=== PATIENT | male | born 1995 | race Caucasian/White ===

== ENCOUNTER → 2019-09-08 | Outpatient (CLI) | payer BC, OTHER, MEDICAID ==
--- NOTE | 2019-09-10 14:39 | ECGEPIP ---
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
== END ==
LOC: M LAB 15:22
PROVIDERS: ATTEND Family Medicine
DX: F11.90 Opioid use, unspecified, uncomplicated (principal)

== ENCOUNTER → 2019-09-08 | Outpatient (CLI) | payer BC, OTHER, MEDICAID | LOC: M LAB 15:16 | PROVIDERS: ATTEND Physician Assistant Medical | DX: Z02.2 Encounter for examination for admission to residential institution (principal) ==

== ENCOUNTER 2019-10-05 19:08 | Emergency (ER) | payer BC, OTHER, MEDICAID ==
[~2019-10-05] VITALS: Ht 188 cm; Wt 90.9 kg
[2019-10-05] MEDS ORDERED: BACL5TAB2 PO (19:15)
[2019-10-05] MEDS ORDERED: SUBO12MI SL (19:15)
[2019-10-05] MEDS ORDERED: WELLTAB38 PO (19:15)
[2019-10-05] MEDS ORDERED: RITA5TAB PO (19:15)
[2019-10-05] MEDS ORDERED: NS 1,000 ML IV ONE (19:45)
[2019-10-05] MEDS ORDERED: ALBUTEROL 90 MCG/ACT 8GM HFA INHALER INH ONE (19:45)
[2019-10-05] MEDS ORDERED: methylPREDNISolone INJ 125 MG/2 ML VIAL (J2930) IV ONE (19:45)
--- NOTE | 2019-10-05 20:51 | REP ---
CHEST, SINGLE VIEW: There is no evidence of acute infiltrate. No pleural effusion is seen. The heart is normal in size. The mediastinal silhouette is unremarkable. The visualized osseous structures are intact. IMPRESSION: No acute pulmonary disease. Electronically Signed by Chaim Ludwig MD 10/06/2019 10:32 A
[2019-10-05 21:04] LABS: AMPHETAMINES LEVEL URINE NEGATIVE (NEGATIVE); BARBITURATES URINE NEGATIVE (NEGATIVE); BENZODIAZEPINES URINE NEGATIVE (NEGATIVE); CANNABINOIDS URINE NEGATIVE (NEGATIVE); COCAINE METABOLITE URINE NEGATIVE (NEGATIVE); METHADONE URINE NEGATIVE (NEGATIVE); OPIATES URINE NEGATIVE (NEGATIVE); PHENCYCLIDINE URINE NEGATIVE (NEGATIVE)
[2019-10-05 21:11] LABS: BASO % 0.5 % (0.0-1.0); EOS # 0.2 10^3/uL (0.0-0.5); EOS % 3.4 % (0.0-3.0); HEMOGLOBIN 16.7 g/dl (13.5-17.5); LYMPH # 1.7 10^3/uL (1.5-5.0); LYMPH % 27.9 % (24.0-44.0); MEAN CORPUSCULAR HEMOGLOBIN 31.2 pg (27.0-33.0); MEAN CORPUSCULAR HGB CONC 34.1 g/dl (32.0-36.5); MEAN CORPUSCULAR VOLUME 91.6 fl (80.0-96.0); MONO # 0.6 10^3/uL (0.0-0.8); NEUTROPHILS # 3.6 10^3/uL (1.5-8.5); NEUTROPHILS % 57.7 % (36.0-66.0); PLATELET COUNT, AUTOMATED 272 10^3/uL (150-450); RED BLOOD COUNT 5.35 10^6/uL (4.30-6.10); WHITE BLOOD COUNT 6.2 10^3/uL (4.0-10.0)
[2019-10-05 21:37] LABS: BLOOD UREA NITROGEN 17 MG/DL (7-18); CALCIUM LEVEL 10.1 MG/DL (8.5-10.1); CARBON DIOXIDE LEVEL 31 MEQ/L (21-32); CHLORIDE LEVEL 105 MEQ/L (98-107); CK-MB VALUE MASS 1.6 NG/ML (<3.6); CPK CREATINE PHOSPHOKINASE 130 U/L (39-308); GLOMERULAR FILTRATION RATE > 60.0 (>60); GLUCOSE, FASTING 90 MG/DL (70-100); MB/CK RELATIVE INDEX 1.23 (< OR =4); POTASSIUM SERUM 4.2 MEQ/L (3.5-5.1); SODIUM LEVEL 140 MEQ/L (136-145); TROPONIN I < 0.02 NG/ML (< 0.10)
[2019-10-05] MEDS ORDERED: EPIP0.3I2 IM (21:49)
[2019-10-05 22:40] VITALS: BP 139/75
--- NOTE | 2019-10-06 01:23 | ECGEPIP ---
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
== END 2019-10-05 22:43 | disposition home or self-care (01) ==
LOC: M ED 19:08
DX: R07.89 Other chest pain (principal); R21 Rash and other nonspecific skin eruption; R06.2 Wheezing; T78.1XXA Other adverse food reactions, not elsewhere classified, initial encounter; Y92.89 Other specified places as the place of occurrence of the external cause; B19.20 Unspecified viral hepatitis C without hepatic coma; Z79.899 Other long term (current) drug therapy
CPT/HCPCS: 36415; 71045; 80048; 80307; 82550; 82553; 84484; 85025; 93005; 96374; 99284; J2930

== ENCOUNTER 2019-10-08 10:08 | Emergency (ER) | payer BC, OTHER, MEDICAID ==
[~2019-10-08] VITALS: Ht 188 cm; Wt 100.0 kg
[~2019-10-08 10:08] MED LIST: BACL5TAB2 PO; EPIP0.3I2 IM; RITA5TAB PO; SUBO12MI SL; WELLTAB38 PO
[2019-10-08] MEDS ORDERED: SERO200T PO (10:23)
[2019-10-08 11:08] LABS: BASO % 0.6 % (0.0-1.0); EOS # 0.1 10^3/uL (0.0-0.5); HEMATOCRIT 45.4 % (42.0-52.0); LYMPH # 1.8 10^3/uL (1.5-5.0); LYMPH % 38.1 % (24.0-44.0); MEAN CORPUSCULAR HEMOGLOBIN 30.8 pg (27.0-33.0); MEAN CORPUSCULAR VOLUME 93.2 fl (80.0-96.0); MONO # 0.5 10^3/uL (0.0-0.8); MONO % 11.4 % (0.0-5.0); NEUTROPHILS # 2.1 10^3/uL (1.5-8.5); NEUTROPHILS % 46.3 % (36.0-66.0); PLATELET COUNT, AUTOMATED 235 10^3/uL (150-450); RED BLOOD COUNT 4.87 10^6/uL (4.30-6.10); WHITE BLOOD COUNT 4.6 10^3/uL (4.0-10.0)
[2019-10-08 11:27] LABS: BLOOD UREA NITROGEN 14 MG/DL (7-18); CALCIUM LEVEL 8.9 MG/DL (8.5-10.1); CARBON DIOXIDE LEVEL 30 MEQ/L (21-32); CHLORIDE LEVEL 105 MEQ/L (98-107); CK-MB VALUE MASS 4.6 NG/ML (<3.6); CPK CREATINE PHOSPHOKINASE 117 U/L (39-308); CREATININE FOR GFR 1.04 MG/DL (0.70-1.30); GLOMERULAR FILTRATION RATE > 60.0 (>60); GLUCOSE, FASTING 115 MG/DL (70-100); MB/CK RELATIVE INDEX 3.93 (< OR =4); POTASSIUM SERUM 4.1 MEQ/L (3.5-5.1); SODIUM LEVEL 141 MEQ/L (136-145); TROPONIN I < 0.02 NG/ML (< 0.10)
[2019-10-08] MEDS ORDERED: ALBUTEROL 90 MCG/ACT 8GM HFA INHALER INH ONE (11:30)
--- NOTE | 2019-10-08 13:19 | REP ---
Portable chest: Single view. History: Left chest pain. Wheezing. Comparison study: October 05, 2019. Findings: Monitoring electrodes overlie the chest. Lungs are well inflated and clear. The pleural angles are sharp. Heart is not enlarged. Pulmonary vasculature is not increased. Impression: No active disease. Electronically Signed by Yusuf Bynum MD 10/08/2019 01:10 P
[2019-10-08] MEDS ORDERED: PRED20TA PO (13:23)
[2019-10-08] MEDS ORDERED: predniSONE 20 MG TAB PO ONE (13:30)
[2019-10-08 13:37] VITALS: BP 138/74
--- NOTE | 2019-10-08 14:31 | ECGEPIP ---
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 Order Number: [id number] Reading MD: Kayode Sauceda Measurements Intervals [place] Rate: 96 P: 52 [place]: 160 QRS: 81 QRSD: 98 T: 54 QT: 349 QTc: 441 Interpretive Statements SINUS RHYTHM SIMILAR TO 10/05/19 Electronically Signed on 10-08-2019 14:31:35 EDT by Kyaode Sauceda
== END 2019-10-08 13:55 | disposition home or self-care (01) ==
LOC: M ED 10:08
DX: J20.9 Acute bronchitis, unspecified (principal); H66.91 Otitis media, unspecified, right ear; B19.20 Unspecified viral hepatitis C without hepatic coma; F17.210 Nicotine dependence, cigarettes, uncomplicated; F11.11 Opioid abuse, in remission; Z79.899 Other long term (current) drug therapy
CPT/HCPCS: 36415; 71045; 80048; 82550; 82553; 84484; 85025; 85379; 93005; 93041; 94760; 99285; U0002

== ENCOUNTER 2019-10-11 15:13 | Emergency (ER) | payer BC, OTHER, MEDICAID ==
[~2019-10-11] VITALS: Ht 188 cm; Wt 98.5 kg
[~2019-10-11 15:13] MED LIST changes: +PRED20TA PO; +SERO200T PO
[2019-10-11] MEDS ORDERED: NS 1,000 ML IV ONE (16:00)
[2019-10-11] MEDS ORDERED: KETOROLAC 30 MG/ML VIAL (J1885) IV ONE (16:00)
[2019-10-11] MEDS ORDERED: ALBUTEROL 90 MCG/ACT 8GM HFA INHALER INH ONE (16:00)
[2019-10-11] MEDS ORDERED: dexameTHASONE 20MG/5ML VIAL (J1100 PER 1MG) IV ONE (16:15)
[2019-10-11 16:48] LABS: BASO # 0.1 10^3/uL (0.0-0.2); BASO % 0.5 % (0.0-1.0); HEMOGLOBIN 15.3 g/dl (13.5-17.5); LYMPH # 2.4 10^3/uL (1.5-5.0); LYMPH % 19.2 % (24.0-44.0); MEAN CORPUSCULAR HEMOGLOBIN 30.4 pg (27.0-33.0); MEAN CORPUSCULAR HGB CONC 33.3 g/dl (32.0-36.5); MEAN CORPUSCULAR VOLUME 91.3 fl (80.0-96.0); MONO # 1.2 10^3/uL (0.0-0.8); MONO % 9.4 % (0.0-5.0); NEUTROPHILS # 8.8 10^3/uL (1.5-8.5); NEUTROPHILS % 69.1 % (36.0-66.0); PLATELET COUNT, AUTOMATED 299 10^3/uL (150-450); RED BLOOD COUNT 5.04 10^6/uL (4.30-6.10); WHITE BLOOD COUNT 12.7 10^3/uL (4.0-10.0)
[2019-10-11 17:03] LABS: INR 0.96; PROTHROMBIN TIME 12.5 SECONDS (11.8-14.0)
[2019-10-11 17:04] LABS: PARTIAL THROMBOPLASTIN TIME 20.9 SECONDS (25.0-38.4)
[2019-10-11 17:06] LABS: D-DIMER QUANT 365.8 ng/ml (<500)
[2019-10-11 17:26] LABS: ALBUMIN 3.8 GM/DL (3.2-5.2); ALT/SGPT 575 U/L (12-78); BILIRUBIN,TOTAL 0.4 MG/DL (0.2-1.0); BLOOD UREA NITROGEN 22 MG/DL (7-18); CALCIUM LEVEL 8.6 MG/DL (8.5-10.1); CARBON DIOXIDE LEVEL 26 MEQ/L (21-32); CHLORIDE LEVEL 106 MEQ/L (98-107); CK-MB VALUE MASS < 1.0 NG/ML (<3.6); CPK CREATINE PHOSPHOKINASE 98 U/L (39-308); CREATININE FOR GFR 1.17 MG/DL (0.70-1.30); GLOMERULAR FILTRATION RATE > 60.0 (>60); GLUCOSE, FASTING 91 MG/DL (70-100); MB/CK RELATIVE INDEX 1.02 (< OR =4); POTASSIUM SERUM 5.4 MEQ/L (3.5-5.1); SODIUM LEVEL 136 MEQ/L (136-145); TOTAL PROTEIN 8.2 GM/DL (6.4-8.2); TROPONIN I < 0.02 NG/ML (< 0.10)
--- NOTE | 2019-10-11 17:29 | REP ---
HISTORY: Coronavirus workup. Patient is febrile. COMPARISON: Three days ago. The technique utilized in obtaining the radiograph has magnified the cardiac silhouette and accentuated the interstitial markings. The superior mediastinal structures are midline. The cardiac silhouette is unremarkable in size, shape, and position. The diaphragmatic surfaces of the lungs are regular, and the costophrenic angles are clear. The pulmonary zuñiga are clear. The imaged osseous structures are intact. IMPRESSION: There is no acute cardiopulmonary disease. Electronically Signed by Jordy Rios DO 10/12/2019 07:35 A
[2019-10-11 17:58] LABS: LIPASE < 10 U/L (73-393)
[2019-10-11] MEDS ORDERED: ISOVUE-370 76% 100ML VIAL (Q9967) As Ordered ONE (19:09)
--- NOTE | 2019-10-11 19:46 | REPVR ---
PROCEDURE INFORMATION: Exam: CT Angiography Chest With Contrast Exam date and time: 10/11/2019 7:15 PM Age: 23 years old Clinical indication: Chest pain and shortness of breath. TECHNIQUE: Imaging protocol: Computed tomographic angiography of the chest with intravenous contrast. 3D rendering: MIP reconstructed images were created by the technologist. Radiation optimization: All CT scans at this facility use at least one of these dose optimization techniques: automated exposure control; mA and/or kV adjustment per patient size (includes targeted exams where dose is matched to clinical indication); or iterative reconstruction. Contrast material: ISOVUE 370; Contrast volume: 100 ml; Contrast route: IV; COMPARISON: [facility] PORTABLE CHEST X-RAY 10/11/2019 4:02 PM FINDINGS: Pulmonary arteries: No pulmonary embolism. Great vessels off aortic arch: The brachiocephalic artery, imaged proximal portion of the left common carotid artery, and left subclavian artery are intact. No stenosis or occlusion of these vessels is noted. Aorta: There is no thoracic aortic aneurysm, pseudoaneurysm, penetrating atherosclerotic ulcer, intramural hematoma, or dissection. Tracheobronchial tree: Patent. Lungs: The lungs are clear. There is no lung consolidation, pulmonary infarct, or mass. No emphysematous changes or interstitial lung disease is noted. Pleural space: Normal. No pneumothorax. No pleural effusion. Heart: No cardiomegaly or pericardial effusion. The ratio of the diameter of the right ventricle to the diameter of the left ventricle measures less than 1, which is within normal limits and there is no evidence for a right ventricular strain. Mediastinum: No mediastinal mass, fluid collection, or pneumomediastinum is noted. Diaphragm: Intact. Lymph nodes: No enlarged lymph nodes. Bones/joints: No fracture or dislocation is noted. There is no suspicious osteolytic or osteoblastic lesion. Incidental note is made of a small bone island in the T8 vertebral body. There are Schmorl's nodes in the inferior endplate of T5 and superior and inferior endplates of T6. Soft tissues: Unremarkable. No soft tissue fluid collection. Other findings: Refer to the CT abdomen and pelvis report on 10/11/2019 for details regarding the abdominal and pelvic findings. IMPRESSION: No acute findings in the chest. No pulmonary embolism. Electronically signed by: Moisés Hammonds On 10/11/2019 19:46:47 PM
--- NOTE | 2019-10-11 19:47 | REPVR ---
PROCEDURE INFORMATION: Exam: CT Abdomen And Pelvis With Contrast Exam date and time: 10/11/2019 7:15 PM Age: 23 years old Clinical indication: Abdominal pain; Additional info: Luq pain TECHNIQUE: Imaging protocol: Computed tomography of the abdomen and pelvis with intravenous contrast. Radiation optimization: All CT scans at this facility use at least one of these dose optimization techniques: automated exposure control; mA and/or kV adjustment per patient size (includes targeted exams where dose is matched to clinical indication); or iterative reconstruction. Contrast material: ISOVUE 370; Contrast volume: 100 ml; Contrast route: IV; COMPARISON: No relevant prior studies available. FINDINGS: Lungs: The imaged portions of the lung bases are clear. The lungs were not fully imaged. Refer to the CTA chest report on 10/11/2019 for details. Heart: No cardiomegaly or pericardial effusion. Diaphragm: Intact. Liver: Unremarkable. No liver lesion is identified. The contour of the liver is smooth. No hepatomegaly is noted. Gallbladder and bile ducts: No calcified gallstones are noted. No gallbladder wall thickening, pericholecystic fluid, or pericholecystic inflammatory changes are identified. No dilation of the intrahepatic or extrahepatic bile ducts is noted. Pancreas: Normal. No dilation of the main pancreatic duct is noted. There is no inflammatory fat stranding around the pancreas to suggest acute pancreatitis. Spleen: The spleen is heterogeneous in appearance, which is likely secondary to the arterial timing of the contrast bolus. No splenomegaly. Adrenals: Normal. No adrenal mass is noted. Kidneys and ureters: The kidneys are normal in appearance. No renal lesion is identified. No calculi are seen in the kidneys or ureters. There is no hydronephrosis or hydroureter. There are no wedge-shaped areas of low attenuation in the kidneys to suggest pyelonephritis. There is no renal abscess or perinephric fluid collection. Stomach and bowel: There is thickening of the wall of the stomach, which may be secondary to its decompressed state versus gastritis. The small bowel is unremarkable. There is no evidence for a bowel obstruction, diverticulosis, diverticulitis, colitis, perforated viscus, pneumatosis intestinalis, intussusception, or volvulus. There is a large amount of formed stool in the cecum, ascending colon, and transverse colon. There is a mild amount of formed stool in the descending colon and rectosigmoid. Appendix: There are no findings to suggest acute appendicitis. Intraperitoneal space: No free air. No fluid collection. Retroperitoneal space: No fluid collection. No mass. Vasculature: The portal veins, splenic vein, superior mesenteric vein, inferior mesenteric vein, and renal veins are patent. The abdominal aorta is patent, normal in caliber, and there is no dissection. The iliac arteries, common femoral arteries, renal arteries, celiac artery, superior mesenteric artery, and inferior mesenteric artery are patent. Incidental note is made of small round calcifications in the pelvis, which are compatible with phleboliths. Lymph nodes: No enlarged lymph nodes. Bladder: The distended urinary bladder is normal in appearance. No stones or masses are seen in the bladder. Reproductive: The prostate gland and seminal vesicles are unremarkable. Bones/joints: No fracture or dislocation is noted. There is no suspicious osteolytic or osteoblastic lesion. There is a mild dextroscoliosis at the thoracolumbar junction. Soft tissues: Unremarkable. No hernia. No soft tissue fluid collection. IMPRESSION: 1. Thickening of the wall of the stomach, which may be secondary to its decompressed state versus gastritis. 2. Large amount of formed stool in the cecum, ascending colon, and transverse colon. No evidence for a bowel obstruction. Electronically signed by: Moisés Hammonds On 10/11/2019 19:47:24 PM
[2019-10-11] MEDS ORDERED: GOLYLQ PO (20:58)
[2019-10-11] MEDS ORDERED: SENO8.6T10 PO (20:58)
[2019-10-11] MEDS ORDERED: MIRA3350 PO (20:58)
[2019-10-11 21:04] VITALS: BP 155/82
--- NOTE | 2019-10-12 08:33 | ECGEPIP ---
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
--- NOTE | 2019-10-14 14:16 | ED PDOC ---
Post-Departure Follow-Up ct abd/p faxed to gautam young for fu Ivon Adorno MD Oct 14, 2019 14:16
== END 2019-10-11 21:12 | disposition home or self-care (01) ==
LOC: M ED 15:13
DX: R07.9 Chest pain, unspecified (principal); R94.5 Abnormal results of liver function studies; B19.9 Unspecified viral hepatitis without hepatic coma; F17.200 Nicotine dependence, unspecified, uncomplicated; Z79.899 Other long term (current) drug therapy; Z79.52 Long term (current) use of systemic steroids
CPT/HCPCS: 71045; 71275; 74177; 80053; 82550; 82553; 83690; 84484; 85025; 85379; 85610; 85730; 86140; 87486; 87581; 87633; 87798; 93005; 94640; 96374; 96375; 99284; J1100; J1885; Q9967

== ENCOUNTER → 2019-10-13 | Outpatient (CLI) | payer BC, OTHER, MEDICAID ==
[~2019-10-13] MED LIST changes: +BUPR8SUB SL; +EPIP0.3I2 IJ; +GOLYLQ PO; +LACT10PA PO; +METH-1022 PO; +METH20TA31 PO; +MIRA3350 PO; +QUET100T2 PO; +SENN1TAB41 PO; +SENO8.6T10 PO; +WELLTAB40 PO
[2019-10-13 14:17] LABS: ALT/SGPT 406 U/L (12-78); BILIRUBIN,TOTAL 0.4 MG/DL (0.2-1.0); BLOOD UREA NITROGEN 22 MG/DL (7-18); CALCIUM LEVEL 8.8 MG/DL (8.5-10.1); CARBON DIOXIDE LEVEL 27 MEQ/L (21-32); CHLORIDE LEVEL 106 MEQ/L (98-107); GLOMERULAR FILTRATION RATE > 60.0 (>60); GLUCOSE, FASTING 90 MG/DL (70-100); POTASSIUM SERUM 3.6 MEQ/L (3.5-5.1); SODIUM LEVEL 140 MEQ/L (136-145); TOTAL PROTEIN 7.8 GM/DL (6.4-8.2)
== END ==
LOC: M LAB 13:13
PROVIDERS: ATTEND Physician Assistant Medical
DX: B18.2 Chronic viral hepatitis C (principal)

== ENCOUNTER 2019-10-14 12:54 | Emergency (ER) | payer BC, OTHER, MEDICAID ==
[~2019-10-14] VITALS: Ht 188 cm; Wt 100.0 kg
[~2019-10-14 12:54] MED LIST changes: -BUPR8SUB SL; -EPIP0.3I2 IJ; -LACT10PA PO; -METH-1022 PO; -METH20TA31 PO; -QUET100T2 PO; -SENN1TAB41 PO; -WELLTAB40 PO
[2019-10-14 14:16] LABS: HEMATOCRIT 50.4 % (42.0-52.0); HEMOGLOBIN 16.8 g/dl (13.5-17.5); MEAN CORPUSCULAR HEMOGLOBIN 30.5 pg (27.0-33.0); MEAN CORPUSCULAR HGB CONC 33.3 g/dl (32.0-36.5); MEAN CORPUSCULAR VOLUME 91.6 fl (80.0-96.0); PLATELET COUNT, AUTOMATED 299 10^3/uL (150-450); WHITE BLOOD COUNT 9.7 10^3/uL (4.0-10.0)
[2019-10-14 14:48] LABS: AMPHETAMINES LEVEL URINE NEGATIVE (NEGATIVE); BARBITURATES URINE NEGATIVE (NEGATIVE); BENZODIAZEPINES URINE NEGATIVE (NEGATIVE); CANNABINOIDS URINE NEGATIVE (NEGATIVE); COCAINE METABOLITE URINE NEGATIVE (NEGATIVE); METHADONE URINE NEGATIVE (NEGATIVE); OPIATES URINE NEGATIVE (NEGATIVE); PHENCYCLIDINE URINE NEGATIVE (NEGATIVE)
[2019-10-14 14:52] LABS: ATYPICAL LYMPH 17 % (0-5); BASOPHILS 1 % (0-1); EOSINOPHILS 1 % (0-3); LYMPHOCYTES 42 % (16-44); MONOCYTES 4 % (0-5); NEUTROPHILS 35 % (28-66)
[2019-10-14 14:53] LABS: PLATELET ESTIMATE NORMAL (NORMAL)
[2019-10-14 14:56] LABS: ALBUMIN 4.5 GM/DL (3.2-5.2); ALT/SGPT 488 U/L (12-78); BILIRUBIN,DIRECT 0.1 MG/DL (0.0-0.2); BILIRUBIN,TOTAL 0.6 MG/DL (0.2-1.0); BLOOD UREA NITROGEN 21 MG/DL (7-18); CALCIUM LEVEL 9.6 MG/DL (8.5-10.1); CARBON DIOXIDE LEVEL 30 MEQ/L (21-32); CHLORIDE LEVEL 102 MEQ/L (98-107); CK-MB VALUE MASS < 1.0 NG/ML (<3.6); CPK CREATINE PHOSPHOKINASE 85 U/L (39-308); CREATININE FOR GFR 1.12 MG/DL (0.70-1.30); GLOMERULAR FILTRATION RATE > 60.0 (>60); GLUCOSE, FASTING 71 MG/DL (70-100); LIPASE 28 U/L (73-393); MB/CK RELATIVE INDEX 1.18 (< OR =4); POTASSIUM SERUM 4.1 MEQ/L (3.5-5.1); SODIUM LEVEL 137 MEQ/L (136-145); TROPONIN I < 0.02 NG/ML (< 0.10)
[2019-10-14] MEDS ORDERED: NS 1,000 ML IV ONE ×2 (15:30→15:45)
[2019-10-14] MEDS ORDERED: KETOROLAC 30 MG/ML VIAL (J1885) IV ONE (15:30)
[2019-10-14] MEDS ORDERED: LACTULOSE 20 GM/30 ML SYRUP UD PO ONE (15:30)
[2019-10-14] MEDS ORDERED: SENN1TAB41 PO (16:02)
[2019-10-14] MEDS ORDERED: QUET100T2 PO (16:02)
[2019-10-14] MEDS ORDERED: BUPR8SUB SL (16:02)
[2019-10-14] MEDS ORDERED: EPIP0.3I2 IJ (16:02)
[2019-10-14] MEDS ORDERED: METH20TA31 PO (16:05)
[2019-10-14] MEDS ORDERED: METH-1022 PO (16:05)
[2019-10-14] MEDS ORDERED: WELLTAB40 PO (16:05)
--- NOTE | 2019-10-14 17:24 | REP ---
ABDOMINAL SERIES: Supine and erect views of the abdomen demonstrate no free air. There is mild distention of the stomach, colon and small bowel throughout the upper abdomen. There is air scattered throughout the left and rectosigmoid colon. The findings suggest a possible upper abdominal ileus. There is no definite evidence for obstruction. There appear to be a could of tiny phleboliths in the right pelvis. A PA view of the chest demonstrates no acute infiltrate. Heart and mediastinum are within normal limits. IMPRESSION: Mild distention of bowel in the upper abdomen may represent an ileus. No free air and no definite evidence for obstruction. Electronically Signed by Chaim Ludwig MD 10/15/2019 09:32 A
[2019-10-14 17:33] VITALS: BP 151/74
--- NOTE | 2019-10-14 17:44 | REPVR ---
PROCEDURE INFORMATION: Exam: CT Abdomen And Pelvis Without Contrast Exam date and time: 10/14/2019 3:59 PM Age: 23 years old Clinical indication: Abdominal pain; Generalized; Additional info: Diffuse abd pain TECHNIQUE: Imaging protocol: Computed tomography of the abdomen and pelvis without contrast. Radiation optimization: All CT scans at this facility use at least one of these dose optimization techniques: automated exposure control; mA and/or kV adjustment per patient size (includes targeted exams where dose is matched to clinical indication); or iterative reconstruction. COMPARISON: CT ABD/PEL W/IV CONTRAST ONLY 10/11/2019 7:12 PM FINDINGS: Liver: Normal. No mass. Gallbladder and bile ducts: Normal. No calcified stones. No ductal dilation. Pancreas: Normal. No ductal dilation. Spleen: Normal. No splenomegaly. Adrenals: Normal. No mass. Kidneys and ureters: Normal. No hydronephrosis. Stomach and bowel: Features suggestive of an acute enteritis versus enterocolitis. There is excessive fluid present in the mid to distal small bowel together with liquid stool in the proximal large bowel. Air-fluid levels are present but most are relatively non-differential. No evidence of bowel obstruction. No free intraperitoneal air or fluid. Small shotty lymph nodes are seen in the small bowel mesentery, only. The likely cause for the findings is an acute enteritis with a diarrheal component versus a mild acute enterocolitis. No areas of severe mucosal thickening seen in either the small bowel or large bowel. A moderate amount of desiccated stool is seen in the distal large bowel suggestive of some degree of colonic stasis. Appendix: No evidence of appendicitis. Vasculature: Unremarkable. No abdominal aortic aneurysm. Lymph nodes: No significant retroperitoneal lymphadenopathy. Bladder: Unremarkable as visualized. Reproductive: Unremarkable as visualized. Bones/joints: Unremarkable. No acute fracture. Soft tissues: Unremarkable. IMPRESSION: Features suggestive of an acute enteritis versus enterocolitis. There is excessive fluid present in the mid to distal small bowel together with liquid stool in the proximal large bowel. Air-fluid levels are present but most are relatively non-differential. No evidence of bowel obstruction. No free intraperitoneal air or fluid. Small shotty lymph nodes are seen in the small bowel mesentery, only. The likely cause for the findings is an acute enteritis with a diarrheal component versus a mild acute enterocolitis. No areas of severe mucosal thickening seen in either the small bowel or large bowel. A moderate amount of desiccated stool is seen in the distal large bowel suggestive of some degree of colonic stasis. Electronically signed by: Charlie Davalos On 10/14/2019 17:44:20 PM
[2019-10-14] MEDS ORDERED: LACT10PA PO (17:57)
[2019-10-14] MEDS ORDERED: MAGNESIUM CITRATE 300 ML BTL PO ONE (18:00)
--- NOTE | 2019-10-15 12:26 | ECGEPIP ---
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
== END 2019-10-14 18:06 | disposition home or self-care (01) ==
LOC: M ED 12:54
DX: K59.00 Constipation, unspecified (principal); E86.0 Dehydration; B19.20 Unspecified viral hepatitis C without hepatic coma; K52.9 Noninfective gastroenteritis and colitis, unspecified; Z79.899 Other long term (current) drug therapy; Z79.891 Long term (current) use of opiate analgesic; F17.210 Nicotine dependence, cigarettes, uncomplicated
CPT/HCPCS: 74021; 74176; 80048; 80076; 80307; 81001; 82550; 82553; 83605; 83690; 84484; 85025; 93005; 96361; 96374; 99284; J1885

== ENCOUNTER → 2020-02-22 | Outpatient (CLI) | payer BC, OTHER, MEDICAID ==
[~2020-02-22] MED LIST changes: +BACT800T5 PO; +BUPR8SUB SL; +EPIP0.3I2 IJ; +LACT10PA PO; +METH-1022 PO; +METH20TA31 PO; +PAXI20TA29 PO; +QUET100T2 PO; +SENN1TAB41 PO; +WELLTAB40 PO
[2020-04-03 11:26] LABS: ALT/SGPT 160 U/L (12-78); BILIRUBIN,TOTAL 0.3 MG/DL (0.2-1.0); BLOOD UREA NITROGEN 14 MG/DL (7-18); CALCIUM LEVEL 9.3 MG/DL (8.5-10.1); CARBON DIOXIDE LEVEL 28 MEQ/L (21-32); CHLORIDE LEVEL 106 MEQ/L (98-107); CREATININE FOR GFR 1.09 MG/DL (0.70-1.30); GLOMERULAR FILTRATION RATE > 60.0 (>60); GLUCOSE, FASTING 111 MG/DL (70-100); HEPATITIS B SURFACE ANTIGEN NEGATIVE (NEGATIVE); HEPATITIS C VIRUS ABY INDEX > 11.0 INDEX (<0.8); HIV 1&2 SCREEN CENTAUR NEGATIVE (NEGATIVE); SODIUM LEVEL 138 MEQ/L (136-145); TOTAL PROTEIN 7.6 GM/DL (6.4-8.2)
[2020-04-04 10:56] LABS: CHLAMYDIA DNA AMPLIFICATION NEGATIVE (NEGATIVE); GC DNA AMPLIFICATION NEGATIVE (NEGATIVE)
[2020-04-10 21:57] LABS: HEMATOCRIT 44.2 % (42.0-52.0); HEMOGLOBIN 14.6 g/dl (13.5-17.5); MEAN CORPUSCULAR HEMOGLOBIN 30.6 pg (27.0-33.0); MEAN CORPUSCULAR VOLUME 92.7 fl (80.0-96.0); PLATELET COUNT, AUTOMATED 257 10^3/uL (150-450); RED BLOOD COUNT 4.77 10^6/uL (4.30-6.10); WHITE BLOOD COUNT 6.3 10^3/uL (4.0-10.0)
== END ==
LOC: M LAB 10:40
PROVIDERS: ATTEND Family Medicine
DX: F11.10 Opioid abuse, uncomplicated (principal)

== ENCOUNTER 2020-02-23 11:28 | Emergency (ER) | payer BC, OTHER, MEDICAID ==
[~2020-02-23] VITALS: Ht 188 cm; Wt 103.7 kg
[~2020-02-23 11:28] MED LIST changes: -BACT800T5 PO; -PAXI20TA29 PO
[2020-02-23] MEDS ORDERED: PAXI20TA29 PO (11:38)
[2020-02-23 15:02] LABS: BASO # 0.1 10^3/uL (0.0-0.2); BASO % 0.5 % (0.0-1.0); EOS # 0.2 10^3/uL (0.0-0.5); EOS % 1.2 % (0.0-3.0); HEMATOCRIT 42.7 % (42.0-52.0); HEMOGLOBIN 14.6 g/dl (13.5-17.5); LYMPH # 1.6 10^3/uL (1.5-5.0); LYMPH % 12.5 % (24.0-44.0); MEAN CORPUSCULAR HEMOGLOBIN 30.9 pg (27.0-33.0); MEAN CORPUSCULAR HGB CONC 34.2 g/dl (32.0-36.5); MEAN CORPUSCULAR VOLUME 90.3 fl (80.0-96.0); MONO # 0.9 10^3/uL (0.0-0.8); MONO % 7.2 % (0.0-5.0); NEUTROPHILS # 9.9 10^3/uL (1.5-8.5); PLATELET COUNT, AUTOMATED 264 10^3/uL (150-450); RED BLOOD COUNT 4.73 10^6/uL (4.30-6.10); WHITE BLOOD COUNT 12.7 10^3/uL (4.0-10.0)
[2020-02-23 15:07] LABS: INR 0.97; PROTHROMBIN TIME 13.1 SECONDS (11.8-14.0)
[2020-02-23 15:08] LABS: PARTIAL THROMBOPLASTIN TIME 30.1 SECONDS (25.0-38.4)
[2020-02-23 15:11] LABS: D-DIMER QUANT 416.41 ng/ml (<500)
--- NOTE | 2020-02-23 15:25 | REPVR ---
PROCEDURE INFORMATION: Exam: XR Chest, 2 Views Exam date and time: 02/23/2020 1:51 PM Age: 24 years old Clinical indication: Chest pain TECHNIQUE: Imaging protocol: XR of the chest Views: 2 views. COMPARISON: CR Abdomen,Flat Upright,PA CHEST 10/14/2019. FINDINGS: Lungs: The lungs are clear. Pleural space: No significant pleural effusion. No pneumothorax. Heart/Mediastinum: The cardiac silhouette is normal in size. The mediastinal contour is normal. Bones/joints: No acute osseous abnormalities are identified. Soft tissues: Unremarkable. IMPRESSION: No acute cardiopulmonary abnormality. No interval change when compared to most recent x-ray 4 months ago. Electronically signed by: Bishop Enriquez On 02/23/2020 15:25:31 PM
[2020-02-23 16:11] LABS: ERYTHROCYTE SEDIMENTATION RATE 5 mm/hr (0-15)
[2020-02-23 16:29] LABS: ALBUMIN 4.2 GM/DL (3.2-5.2); BILIRUBIN,DIRECT 0.1 MG/DL (0.0-0.2); BILIRUBIN,TOTAL 0.4 MG/DL (0.2-1.0); BLOOD UREA NITROGEN 15 MG/DL (7-18); C REACTIVE PROTEIN QUANTITATIV 1.25 MG/DL (0.00-0.30); CALCIUM LEVEL 9.3 MG/DL (8.5-10.1); CARBON DIOXIDE LEVEL 28 MEQ/L (21-32); CHLORIDE LEVEL 104 MEQ/L (98-107); CK-MB VALUE MASS 1.4 NG/ML (<3.6); CPK CREATINE PHOSPHOKINASE 106 U/L (39-308); CREATININE FOR GFR 1.06 MG/DL (0.70-1.30); GLOMERULAR FILTRATION RATE > 60.0 (>60); GLUCOSE, FASTING 86 MG/DL (70-100); MB/CK RELATIVE INDEX 1.32 (< OR =4); POTASSIUM SERUM 4.1 MEQ/L (3.5-5.1); SODIUM LEVEL 136 MEQ/L (136-145); TOTAL PROTEIN 8.3 GM/DL (6.4-8.2); TROPONIN I < 0.02 NG/ML (< 0.10)
[2020-02-23] MEDS ORDERED: ISOVUE-370 76% 100ML VIAL As Ordered ONE (16:44)
--- NOTE | 2020-02-23 17:21 | REPVR ---
PROCEDURE INFORMATION: Exam: CT Angiography Chest With Contrast Exam date and time: 02/23/2020 4:54 PM Age: 24 years old Clinical indication: Chest pain; Additional info: Right chest pain TECHNIQUE: Imaging protocol: Computed tomographic angiography of the chest with intravenous contrast. 3D rendering (Not supervised by radiologist): MIP and/or 3D reconstructed images were created by the technologist. Radiation optimization: All CT scans at this facility use at least one of these dose optimization techniques: automated exposure control; mA and/or kV adjustment per patient size (includes targeted exams where dose is matched to clinical indication); or iterative reconstruction. Contrast material: ISO 370; Contrast volume: 100 ml; Contrast route: INTRAVENOUS (IV); COMPARISON: CT ANGIO CHEST 10/11/2019 7:12 PM FINDINGS: Limitations: Breathing motion artifact in the mid and lower lung zuñiga obscures the lower lobe pulmonary arteries and decreases sensitivity for detection of subsegmental pulmonary emboli. Pulmonary arteries: There are no filling defects in the pulmonary arterial tree to suggest a pulmonary embolus. Aorta: Unremarkable. No aortic aneurysm. No aortic dissection. Thyroid: The thyroid gland is normal. Lungs: Unremarkable. No consolidation. No masses. Pleural space: Unremarkable. No pneumothorax. No pleural effusion. Heart: Unremarkable. No cardiomegaly. No pericardial effusion. Mediastinal space: The esophagus is normal. Lymph nodes: Unremarkable. No enlarged lymph nodes. Bones/joints: No acute fracture. Stable Schmorl nodes and bone island in the thoracic spine. Soft tissues: Unremarkable. Abdomen: Included upper abdominal structures appear normal. IMPRESSION: 1. No acute findings. 2. No pulmonary embolus. Electronically signed by: Bishpo Enriquez On 02/23/2020 17:21:42 PM
--- NOTE | 2020-02-23 17:32 | REPVR ---
PROCEDURE INFORMATION: Exam: CT Neck With Contrast Exam date and time: 02/23/2020 4:54 PM Age: 24 years old Clinical indication: Neck pain; Right chest pain TECHNIQUE: Imaging protocol: Computed tomography images of the neck with intravenous contrast. Radiation optimization: All CT scans at this facility use at least one of these dose optimization techniques: automated exposure control; mA and/or kV adjustment per patient size (includes targeted exams where dose is matched to clinical indication); or iterative reconstruction. Contrast material: ISO 370; Contrast volume: 100 ml; Contrast route: INTRAVENOUS (IV); COMPARISON: No relevant prior studies available. FINDINGS: Brain: The visualized brain is unremarkable. Orbits: No abnormalities identified. Mastoid air cells: Normally aerated. The mastoid air cells are clear. Sinuses: The visualized paranasal sinuses are clear. Nasopharynx: Normal. Oropharynx: No significant tonsillar enlargement. No peritonsillar abscess. Hypopharynx: Normal. Larynx: Normal. Retropharyngeal space: Normal. Salivary glands: The parotid and submandibular glands are unremarkable. Thyroid: The thyroid gland is normal. Lymph nodes: No cervical lymphadenopathy. Trachea: Normal. Lungs: The visible lung apices are clear. Bones/joints: No acute fracture. There is reversal of the normal cervical lordosis, which may be due to patient positioning, muscular spasm or ligamentous injury. Vasculature: Normal. Soft tissues: There is no evidence of abscess or focal fluid collection. IMPRESSION: 1. No acute findings. 2. Nonspecific reversal of the normal cervical lordosis. Electronically signed by: Bishop Enriquez On 02/23/2020 17:32:07 PM
[2020-02-23 18:45] LABS: AMPHETAMINES LEVEL URINE NEGATIVE (NEGATIVE); BARBITURATES URINE NEGATIVE (NEGATIVE); BENZODIAZEPINES URINE NEGATIVE (NEGATIVE); CANNABINOIDS URINE NEGATIVE (NEGATIVE); COCAINE METABOLITE URINE NEGATIVE (NEGATIVE); METHADONE URINE NEGATIVE (NEGATIVE); OPIATES URINE NEGATIVE (NEGATIVE); PHENCYCLIDINE URINE NEGATIVE (NEGATIVE)
[2020-02-23 19:44] VITALS: BP 128/72
--- NOTE | 2020-03-16 13:40 | ECGEPIP ---
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
== END 2020-02-23 19:46 | disposition home or self-care (01) ==
LOC: M ED 11:28
DX: M94.0 Chondrocostal junction syndrome [Tietze] (principal); R74.0 Nonspecific elevation of levels of transaminase and lactic acid dehydrogenase [LDH]; Z86.19 Personal history of other infectious and parasitic diseases; F19.11 Other psychoactive substance abuse, in remission; F34.1 Dysthymic disorder; Z87.448 Personal history of other diseases of urinary system
CPT/HCPCS: 36415; 70491; 71046; 71275; 80048; 80076; 80307; 82550; 82553; 84484; 85025; 85379; 85610; 85652; 85730; 86140; 87040; 87486; 87581; 87633; 87798; 87880; 93005; 99284; Q9967

== ENCOUNTER 2020-04-20 12:14 | Emergency (ER) | payer BC, OTHER, MEDICAID ==
[~2020-04-20] VITALS: Ht 188 cm; Wt 98.2 kg
[~2020-04-20 12:14] MED LIST changes: +PAXI20TA29 PO
[2020-04-20] MEDS ORDERED: SUBO12MI SL (12:25)
[2020-04-20 15:28] LABS: AMPHETAMINES LEVEL URINE NEGATIVE (NEGATIVE); BARBITURATES URINE NEGATIVE (NEGATIVE); BENZODIAZEPINES URINE NEGATIVE (NEGATIVE); CANNABINOIDS URINE NEGATIVE (NEGATIVE); COCAINE METABOLITE URINE NEGATIVE (NEGATIVE); METHADONE URINE NEGATIVE (NEGATIVE); OPIATES URINE NEGATIVE (NEGATIVE); PHENCYCLIDINE URINE NEGATIVE (NEGATIVE)
--- NOTE | 2020-04-20 16:01 | REPVR ---
PROCEDURE INFORMATION: Exam: US Left Non-Vascular Joint or Other Extremity Structure, Limited Lower Extremity Exam date and time: 04/20/2020 3:39 PM Age: 24 years old Clinical indication: Cellulitis; Knee; Left; Additional info: Swelling, firm area medial to knee TECHNIQUE: Imaging protocol: Left US joint or other nonvascular extremity structure or structures. Real-time ultrasound with image documentation. Limited study. Exam focused on the lower extremity in the region of clinical interest. COMPARISON: No relevant prior studies available. FINDINGS: Soft tissues: Several ill-defined hypoechoic areas deep to the thrombosed superficial vein and adjacent to its posterior wall are consistent with edema/fluid. The largest is only 11 x 7 x 6 mm (<0.3 mL). On color Doppler, there is no hypervascularity to suggest infection. Vasculature: At the area of interest, at the medial left knee, there is a thrombosed superficial vein. IMPRESSION: 1. Thrombus superficial vein with multifocal ill-defined adjacent edema/fluid. 2. On color Doppler, there is no hypervascularity to suggest infection. Electronically signed by: Bishop Enriquez On 04/20/2020 16:01:43 PM
[2020-04-20 16:21] LABS: BASO # 0.1 10^3/uL (0.0-0.2); BASO % 0.8 % (0.0-1.0); EOS # 0.2 10^3/uL (0.0-0.5); EOS % 2.4 % (0.0-3.0); HEMATOCRIT 42.4 % (42.0-52.0); HEMOGLOBIN 14.3 g/dl (13.5-17.5); LYMPH # 1.6 10^3/uL (1.5-5.0); LYMPH % 21.1 % (24.0-44.0); MEAN CORPUSCULAR HGB CONC 33.7 g/dl (32.0-36.5); MEAN CORPUSCULAR VOLUME 89.1 fl (80.0-96.0); MONO # 0.7 10^3/uL (0.0-0.8); MONO % 9.2 % (0.0-5.0); NEUTROPHILS # 4.9 10^3/uL (1.5-8.5); PLATELET COUNT, AUTOMATED 329 10^3/uL (150-450); RED BLOOD COUNT 4.76 10^6/uL (4.30-6.10); WHITE BLOOD COUNT 7.4 10^3/uL (4.0-10.0)
[2020-04-20 16:43] LABS: ERYTHROCYTE SEDIMENTATION RATE 9 mm/hr (0-15)
[2020-04-20 16:49] LABS: ALBUMIN 3.8 GM/DL (3.2-5.2); ALT/SGPT 127 U/L (12-78); BILIRUBIN,DIRECT 0.2 MG/DL (0.0-0.2); BILIRUBIN,TOTAL 0.5 MG/DL (0.2-1.0); BLOOD UREA NITROGEN 13 MG/DL (7-18); C REACTIVE PROTEIN QUANTITATIV 1.44 MG/DL (0.00-0.30); CALCIUM LEVEL 9.4 MG/DL (8.5-10.1); CARBON DIOXIDE LEVEL 27 MEQ/L (21-32); CHLORIDE LEVEL 105 MEQ/L (98-107); CREATININE FOR GFR 0.84 MG/DL (0.70-1.30); GLOMERULAR FILTRATION RATE > 60.0 (>60); GLUCOSE, FASTING 87 MG/DL (70-100); SODIUM LEVEL 140 MEQ/L (136-145); TOTAL PROTEIN 7.5 GM/DL (6.4-8.2)
[2020-04-20] MEDS ORDERED: BACT800T5 PO (18:25)
[2020-04-20 18:51] VITALS: BP 151/66
[2020-04-22 15:08] LABS: Lyme Disease IgG/IgM Antibodie <0.91 ISR (0.00-0.90); Lyme Disease IgM Ab Quantitati <0.80 index (0.00-0.79)
== END 2020-04-20 18:56 | disposition home or self-care (01) ==
LOC: M ED 12:14
DX: I80.02 Phlebitis and thrombophlebitis of superficial vessels of left lower extremity (principal); L03.116 Cellulitis of left lower limb; R21 Rash and other nonspecific skin eruption; Z86.14 Personal history of Methicillin resistant Staphylococcus aureus infection; R74.8 Abnormal levels of other serum enzymes; E16.2 Hypoglycemia, unspecified; F41.9 Anxiety disorder, unspecified; F32.9 Major depressive disorder, single episode, unspecified; K75.9 Inflammatory liver disease, unspecified; Z88.1 Allergy status to other antibiotic agents; Z79.899 Other long term (current) drug therapy; Z79.891 Long term (current) use of opiate analgesic

== ENCOUNTER 2020-06-22 11:33 | Emergency (ER) | payer BC, OTHER, MEDICAID ==
[~2020-06-22] VITALS: Ht 188 cm; Wt 91.1 kg
[2020-06-22 11:33] VITALS: BP 141/64
[~2020-06-22 11:33] MED LIST changes: +BACT800T5 PO; -EPIP0.3I2 IJ
[2020-06-22] MEDS ORDERED: METH1CHW2 PO (11:47)
[2020-06-22 12:47] LABS: AMPHETAMINES LEVEL URINE NEGATIVE (NEGATIVE); BARBITURATES URINE NEGATIVE (NEGATIVE); BENZODIAZEPINES URINE NEGATIVE (NEGATIVE); CANNABINOIDS URINE NEGATIVE (NEGATIVE); COCAINE METABOLITE URINE NEGATIVE (NEGATIVE); METHADONE URINE NEGATIVE (NEGATIVE); OPIATES URINE NEGATIVE (NEGATIVE); PHENCYCLIDINE URINE NEGATIVE (NEGATIVE)
[2020-06-22] MEDS ORDERED: METH1CAP4 PO (12:54)
[2020-06-22] MEDS ORDERED: METH5TAB76 PO (12:54)
[2020-06-22] MEDS ORDERED: BUPR450T PO (12:54)
[2020-06-22] MEDS ORDERED: MIRA3350 PO (12:54)
[2020-06-22] MEDS ORDERED: SUBO8MIS SL (12:56)
[2020-06-22] MEDS ORDERED: NICO-256 PO (12:56)
[2020-06-22 13:05] LABS: HEMOGLOBIN 12.9 g/dl (13.5-17.5); MEAN CORPUSCULAR HEMOGLOBIN 28.9 pg (27.0-33.0); MEAN CORPUSCULAR HGB CONC 33.1 g/dl (32.0-36.5); MEAN CORPUSCULAR VOLUME 87.2 fl (80.0-96.0); PLATELET COUNT, AUTOMATED 251 10^3/uL (150-450); RED BLOOD COUNT 4.47 10^6/uL (4.30-6.10); WHITE BLOOD COUNT 7.1 10^3/uL (4.0-10.0)
[2020-06-22] MEDS ORDERED: BUPRENORPHINE/NALOXONE 8-2MG SUBLINGUAL TABLET(SUBOXONE) SL ONE (13:30)
[2020-06-22 13:39] LABS: ACETAMINOPHEN LEVEL < 2.0 UG/ML (10.0-30.0); ALBUMIN 3.5 GM/DL (3.2-5.2); ALT/SGPT 119 U/L (12-78); BILIRUBIN,DIRECT 0.1 MG/DL (0.0-0.2); BILIRUBIN,TOTAL 0.4 MG/DL (0.2-1.0); BLOOD UREA NITROGEN 16 MG/DL (7-18); CALCIUM LEVEL 8.8 MG/DL (8.5-10.1); CARBON DIOXIDE LEVEL 27 MEQ/L (21-32); CHLORIDE LEVEL 103 MEQ/L (98-107); CREATININE FOR GFR 0.71 MG/DL (0.70-1.30); ETHYL ALCOHOL (ETHANOL) 0.006 % (0.000-0.010); GLOMERULAR FILTRATION RATE > 60.0 (>60); GLUCOSE, FASTING 98 MG/DL (70-100); SALICYLATE LEVEL < 1.7 MG/DL (5.0-30.0); SODIUM LEVEL 137 MEQ/L (136-145); TOTAL PROTEIN 7.1 GM/DL (6.4-8.2)
== END 2020-06-22 18:30 | disposition home or self-care (01) ==
LOC: M ED 11:33
DX: F32.9 Major depressive disorder, single episode, unspecified (principal); F19.10 Other psychoactive substance abuse, uncomplicated; B18.2 Chronic viral hepatitis C; Z79.899 Other long term (current) drug therapy; Z88.1 Allergy status to other antibiotic agents
CPT/HCPCS: 80048; 80076; 80307; 84443; 85027; 99284; G0480

== ENCOUNTER 2020-08-31 02:53 | Inpatient (IN) | payer BC, OTHER, MEDICAID ==
[~2020-08-31] VITALS: Ht 188 cm; Wt 77.1 kg
[~2020-08-31 02:53] MED LIST changes: +BUPR450T PO; +METH1CAP4 PO; +METH1CHW2 PO; +METH5TAB76 PO; +NICO-256 PO; +SUBO8MIS SL
--- OUTSIDE RECORDS SUMMARY | 2020-08-31 03:01 | CCD ---
Author Author [facility] Organization [facility] Address Unknown Phone Unavailable Care Team Providers Care Land Law Examiner Name Role Phone TURRIN, YAIR Unavailable Unavailable TURRIN, YAIR Unavailable Unavailable TURRIN, YAIR Unavailable Unavailable TURRIN, YAIR Unavailable Unavailable Elva Falanga, A Gunjan DEVELOPMENT SPECIALIST Unavailable Unavailable Elva Falanga, A Gunjan DEVELOPMENT SPECIALIST Unavailable Unavailable [place]mount Falanga, A Gunjan DEVELOPMENT SPECIALIST Unavailable Unavailable [place] Falanga, A Gunjan DEVELOPMENT SPECIALIST Unavailable Unavailable [place] Falanga, A Gunjan DEVELOPMENT SPECIALIST Unavailable Unavailable [place] Falanga, A Gunjan DEVELOPMENT SPECIALIST Unavailable Unavailable [place] Falanga, A Gunjan DEVELOPMENT SPECIALIST Unavailable Unavailable [place] Falanga, A Gunjan DEVELOPMENT SPECIALIST Unavailable Unavailable [place] Falanga, A Gunjan DEVELOPMENT SPECIALIST Unavailable Unavailable Elva Falanga, A Gunjan DEVELOPMENT SPECIALIST Unavailable Unavailable Elva Falanga, A Gunjan DEVELOPMENT SPECIALIST Unavailable Unavailable [place] Falanga, A Gunjan DEVELOPMENT SPECIALIST Unavailable Unavailable Elva Falanga, A Gunjan DEVELOPMENT SPECIALIST Unavailable Unavailable [place] Falanga, A Gunjan DEVELOPMENT SPECIALIST Unavailable Unavailable [place] Falanga, A Gunjan DEVELOPMENT SPECIALIST Unavailable Unavailable Elva Falanga, A Gunjan DEVELOPMENT SPECIALIST Unavailable Unavailable Elva Falanga, A Gunjan DEVELOPMENT SPECIALIST Unavailable Unavailable [place] Falanga, A Gunjan DEVELOPMENT SPECIALIST Unavailable Unavailable [place] Falanga, A Gunjan DEVELOPMENT SPECIALIST Unavailable Unavailable Elva Falanga, A Gunjan DEVELOPMENT SPECIALIST Unavailable Unavailable [place] Falanga, A Gunjan DEVELOPMENT SPECIALIST Unavailable Unavailable [place] Falanga, A Gunjan DEVELOPMENT SPECIALIST Unavailable Unavailable Elva Falanga, A Gunjan DEVELOPMENT SPECIALIST Unavailable Unavailable [place] Falanga, A Gunjan DEVELOPMENT SPECIALIST Unavailable Unavailable Elva Falanga, A Gunjan DEVELOPMENT SPECIALIST Unavailable Unavailable [place] Falanga, A Gunjan DEVELOPMENT SPECIALIST Unavailable Unavailable [place] Falanga, A Gunjan DEVELOPMENT SPECIALIST Unavailable Unavailable [place] Falanga, A Gunjan DEVELOPMENT SPECIALIST Unavailable Unavailable [place] Falanga, A Gunjan DEVELOPMENT SPECIALIST Unavailable Unavailable [place] Falanga, A Gunjan DEVELOPMENT SPECIALIST Unavailable Unavailable BRYDEN, A DAVIN DO Unavailable Unavailable BRYDEN, A DAVIN DO Unavailable Unavailable BRYDEN, A DAVIN DO Unavailable Unavailable BRYDEN, A DAVIN DO Unavailable Unavailable BRYDEN, A DAVIN DO Unavailable Unavailable BRYDEN, A DAVIN DO Unavailable Unavailable BRYDEN, A DAVIN DO Unavailable Unavailable BRYDEN, A DAVIN DO Unavailable Unavailable BRYDEN, A DAVIN DO Unavailable Unavailable BRYDEN, A DAVIN DO Unavailable Unavailable BRYDEN, A DAVIN DO Unavailable Unavailable BRYDEN, A DAVIN DO Unavailable Unavailable BRYDEN, A DAVIN DO Unavailable Unavailable BRYDEN, A DAVIN DO Unavailable Unavailable BRYDEN, A DAVIN DO Unavailable Unavailable BRYDEN, A DAVIN DO Unavailable Unavailable BRYDEN, A DAVIN DO Unavailable Unavailable BRYDEN, A DAVIN DO Unavailable Unavailable BRYDEN, A DAVIN DO Unavailable Unavailable BRYDEN, A DAVIN DO Unavailable Unavailable BRYDEN, A DAVIN DO Unavailable Unavailable BRYDEN, A DAVIN DO Unavailable Unavailable BRYDEN, A DAVIN DO Unavailable Unavailable BRYDEN, A DAVIN DO Unavailable Unavailable BRYDEN, A DAVIN DO Unavailable Unavailable BRYDEN, A DAVIN DO Unavailable Unavailable BRYDEN, A DAVIN DO Unavailable Unavailable BRYDEN, A DAVIN DO Unavailable Unavailable NO, PCP Unavailable Unavailable Re-disclosure Warning The records that you are about to access may contain information from federally-assisted alcohol or drug abuse programs. If such information is present, then the following federally mandated warning applies: This information has been disclosed to you from records protected by federal confidentiality rules (42 CFR part 2). The federal rules prohibit you from making any further disclosure of this information unless further disclosure is expressly permitted by the written consent of the person to whom it pertains or as otherwise permitted by 42 CFR part 2. A general authorization for the release of medical or other information is NOT sufficient for this purpose. The Federal rules restrict any use of the information to criminally investigate or prosecute any alcohol or drug abuse patient.The records that you are about to access may contain highly sensitive health information, the redisclosure of which is protected by Article 27-F of the [facility] Public Health law. If you continue you may have access to information: Regarding HIV / AIDS; Provided by facilities licensed or operated by the [facility] Office of Mental Health; or Provided by the [facility] Office for People With Developmental Disabilities. If such information is present, then the following [facility] mandated warning applies: This information has been disclosed to you from confidential records which are protected by state law. State law prohibits you from making any further disclosure of this information without the specific written consent of the person to whom it pertains, or as otherwise permitted by law. Any unauthorized further disclosure in violation of state law may result in a fine or mcfp sentence or both. A general authorization for the release of medical or other information is NOT sufficient authorization for further disc losure. Allergies and Adverse Reactions Type Description Substance Reaction Status Data Source(s ) ALLERGIES NOT ON FILE ALLERGIES NOT ON FILE Moran No Known Drug Allergies No Known Drug Allergies [facility] Encounters Encounter Providers Location Date Indications Data Source(s ) Outpatient 02/09/2020 04:39:00 PM EDT [facility] Outpatient Attender: Gunjan weinberg FNPAttender: YAIR Cobbsultant: PCP NO 02/09/2020 03:24:00 PM EDT - 02/11/2020 02:15:00 PM EDT [facility] Patient discharged. Outpatient FP 02/03/2020 09:15:01 AM EDT [facility] Outpatient FP 02/03/2020 09:14:00 AM EDT [facility] Outpatient Attender: DAVIN Daly/Zakia/Marvin/Wil ndl 10/21/2019 10:30:00 AM EDT [facility] Outpatient 10/20/2019 05:01:00 AM EDT [facility] Radiology Imaging Medications Medication Brand Name Start Date Product Form Dose Route Admi nistrative Instructions Pharmacy Instructions Status Indications Reaction Description Data Source(s) Suprep Bowel Prep Kit Suprep Bowel Prep Kit 10/21/2019 12:00:00 AM EDT [facility] Insurance Providers Payer name Policy type / Coverage type Policy ID Covered alliance party ID Covered alliance party's relationship to castro Policy Castro Plan Information EMEDNY [id number] SP [id number] [facility] [id number] FA2 [id number] BCBS EMPIRE [place] DIV [id number] FA2 [id number] MEDICAID M [id number] [facility] O [id number] S [id number] BCBS EMPIRE 12 [id number] Child [id number] [facility] EMPIRE 31 [id number] Child [id number] [place]ICAID [place] [id number] Self [id number] COMMERCIAL GENERIC [id number] Self [id number] [facility] EMPIRE FRIEND CROSS BLUE SHIELD -O/P [id number] MEDICAID -O/P [id number] MEDICAID [id number] SP [id number] BCBS EMPIRE [place]RI DIV [id number] FA2 [id number] Problems, Conditions, and Diagnoses Code Display Name Description Problem Type Effective Dates Data Source(s) 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, unspecified Inflammatory liver disease, unspecified Diagnosis 02/09/2020 03:24:00 PM EDT [facility] F341 Dysthymic disorder Dysthymic disorder Diagnosis 0 03:24:00 PM EDT [facility] F1120 Opioid dependence, uncomplicated Opioid dependen ce, uncomplicated Diagnosis 02/09/2020 03:24:00 PM EDT [facility] [id number] Cellulitis of left lower limb Cellulitis of left lower limb Diagnosis 02/09/2020 03:24:00 PM EDT [facility] [id number] Cellulitis of right lower limb Cellulitis of right low er limb Diagnosis 02/09/2020 03:24:00 PM EDT [facility] Results ID Date Data Source [id number] 07/11/2020 12:00:00 AM EST [facility] Name Value Range Interpretation Code Description Data Carlota rce(s) Supporting Document(s) SARS-CoV2 Rapid Antigen [facility] This lab was ordered by [facility] and reported by [facility]. ID Date Data Source [id number] 02/26/2020 02:05:00 AM EDT [facility] Name Value Range Interpretation Code Description Data Carlota rce(s) Supporting Document(s) HCV RNA FLORENC[place] Qualitative Positive Negative Abnormal (applies to non-numeric results) [facility] Positive: HCV RNA Detected ID Date Data Source [id number] 02/11/2020 09:15:00 AM EDT [facility] [address] [facility] [place] [address] RESPIRATORY CARE REPORT ==== ---------NAME------- NUMBER SEX AGE ADMIT DISC. XRAY# F/C TYPECLANCY YASMIN [id number] M 24 02/09/20097758 BB2 O/P DATE OF : 1995 M/R# [id number] #: [id number] LOCATION: EMERGENCY DEPT [facility] [address] [facility] TE:02/10/20 07:11 EWW [id number] PHYSICIAN: VENKATA ESTRADA Name Value Range Interpretation Code Description Data Carlota rce(s) Supporting Document(s) ID Date Data Source [id number] 02/11/2020 08:37:00 AM EDT [facility] Name Value Range Interpretation Code Description Data Carlota rce(s) Supporting Document(s) CBC W/AUTOMATED DIFF [facility] COMPLETE BLOOD COUNT Leukocytes [#/volume] in Blood by Automated count 8.5 10^3/uL 4.2 - 1 1.0 [facility] Erythrocytes [#/volume] in Blood by Automated count 3.98 10^6/uL 4. 50 - 6.30 L [facility] Hemoglobin [Mass/volume] in Blood 12.4 g/dL 14.0 - 16.0 L [facility] Hematocrit [Volume Fraction] of Blood by Automated count 36.7 % 4 1.0 - 51.0 L [facility] Erythrocyte mean corpuscular volume [Entitic volume] by Auto mated count 92.2 fL 80.0 - 94.0 [facility] Erythrocyte mean corpuscular hemoglobin [Entitic mass] by Automated count 31.2 pg 27.0 - 34.0 [facility] Erythrocyte mean corpuscular hemoglobin concentration [Mass/volume] by Automated count 33.8 g/dL 31.0 - 36.0 [facility] Erythrocyte distribution width [Ratio] by Automated count 12.5 % 11.5 - 14.8 [facility] Platelets [#/volume] in Blood by Automated count 215 10^3/uL 150 - 45 0 [facility] Platelet mean volume [Entitic volume] in Blood by Automated count 9.2 fL 7.4 - 10.4 [facility] Neutrophils/100 leukocytes in Blood by Automated count 53.7 % 37. 0 - 80.0 [facility] Lymphocytes/100 leukocytes in Blood by Manual count 31.9 % 25.0 - 40.0 [facility] Monocytes/100 leukocytes in Blood by Automated count 13.0 % 3.0 - 8.0 H [facility] Eosinophils/100 leukocytes in Blood by Automated count 0.7 % 0.0 - 7.0 [facility] Basophils/100 leukocytes in Blood by Automated count 0.2 % 0.0 - 2.0 [facility] %IG 0.5 % 0.0 - 0.[address] [facility] %NRBC 0.0 % 0.0 - 0.0 [facility] al Neutrophils [#/volume] in Blood by Automated count 4.57 10^3/uL 2.00 - 6.90 [facility] Lymphocytes [#/volume] in Blood by Automated count 2.72 10^3/uL 0.60 - 3.40 [facility] Monocytes [#/volume] in Blood by Automated count 1.11 10^3/uL 0.00 - 0.90 H [facility] Eosinophils [#/volume] in Blood by Automated count 0.06 10^3/uL 0.00 - 0.70 [facility] Basophils [#/volume] in Blood by Automated count 0.02 10^3/uL 0.00 - 0.20 [facility] #IG 0.04 10^3/uL 0.00 - 0.10 [facility] #NRBC 0.00 10^3/uL 0.00 - 0.00 [facility] ospital MANUAL DIFF SEE BELOW [facility] ital Segmented neutrophils/100 leukocytes in Blood by Manual count 55 % 37 - 80 [facility] %LYMPH 36 % 25 - 40 [facility] al %MONO 8 % 3 - 8 [facility] al %EOS 1 % 0 - 7 [facility] RBC MORPH NOT INDICATED [facility] spital ID Date Data Source [id number] 02/11/2020 08:11:00 AM EDT [facility] Name Value Range Interpretation Code Description Data Carlota rce(s) Supporting Document(s) BASIC METABOLIC PANEL [facility] BASIC METABOLIC PANEL Sodium [Moles/volume] in Serum or Plasma 143 mEq/L 134 - 153 [facility] Potassium [Moles/volume] in Serum or Plasma 4.0 mEq/L 3.6 - 5.0 [facility] Chloride [Moles/volume] in Serum or Plasma 110 mEq/L 98 - 107 H [facility] Carbon dioxide, total [Moles/volume] in Serum or Plasma 25 MEQ/L 22 - 30 [facility] Glucose [Mass/volume] in Serum or Plasma 97 MG/DL 65 - 110 [facility] BUN 20 MG/DL 7 - 21 [facility] al Creatinine [Mass/volume] in Serum or Plasma 0.9 MG/DL 0.7 - 1.5 [facility] BUN/CREAT 22 8 - 27 [facility] Calcium [Mass/volume] in Serum or Plasma 8.4 MG/DL 8.4 - 10.2 [facility] Anion gap 3 in Serum or Plasma 8.0 mmol/L 8.0 - 16.0 [facility] AGE 24 yrs [facility] AFR AMER GFR >60 mL/min [place] [facility] NON-AA GFR >60 mL/min [facility] ital Male GFR Inter prentation 20-49 yrs >60 mL/min Normal 50-59 yrs >56 mL/min Normal 60-69 yrs >49 mL/min Normal 70-79yrs >42 mL/min Normal 80 and above >35 mL/min Normal Female GFR Interpretation 20-39 yrs >60 mL/min Normal 40-49 yrs >58 mL/min Normal 50-59 yrs >51 mL/min Normal 60-69 yrs >45 mL/min Normal 70-79 yrs >39 mL/min Normal 80 and above >32 mL/min Normal ID Date Data Source [id number] 02/10/2020 02:29:00 PM EDT [facility] [address] [place] [address] PHONE: [phone] FAX: [phone] Name .................. : FREDAKeren HOFFMAN Acct Number.................. : [id number] ROOM. ................. : 103-1 Number ................... : [id number] Stay type ............. : O/P Discharge Date......... ... : Admit Date ......... : 02/09/20 Admit Phys .................... : ELVA-CHARLOTTE Date of ....... : 1995 Family Phys ................... : NO PCP Phone .................. : [phone] Age ................................ : 24 Film# .................. .:[id number] Sex ................................. : M Unsigned transcriptions are preliminary reports and do not represent a medical or legal document DOPPLER VENOUS BILAT LEG [id number] COMPLETE:02/09/20 18:22 ADB 19255 Reason(s): Pain, Limb BILATERAL LOWER E XTREMITY DUPLEX ULTRASOUND: INDICATION: Bilateral pain and swelling. Normal compressibility is demonstrated at bilateral common femoral, superficial femoral and popliteal veins without internal defects to suggest DVT. Normal color and spectral Doppler is demonstrated with augmentation. IMPRESSION: No DVT in bilateral common femoral veins to the popliteal veins. Electronically Reviewed and Signed By Leonid López M.D. , 02/10/20 14:29, [place] Transcribe Initials: STEPHEN , Transcribe Date: 02/10/20 02:36, Dictation Date: Copy for: EMERGENCY DEPT via modem Copy for: 710 MED REC Page 1 of 1 Name Value Range Interpretation Code Description Data Carlota rce(s) Supporting Document(s) ID Date Data Source [id number] 02/10/2020 01:57:00 [place] [address] PHONE: [phone] FAX: [phone] Name .................. : FREDA HOFFMAN Acct Number.................. : [id number] ROOM. ................. : 103-1 Number ................... : [id number] Stay type ............. : O/P Discharge Date......... ... : Admit Date ......... : 02/09/20 Admit Phys .................... : VENKATA Date of ....... : 1995 Family Phys ................... : NO PCP Phone .................. : [phone]/111/1111 Age ................................ : 24 Film# .................. .:[id number] Sex ................................. : M Unsigned transcriptions are preliminary reports and do not represent a medical or legal document CHEST PORTABLE [id number] COMPLETE:02/09/20 18:19 KBO 55250 Reason(s): Fever PORTABLE CHEST X-RAY: COMPARISON: None available. FINDINGS: There is no evidence of acute consolidation or congestive heart failure. The heart is not enlarged. There is no hilar adenopathy. The upper spine is angled and slightly rotated to the right. IMPRESSION: No evidence of significant acute pulmonary disease. Electronically Reviewed and Signed By Arthur Lennon MD , 02/10/20 13:57, [facility] Transcribe Initials: STEPHEN , Transcribe Date: 02/10/20 05:01, Dictation Date: Copy for: EMERGENCY DEPT [place] [facility] Copy for: 710 MED REC Page 1 of 1 Name Value Range Interpretation Code Description Data Carlota rce(s) Supporting Document(s) ID Date Data Source [id number] 02/10/2020 08:26:00 AM EDT [facility] Name Value Range Interpretation Code Description Data Carlota rce(s) Supporting Document(s) BASIC METABOLIC PANEL [facility] BASIC METABOLIC PANEL Sodium [Moles/volume] in Serum or Plasma 136 mEq/L 134 - 153 [facility] Potassium [Moles/volume] in Serum or Plasma 4.4 mEq/L 3.6 - 5.0 [facility] Chloride [Moles/volume] in Serum or Plasma 103 mEq/L 98 - 107 [facility] Carbon dioxide, total [Moles/volume] in Serum or Plasma 24 MEQ/L 22 - 30 [facility] Glucose [Mass/volume] in Serum or Plasma 122 MG/DL 65 - 110 H [facility] BUN 16 MG/DL 7 - [facility] Creatinine [Mass/volume] in Serum or Plasma 0.6 MG/DL 0.7 - 1.5 L [facility] BUN/CREAT 27 8 - 27 [facility] Calcium [Mass/volume] in Serum or Plasma 9.1 MG/DL 8.4 - 10.2 [facility] Anion gap 3 in Serum or Plasma 9.0 mmol/L 8.0 - 16.0 [facility] A[facility] [address] [facility] AMER GFR >60 mL/min [facility] NON-AA GFR >60 mL/min [facility] ital Male GFR Inter prentation 20-49 yrs >60 mL/min Normal 50-59 yrs >56 mL/min Normal 60-69 yrs >49 mL/min Normal 70-79yrs >42 mL/min Normal 80 and above >35 mL/min Normal Female GFR Interpretation 20-39 yrs >60 mL/min Normal 40-49 yrs >58 mL/min Normal 50-59 yrs >51 mL/min Normal 60-69 yrs >45 mL/min Normal 70-79 yrs >39 mL/min Normal 80 and above >32 mL/min Normal ID Date Data Source [id number] 02/10/2020 07:29:00 AM EDT [facility] Name Value Range Interpretation Code Description Data Carlota rce(s) Supporting Document(s) CBC W/AUTOMATED DIFF [facility] COMPLETE BLOOD COUNT Leukocytes [#/volume] in Blood by Automated count 10.9 10^3/uL 4.2 - 11.0 [facility] Erythrocytes [#/volume] in Blood by Automated count 4.33 10^6/uL 4. 50 - 6.30 L [facility] Hemoglobin [Mass/volume] in Blood 13.4 g/dL 14.0 - 16.0 L [facility] Hematocrit [Volume Fraction] of Blood by Automated count 39.2 % 4 1.0 - 51.0 L [facility] Erythrocyte mean corpuscular volume [Entitic volume] by Auto mated count 90.5 fL 80.0 - 94.0 [facility] Erythrocyte mean corpuscular hemoglobin [Entitic mass] by Automated count 30.9 pg 27.0 - 34.0 [facility] Erythrocyte mean corpuscular hemoglobin concentration [Mass/volume] by Automated count 34.2 g/dL 31.0 - 36.0 [facility] Erythrocyte distribution width [Ratio] by Automated count 11.9 % 11.5 - 14.8 [facility] Platelets [#/volume] in Blood by Automated count 238 10^3/uL 150 - 45 0 [facility] Platelet mean volume [Entitic volume] in Blood by Automated count 9.1 fL 7.4 - 10.4 [facility] Neutrophils/100 leukocytes in Blood by Automated count 85.9 % 37. 0 - 80.0 H [facility] Lymphocytes/100 leukocytes in Blood by Manual count 7.6 % 25.0 - 40.0 L [facility] Monocytes/100 leukocytes in Blood by Automated count 6.0 % 3.0 - 8.0 [facility] Eosinophils/100 leukocytes in Blood by Automated count 0.0 % 0.0 - 7.0 [facility] Basophils/100 leukocytes in Blood by Automated count 0.1 % 0.0 - 2.0 [facility] %IG 0.4 % 0.0 - 0.[address] %NRBC 0.0 % 0.0 - 0.0 [facility] al Neutrophils [#/volume] in Blood by Automated count 9.38 10^3/uL 2.00 - 6.90 H [facility] Lymphocytes [#/volume] in Blood by Automated count 0.83 10^3/uL 0.60 - 3.40 [facility] Monocytes [#/volume] in Blood by Automated count 0.66 10^3/uL 0.00 - 0.90 [facility] Eosinophils [#/volume] in Blood by Automated count 0.00 10^3/uL 0.00 - 0.70 [facility] Basophils [#/volume] in Blood by Automated count 0.01 10^3/uL 0.00 - 0.20 [facility] #IG 0.04 10^3/uL 0.00 - 0.10 [facility] #NRBC 0.00 10^3/uL 0.00 - 0.00 [facility] MANUAL DIFF NOT INDICATED [facility] RBC MORPH NOT INDICATED [facility] ID Date Data Source [id number] 02/09/2020 03:24:00 PM EDT [facility] 1 OrderSheet [facility] Emergency Department [address] [place] [address] Phone #: ext- [phone] 02/09/2020 15:24 Patient: YASMIN BARBA Sex: M : 1995 Age: 24yWEIGHT:95.2 kg (S) HEIGHT:74 inches (S) BMI:27.0ALLERGIES: No Known Drug AllergyCHIEF COMPLAINT: pain, swellingDIAGNOSIS: Anxiety, Cellulitis of skin, Drug abuse, Infestation by SarcoptesLAB ORDERSOrder Description Priority Entered Acknowledged InitialedCB w Diff STAT 16:15 02/09/2020 16:46 Yair Aragon ED, Jesse ER M.D.; Qolm0OLI STAT 16:15 02/09/2020 16:46 Yair Aragon ED, Jesse ER M.D.; Wmag3Cklgr Culture STAT 16:15 02/09/2020 16:46 Usymzfzi88a X2 (Yair Mccray ED, Jesse ER16:15 02/09/2020) Benson; Lztl9Ecqlw Culture STAT 16:15 02/09/2020 16:55 Zldmyphw69x X2 (Yair Mccray ED, Jesse ER16:25 02/09/2020Cayetano Knowles; Ucfd1Qqnqcy Acid STAT 16:18 02/09/2020 16:46 [place] Yair Sethi smocking machine operatorRoque M.D.; [id number] STAT 16:18 02/09/2020 16:46 [place] Yair Sethi smocking machine operatorRoque M.D.; [id number] STUDY ORDERSOrder Description Priority Entered Acknowledged InitialedUS Lower Ext STAT 16:15 02/09/2020 17:40 DorisVenous Bilateral Yair Sethi RN(Oxygen?(No)) Benson; Reason for Study: Pain, Limb, Swelling, LimbChest Portable 1 STAT 17:03 02/09/2020 17:30 [place] Yair Sethi R.N.(Oxygen?(No)) [place]; Reason for Study: FeverMEDICATION/IV/DRIP/FLUID ORDERS 2 OrderSheet [facility] Emergency Department [address] [place] [address] Phone #: [phone] 02/09/2020 15:24 Patient: YASMIN BARBA Sex: M : 1995 Age: 24yOrder Description Priority Entered Acknowledged InitialedNS IV 1000 mL 16:16 02/09/2020 17:41 DorisBolus: : Bolus 1000 Yair Sethi RNmL (X1) Benson;Clindamycin IVPB 16:16 02/09/2020 17:41 [id number] mg Yair Sethi RN, M.D.;Dilaudid IVP 1 mg 16:16 02/09/2020 Cancelled: Physician Order 16:35 Jossie,(HIGH ALERT Yair Sethi M.D.MEDICATION) Benson;Benadryl IVP 50 mg 16:19 02/09/2020 17:42 [place] Yair Sethi RN, M.D.;SOLU-Medrol 125 16:19 02/09/2020 17:43 Dorismg IV X1 Dose: 125 Yair Sethi RNmg (X1) MMarco;Ativan IVP 2 mg 16:36 02/09/2020 17:44 Ani(HIGH ALERT Yair Sethi RNMEDICATION) Benson;Toradol 15 mg IVP 16:36 02/09/2020 17:44 DorisX1 dose: 15 mg Yair Sethi RN(NOW x1) Benson;NS IV 1000 mL 16:39 02/09/2020 18:55 Sorbkalyani,Bolus: : Bolus 1000 Yair Sethi R.N.mL (X1) Benson;GENERAL ORDERSOrder Description Priority Entered Acknowledged InitialedEKG 16:38 02/09/2020 16:55 [place] Yair Sethi smocking machine operatorRoque M.D.; Tech1[Electronically signed by Corbin Montana R.N. (21:12 02/09/2020)][Electronically signed by Yair Sethi M.D. (21:16 02/09/2020)][Electronically locked by Corbin Montana R.N. (21:12 02/09/2020)] Name Value Range Interpretation Code Description Data Carlota rce(s) Supporting Document(s) ID Date Data Source [id number] 02/09/2020 03:24:00 PM EDT [facility] 1 Medication Reconciliation Report [facility] Emergency Department [address] [place] [address] Phone #: ext- [phone] 02/09/2020 15:24 Patient: YASMIN BARBA Sex: M : 1995 Age: 24yWeight: 95.2 kgHeight/Length: 74 in.BMI: 27.0ALLERGIES: No Known Drug AllergyThe patient's Home Medications are listed below:THE FOLLOWING MEDICATIONS NEED TO BE RECONCILED: buPROPion HCl ER (XL) Oral (300 mg) 1 tablet, daily Cephalexin Oral (500 mg) 1 capsule, 3x a day, started 01/31/20 Cetirizine HCl Oral (10 mg) 1 capsule, daily Methylphenidate HCl ER (CD) Oral (20 mg) 1 capsule, daily Methylphenidate HCl Oral (5 mg) 1 tablet, daily at noon Nicotine Polacrilex Mouth/Throat (4 mg) 1 piece, q2h, prn PARoxetine HCl Oral (20 mg) 1 tablet, daily predniSONE Oral (20 mg) 1 tablet, daily QUEtiapine Fumarate Oral (100 mg) 2 tablets, daily, at bedtime Senna Oral (8.6 mg) 1 capsule, 2x a day Suboxone Sublingual, dailyThe source(s) of the original Home Medication information:Not obtained.The following Medications were given to the patient in the Emergency Department:IV NS w/ bolus IV Fluids bolus 1000 mL over 1 hour(s), then 1000 mL/hr, administered: 02/09/2020 5:30:00PM 2 Medication Reconciliation Report [facility] Emergency Department [address] [place] [address] Phone #: ext- [phone] 02/09/2020 15:24 Patient: YASMIN BARBA Sex: M : 1995 Age: 24yClindamycin [IVPB] IVPB bolus 0, then 900 mg 100 mL/hr, administered: 02/09/2020 5:30:00 PMBenadryl [IVP] IVP 50 mg diluted in NS 10 mL, administered: 02/09/2020 5:30:00 PMSolu-Medrol [IVP] IVP 125 mg, administered: 02/09/2020 5:34:00 PMAtivan [IVP] IVP 2 mg diluted in NS 10 mL, administered: 02/09/2020 5:36:00 PMToradol [IVP] IVP 15 mg, administered: 02/09/2020 5:41:00 PMNS [IV] IV Fluids bolus 0, then 1500 mL/hr, administered: 02/09/2020 6:55:00 PMThe following Medications were prescribed to the patient:None. Name Value Range Interpretation Code Description Data Carlota rce(s) Supporting Document(s) ID Date Data Source [id number] 02/09/2020 03:24:00 PM EDT [facility] 1 Medication Administration Record [facility] Emergency Department [address] [place] [address] Phone #: ext- [phone] 02/09/2020 15:24 Patient: YASMIN BARBA Sex: M : 1995 Age: 24yWeight: 95.2 kgHeight/Length: 74 inBMI: 27ALLERGIES: No Known Drug Allergy Date/Time Medication Administered Medication OrderedStart IV NS W/ BOLUS NS IV 1000 mL Bolus: : Bolus [id number] 02/09/2020 Dose: IV Fluids mL (X1)Ani Aguero RN Rate: 1000 mL/hr over 1 hour(s)---- Bolus: 1000 mL over 1 hour(s)Stop Dispensed: 1000 mL bag18:54 02/09/2020 Site: #1 left upper armSCorbin bermudez RHerbertNHerbertStart CLINDAMYCIN [IVPB] Clindamycin IVPB 900 mg17:30 02/09/2020 Dose: 900 mg IVPBDoyohan Aguero RN Rate: 100 mL/hr over 30 minute(s)---- Dispensed: 50 mL bagStop Site: #1 left upper arm18:29 02/09/2020SoCorbin goel RHerbertNHerbertGiven BENADRYL [IVP] (DIPHENHYDRAMINE Benadryl IVP 50 mg17:30 02/09/2020 HCL)Ani Aguero RN Dose: 50 mg IVP In: NS 10 mL Site: #1 left upper armGiven SOLU-MEDROL [IVP] SOLU-Medrol 125 mg IV X1 Dose:17:34 02/09/2020 (METHYLPREDNISOLONE SODIUM 125 mg (X1)Ani Aguero RN SUCC) Dose: 125 mg IVP Site: #1 left upper armGiven ATIVAN [IVP] (LORAZEPAM) Ativan IVP 2 mg (HIGH ALERT17:36 02/09/2020 Dose: 2 mg IVP MEDICATION)Ani Aguero RN In: NS 10 mL Site: #1 left upper armGiven TORADOL [IVP] (KETOROLAC Toradol 15 mg IVP X1 dose: 15 mg17:41 02/09/2020 TROMETHAMINE) (NOW x1)Ani Aguero RN Dose: 15 mg IVP Site: #1 left upper armStart NS [IV] NS IV 1000 mL Bolus: : Bolus [id number] 02/09/2020 Dose: IV Fluids mL (X1)Corbin Montana RFaisal Rate: 1500 mL/hr over 40 minute(s)---- Dispensed: 1000 mL bagStop Site: #1 left upper arm19:54 02/09/2020SoCorbin goel RHerbertNHerbert Name Value Range Interpretation Code Description Data Carlota rce(s) Supporting Document(s) ID Date Data Source [id number] 02/09/2020 03:24:00 PM EDT [facility] 1 General Instructions [facility] Emergency Department [address] [place] [address] Phone #: ext- [phone] 02/09/2020 15:24 Patient: YASMIN BARBA Sex: M : 1995 Age: 24yCellulitis of the right ankle, right foot, left ankle and left foot.Anxiety reaction.Recovering substance abuse- heroin with anxiety.Diffuse Bed Bug Bites.(Electronically signed by Yair Sethi M.D. 02/09/2020 21:16) Name Value Range Interpretation Code Description Data Carlota rce(s) Supporting Document(s) ID Date Data Source [id number] 02/09/2020 03:24:00 PM EDT [facility] 1 Clinical Report - Nurses [facility] Emergency Department [address] [place] [address] Phone #: ext- [phone] 02/09/2020 15:24 Patient: YASMIN BARBA Sex: M : 1995 Age: 24yTRIAGE Arrived by EMS. Historian: patient. Triage time: 15:25 02/09/2020. Acuity: LEVEL 4. Chief Complaint: RIGHT LOWER EXTREMITY SWELLING, REDNESS and NUMBNESS. LEFT LOWER EXTREMITY SWELLING and REDNESS. 15:25 02/09/20. Alert. No acute distress. No injury occurred. This started last night. He has had a generalized skin rash with itching. Location- scalp, face, abdomen, right arm, right leg, right ankle, right foot, left arm, left leg, left ankle and left foot- 2 weeks ago, "on an antibiotic". 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 SEPSIS SCREEN: SIRS Screen negative. Sepsis Screen negative. Possible sources of infection: infection of skin and soft tissue. --15:39 02/09/20 Ani Aguero RN 15:32 02/09/20. BP: 107/85. MAP: 92. HR: 87. RR: 16. O2 saturation: 98%. Temp: 100.6 F. Pain level now: 6/10. Describes the quality as aching. It has been constant. Pain level at maximum: 7/10. No radiation noted. It is worsened by exertion and walking. It is relieved by rest. Relief was partial. --15:39 02/09/20 Ani Aguero RN. Weight: 95.2 kg stated. Height/Length: 74 inches Per Patient. BMI: 27. --15:24 02/09/20 Ani Aguero RN. Medications Methylphenidate HCl ER (CD) Oral (Capsule Extended Release 20 mg) 1 capsule, daily. --15:51 02/09/20 Ani Aguero RN Cephalexin Oral (Capsule 500 mg) 1 capsule, 3x a day (started 01/31/20). --15:52 02/09/20 Ani Aguero RN predniSONE Oral (Tablet 20 mg) 1 tablet, daily. --15:52 02/09/20 Ani Aguero RN Methylphenidate HCl Oral (Tablet 5 mg) 1 tablet, daily at noon. --15:53 02/09/20 Ani Aguero RN buPROPion HCl ER (XL) Oral (Tablet Extended Release 24 Hour 300 mg) 1 tablet, daily. --15:54 02/09/20 Ani Aguero RN QUEtiapine Fumarate Oral (Tablet 100 mg) 2 tablets, daily at bedtime. --15:55 02/09/20 Ani Aguero RN Senna Oral (Capsule 8.6 mg) 1 capsule, 2x a day. --15:55 02/09/20 Ani Aguero RN Nicotine Polacrilex Mouth/Throat (Lozenge 4 mg) 1 piece, q2h as needed. --15:56 02/09/20 Ani Aguero RN Cetirizine HCl Oral (Capsule 10 mg) 1 capsule, daily. --15:57 02/09/20 Ani Aguero RN 2 Clinical Report - Nurses [facility] Emergency Department [address] [place] [address] Phone #: ext- [phone] 02/09/2020 15:24 Patient: YASMIN BARBA Sex: M : 1995 Age: 24yPARoxetine HCl Oral (Tablet 20 mg) 1 tablet, daily. --15:58 02/09/20 DARRYN Eliasuboxone Sublingual, daily. --16:01 02/09/20 Ani Aguero RN.AllergiesNo Known Drug Allergy. --15:58 02/09/20 Ani Aguero RN.PROBLEMS:Depression.Anxiety Reaction.Hepatitis: (C). --16:01 02/09/20 DARRYN Eliasubstance Abuse: RuleOut. --18:39 02/09/20 Corbin Montana R.N.ADDITIONAL SURGERIES:Rhinoplasty. --16:02 02/09/20 Ani Aguero RN.Qfijvdl25:25 02/09/20.PAST MEDICAL HX: Tetanus status: up-to-date. Immunizations: up-to-date.SOCIAL HX: Former smoker, end date 2018. History of drug use. Is a recovering addict. (former Heroinuser on Suboxone). No alcohol us e. He was offered HIV testing but declined. Hepatitis C testingoffered to patient (History of Hepatitis C). He has not traveled outside the [place]Infectious disease exposure: No infectious disease exposure. The patient was exposed to Hepatitis C.Patient is a known carrier of hepatitis. (Denies contact with PUI for COVID-19, denies symptoms ofCOVID-19). Patient is not a known carrier of tuberculosis, HIV, MRSA, VRE or CRE.SELF HARM ASSESSMENT: Self harm assessment was performed. The patient answered "no" to thequestion(s) "Do you have thoughts of harming or killing yourself?" and "Have you recently had thoughtsabout harming or killing others?".ABUSE ASSESSMENT: Abuse assessment. The patient had positive responses to the question(s) "Do youfeel safe in your home?" (yes) and "Are you afraid to go home?" (No). Abuse denied. No report of abuse.NUTRITIONAL RISK ASSESSMENT: The nutritional risk assessment revealed no deficiencies.FUNCTIONAL ASSESSMENT: Functional assessment: no impairments noted.LEARNING NEEDS ASSESSMENT: The learning needs assessment revealed no barriers.FALL RISK ASSESSMENT: Fall risk assessment completed. Fall interventions initiated. Patient placed onstretcher. Side rails up x2. Bed in low position. Brakes on. Instructions given to patient including fallprevention information. Verbalizes understanding.SKIN INTEGRITY ASSESSMENT: Skin integrity risk assessment completed. No skin integrity risk 3 Clinical Report - Nurses [facility] Emergency Department [address] [place] [address] Phone #: ext- [phone] 02/09/2020 15:24 Patient: YASMIN BARBA Sex: M : 1995 Age: 24y identified. --15:39 02/09/20 Ani Aguero RN.PHYSICAL ASSESSMENT 15:30 02/09/20. GENERAL / NEURO / PSYCH: Oriented X 4. Alert. Appears in no acute distress. (twitching , itching scalp, face, abdomen). He is awake. He has constant numbness of the right foot. EXTREMITIES: Limited ROM present. Bilateral edema of the lower extremities involving both feet and both ankles. Extremity pulses are within normal limits. Pain with weight bearing. Right dorsal foot: tenderness and swelling. Limited movement secondary to pain (diminished plantar flexion). Left dorsal foot: tenderness, swelling and erythema. Limited movement secondary to pain. Left big toe: tenderness, swelling and erythema. SKIN: Skin intact. Skin is warm and dry. --15:44 02/09/20 Ani Aguero RN.NURSING PROGRESS NOTES 15:25 02/09/20. Two patient identifiers checked. Call light placed in reach. Side rails up x 2. Bed placed in lowest position. Brakes of bed on. Patient ready for evaluation- ED physician and PA notified. --15:44 02/09/20 Ani Aguero RN 15:25 02/09/20. ( EMS states bed bugs on stretcher linens when patient was transferred to ED stretcher). --15:45 02/09/20 Ani Aguero RN EKG time: (16:57 02/09/2020). EKG was performed by a tech and shown to the ED physician. --17:00 02/09/20 [place] smocking machine operatorRoque Carlos ER Tech1 17:30 02/09/2020 Site #1 started via IV in the left upper arm with an 22g angiocath, with aseptic technique and good blood return; two attempts. Saline lock flushed with 10 mL saline. --17:40 02/09/20 Ani Aguero RN 17:30 02/09/2020 Started bag #1 1000 mL IV Fluids IV NS w/ bolus; bolus of 1000 mL over 1 hour(s) then at 1000 mL/hr over 1 hour(s) via site #1 via IV pump. Allergies verified and confirmed 5 rights. IV patency established. IV site checked: no pain, redness, or swelling. IV flushed thoroughly pre- and post- medication administration. Information reviewed with patient including reason for taking this medication, signs of allergic reaction and precautions. Verbal izes understanding. Completed per protocol. --17:41 02/09/20 Ani Aguero RN 17:30 02/09/2020 Started 900 mg of Clindamycin IVPB in bag #1 50 mL; at 100 mL/hr over 30 minute(s) via site #1. via IV pump. Allergies verified and confirmed 5 rights. IV patency established. IV site checked: no pain, redness, or swelling. IV flushed thoroughly pre- and post-medication administration. Information reviewed with patient including reason for taking this medication, signs of allergic reaction and precautions. Verbalizes understanding. Completed per protocol. --17:41 02/09/20 Ani Aguero RN 17:30 02/09/2020 Benadryl (diphenhydrAMINE HCl) IVP 50 mg given diluted in NS 10mL over 3 minute(s) via site #1. Allergies verified and confirmed 5 rights. IV patency established. IV site checked: no pain, redness, or swelling. IV flushed thoroughly pre- and post-medication administration. IVP given by RN. 4 Clinical Report - Nurses [facility] Emergency Department [address] [place] [address] Phone #: ext- [phone] 02/09/2020 15:24 --------- Patient: FREDA, YASMIN Sex: M : 1995 Age: 24yInformation reviewed with patient including reason for taking this medication, signs of allergic reaction,precautions and sedative warning. Verbalizes understanding. --17:42 02/09/20 Ani Aguero RN17:34 02/09/2020 Solu-Medrol (methylPREDNISolone Sodium Succ) IVP 125 mg given over 1 minute(s)via site #1. Allergies verified and confirmed 5 rights. IV patency established. IV site checked: no pain,redness, or swelling. IV flushed thoroughly pre- and post- medication administration. IVP given by RN.Information reviewed with patient including reason for taking this medication, signs of allergic reaction andprecautions. Verbalizes understanding. --17:43 02/09/20 Ani Aguero RN17:36 02/09/2020 Ativan (LORazepam) IVP 2 mg given diluted in NS 10mL over 3 minute(s) via site #1.Allergies verified and confirmed 5 rights. IV patency established. IV site checked: no pain, redness, orswelling. IV flushed thoroughly pre- and post-medication administration. IVP given by RN. Informati onreviewed with patient including reason for taking this medication, signs of allergic reaction, precautions andsedative warning. Verbalizes understanding. --17:44 02/09/20 Ani Aguero RN17:41 02/09/2020 Toradol (Ketorolac Tromethamine) IVP 15 mg given over 1 minute(s) via site #1.Allergies verified and confirmed 5 rights. IV patency established. IV site checked: no pain, redness, orswelling. IV flushed thoroughly pre- and post-medication administration. IVP given by RN. Informationreviewed with patient including reason for taking this medication, signs of allergic reaction and precautions.Verbalizes understanding. --17:44 02/09/20 Ani Aguero RN17:45 02/09/20. Bedside lower extremity sonogram performed by technical sales support specialist. --17:48 02/09/20 ANGEL Santana18:29 02/09/2020 Clindamycin IVPB via IV site #1 Discontinued: bag #1 completed. Total amount infused:50 mL. IV patency established. IV site checked: no pain, redness, or swelling. IV flushed thoroughly.--18:54 02/09/20 Corbin Montana R.N.18:37 02/09/20. Reassurance given. Reassessment acuity: LEVEL 3. The patient reports nocomplaints, he is sleeping and he has had no adverse reaction. Overall patient status is improved- hestates feels better.RESPIRATORY: No respiratory distress. Two patient identifiers checked. Call light placed in reach.Side rails up x 2. Bed placed in lowest position. Brakes of bed on. --18:38 02/09/20 Corbin Montana R.N.18:54 02/09/2020 IV Fluids IV NS w/ bolus via IV site #1 Discontinued: bag #1 completed. Total amountinfused: 1000 mL. IV patency established. IV site checked: no pain, redness, or swelling. IV flushedthoroughly. --18:54 02/09/20 Corbin Montana R.N.18:55 02/09/2020 Started bag #2 1000 mL IV Fluids NS; at 1500 mL/hr over 40 minute(s) via site #1 via IVpump. Allergies verified and confirmed 5 rights. IV patency established. IV site checked: no pain, redness,or swelling. IV flushed thoroughly pre- and post-medication administration. Information reviewed withpatient including reason for taking this medication, signs of allergic reaction and precautions. Verbalizesunderstanding. --18:55 02/09/20 Corbin Montana R.N. 5 Clinical Report - Nurses [facility] Emergency Department [address] [place] [address] Phone #: ext- [phone] 02/09/2020 15:24 Patient: YASMIN BARBA Sex: M : 1995 Age: 24y 19:54 02/09/20. Reassurance given. Reassessment acuity: LEVEL 3. The patient reports no complaints, he is resting quietly and sleeping and he has had no adverse reaction. Overall patient status is improved- he states feels better. RESPIRATORY: No respiratory distress. Two patient identifiers checked. Call light placed in reach. Side rails up x 2. Bed placed in lowest position. Brakes of bed on. --19:54 02/09/20 Corbin Montana R.N. 19:54 02/09/2020 IV Fluids NS via IV site #1 Discontinued: bag #2 completed. Total amount infused: 1000 mL. IV patency established. IV site checked: no pain, redness, or swelling. IV flushed thoroughly. --19:54 02/09/20 Corbin Montana R.N.DISPOSITION / DISCHARGE 20:24 02/09/20. Departure time: 20:35 02/09/2020. Condition at departure: improved and stable. The goals identified in the patient's plan of care were met. Fall risk assessment completed. Risk factors identified include severe pain and patient impairment of cognition. --20:41 02/09/20 Corbin Montana R.N. 20:25 02/09/20. BP: 122/47. MAP: 72. HR: 117. RR: 16. O2 saturation: 96% on room air. Temp: 97.8 F. Pain level now: 0/10. --20:41 02/09/20 Corbin Montana R.N. 20:26 02/09/20. Departure time: 20:35 02/09/2020. Disposition: observation for further evaluation. Transported via stretcher by nurse. Report was given to a nurse in person, at bedside and via visit overview. Report included information regarding patient's treatment, allergies and condition including: recent changes, current vital signs and critical or abnormal labs. Report included treatment information regarding medications given or pending and home medications; type and amount of IV fluids total volume infused. All questions were answered. Report was acknowledged and care was transferred. Bed obtained and ready (103). --20:42 02/09/20 Corbin Montana R.N.Locked/Released at 02/09/2020 21:12 by Corbin Montana R.N. Name Value Range Interpretation Code Description Data Carlota rce(s) Supporting Document(s) ID Date Data Source [id number] 02/09/2020 03:24:00 PM EDT [facility] 1 Clinical Report - Physicians/Mid Levels [facility] Emergency Department [address] [place] [address] Phone #: ext- [phone] 02/09/2020 15:24 Patient: YASMIN BARBA Sex: M : 1995 Age: 24y Time Seen: 16:07 02/09/2020; initial patient contact. Arrived- By ambulance. Historian- patient. Disposition decision: 18:30 02/09/2020.HISTORY OF PRESENT ILLNESS Chief Complaint: LOWER EXTREMITY PAIN and SWELLING. This started today and is still present. It was gradual in onset and has been constant. Severity is described as being severe. The quality is noted to be dull, aching and "pain". No radiation. Not relieved by anything- worsened by standing and walking. Symptoms located in the area of the right leg and left leg. The patient has had redness and swelling. He has had difficulty walking. No bladder dysfunction, bowel dysfunction, sensory loss or motor loss. ( pt has been on Cephalexin for skin lesions; pt is heroin user and on suboxone). Patient denies an injury. Similar symptoms previously. Recent medical care: The patient was seen recently in a clinic. ( at x 2 recent weeks).REVIEW OF SYSTEMSNo cough, chest pain, difficulty breathing, enlarged lymph nodes or neck pain. No back pain, headache,blurred vision, sore throat or abdominal pain. No vomiting, diarrhea, black stools, difficulty with urinationor bloody stools. The patient has had fever. He has had a mild, itchy skin rash consisting of "redness&q uot;located on the right leg, right ankle, right foot, left leg, left ankle and left foot. All other systems reviewedand are negative.PAST HISTORYSee nurses notes. Problems: Substance Abuse. Depression. Anxiety Reaction. Hepatitis. Additional Surgeries: Rhinoplasty. Medications: Suboxone Sublingual, daily. PARoxetine HCl Oral (Tablet 20 mg) 1 tablet, daily. Cetirizine HCl Oral (Capsule 10 mg) 1 capsule, daily. 2 Clinical Report - Physicians/Mid Levels [facility] Emergency Department [address] [place] [address] Phone #: ext- [phone] 02/09/2020 15:24 Patient: YASMIN BARBA Sex: M : 1995 Age: 24y Nicotine Polacrilex Mouth/Throat (Lozenge 4 mg) 1 piece, q2h as needed. Senna Oral (Capsule 8.6 mg) 1 capsule, 2x a day. QUEtiapine Fumarate Oral (Tablet 100 mg) 2 tablets, daily at bedtime. buPROPion HCl ER (XL) Oral (Tablet Extended Release 24 Hour 300 mg) 1 tablet, daily. Methylphenidate HCl Oral (Tablet 5 mg) 1 tablet, daily at noon. predniSONE Oral (Tablet 20 mg) 1 tablet, daily. Cephalexin Oral (Capsule 500 mg) 1 capsule, 3x a day (started 01/31/20). Methylphenidate HCl ER (CD) Oral (Capsule Extended Release 20 mg) 1 capsule, daily. Allergies: No Known Drug Allergy.SOCIAL HISTORYFormer smoker, end date 2018. History of IV drug use: heroin. Is a recovering addict. No alcohol use.ADDITIONAL NOTESThe nursing notes have been reviewed with agreement regarding the chief complaint, HPI, ROS, PMH andpatient medications and allergies.PHYSICAL EXAMVital Signs: 02/09/2020 15:32 BP: 107/85. MAP: 92. HR: 87. RR: 16. O2 saturation: 98%. Temp: 100.6 F.Pain level now: 12/14. Have been reviewed. Febrile.Appearance: Alert. Oriented X3. Anxious. Appears to be in pain. Patient in mild distress. Distressappears due to pain.Eyes: Pupils equal, round and reactive to light. Eyes normal inspection.ENT: Nose normal. Pharynx normal.Neck: Normal inspection. Neck supple.CVS: Normal heart rhythm and rate. Heart sounds normal.Respiratory: No respiratory distress. Painless inspiration. Breath sounds normal.Abdomen: Soft and nontender. No organomegaly.Back: Normal inspection. No tenderness. ROM normal.Skin: Skin warm and dry. Normal skin turgor. Moderate, generalized, macular, papular, crusting,excoriated skin rash with an erythematous base (c/w papular scabies or infected beg bug bites).Extremities: Swelling, warmth, tenderness and erythema present in the right ankle and right foot and leftankle and left foot. Bilateral mild non- pitting edema of the lower extremities involving both feet and bothankles. No calf tenderness.Gait: Gait not tested due to pain.Neuro: Oriented X 3. No motor deficit. No sensory deficit. Reflexes normal.LABS, X-RAYS, AND EKGEKG: No acute process. No acute ischemia. Normal EKG. Normal sinus rhythm. Rate: 90/MIN.Normal ST and T waves. Prior EKG unavailable. The study has been interpreted contemporaneously byme. Artifact present. Interpretation time: 17:03 02/09/2020.Chest X-ray: No acute disease. Views: AP (portable). The X-rays were interpreted by the radiologist.Interpretation time: 17:44 02/09/2020. 3 Clinical Report - Physicians/Mid Levels [facility] Emergency Department [address] [place] [address] Phone #: ext- [phone] 02/09/2020 15:24 Patient: YASMIN BARBA Sex: M : 1995 Age: 24yLower Extremity Sonography: Negative exam on the right and left side. Study type: utilized duplexsonography. The exam was performed by a audio technician. The study was interpreted by the radiologist.Interpretation time: 18:28 02/09/2020.Laboratory Tests: Laboratory tests have been ordered, with results reviewed and considered in themedical decision making process.Chest Portable 1 View: (RACIEL: 02/09/2020 17:03) ( [facility] [place] 02/09/2020 18:20) In ProgressCHEST PORTABLEReason(s): FeverTRANSPORTATION: P IV? O2? Oxygen?(No) [facility] ([facility]ACIEL: 02/09/2020 16:39) ( [facility] 02/09/2020 17:16) Final results Test Result Flag Units (Reference) LACTIC ACID 1.3 MMOL/L (0.2 - 2.2)CPK: (RACIEL: 02/09/2020 16:39) ( [facility] 02/09/2020 17:17) Final results Test Result Flag Units (Reference) CPK 494 H U/L (30 - 170)CBC w Diff: (RACIEL: 02/09/2020 16:39) ( [facility] 02/09/2020 17:45) Final results Test Result Flag Units (Reference) CBC W/AUTOMATED DIFF COMPLETE BLOOD COUNT WBC 11.4 H 10/uL (4.2 - 11.0) RBC 4.16 L 10/uL (4.50 - 6.30) HEMOGLOBIN 12.8 L g/dL (14.0 - 16.0) HEMATOCRIT 36.7 L % (41.0 - 51.0) MCV 88.2 fL (80.0 - 94.0) MCH 30.8 pg (27.0 - 34.0) MCHC 34.9 g/dL (31.0 - 36.0) RDW 11.9 % (11.5 - 14.8) PLATELETS 274 10/uL (150 - 450) MPV 8.6 fL (7.4 - 10.4) NEUT 69.2 % (37.0 - 80.0) LYMPH 14.9 L % (25.0 - 40.0) MONO 13.4 H % (3.0 - 8.0) EOS 1.8 % (0.0 - 7.0) BASO 0.3 % (0.0 - 2.0) %IG 0.4 H % (0.0 - 0.0) %NRBC 0.0 % (0.0 - 0.0) #NEUT 7.88 H 10/uL (2.00 - 6.90) #LYMPH 1.70 10/uL (0.60 - 3.40) #MONO 1.52 H 10/uL (0.00 - 0.90) #EOS 0.21 10/uL (0.00 - 0.70) #BASO 0.03 10/uL (0.00 - 0.20) #IG 0.04 10/uL (0.00 - 0.10) #NRBC 0.00 10/uL (0.00 - 0.00) MANUAL DIFF SEE BELOW SEGS 68 % (37 - 80) BAND 0 % (0 - 5) %LYMPH 28 % (25 - 40) %MONO 3 % (3 - 8) %EOS 1 % (0 - 7) %BASO 0 % (0 - 2) RBC MORPH NOT INDICATED 4 Clinical Report - Physicians/Mid Levels [facility] Emergency Department [address] [place] [address] Phone #: [phone]- [phone] 02/09/2020 15:24 Patient: YASMIN BARBA Sex: M : 1995 Age: 24y CMP: (RACIEL: 02/09/2020 16:39) ( MsgRcvd 02/09/2020 17:17) Final results Test Result Flag Units (Reference) COMPREHENSIVE METABOLIC PANEL COMPREHENSIVE METABOLIC PANEL SODIUM 136 mEq/L (134 - 153) POTASSIUM 4.2 mEq/L (3.6 - 5.0) CHLORIDE 100 mEq/L (98 - 107) CO2 24 MEQ/L (22 - 30) GLUCOSE 100 MG/DL (65 - 110) BUN 19 MG/DL (7 - 21) CREATININE 0.8 MG/DL (0.7 - 1.5) BUN/CREAT 24 (8 - 27) TOTAL PROTEIN 6.3 G/DL (6.3 - 8.2) ALBUMIN 4.1 G/DL (3.9 - 5.0) GLOBULIN 2.2 L GM/DL (2.4 - 3.2) A/G RATIO 1.9 (0.8 - 2.0) CALCIUM 9.2 MG/DL (8.4 - 10.2) TOTAL BILI <0.7 MG/DL (0.2 - 1.3) ALKALINE PHOS 91 U/L (38 - 126) SGOT/AST 74 H U/L (5 - 40) SGPT/ALT 93 H U/L (7 - 56) ANION GAP 12.0 mmol/L (8.0 - 16.0) AGE 24 yrs NON-AA GFR >60 mL/min AFR AMER GFR >60 mL/min Male GFR Interprentation 20-49 yrs >60 mL/min Normal 50-59 yrs >56 mL/min Normal 60-69 yrs >49 mL/min Normal 70-79yrs >42 mL/min Normal 80 and above >35 mL/min Normal Female GFR Interpretation 20-39 yrs >60 mL/min Normal 40-49 yrs >58 mL/min Normal 50-59 yrs >51 mL/min Normal 60-69 yrs >45 mL/min Normal 70-79 yrs >39 mL/min Normal 80 and above >32 mL/min Normal US Lower Ext Venous Bilateral: (RACIEL: 02/09/2020 16:15) ( MsgRcvd 02/09/2020 18:23) In Progress US DOPPLER VENOUS BILAT LEG Reason(s): Pain, Limb TRANSPORTATION: S IV? O2? Oxygen?(No) Room: ED.PROGRESS AND PROCEDURESCourse of Care: 18:28 02/09/20. workup all in and reviewed, slight leukocytosis, lactic nml, CXR nml, B/Llegs venous Doppler US nml, no DVT; pt sleeping comfortably; case discussed w Gunjan Padilla, NPhospitalist, who will admit. Critical care performed (60 minutes). Time is exclusive of separately billable procedures. Time includes: direct patient care, patient reassessment, coordination of patient care, interpretation of data (laboratory data and chest xrays), medical consultation and documentation of patient care- see progress notes. Patient counseled in person regarding the patient's stable condition, test results, diagnosis and need for admission. Patient agrees with plan of care. 5 Clinical Report - Physicians/Mid Levels [facility] Emergency Department [address] [place] [address] Phone #: ext- [phone] 02/09/2020 15:24 Patient: YASMIN BARBA Sex: M : 1995 Age: 24y Disposition: Condition: stable. Admit decision based on need for further evaluation, observation, IV therapy, hydration, antibiotics a nd medications and stabilization of condition.CLINICAL IMPRESSION Cellulitis of the right ankle, right foot, left ankle and left foot. Anxiety reaction. Recovering substance abuse- heroin with anxiety. Possible scabies. Diffuse Bed Bug Bites.(Electronically signed by Yair Sethi M.D. 02/09/2020 21:16) Name Value Range Interpretation Code Description Data Carlota rce(s) Supporting Document(s) ID Date Data Source [id number] 02/14/2020 06:20:00 PM EDT [facility] Name Value Range Interpretation Code Description Data Carlota rce(s) Supporting Document(s) Bacteria identified in Blood by Culture [facility] NO GROWTH AFTER 5 DAYS ID Date Data Source [id number] 02/18/2020 07:29:00 AM EDT [facility] Name Value Range Interpretation Code Description Data Carlota rce(s) Supporting Document(s) CULTURE BLOOD [facility] _CULTURE BLOOD_{ PRELIM TEST PERFORMED AT [address] [address] CLIA# [id number] SEE SCANNED REPORT ID Date Data Source [id number] 02/18/2020 07:29:00 AM EDT [facility] Name Value Range Interpretation Code Description Data Carlota rce(s) Supporting Document(s) CULTURE BLOOD [facility] _CULTURE BLOOD_{ PRELIM TEST PERFORMED AT [facility] [address] [place] [address] CLIA# [id number] SEE SCANNED REPORT ID Date Data Source [id number] 02/09/2020 05:16:00 PM EDT [facility] Name Value Range Interpretation Code Description Data Carlota rce(s) Supporting Document(s) Lactate [Moles/volume] in Serum or Plasma 1.3 MMOL/L 0.2 - 2.2 [facility] ID Date Data Source [id number] 02/09/2020 05:17:00 PM EDT [facility] Name Value Range Interpretation Code Description Data Carlota rce(s) Supporting Document(s) COMPREHENSIVE METABOLIC PANEL [facility] COMPREHENSIVE METABOLIC PANEL Sodium [Moles/volume] in Serum or Plasma 136 mEq/L 134 - 153 [facility] Potassium [Moles/volume] in Serum or Plasma 4.2 mEq/L 3.6 - 5.0 [facility] Chloride [Moles/volume] in Serum or Plasma 100 mEq/L 98 - 107 [facility] Carbon dioxide, total [Moles/volume] in Serum or Plasma 24 MEQ/L 22 - 30 [facility] Glucose [Mass/volume] in Serum or Plasma 100 MG/DL 65 - 110 [facility] BUN 19 MG/DL 7 - 21 [facility] Creatinine [Mass/volume] in Serum or Plasma 0.8 MG/DL 0.7 - 1.5 [facility] BUN/CREAT 24 8 - 27 [facility] Protein [Mass/volume] in Serum or Plasma 6.3 G/DL 6.3 - 8.2 [facility] Albumin [Mass/volume] in Serum or Plasma 4.1 G/DL 3.9 - 5.0 [facility] Globulin [Mass/volume] in Serum by calculation 2.2 GM/DL 2.4 - 3.2 L [facility] A/G RATIO 1.9 0.8 - 2.0 [facility] Calcium [Mass/volume] in Serum or Plasma 9.2 MG/DL 8.4 - 10.2 [facility] Bilirubin.total [Mass/volume] in Serum or Plasma <0.7 MG/DL 0.2 - 1.3 [facility] Alkaline phosphatase [Enzymatic activity/volume] in Serum or Plasma 91 U/L 38 - 126 [facility] Aspartate aminotransferase [Enzymatic activity/volume] in Serum or Plasma 74 U/L 5 - 40 H [facility] Alanine aminotransferase [Enzymatic activity/volume] in Seru m or Plasma 93 U/L 7 - 56 H [facility] Anion gap 3 in Serum or Plasma 12.0 mmol/L 8.0 - 16.0 [facility] AGE [address] [facility] NON-AA GFR >60 mL/min [facility] AFR AMER GFR >60 mL/min [facility] Male GFR In terprentation 20-49 yrs >60 mL/min Normal 50-59 yrs >56 mL/min Normal 60-69 yrs >49 mL/min Normal 70-79yrs >42 mL/min Normal 80 and above >35 mL/min Normal Female GFR Interpretation 20-39 yrs >60 mL/min Normal 40-49 yrs >58 mL/min Normal 50-59 yrs >51 mL/min Normal 60-69 yrs >45 mL/min Normal 70-79 yrs >39 mL/min Normal 80 and above >32 mL/min Normal ID Date Data Source [id number] 02/09/2020 05:17:00 PM T [facility] Name Value Range Interpretation Code Description Data Carlota rce(s) Supporting Document(s) Creatine kinase [Enzymatic activity/volume] in Serum or Plasma 4 94 U/L 30 - 170 H [facility] ID Date Data Source [id number] 02/09/2020 05:45:00 PM T [facility] Name Value Range Interpretation Code Description Data Carlota rce(s) Supporting Document(s) CBC W/AUTOMATED DIFF [facility] COMPLETE BLOOD COUNT Leukocytes [#/volume] in Blood by Automated count 11.4 10^3/uL 4.2 - 11.0 H [facility] Erythrocytes [#/volume] in Blood by Automated count 4.16 10^6/uL 4. 50 - 6.30 L [facility] Hemoglobin [Mass/volume] in Blood 12.8 g/dL 14.0 - 16.0 L [facility] Hematocrit [Volume Fraction] of Blood by Automated count 36.7 % 4 1.0 - 51.0 L [facility] Erythrocyte mean corpuscular volume [Entitic volume] by Auto mated count 88.2 fL 80.0 - 94.0 [facility] Erythrocyte mean corpuscular hemoglobin [Entitic mass] by Automated count 30.8 pg 27.0 - 34.0 [facility] Erythrocyte mean corpuscular hemoglobin concentration [Mass/volume] by Automated count 34.9 g/dL 31.0 - 36.0 [facility] Erythrocyte distribution width [Ratio] by Automated count 11.9 % 11.5 - 14.8 [facility] Platelets [#/volume] in Blood by Automated count 274 10^3/uL 150 - 45 0 [facility] Platelet mean volume [Entitic volume] in Blood by Automated count 8.6 fL 7.4 - 10.4 [facility] Neutrophils/100 leukocytes in Blood by Automated count 69.2 % 37. 0 - 80.0 [facility] Lymphocytes/100 leukocytes in Blood by Manual count 14.9 % 25.0 - 40.0 L [facility] Monocytes/100 leukocytes in Blood by Automated count 13.4 % 3.0 - 8.0 H [facility] Eosinophils/100 leukocytes in Blood by Automated count 1.8 % 0.0 - 7.0 [facility] 0.3 %IG 0.4 % 0.0 - 0.0 H [facility] al %NRBC 0.0 % 0.0 - 0.0 [facility] al Neutrophils [#/volume] in Blood by Automated count 7.88 10^3/uL 2.00 - 6.90 H [facility] Lymphocytes [#/volume] in Blood by Automated count 1.70 10^3/uL 0.60 - 3.40 [facility] Monocytes [#/volume] in Blood by Automated count 1.52 10^3/uL 0.00 - 0.90 H [facility] Eosinophils [#/volume] in Blood by Automated count 0.21 10^3/uL 0.00 - 0.70 [facility] Basophils [#/volume] in Blood by Automated count 0.03 10^3/uL 0.00 - 0.20 [facility] #IG 0.04 10^3/uL 0.00 - 0.10 [facility] #NRBC 0.00 10^3/uL 0.00 - 0.00 [facility] MANUAL DIFF SEE BELOW [facility] Segmented neutrophils/100 leukocytes in Blood by Manual count 68 % 37 - 80 [facility] BAND 0 % 0 - 5 [facility] %LYMPH 28 % 25 - 40 [facility] %MONO 3 % 3 - 8 [facility] %EOS 1 % 0 - 7 [facility] 0 RBC MORPH NOT INDICATED [facility] ID Date Data Source [id number] 10/08/2019 12:40:00 PM EDT [facility] Name Value Range Interpretation Code Description Data Carltoa rce(s) Supporting Document(s) SARS CORONAVIRUS 2 RNA [facility] This lab was ordered by [facility] and reported by [facility]. Procedure Vital Signs ID Date Data Source UNK Name Value Range Interpretation Code Description Data Source(s) Body weight 105.235 kg 105.235 kg [facility] ([facility]) Body mass index (BMI) [Ratio] 29.8 kg/m2 29.8 k g/m2 [facility]) Body weight 232.00 [lb_av] 232.00 [lb_av] [facility] ([facility]) Body height 74 [in_i] 74 [in_i] [facility]) 6'2" Diastolic blood pressure 80 mm[Hg] 80 mm[Hg] [facility]) Systolic blood pressure 140 mm[Hg] 140 mm[Hg] M [facility] ([facility]) Body weight 97.637 kg 97.637 kg [facility] ([facility]) Body mass index (BMI) [Ratio] 27.6 kg/m2 27.6 k g/m2 [facility]) Body weight 215.25 [lb_av] 215.25 [facility]lb_av] [facility] Body height 74 [in_i] 74 [in_i] [facility] ([facility] ) 6'2" Body temperature 98.5 [degF] 98.5 [degF] [facility] ([facility], ) Diastolic blood pressure 90 mm[Hg] 90 mm[Hg] [facility] ([facility], ) Systolic blood pressure 130 mm[Hg] 130 mm[Hg] [facility] ID Date Data Source [id number] 02/18/2020 07:29:52 AM EDT [facility] Name Value Range Interpretation Code Description Data Source(s) WEIGHT RECORDED 236.00 pounds 236.00 pounds [facility]
--- OUTSIDE RECORDS SUMMARY | 2020-08-31 06:51 | CCD ---
Author Author [facility] Organization [facility] Address Unknown Phone Unavailable Care Team Providers Care Cracker Sprayer Name Role Phone TURRIN, YAIR Unavailable Unavailable TURRIN, YAIR Unavailable Unavailable TURRIN, YAIR Unavailable Unavailable TURRIN, YAIR Unavailable Unavailable Elva Falanga, A Gunjna TEXTILE COLORIST FORMULATOR Unavailable Unavailable Elva Falanga, A Gunjan TEXTILE COLORIST FORMULATOR Unavailable Unavailable Harvey Falanga, A Gunjan TEXTILE COLORIST FORMULATOR Unavailable Unavailable Harvey Falanga, A Gunjan TEXTILE COLORIST FORMULATOR Unavailable Unavailable Harvey Falanga, A Gunjan TEXTILE COLORIST FORMULATOR Unavailable Unavailable Harvey Falanga, A Gunjan TEXTILE COLORIST FORMULATOR Unavailable Unavailable Harvey Falanga, A Gunjan TEXTILE COLORIST FORMULATOR Unavailable Unavailable Harvey Falanga, A Gunjan TEXTILE COLORIST FORMULATOR Unavailable Unavailable Harvey Falanga, A Gunjan TEXTILE COLORIST FORMULATOR Unavailable Unavailable Elva Falanga, A Gunjan TEXTILE COLORIST FORMULATOR Unavailable Unavailable Elva Falanga, A Gunjan TEXTILE COLORIST FORMULATOR Unavailable Unavailable Harvey Falanga, A Gunjan TEXTILE COLORIST FORMULATOR Unavailable Unavailable Elva Falanga, A Gunjan TEXTILE COLORIST FORMULATOR Unavailable Unavailable Harvey Falanga, A Gunjan TEXTILE COLORIST FORMULATOR Unavailable Unavailable Harvey Falanga, A Gunjan TEXTILE COLORIST FORMULATOR Unavailable Unavailable Elva Falanga, A Gunjan TEXTILE COLORIST FORMULATOR Unavailable Unavailable Elva Falanga, A Gunjan TEXTILE COLORIST FORMULATOR Unavailable Unavailable Harvey Falanga, A Gunjan TEXTILE COLORIST FORMULATOR Unavailable Unavailable Harvey Falanga, A Gunjan TEXTILE COLORIST FORMULATOR Unavailable Unavailable Elva Falanga, A Gunjan TEXTILE COLORIST FORMULATOR Unavailable Unavailable Harvey Falanga, A Gunjan TEXTILE COLORIST FORMULATOR Unavailable Unavailable Harvey Falanga, A Gunjan TEXTILE COLORIST FORMULATOR Unavailable Unavailable Elva Falanga, A Gunjan TEXTILE COLORIST FORMULATOR Unavailable Unavailable Harvey Falanga, A Gunjan TEXTILE COLORIST FORMULATOR Unavailable Unavailable Elva Falanga, A Gunjan TEXTILE COLORIST FORMULATOR Unavailable Unavailable Harvey Falanga, A Gunjan TEXTILE COLORIST FORMULATOR Unavailable Unavailable Harvey Falanga, A Gunjan TEXTILE COLORIST FORMULATOR Unavailable Unavailable Harvey Falanga, A Gunjan TEXTILE COLORIST FORMULATOR Unavailable Unavailable Harvey Falanga, A Gunjan TEXTILE COLORIST FORMULATOR Unavailable Unavailable Harvey Falanga, A Gunjan TEXTILE COLORIST FORMULATOR Unavailable Unavailable BRYDEN, A DAVIN DO Unavailable [...] is protected by Article 27-F of the [facility] Public Health law. If you continue you may have access to information: Regarding HIV / AIDS; Provided by facilities licensed or operated by the [facility] Office of Mental Health; or Provided by the [facility] Office for People With Developmental Disabilities. If such information is present, then the following [facility] mandated warning applies: This information has [...] law may result in a fine or shelter sentence or both. A general authorization for the release of medical or other information is NOT sufficient authorization for further disc losure. Allergies and Adverse Reactions Type Description Substance Reaction Status Data Source(s ) ALLERGIES NOT ON FILE ALLERGIES NOT ON FILE Moran No Known Drug Allergies No Known Drug Allergies [facility] Encounters Encounter Providers Location Date Indications Data Source(s ) Outpatient 02/09/2020 04:39:00 PM EDT [facility] Outpatient Attender: Gunjan weinberg FNPAttender: YAIR Cobbsultant: PCP NO 02/09/2020 03:24:00 PM EDT - 02/11/2020 02:15:00 PM EDT [facility] Patient discharged. Outpatient FP 02/03/2020 09:15:01 AM EDT [facility] Outpatient FP 02/03/2020 09:14:00 AM EDT [facility] Outpatient Attender: DAVIN Daly/Zakia/Marvin/Wil ndl 10/21/2019 10:30:00 AM EDT [facility] Outpatient 10/20/2019 05:01:00 AM EDT [facility] Radiology Imaging Medications Medication Brand Name Start Date Product Form Dose Route Admi nistrative Instructions Pharmacy Instructions Status Indications Reaction Description Data Source(s) Suprep Bowel Prep Kit Suprep Bowel Prep Kit 10/21/2019 12:00:00 AM EDT [facility] Insurance Providers Payer name Policy type / Coverage type Policy ID Covered constitution party ID Covered constitution party's relationship to castro Policy Castro Plan Information EMEDNY [id number] SP [id number] [facility] [id number] FA2 89 [id number] BCBS EMPIRE [place] DIV [id number] FA2 [id number] MEDICAID M [id number] [facility] O [id number] S [id number] BCBS EMPIRE 12 [id number] Child [id number] [facility] EMPIRE 31 [id number] Child [id number] [place]ID [place] [id number] Self [id number] COMMERCIAL GENERIC [id number] Self [id number] [facility] EMPIRE [place] CROSS BLUE SHIELD -O/P [id number] 19 [id number] MEDICAID -O/P [id number] MEDICAID [id number] SP [id number] BCBS EMPIRE SHERRI DIV [id number] FA2 [id number] Problems, Conditions, and Diagnoses Code Display Name Description Problem Type Effective Dates Data Source(s) 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, unspecified Inflammatory liver disease, unspecified Diagnosis 02/09/2020 03:24:00 PM EDT [facility] F341 Dysthymic disorder Dysthymic disorder Diagnosis 0 03:24:00 PM EDT [facility] F1120 Opioid dependence, uncomplicated Opioid dependen ce, uncomplicated Diagnosis 02/09/2020 03:24:00 PM EDT [facility] [id number] Cellulitis of left lower limb Cellulitis of left lower limb Diagnosis 02/09/2020 03:24:00 PM EDT [facility] [id number] Cellulitis of right lower limb Cellulitis of right low er limb Diagnosis 02/09/2020 03:24:00 PM EDT [facility] Results ID Date Data Source [id number] 07/11/2020 12:00:00 AM EST [facility] Name Value Range Interpretation Code Description Data Carlota rce(s) Supporting Document(s) SARS-CoV2 Rapid Antigen [facility] This lab was ordered by [facility] and reported by [facility]. ID Date Data Source [id number] 02/26/2020 02:05:00 AM EDT [facility] Name Value Range Interpretation Code Description Data Carlota rce(s) Supporting Document(s) HCV RNA FLORENCIA Qualitative Positive Negative Abnormal (applies to non-numeric results) [facility] Positive: HCV RNA Detected ID Date Data Source [id number] 02/11/2020 09:15:00 AM EDT [facility] [address] [facility] [place] [address] RESPIRATORY CARE REPORT ==== ---------NAME------- NUMBER SEX AGE ADMIT DISC. XRAY# F/C TYPECLANCY YASMIN [id number] M 24 02/09/[id number] BB2 O/P DATE OF : 1995 M/R# [id number] #: [phone] 103-1 LOCATION: EMERGENCY DEPT [facility] [id number] [facility] TE:02/10/20 07:11 EWW 99807 PHYSICIAN: VENKATA ESTRADA Name Value Range Interpretation Code Description Data Carlota rce(s) Supporting Document(s) ID Date Data Source [id number] 02/11/2020 08:37:00 AM EDT [facility] Name Value Range Interpretation Code Description Data Carlota rce(s) Supporting Document(s) CBC W/AUTOMATED DIFF [facility] COMPLETE BLOOD COUNT Leukocytes [#/volume] in Blood by Automated count 8.5 10^3/uL 4.2 - 1 1.0 [facility] Erythrocytes [#/volume] in Blood by Automated count 3.98 10^6/uL 4. 50 - 6.30 L [facility] Hemoglobin [Mass/volume] in Blood 12.4 g/dL 14.0 - 16.0 L [facility] Hematocrit [Volume Fraction] of Blood by Automated count 36.7 % 4 1.0 - 51.0 L [facility] Erythrocyte mean corpuscular volume [Entitic volume] by Auto mated count 92.2 fL 80.0 - 94.0 [facility] Erythrocyte mean corpuscular hemoglobin [Entitic mass] by Automated count 31.2 pg 27.0 - 34.0 [facility] Erythrocyte mean corpuscular hemoglobin concentration [Mass/volume] by Automated count 33.8 g/dL 31.0 - 36.0 [facility] Erythrocyte distribution width [Ratio] by Automated count 12.5 % 11.5 - 14.8 [facility] Platelets [#/volume] in Blood by Automated count 215 10^3/uL 150 - 45 0 [facility] Platelet mean volume [Entitic volume] in Blood by Automated count 9.2 fL 7.4 - 10.4 [facility] Neutrophils/100 leukocytes in Blood by Automated count 53.7 % 37. 0 - 80.0 [facility] Lymphocytes/100 leukocytes in Blood by Manual count 31.9 % 25.0 - 40.0 [facility] Monocytes/100 leukocytes in Blood by Automated count 13.0 % 3.0 - 8.0 H [facility] Eosinophils/100 leukocytes in Blood by Automated count 0.7 % 0.0 - 7.0 [facility] Basophils/100 leukocytes in Blood by Automated count 0.2 % 0.0 - 2.0 [facility] %IG 0.5 % 0.0 - 0.0 [facility] %[facility] 0.0 % 0.0 - 0.0 [facility] al Neutrophils [#/volume] in Blood by Automated count 4.57 10^3/uL 2.00 - 6.90 [facility] Lymphocytes [#/volume] in Blood by Automated count 2.72 10^3/uL 0.60 - 3.40 [facility] Monocytes [#/volume] in Blood by Automated count 1.11 10^3/uL 0.00 - 0.90 H [facility] Eosinophils [#/volume] in Blood by Automated count 0.06 10^3/uL 0.00 - 0.70 [facility] Basophils [#/volume] in Blood by Automated count 0.02 10^3/uL 0.00 - 0.20 [facility] #IG 0.04 10^3/uL 0.00 - 0.10 [facility] H ospital #NRBC 0.00 10^3/uL 0.00 - 0.00 [facility] ospital MANUAL DIFF SEE BELOW [facility] ital Segmented neutrophils/100 leukocytes in Blood by Manual count 55 % 37 - 80 [facility] %LYMPH 36 % 25 - 40 [facility] al %MONO 8 % 3 - 8 [facility] al %EOS 1 % 0 - 7 [facility] RBC MORPH NOT INDICATED [facility] spital ID Date Data Source [id number] 02/11/2020 08:11:00 AM EDT [facility] Name Value Range Interpretation Code Description Data Carlota rce(s) Supporting Document(s) BASIC METABOLIC PANEL [facility] BASIC METABOLIC PANEL Sodium [Moles/volume] in Serum or Plasma 143 mEq/L 134 - 153 [facility] Potassium [Moles/volume] in Serum or Plasma 4.0 mEq/L 3.6 - 5.0 [facility] Chloride [Moles/volume] in Serum or Plasma 110 mEq/L 98 - 107 H [facility] Carbon dioxide, total [Moles/volume] in Serum or Plasma 25 MEQ/L 22 - 30 [facility] Glucose [Mass/volume] in Serum or Plasma 97 MG/DL 65 - 110 [facility] BUN 20 MG/DL 7 - 21 [facility] al Creatinine [Mass/volume] in Serum or Plasma 0.9 MG/DL 0.7 - 1.5 [facility] BUN/CREAT 22 8 - 27 [facility] Calcium [Mass/volume] in Serum or Plasma 8.4 MG/DL 8.4 - 10.2 [facility] Anion gap 3 in Serum or Plasma 8.0 mmol/L 8.0 - 16.0 [facility] AGE 24 yrs [facility] AFR AMER GFR >60 mL/min [facility] NON-AA GFR >60 mL/min [facility] Hosp ital Male GFR Inter prentation 20-49 [...] >32 mL/min Normal ID Date Data Source [id number] 02/10/2020 02:29:00 PM EDT [facility] [address] [place] [address] PHONE: [phone] FAX: [phone] Name .................. : FREDAKeren HOFFMAN Acct Number.................. : [id number] ROOM. ................. : 103-1 Number ................... : [id number] Stay type ............. : O/P Discharge Date......... ... : Admit Date ......... : 02/09/20 Admit Phys .................... : ELVA-CHARLOTTE Date of ....... : 1995 Family Phys ................... : NO PCP Phone .................. : [phone]/111/1111 Age ................................ : 24 Film# .................. .:[id number] Sex ................................. : M Unsigned transcriptions are preliminary reports and do not represent a medical or legal document DOPPLER VENOUS BILAT LEG 77061 COMPLETE:02/09/20 18:22 ADB 15779 Reason(s): Pain, Limb BILATERAL LOWER E XTREMITY [...] rce(s) Supporting Document(s) ID Date Data Source [id number] 02/10/2020 01:57:00 [place] [address] PHONE: [phone] FAX: [phone] Name .................. : FREDA HOFFMAN Acct Number.................. : [id number] ROOM. ................. : 103-1 Number ................... : [id number] Stay type ............. : O/P Discharge Date......... ... : Admit Date ......... : 02/09/20 Admit Phys .................... : VENKATA Date of ....... : 1995 Family Phys ................... : NO PCP Phone .................. : 111/111/1111 Age ................................ : 24 Film# .................. .:[id number] Sex ................................. : M Unsigned transcriptions are preliminary reports and do not represent a medical or legal document CHEST PORTABLE [id number] COMPLETE:02/09/20 18:19 KBO 44160 Reason(s): Fever PORTABLE CHEST X-RAY: COMPARISON: None [...] Dictation Date: Copy for: EMERGENCY DEPT via [facility] Copy for: 710 MED REC Page 1 of 1 Name Value Range Interpretation Code Description Data Carlota rce(s) Supporting Document(s) ID Date Data Source [id number] 02/10/2020 08:26:00 AM EDT [facility] Name Value Range Interpretation Code Description Data Carlota rce(s) Supporting Document(s) BASIC METABOLIC PANEL [facility] BASIC METABOLIC PANEL Sodium [Moles/volume] in Serum or Plasma 136 mEq/L 134 - 153 [facility] Potassium [Moles/volume] in Serum or Plasma 4.4 mEq/L 3.6 - 5.0 [facility] Chloride [Moles/volume] in Serum or Plasma 103 mEq/L 98 - 107 [facility] Carbon dioxide, total [Moles/volume] in Serum or Plasma 24 MEQ/L 22 - 30 [facility] Glucose [Mass/volume] in Serum or Plasma 122 MG/DL 65 - 110 H [facility] BUN 16 MG/DL 7 - 21 [facility] Creatinine [Mass/volume] in Serum or Plasma 0.6 MG/DL 0.7 - 1.5 L [facility] BUN/CREAT 27 8 - 27 [facility] Calcium [Mass/volume] in Serum or Plasma 9.1 MG/DL 8.4 - 10.2 [facility] Anion gap 3 in Serum or Plasma 9.0 mmol/L 8.0 - 16.0 [facility] AGE 24 y[facility] A[facility] AMER GFR >60 mL/min [facility] Ho spital NON-AA GFR >60 mL/min [facility] ital Male GFR Inter prentation 20-49 yrs [...] >32 mL/min Normal ID Date Data Source [id number] 02/10/2020 07:29:00 AM EDT [facility] Name Value Range Interpretation Code Description Data Carlota rce(s) Supporting Document(s) CBC W/AUTOMATED DIFF [facility] COMPLETE BLOOD COUNT Leukocytes [#/volume] in Blood by Automated count 10.9 10^3/uL 4.2 - 11.0 [facility] Erythrocytes [#/volume] in Blood by Automated count 4.33 10^6/uL 4. 50 - 6.30 L [facility] Hemoglobin [Mass/volume] in Blood 13.4 g/dL 14.0 - 16.0 L [facility] Hematocrit [Volume Fraction] of Blood by Automated count 39.2 % 4 1.0 - 51.0 L [facility] Erythrocyte mean corpuscular volume [Entitic volume] by Auto mated count 90.5 fL 80.0 - 94.0 [facility] Erythrocyte mean corpuscular hemoglobin [Entitic mass] by Automated count 30.9 pg 27.0 - 34.0 [facility] Erythrocyte mean corpuscular hemoglobin concentration [Mass/volume] by Automated count 34.2 g/dL 31.0 - 36.0 [facility] Erythrocyte distribution width [Ratio] by Automated count 11.9 % 11.5 - 14.8 [facility] Platelets [#/volume] in Blood by Automated count 238 10^3/uL 150 - 45 0 [facility] Platelet mean volume [Entitic volume] in Blood by Automated count 9.1 fL 7.4 - 10.4 [facility] Neutrophils/100 leukocytes in Blood by Automated count 85.9 % 37. 0 - 80.0 H [facility] Lymphocytes/100 leukocytes in Blood by Manual count 7.6 % 25.0 - 40.0 L [facility] Monocytes/100 leukocytes in Blood by Automated count 6.0 % 3.0 - 8.0 [facility] Eosinophils/100 leukocytes in Blood by Automated count 0.0 % 0.0 - 7.0 [facility] Basophils/100 leukocytes in Blood by Automated count 0.1 % 0.0 - 2.0 [facility] %IG 0.4 % 0.0 - 0.0 H [facility] %NRBC 0.0 % 0.0 - 0.0 [facility] al Neutrophils [#/volume] in Blood by Automated count 9.38 10^3/uL 2.00 - 6.90 H [facility] Lymphocytes [#/volume] in Blood by Automated count 0.83 10^3/uL 0.60 - 3.40 [facility] Monocytes [#/volume] in Blood by Automated count 0.66 10^3/uL 0.00 - 0.90 [facility] Eosinophils [#/volume] in Blood by Automated count 0.00 10^3/uL 0.00 - 0.70 [facility] Basophils [#/volume] in Blood by Automated count 0.01 10^3/uL 0.00 - 0.20 [facility] #IG 0.04 10^3/uL 0.00 - 0.10 [facility] H ospital #NRBC 0.00 10^3/uL 0.00 - 0.00 [facility] osp[facility] MANUAL DIFF NOT INDICATED [facility] RBC MORPH NOT INDICATED [facility] spital ID Date Data Source [id number] 02/09/2020 03:24:00 PM EDT [facility] 1 OrderSheet [facility] Emergency Department [address] [place] [address] Phone #: ext- [phone] 02/09/2020 15:24 Patient: YASMIN BARBA Sex: M : 1995 Age: 24yWEIGHT:95.2 kg (S) HEIGHT:74 inches (S) BMI:27.0ALLERGIES: No Known Drug AllergyCHIEF COMPLAINT: pain, swellingDIAGNOSIS: Anxiety, Cellulitis of skin, Drug abuse, Infestation by SarcoptesLAB ORDERSOrder Description Priority Entered Acknowledged InitialedCB w Diff STAT 16:15 02/09/2020 16:46 Yair Aragon ED, Jesse ER M.D.; Wxuy3NAL STAT 16:15 02/09/2020 16:46 Yair Aragon ED, Jesse ER M.D.; Pbar3Nusnk Culture STAT 16:15 02/09/2020 16:46 Hmnnvwtx74d X2 (Yair Mccray ED, Jesse ER16:15 02/09/2020) Benson; Svhz8Ifmip Culture STAT 16:15 02/09/2020 16:55 Iwjhzlxv22v X2 (Yair Mccray ED, Jesse ER16:25 02/09/2020Cayetano Knowles; Xmen4Slkndk Acid STAT 16:18 02/09/2020 16:46 [place] Yair Sethi manager application developmentRoque M.D.; Qwti5UVO STAT 16:18 02/09/2020 16:46 [place] Yair Sethi manager application developmentRoque M.D.; Ibyy9ZPNUVHHBOX STUDY ORDERSOrder Description Priority Entered Acknowledged InitialedUS Lower Ext STAT 16:15 02/09/2020 17:40 DorisVenous Bilateral Yair Sethi RN(Oxygen?(No)) Benson; Reason for Study: Pain, Limb, Swelling, LimbChest Portable 1 STAT 17:03 02/09/2020 17:30 Sorbero,View Yair Sethi R.N.(Oxygen?(No)) Benson; Reason for Study: FeverMEDICATION/IV/DRIP/FLUID ORDERS 2 OrderSheet [facility] Emergency Department [address] [place] [address] Phone #: ext- [phone] 02/09/2020 15:24 Patient: YASMIN BARBA Sex: M : 1995 Age: 24yOrder Description Priority Entered Acknowledged InitialedNS IV 1000 mL 16:16 02/09/2020 17:41 DorisBolus: : Bolus 1000 Yair Sethi RNmL (X1) Benson;Clindamycin IVPB 16:16 02/09/2020 17:41 Hjmve597 mg Yair Sethi RN, M.D.;Dilaudid IVP 1 [...] Priority Entered Acknowledged InitialedEKG 16:38 02/09/2020 16:55 [place] Yair Sethi manager application developmentRoque M.D.; Tech1[Electronically signed by Corbin Montana R.N. (21:12 02/09/2020)][Electronically signed by Yair Sethi M.D. (21:16 02/09/2020)][Electronically locked by Corbin Montana R.N. (21:12 02/09/2020)] Name Value Range Interpretation Code Description Data Carlota rce(s) Supporting Document(s) ID Date Data Source [id number] 02/09/2020 03:24:00 PM EDT [facility] 1 Medication Reconciliation Report [facility] Emergency Department [address] [place] [address] Phone #: ext- [phone] 02/09/2020 15:24 Patient: [...] administered: 02/09/2020 5:30:00PM 2 Medication Reconciliation Report [facility] Emergency Department [address] [place] [address] Phone #: ext- [phone] 02/09/2020 15:24 Patient: [...] rce(s) Supporting Document(s) ID Date Data Source [id number] 02/09/2020 03:24:00 PM EDT [facility] 1 Medication Administration Record [facility] Emergency Department [address] [place] [address] Phone #: ext- [phone] 02/09/2020 15:24 Patient: YASMIN BARBA Sex: M : 1995 Age: 24yWeight: 95.2 kgHeight/Length: 74 inBMI: 27ALLERGIES: No Known Drug Allergy Date/Time Medication Administered Medication OrderedStart IV NS W/ BOLUS NS IV 1000 mL Bolus: : Bolus [id number]:30 02/09/2020 Dose: IV Fluids mL (X1)Ani Aguero [...] [IVP] (DIPHENHYDRAMINE Benadryl IVP 50 mg17:30 02/09/2020 HCL)nAi Aguero RN Dose: 50 mg IVP In: [...] NS IV 1000 mL Bolus: : Bolus [id number] 02/09/2020 Dose: IV Fluids mL (X1)Corbin Montana RFaisal Rate: 1500 mL/hr over 40 minute(s)---- Dispensed: 1000 mL bagStop Site: #1 left upper arm19:54 02/09/2020SoCorbin goel RHerbertNHerbert Name Value Range Interpretation Code Description Data Carlota rce(s) Supporting Document(s) ID Date Data Source [id number] 02/09/2020 03:24:00 PM EDT [facility] 1 General Instructions [facility] Emergency Department [address] [place] [address] Phone #: ext- [phone] 02/09/2020 15:24 Patient: YASMIN BARBA Sex: M : 1995 Age: 24yCellulitis of the right ankle, right foot, left ankle and left foot.Anxiety reaction.Recovering substance abuse- heroin with anxiety.Diffuse Bed Bug Bites.(Electronically signed by Yair Sethi M.D. 02/09/2020 21:16) Name Value Range Interpretation Code Description Data Carlota rce(s) Supporting Document(s) ID Date Data Source [id number] 02/09/2020 03:24:00 PM EDT [facility] 1 Clinical Report - Nurses [facility] Emergency Department [address] [place] [address] Phone #: ext- [phone] 02/09/2020 15:24 Patient: YASMIN BARBA Sex: M [...] 2 weeks ago, "on an antibiotic". 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 --15:58 02/09/20 DARRYN Eliasuboxone Sublingual, daily. --16:01 02/09/20 Ani Aguero RN.AllergiesNo Known Drug Allergy. --15:58 02/09/20 Ani Aguero RN.PROBLEMS:Depression.Anxiety Reaction.Hepatitis: (C). --16:01 02/09/20 DARRYN Eliasubstance Abuse: RuleOut. --18:39 02/09/20 Corbin Montana R.N.ADDITIONAL SURGERIES:Rhinoplasty. --16:02 02/09/20 Ani Aguero RN.Vtbpzpp86:25 02/09/20.PAST MEDICAL HX: Tetanus status: up-to-date. Immunizations: [...] integrity risk 3 Clinical Report - Nurses [facility] Emergency Department [address] [place] [address] Phone #: ext- [phone] 02/09/2020 15:24 Patient: [...] shown to the ED physician. --17:00 02/09/20 [place] manager application developmentRoque Carlos ER Tech1 17:30 02/09/2020 Site #1 [...] by RN. 4 Clinical Report - Nurses [facility] Emergency Department [address] [place] [address] Phone #: ext- [phone] 02/09/2020 15:24 --------- [...] 02/09/20. Bedside lower extremity sonogram performed by hvac maintenance technician. --17:48 02/09/20 ANGEL Santana18:29 02/09/2020 Clindamycin IVPB [...] [place] R.N. 5 Clinical Report - Nurses [facility] Emergency Department [address] [place] [address] Phone #: ext- [phone] 02/09/2020 15:24 Patient: YASMIN BARBA Sex: M [...] rce(s) Supporting Document(s) ID Date Data Source [id number] 02/09/2020 03:24:00 PM EDT [facility] 1 Clinical Report - Physicians/Mid Levels [facility] Emergency Department [address] [place] [address] Phone #: ext- [phone] 02/09/2020 15:24 Patient: YASMIN BARBA Sex: M [...] daily. 2 Clinical Report - Physicians/Mid Levels [facility] Emergency Department [address] [place] [address] Phone #: ext- [phone] 02/09/2020 15:24 Patient: [...] 02/09/2020. 3 Clinical Report - Physicians/Mid Levels [facility] Emergency Department [address] [place] [address] Phone #: ext- [phone] 02/09/2020 15:24 Patient: YASMIN BARBA Sex: M : 1995 Age: 24yLower Extremity Sonography: Negative exam on the right and left side. Study type: utilized duplexsonography. The exam was performed by a fuel conversion technician. The study was interpreted by the radiologist.Interpretation time: 18:28 02/09/2020.Laboratory Tests: Laboratory tests have been ordered, with results reviewed and considered in themedical decision making process.Chest Portable 1 View: (RACIEL: 02/09/2020 17:03) ( [facility] 02/09/2020 18:20) In ProgressCHEST PORTABLEReason(s): FeverTRANSPORTATION: P IV? O2? Oxygen?(No) [facility]: ([facility]ACIEL: 02/09/2020 16:39) ( [facility] 02/09/2020 17:16) Final results Test Result Flag Units (Reference) LACTIC ACID 1.3 MMOL/L (0.2 - 2.2)CPK: (RACIEL: 02/09/2020 16:39) ( [facility] 02/09/2020 17:17) Final results Test Result Flag Units (Reference) CPK 494 H U/L (30 - 170)CBC w Diff: (RACIEL: 02/09/2020 16:39) ( [facility] 02/09/2020 17:45) Final results Test Result Flag [...] INDICATED 4 Clinical Report - Physicians/Mid Levels [facility] Emergency Department [address] [place] [address] Phone #: ext- [phone] 02/09/2020 15:24 Patient: [...] care. 5 Clinical Report - Physicians/Mid Levels [facility] Emergency Department [address] [place] [address] Phone #: ext- [phone] 02/09/2020 15:24 Patient: [...] rce(s) Supporting Document(s) ID Date Data Source [id number] 02/14/2020 06:20:00 PM EDT [facility] Name Value Range Interpretation Code Description Data Carlota rce(s) Supporting Document(s) Bacteria identified in Blood by Culture [facility] NO GROWTH AFTER 5 DAYS ID Date Data Source [id number] 02/18/2020 07:29:00 AM EDT [facility] Name Value Range Interpretation Code Description Data Carlota rce(s) Supporting Document(s) CULTURE BLOOD [facility] Ho spital _CULTURE BLOOD_{ PRELIM TEST PERFORMED AT [address] [address] CLIA# [id number] SEE SCANNED REPORT ID Date Data Source [id number] 02/18/2020 07:29:00 AM EDT [facility] Name Value Range Interpretation Code Description Data Carlota rce(s) Supporting Document(s) CULTURE BLOOD [facility] _CULTURE BLOOD_{ PRELIM TEST PERFORMED AT [facility] [address] [place] [address] CLIA# [id number] SEE SCANNED REPORT ID Date Data Source [id number] 02/09/2020 05:16:00 PM EDT [facility] Name Value Range Interpretation Code Description Data Carlota rce(s) Supporting Document(s) Lactate [Moles/volume] in Serum or Plasma 1.3 MMOL/L 0.2 - 2.2 [facility] ID Date Data Source [id number] 02/09/2020 05:17:00 PM EDT [facility] Name Value Range Interpretation Code Description Data Carlota rce(s) Supporting Document(s) COMPREHENSIVE METABOLIC PANEL [facility] COMPREHENSIVE METABOLIC PANEL Sodium [Moles/volume] in Serum or Plasma 136 mEq/L 134 - 153 [facility] Potassium [Moles/volume] in Serum or Plasma 4.2 mEq/L 3.6 - 5.0 [facility] Chloride [Moles/volume] in Serum or Plasma 100 mEq/L 98 - 107 [facility] Carbon dioxide, total [Moles/volume] in Serum or Plasma 24 MEQ/L 22 - 30 [facility] Glucose [Mass/volume] in Serum or Plasma 100 MG/DL 65 - 110 [facility] BUN 19 MG/DL 7 - 21 [facility] Creatinine [Mass/volume] in Serum or Plasma 0.8 MG/DL 0.7 - 1.5 [facility] BUN/CREAT 24 8 - 27 [facility] Protein [Mass/volume] in Serum or Plasma 6.3 G/DL 6.3 - 8.2 [facility] Albumin [Mass/volume] in Serum or Plasma 4.1 G/DL 3.9 - 5.0 [facility] Globulin [Mass/volume] in Serum by calculation 2.2 GM/DL 2.4 - 3.2 L [facility] A/G RATIO 1.9 0.8 - 2.0 [facility] Calcium [Mass/volume] in Serum or Plasma 9.2 MG/DL 8.4 - 10.2 [facility] Bilirubin.total [Mass/volume] in Serum or Plasma <0.7 MG/DL 0.2 - 1.3 [facility] Alkaline phosphatase [Enzymatic activity/volume] in Serum or Plasma 91 U/L 38 - 126 [facility] Aspartate aminotransferase [Enzymatic activity/volume] in Serum or Plasma 74 U/L 5 - 40 H [facility] Alanine aminotransferase [Enzymatic activity/volume] in Seru m or Plasma 93 U/L 7 - 56 H [facility] Anion gap 3 in Serum or Plasma 12.0 mmol/L 8.0 - 16.0 [facility] AGE 24 yrs [facility] NON-AA GFR >60 mL/min [facility] ital AFR AMER GFR >60 mL/min [facility] Male GFR In terprentation 20-49 [...] >32 mL/min Normal ID Date Data Source [id number] 02/09/2020 05:17:00 PM T [facility] Name Value Range Interpretation Code Description Data Carlota rce(s) Supporting Document(s) Creatine kinase [Enzymatic activity/volume] in Serum or Plasma 4 94 U/L 30 - 170 H [facility] ID Date Data Source [id number] 02/09/2020 05:45:00 PM T [facility] Name Value Range Interpretation Code Description Data Carlota rce(s) Supporting Document(s) CBC W/AUTOMATED DIFF [facility] COMPLETE BLOOD COUNT Leukocytes [#/volume] in Blood by Automated count 11.4 10^3/uL 4.2 - 11.0 H [facility] Erythrocytes [#/volume] in Blood by Automated count 4.16 10^6/uL 4. 50 - 6.30 L [facility] Hemoglobin [Mass/volume] in Blood 12.8 g/dL 14.0 - 16.0 L [facility] Hematocrit [Volume Fraction] of Blood by Automated count 36.7 % 4 1.0 - 51.0 L [facility] Erythrocyte mean corpuscular volume [Entitic volume] by Auto mated count 88.2 fL 80.0 - 94.0 [facility] Erythrocyte mean corpuscular hemoglobin [Entitic mass] by Automated count 30.8 pg 27.0 - 34.0 [facility] Erythrocyte mean corpuscular hemoglobin concentration [Mass/volume] by Automated count 34.9 g/dL 31.0 - 36.0 [facility] Erythrocyte distribution width [Ratio] by Automated count 11.9 % 11.5 - 14.8 [facility] Platelets [#/volume] in Blood by Automated count 274 10^3/uL 150 - 45 0 [facility] Platelet mean volume [Entitic volume] in Blood by Automated count 8.6 fL 7.4 - 10.4 [facility] Neutrophils/100 leukocytes in Blood by Automated count 69.2 % 37. 0 - 80.0 [facility] Lymphocytes/100 leukocytes in Blood by Manual count 14.9 % 25.0 - 40.0 L [facility] Monocytes/100 leukocytes in Blood by Automated count 13.4 % 3.0 - 8.0 H [facility] Eosinophils/100 leukocytes in Blood by Automated count 1.8 % 0.0 - 7.0 [facility] 0.3 %IG 0.4 % 0.0 - 0.0 H [facility] al %NRBC 0.0 % 0.0 - 0.0 [facility] Neutrophils [#/volume] in Blood by Automated count 7.88 10^3/uL 2.00 - 6.90 H [facility] Lymphocytes [#/volume] in Blood by Automated count 1.70 10^3/uL 0.60 - 3.40 [facility] Monocytes [#/volume] in Blood by Automated count 1.52 10^3/uL 0.00 - 0.90 H [facility] Eosinophils [#/volume] in Blood by Automated count 0.21 10^3/uL 0.00 - 0.70 [facility] Basophils [#/volume] in Blood by Automated count 0.03 10^3/uL 0.00 - 0.20 [facility] #IG 0.04 10^3/uL 0.00 - 0.10 [facility] #NRBC 0.00 10^3/uL 0.00 - 0.00 [facility] MANUAL DIFF SEE BELOW [facility] Segmented neutrophils/100 leukocytes in Blood by Manual count 68 % 37 - 80 [facility] BAND 0 % 0 - 5 [facility] %LYMPH 28 % 25 - 40 [facility] %MONO 3 % 3 - 8 [facility] %EOS 1 % 0 - 7 [facility] 0 RBC MORPH NOT INDICATED [facility] ID Date Data Source [id number] 10/08/2019 12:40:00 PM EDT [facility] Name Value Range Interpretation Code Description Data Carlota rce(s) Supporting Document(s) SARS CORONAVIRUS 2 RNA [facility] This lab was ordered by [facility] and reported by [facility]. Procedure Vital Signs ID Date Data Source UNK Name Value Range Interpretation Code Description Data Source(s) Body weight 105.235 kg 105.235 kg [facility] ([facility]) Body mass index (BMI) [Ratio] 29.8 kg/m2 29.8 k g/m2 [facility]) Body weight 232.00 [lb_av] 232.00 [lb_av] [facility] ([facility]) Body height 74 [in_i] 74 [in_i] [facility]) 6'2" Diastolic blood pressure 80 mm[Hg] 80 mm[Hg] [facility]) Systolic blood pressure 140 mm[Hg] 140 mm[Hg] [facility]) Body weight 97.637 kg 97.637 kg [facility] ([facility]) Body mass index (BMI) [Ratio] 27.6 kg/m2 27.6 k g/m2 [facility]) Body weight 215.25 [lb_av] 215.25 [lb_av] [facility] Body height 74 [in_i] 74 [in_i] [facility] ([facility], ) 6'2" Body temperature 98.5 [degF] 98.5 [degF] [facility] ([facility], ) Diastolic blood pressure 90 mm[Hg] 90 mm[Hg] [facility] ([facility], ) Systolic blood pressure 130 mm[Hg] 130 mm[facility]Hg] [facility] ID Date Data Source [id number] 02/18/2020 07:29:52 AM EDT [facility] Name Value Range Interpretation Code Description Data Source(s) WEIGHT RECORDED 236.00 pounds 236.00 pounds [facility]
[2020-08-31 07:07] LABS: BASO % 0.4 % (0.0-1.0); EOS # 0.3 10^3/uL (0.0-0.5); EOS % 3.4 % (0.0-3.0); HEMOGLOBIN 12.2 g/dl (13.5-17.5); LYMPH # 2.2 10^3/uL (1.5-5.0); LYMPH % 26.1 % (24.0-44.0); MEAN CORPUSCULAR HEMOGLOBIN 28.5 pg (27.0-33.0); MEAN CORPUSCULAR HGB CONC 32.1 g/dl (32.0-36.5); MEAN CORPUSCULAR VOLUME 88.8 fl (80.0-96.0); MONO # 0.9 10^3/uL (0.0-0.8); MONO % 10.6 % (2.0-8.0); NEUTROPHILS # 4.9 10^3/uL (1.5-8.5); NEUTROPHILS % 59.3 % (36.0-66.0); PLATELET COUNT, AUTOMATED 278 10^3/uL (150-450); RED BLOOD COUNT 4.28 10^6/uL (4.30-6.10); WHITE BLOOD COUNT 8.2 10^3/uL (4.0-10.0)
--- NOTE | 2020-08-31 07:08 | REPVR ---
PROCEDURE INFORMATION: Exam: XR Chest Exam date and time: 08/31/2020 6:29 AM Age: 24 years old Clinical indication: Other: Edema; Additional info: Edema, weight loss TECHNIQUE: Imaging protocol: XR of the chest Views: 1 view. COMPARISON: CR Chest, 2 view PA, Lat 02/23/2020 1:51 PM FINDINGS: Lungs: Unremarkable. No consolidation. Pleural spaces: Unremarkable. No pleural effusion. No pneumothorax. Heart/Mediastinum: Unremarkable. No cardiomegaly. Bones/joints: Unremarkable. IMPRESSION: No acute findings. Electronically signed by: Zena Stringer On 08/31/2020 07:08:58 AM
[2020-08-31 07:23] LABS: ALBUMIN 3.6 GM/DL (3.2-5.2); BILIRUBIN,DIRECT 0.1 MG/DL (0.0-0.2); BILIRUBIN,TOTAL 0.3 MG/DL (0.2-1.0); TOTAL PROTEIN 7.4 GM/DL (6.4-8.2)
[2020-08-31] MEDS ORDERED: LIDOCAINE 1% MDV 20ML VIAL SC ONE (08:25)
--- NOTE | 2020-08-31 08:28 | REP ---
INDICATION: redness, swelling, r/o abscess. COMPARISON: None. TECHNIQUE: Targeted soft tissue left lower extremity sonography is performed in the area of the draining inflamed lesion. FINDINGS: Scanning in the left lateral mid calf in the area swelling shows a irregularly shaped branching configuration hypoechoic structure in the subcutaneous fat with a tract to the overlying skin. This measures 1.8 x 0.8 x 1.1 cm. No hyperemia is noted in the region. No movement or compression is seen with probe pressure. No other abnormality. IMPRESSION: Findings most compatible with irregular the subcutaneous abscess/draining fistula. Underlying musculature does not appear to be involved. <Electronically signed by Tavon Bynum > 08/31/20 0224
--- NOTE | 2020-08-31 08:28 | REP ---
INDICATION: redness, swelling r/o dvt. TECHNIQUE: Multiple ultrasonographic images of the deep venous structures of the bilateral thighs were obtained from the level of the common femoral vein to the popliteal vein in the longitudinal and transverse scan planes along with Doppler interrogation and color flow Doppler imaging. FINDINGS: There is no abnormal echogenic material seen within any of the visualized deep venous structures that would suggest acute thrombosis. Coaptation is unremarkable throughout. Doppler interrogation shows an expected response to respiratory variability and augmentation. The color flow Doppler images show what appears to be a normal vascular pattern throughout. There are multiple inguinal nodes bilaterally, the largest on the right is 2.1 x 1.5 x 0.5 cm and on the left 2.5 x 2.5 x 0.9 cm. There is a 3 x 0.8 x 0.5 cm popliteal fossa cyst on the left. IMPRESSION: There is no ultrasonographic evidence of deep venous thrombosis involving any of the visualized deep venous structures of the bilateral thighs as described above. Reactive inguinal adenopathy bilaterally. Popliteal fossa cyst on the left 3 x 0.5 x 0.9 cm. Accredited by the [employer] in Vascular Peripheral Ultrasound. <Electronically signed by Prasanna West > 08/31/20 [id number]
[2020-08-31 08:37] LABS: APPEARANCE, URINE HAZY (CLEAR); BACTERIA, URINE AUTO NEGATIVE (NEGATIVE); BILIRUBIN, URINE AUTO NEGATIVE (NEGATIVE); BLOOD, URINE BLOOD NEGATIVE (NEGATIVE); COLOR, URINE YELLOW (YELLOW); GLUCOSE, URINE (UA) AUTO NEGATIVE (NEGATIVE); KETONE, URINE AUTO NEGATIVE (NEGATIVE); LEUKOCYTE ESTERASE, URINE AUTO NEGATIVE (NEGATIVE); MUCUS, URINE SMALL (NEGATIVE); NITRITE, URINE AUTO NEGATIVE (NEGATIVE); PROTEIN, URINE AUTO NEGATIVE (NEGATIVE); RBC, URINE AUTO 0 /HPF (0-3); SQUAMOUS EPITHELIAL CELL UR AU 0 /HPF (0-6); UROBILINOGEN, URINE AUTO 0.2 mg/dL (0.0-2.0); WBC, URINE AUTO 0 /HPF (0-3)
[2020-08-31 09:28] LABS: AMPHETAMINES LEVEL URINE NEGATIVE (NEGATIVE); BARBITURATES URINE NEGATIVE (NEGATIVE); BENZODIAZEPINES URINE POSITIVE (NEGATIVE); CANNABINOIDS URINE NEGATIVE (NEGATIVE); COCAINE METABOLITE URINE NEGATIVE (NEGATIVE); METHADONE URINE NEGATIVE (NEGATIVE); OPIATES URINE NEGATIVE (NEGATIVE); PHENCYCLIDINE URINE NEGATIVE (NEGATIVE)
--- NOTE | 2020-08-31 09:40 | ECGEPIP ---
[facility] - ED Test Date: 2020-08-31 Pat Name: YASMIN BARBA Department: Room: - Gender: Male [employer]er: RS : 1995 Requested By: PHILIP ANDRADE PA-C. Order Number: [id number] Reading MD: Radha Gloria Measurements Intervals [place] Rate: 62 P: 35 SC: 124 QRS: 81 QRSD: 90 T: 55 QT: 434 QTc: 440 Interpretive Statements Normal sinus rhythm decreased rate 02/23/20 Electronically Signed on 08-31-2020 9:40:09 EST by Radha Gloria
[2020-08-31] MEDS ORDERED: METH30CA13 PO (12:26)
[2020-08-31] MEDS ORDERED: VANICREAM MOISTURIZING SKIN CREAM 113GM TUBE TOP PRN (13:55)
[2020-08-31] MEDS ORDERED: LORazepam 2 MG/ML VIAL IV PRN (14:20)
--- NOTE | 2020-08-31 14:23 | HPEPDOC ---
[facility] Medical History & Physical Date of Admission Aug 31, 2020 Date of Service: Aug 31, 2020 History and Physical CHIEF COMPLAINT: Wants to go to rehabilitation HISTORY OF PRESENT ILLNESS: 24-year-old male with history of polysubstance abuse presents to the emergency department asking for assistance with obtaining referral to go to rehabilitation he wants to quit drug abuse. He is an active drug user he injects baths daily as well as heroin. He is in a Suboxone program and gets 8 mg daily last was yesterday. Last use of bath salts also yesterday. He also abuses benzodiazepines he uses whatever he can get his hands on including Xanax and Ativan. Patient was found to have lower extremity cellulitis and multiple abscesses which were I&D in the ED. He says that the site of the abscesses and cellulitis is where he injects at home. Patient denies any fevers or chills denies any chest pain or shortness of breath denies abdominal pain denies nausea or vomiting. He does endorse lower extremity swelling and pain. Patient was supposed to go to, [facility] rehabilitation yesterday, told they went to his house yesterday, but he was too high and did not cooperate with them he does not recall this. PAST MEDICAL/SURGICAL HISTORY: Polysubstance abuse Hepatitis C infection: States he completed 12 weeks of treatment in 2012 Nose reconstruction surgery Left and abscess drainage SOCIAL HISTORY: Denies alcohol use Endorses smoking 1 pack per day Endorses multiple illicit drug use including heroin, benzodiazepines specifically Ativan, Klonopin, Xanax. Injects baths. Uses cannabis. Uses methamphetamines specifically Ritalin daily. He is in a Suboxone detox program last visit was yesterday gets 8 mg daily but occasionally uses heroin as well. FAMILY HISTORY: Reviewed and none contributory to this admission ALLERGIES: Please see below. REVIEW OF SYSTEMS: 10 point review of systems complete all negative otherwise stated in HPI HOME MEDICATIONS: Please see below. PHYSICAL EXAMINATION: Constitutional: Awake and alert, in no apparent distress, poor hygiene disheveled ENT: Sclera are clear Respiratory: Lungs CTA bilaterally. No respiratory distress. Cardiovascular: RRR S1 and S2 are normal, no murmur Gastrointestinal: Abdomen is soft, non distended, non tender Musculoskeletal: Some bilateral lower extremity edema. RUE 5/5, LUE 5/5, BLE 5/5 Neurologic: No focal neurological deficit. Mental Status: A&O x3, normal affect Skin: Patient has multiple track mancilla and obvious injection sites. He has an abscess in his left arm s/P I&D in the ED with fresh dressing in place. Patient also has a left leg stage III ulcer less than 1 cm in diameter that was probed also in the ED without much discharge. Patient also appears to have some erythema and swelling over his leg reminiscent of cellulitis without purulent discharge - also an injection site. LABORATORY DATA: See below. IMAGING: See chart MICROBIOLOGY: Please see below. ASSESSMENT/PLAN 24-year-old male with history of polysubstance abuse presents to the emergency department asking for assistance with obtaining referral to go to rehabilitation he wants to quit drug abuse he was also found to have lower extremity cellulitis and multiple abscesses. Patient admitted to the medical unit for treatment as well as consultation was PFS for rehabilitation options. # Lower extremity cellulitis: IV Zyvox. Fu BCx. No leukocytosis afebrile. Wound care. Duplex US LE negative for DVT. # Polysubstance abuse: High risk of seizures from benzodiazepine withdrawal. He uses 10-12 mg daily recently less. I will place him on when necessary Diazepam for this. He also uses Suboxone 8 mg daily which we can give as needed for symptomatic management of opiate withdrawal. Fall and seizure precautions. PFS for rehabilitation options and placement. # History of hepatitis C infection: Endorses history that was treated in 2011. Hepatitis C testing. If positive again should follow-up with PCP may need to be retreated once he quits drug abuse. # Smoker: Advised patient to quit smoking. Offered nicotine patch. # DVT prophylaxis: Lovenox [facility] Vital Signs Vital Signs Date Time Temp Pulse Resp B/P (MAP) Pulse Ox O2 Delivery O2 Flow Rate FiO2 08/31/20 13:22 81 99 Room Air 08/31/20 10:21 140/61 (87) 08/31/20 07:31 18 08/31/20 06:57 97.4 Laboratory Data Labs 24H Laboratory Tests 2 08/31/20 06:19: Immature Granulocyte % (Auto) 0.2, Neutrophils (%) (Auto) 59.3, Lymphocytes (%) (Auto) 26.1, Monocytes (%) (Auto) 10.6H, Eosinophils (%) (Auto) 3.4H, Basophils (%) (Auto) 0.4, Neutrophils # (Auto) 4.9, Lymphocytes # (Auto) 2.2, Monocytes # (Auto) 0.9H, Eosinophils # (Auto) 0.3, Basophils # (Auto) 0.0, Nucleated Red Blood Cells % (auto) 0.0, Lactic Acid Level 1.1, Total Bilirubin 0.3, Direct Bilirubin 0.1, Aspartate Amino Transf (AST/SGOT) 30, Alanine Aminotransferase (ALT/SGPT) 40, Alkaline Phosphatase 109, Total Protein 7.4, Albumin 3.6, Albumin/Globulin Ratio 0.9 08/31/20 06:55: POC Glucose (Misc Panel) 89, POC Sodium (Misc Panel) 139, POC Potassium (Misc Panel) 4.1, POC Chloride (Misc Panel) 100, POC Total CO2 (Misc Panel) 30.0H, POC Blood Urea Nitrogen (Misc Panel 12, POC Ionized Calcium (Misc Panel) 4.9, POC Creatinine (Misc Panel) 0.8, POC Hematocrit (Misc Panel) 37.0L 08/31/20 08:25: Urine Color YELLOW, Urine Appearance HAZY, Urine pH 5.0, Urine Specific Ralph 1.020, Urine Protein NEGATIVE, Urine Glucose (Auto)(UA) NEGATIVE, Urine Ketones (Auto) NEGATIVE, Urine Blood NEGATIVE, Urine Nitrite NEGATIVE, Urine Bilirubin N EGATIVE, Urine Urobilinogen 0.2, Urine Leukocyte Esterase (Auto) NEGATIVE, Urine WBC (Auto) 0, Urine RBC (Auto) 0, Urine Hyaline Casts (Auto) 0, Urine Bacteria (Auto) NEGATIVE, Urine Squamous Epithelial Cells 0, Urine Mucus (Auto) SMALL, Urine Sperm (Auto) , Urine Opiates Screen NEGATIVE, Urine Methadone Screen NEGATIVE, Urine Barbiturates Screen NEGATIVE, Urine Phencyclidine Screen NEGATIVE, Urine Amphetamines Screen NEGATIVE, Urine Benzodiazepines Screen POSITIVEH, Urine Cocaine Metabolite Screen NEGATIVE, Urine Cannabinoids Screen NEGATIVE CBC/BMP Laboratory Tests 08/31/20 06:19 Microbiology Microbiology 08/31/20 Blood Culture, Received Pending 08/31/20 Blood Culture, Received Pending Home Medications Scheduled Buprenorphine HCl/Naloxone HCl (Suboxone 8 mg-2 mg Sl Film) 1 Each Film, 1 STRIP SL DAILY VERIFIED WITH CREDO - HAS BEEN VERY SPORADIC WITH DOSING, BETWEEN 8MG AND 24MG Bupropion HCl (Bupropion Xl) 450 Mg Tab.er.24h, 450 MG PO DAILY Methylphenidate HCl (Methylphenidate HCl) 5 Mg Tablet, 5 MG PO DAILY TAKES AT NOON Methylphenidate HCl (Methylphenidate LA) 30 Mg Cpbp.50.50, 30 MG PO DAILY Paroxetine HCl (Paxil) 20 Mg Tablet, 20 MG PO DAILY Quetiapine Fumarate (Quetiapine Fumarate) 100 Mg Tablet, 200 MG PO QHS Allergies Coded Allergies: amphetamine (Verified Allergy, Severe, 08/31/20) dextroamphetamine (Verified Allergy, Severe, 08/31/20) vancomycin (Verified Allergy, Severe, kidney failure, 04/20/20) A-FIB/CHADSVASC A-FIB History Current/History of A-Fib/PAF?: No Current PO Anticoag Therapy: ISMAEL Iniguez MD Aug 31, 2020 14:23
--- OUTSIDE RECORDS SUMMARY | 2020-08-31 14:30 | CCD ---
Author Author [facility] Organization [facility] Address Unknown Phone Unavailable Care Team Providers Care Restrictive Preparation Operator Name Role Phone TURRIN, YAIR Unavailable Unavailable TURRIN, YAIR Unavailable Unavailable TURRIN, YAIR Unavailable Unavailable TURRIN, YAIR Unavailable Unavailable Elva Falanga, A Gunjan PHYSICIAN INTERVENTIONAL CARDIOLOGIST Unavailable Unavailable Elva Falanga, A Gunjan PHYSICIAN INTERVENTIONAL CARDIOLOGIST Unavailable Unavailable Callaway Falanga, A Gunjan PHYSICIAN INTERVENTIONAL CARDIOLOGIST Unavailable Unavailable Callaway Falanga, A Gunjan PHYSICIAN INTERVENTIONAL CARDIOLOGIST Unavailable Unavailable Callaway Falanga, A Gunjan PHYSICIAN INTERVENTIONAL CARDIOLOGIST Unavailable Unavailable Callaway Falanga, A Gunjan PHYSICIAN INTERVENTIONAL CARDIOLOGIST Unavailable Unavailable Callaway Falanga, A Gunjan PHYSICIAN INTERVENTIONAL CARDIOLOGIST Unavailable Unavailable Callaway Falanga, A Gunjan PHYSICIAN INTERVENTIONAL CARDIOLOGIST Unavailable Unavailable Callaway Falanga, A Gunjan PHYSICIAN INTERVENTIONAL CARDIOLOGIST Unavailable Unavailable Elva Falanga, A Gunjan PHYSICIAN INTERVENTIONAL CARDIOLOGIST Unavailable Unavailable Elva Falanga, A Gunjan PHYSICIAN INTERVENTIONAL CARDIOLOGIST Unavailable Unavailable Callaway Falanga, A Gunjan PHYSICIAN INTERVENTIONAL CARDIOLOGIST Unavailable Unavailable Elva Falanga, A Gunjan PHYSICIAN INTERVENTIONAL CARDIOLOGIST Unavailable Unavailable Callaway Falanga, A Gunjan PHYSICIAN INTERVENTIONAL CARDIOLOGIST Unavailable Unavailable Callaway Falanga, A Gunjan PHYSICIAN INTERVENTIONAL CARDIOLOGIST Unavailable Unavailable Elva Falanga, A Gunjan PHYSICIAN INTERVENTIONAL CARDIOLOGIST Unavailable Unavailable Elva Falanga, A Gunjan PHYSICIAN INTERVENTIONAL CARDIOLOGIST Unavailable Unavailable Callaway Falanga, A Gunjan PHYSICIAN INTERVENTIONAL CARDIOLOGIST Unavailable Unavailable Callaway Falanga, A Gunjan PHYSICIAN INTERVENTIONAL CARDIOLOGIST Unavailable Unavailable Elva Falanga, A Gunjan PHYSICIAN INTERVENTIONAL CARDIOLOGIST Unavailable Unavailable Callaway Falanga, A Gunjan PHYSICIAN INTERVENTIONAL CARDIOLOGIST Unavailable Unavailable Callaway Falanga, A Gunjan PHYSICIAN INTERVENTIONAL CARDIOLOGIST Unavailable Unavailable Elva Falanga, A Gunjan PHYSICIAN INTERVENTIONAL CARDIOLOGIST Unavailable Unavailable Callaway Falanga, A Gunjan PHYSICIAN INTERVENTIONAL CARDIOLOGIST Unavailable Unavailable Elva Falanga, A Gunjan PHYSICIAN INTERVENTIONAL CARDIOLOGIST Unavailable Unavailable Callaway Falanga, A Gunjan PHYSICIAN INTERVENTIONAL CARDIOLOGIST Unavailable Unavailable Callaway Falanga, A Gunjan PHYSICIAN INTERVENTIONAL CARDIOLOGIST Unavailable Unavailable Callaway Falanga, A Gunjan PHYSICIAN INTERVENTIONAL CARDIOLOGIST Unavailable Unavailable Callaway Falanga, A Gunjan PHYSICIAN INTERVENTIONAL CARDIOLOGIST Unavailable Unavailable Callaway Falanga, A Gunjan PHYSICIAN INTERVENTIONAL CARDIOLOGIST Unavailable Unavailable BRYDEN, A DAVIN DO Unavailable [...] is protected by Article 27-F of the [facility] Public Health law. If you continue you may have access to information: Regarding HIV / AIDS; Provided by facilities licensed or operated by the [facility] Office of Mental Health; or Provided by the [facility] Office for People With Developmental Disabilities. If such information is present, then the following [facility] mandated warning applies: This information has [...] law may result in a fine or chcf sentence or both. A general authorization for the release of medical or other information is NOT sufficient authorization for further disc losure. Allergies and Adverse Reactions Type Description Substance Reaction Status Data Source(s ) ALLERGIES NOT ON FILE ALLERGIES NOT ON FILE Moran No Known Drug Allergies No Known Drug Allergies [facility] Encounters Encounter Providers Location Date Indications Data Source(s ) Outpatient 02/09/2020 04:39:[address] [facility] Outpatient Attender: Gunjan weinberg FNPAttender: YAIR Cobbsultant: PCP NO 02/09/2020 03:24:00 PM EDT - 02/11/2020 02:15:00 PM EDT [facility] Patient discharged. Outpatient FP 02/03/2020 09:15:01 AM EDT [facility] Outpatient FP 02/03/2020 09:14:00 AM EDT [facility] Outpatient Attender: DAVIN Daly/Zakia/Marvin/Wil ndl 10/21/2019 10:30:00 AM EDT [facility] Outpatient 10/20/2019 05:01:00 AM EDT [facility] Radiology Imaging Medications Medication Brand Name Start [...] to castro Policy Castro Plan Information EMEDNY [id number] SP [id number] [facility] [id number] FA2 [id number] BCBS EMPIRE SHERRI DIV [id number] FA2 [id number] MEDICAID M [id number] [facility] O [id number] S [id number] BCBS EMPIRE 12 [id number] Child [id number] [facility] EMPIRE 31 [id number] Child [id number] MEDICAID [place] 37 [id number] Self [id number] COMMERCIAL GENERIC [id number] Self [id number] [facility] EMPIRE [place] CROSS BLUE SHIELD -O/P [id number] MEDICAID -O/P [id number] MEDICAID [id number] SP [id number] BCBS EMPIRE SHERRI DIV [id number] FA2 [id number] Problems, Conditions, and Diagnoses Code Display Name Description Problem Type Effective Dates Data Source(s) 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, unspecified Inflammatory liver disease, unspecified Diagnosis 02/09/2020 03:24:00 PM EDT [facility] F341 Dysthymic disorder Dysthymic disorder Diagnosis 0 03:24:00 PM EDT [facility] F1120 Opioid dependence, uncomplicated Opioid dependen ce, uncomplicated Diagnosis 02/09/2020 03:24:00 PM EDT [facility] [id number] Cellulitis of left lower limb Cellulitis of left lower limb Diagnosis 02/09/2020 03:24:00 PM EDT [facility] [id number] Cellulitis of right lower limb Cellulitis of right low er limb Diagnosis 02/09/2020 03:24:00 PM EDT [facility] Results ID Date Data Source [id number] 07/11/2020 12:00:00 AM EST [facility] Name Value Range Interpretation Code Description Data Carlota rce(s) Supporting Document(s) SARS-CoV2 Rapid Antigen [facility] This lab was ordered by [facility] and reported by [facility]. ID Date Data Source [id number] 02/26/2020 02:05:00 AM EDT [facility] Name Value Range Interpretation Code Description Data Carlota rce(s) Supporting Document(s) HCV RNA [place] Qualitative Positive Negative Abnormal (applies to non-numeric results) [facility] Positive: HCV RNA Detected ID Date Data Source [id number] 02/11/2020 09:15:00 AM EDT [facility] [address] [place] [address] RESPIRATORY CARE REPORT ==== ---------NAME------- NUMBER SEX AGE ADMIT DISC. XRAY# F/C TYPECLANCY YASMIN [id number] M 24 02/09/20854477 BB2 O/P DATE OF : 1995 M/R# [id number] #: [phone] 103-1 LOCATION: [facility] [address] [facility] TE:02/10/20 07:11 EWW [id number] PHYSICIAN: VENKATA ESTRADA Name Value Range Interpretation Code Description Data Carlota rce(s) Supporting Document(s) ID Date Data Source [id number] 02/11/2020 08:37:00 AM EDT [facility] Name Value Range Interpretation Code Description Data Carlota rce(s) Supporting Document(s) CBC W/AUTOMATED DIFF [facility] COMPLETE BLOOD COUNT Leukocytes [#/volume] in Blood by Automated count 8.5 10^3/uL 4.2 - 1 1.0 [facility] Erythrocytes [#/volume] in Blood by Automated count 3.98 10^6/uL 4. 50 - 6.30 L [facility] Hemoglobin [Mass/volume] in Blood 12.4 g/dL 14.0 - 16.0 L [facility] Hematocrit [Volume Fraction] of Blood by Automated count 36.7 % 4 1.0 - 51.0 L [facility] Erythrocyte mean corpuscular volume [Entitic volume] by Auto mated count 92.2 fL 80.0 - 94.0 [facility] Erythrocyte mean corpuscular hemoglobin [Entitic mass] by Automated count 31.2 pg 27.0 - 34.0 [facility] Erythrocyte mean corpuscular hemoglobin concentration [Mass/volume] by Automated count 33.8 g/dL 31.0 - 36.0 [facility] Erythrocyte distribution width [Ratio] by Automated count 12.5 % 11.5 - 14.8 [facility] Platelets [#/volume] in Blood by Automated count 215 10^3/uL 150 - 45 0 [facility] Platelet mean volume [Entitic volume] in Blood by Automated count 9.2 fL 7.4 - 10.4 [facility] Neutrophils/100 leukocytes in Blood by Automated count 53.7 % 37. 0 - 80.0 [facility] Lymphocytes/100 leukocytes in Blood by Manual count 31.9 % 25.0 - 40.0 [facility] Monocytes/100 leukocytes in Blood by Automated count 13.0 % 3.0 - 8.0 H [facility] Eosinophils/100 leukocytes in Blood by Automated count 0.7 % 0.0 - 7.0 [facility] Basophils/100 leukocytes in Blood by Automated count 0.2 % 0.0 - 2.0 [facility] %IG 0.5 % 0.0 - 0.0 [facility] %[facility] 0.0 % 0.0 - 0.0 [facility] al Neutrophils [#/volume] in Blood by Automated count 4.57 10^3/uL 2.00 - 6.90 [facility] Lymphocytes [#/volume] in Blood by Automated count 2.72 10^3/uL 0.60 - 3.40 [facility] Monocytes [#/volume] in Blood by Automated count 1.11 10^3/uL 0.00 - 0.90 H [facility] Eosinophils [#/volume] in Blood by Automated count 0.06 10^3/uL 0.00 - 0.70 [facility] Basophils [#/volume] in Blood by Automated count 0.02 10^3/uL 0.00 - 0.20 [facility] #IG 0.04 10^3/uL 0.00 - 0.10 [facility] ospital #NRBC 0.00 10^3/uL 0.00 - 0.00 [facility] ospital MANUAL DIFF SEE BELOW [facility] ital Segmented neutrophils/100 leukocytes in Blood by Manual count 55 % 37 - 80 [facility] %LYMPH 36 % 25 - 40 [facility] al %MONO 8 % 3 - 8 [facility] al %EOS 1 % 0 - 7 [facility] RBC MORPH NOT INDICATED [facility] spital ID Date Data Source [id number] 02/11/2020 08:11:00 AM EDT [facility] Name Value Range Interpretation Code Description Data Carlota rce(s) Supporting Document(s) BASIC METABOLIC PANEL [facility] BASIC METABOLIC PANEL Sodium [Moles/volume] in Serum or Plasma 143 mEq/L 134 - 153 [facility] Potassium [Moles/volume] in Serum or Plasma 4.0 mEq/L 3.6 - 5.0 [facility] Chloride [Moles/volume] in Serum or Plasma 110 mEq/L 98 - 107 H [facility] Carbon dioxide, total [Moles/volume] in Serum or Plasma 25 MEQ/L 22 - 30 [facility] Glucose [Mass/volume] in Serum or Plasma 97 MG/DL 65 - 110 [facility] BUN 20 MG/DL 7 - 21 [facility] al Creatinine [Mass/volume] in Serum or Plasma 0.9 MG/DL 0.7 - 1.5 [facility] BUN/CREAT 22 8 - 27 [facility] Calcium [Mass/volume] in Serum or Plasma 8.4 MG/DL 8.4 - 10.2 [facility] Anion gap 3 in Serum or Plasma 8.0 mmol/L 8.0 - 16.0 [facility] AGE 24 yrs [facility] AFR AMER GFR >60 mL/min [facility] NON-AA GFR >60 mL/min [facility] ital Male GFR Inter prentation [...] >32 mL/min Normal ID Date Data Source [id number] 02/10/2020 02:29:00 PM EDT [facility] [address] [place] [address] PHONE: [phone] FAX: [phone] Name .................. : FREDAKeren HOFFMAN Acct Number.................. : [id number] ROOM. ................. : 103-1 Number ................... : [id number] Stay type ............. : O/P Discharge Date......... ... : Admit Date ......... : 02/09/20 Admit Phys .................... : ELVA-CHARLOTTE Date of ....... : 1995 Family Phys ................... : NO PCP Phone .................. : [phone] Age ................................ : 24 Film# .................. .:[id number] Sex ................................. : M Unsigned transcriptions are preliminary reports and do not represent a medical or legal document DOPPLER VENOUS BILAT LEG 79317 COMPLETE:02/09/20 18:22 ADB 94498 Reason(s): Pain, Limb BILATERAL LOWER E XTREMITY [...] rce(s) Supporting Document(s) ID Date Data Source [id number] 02/10/2020 01:57:[place] [address] PHONE: [phone] FAX: [phone] Name .................. : FREDA HOFFMAN Acct Number.................. : [id number] ROOM. ................. : 103-1 Number ................... : [id number] Stay type ............. : O/P Discharge Date......... ... : Admit Date ......... : 02/09/20 Admit Phys .................... : VENKATA Date of ....... : 1995 Family Phys ................... : NO PCP Phone .................. : [phone]/[phone] Age ................................ : 24 Film# .................. .:[id number] Sex ................................. : M Unsigned transcriptions are preliminary reports and do not represent a medical or legal document CHEST PORTABLE [id number] COMPLETE:02/09/20 18:19 KBO 55989 Reason(s): Fever PORTABLE CHEST X-RAY: COMPARISON: None [...] Dictation Date: Copy for: EMERGENCY DEPT [place] [facility] Copy for: 710 MED REC Page 1 of 1 Name Value Range Interpretation Code Description Data Carlota rce(s) Supporting Document(s) ID Date Data Source [id number] 02/10/2020 08:26:00 AM EDT [facility] Name Value Range Interpretation Code Description Data Carlota rce(s) Supporting Document(s) BASIC METABOLIC PANEL [facility] BASIC METABOLIC PANEL Sodium [Moles/volume] in Serum or Plasma 136 mEq/L 134 - 153 [facility] Potassium [Moles/volume] in Serum or Plasma 4.4 mEq/L 3.6 - 5.0 [facility] Chloride [Moles/volume] in Serum or Plasma 103 mEq/L 98 - 107 [facility] Carbon dioxide, total [Moles/volume] in Serum or Plasma 24 MEQ/L 22 - 30 [facility] Glucose [Mass/volume] in Serum or Plasma 122 MG/DL 65 - 110 H [facility] BUN 16 MG/DL 7 - 21 [facility] Creatinine [Mass/volume] in Serum or Plasma 0.6 MG/DL 0.7 - 1.5 L [facility] BUN/CREAT 27 8 - 27 [facility] Calcium [Mass/volume] in Serum or Plasma 9.1 MG/DL 8.4 - 10.2 [facility] Anion gap 3 in Serum or Plasma 9.0 mmol/L 8.0 - 16.0 [facility] AGE 24 yrs [facility] AMER GFR >60 mL/min [facility] sp[facility] NON-AA GFR >60 mL/min [facility] ital Male GFR Inter prentation 20-49 [...] >32 mL/min Normal ID Date Data Source [id number] 02/10/2020 07:29:00 AM EDT [facility] Name Value Range Interpretation Code Description Data Carlota rce(s) Supporting Document(s) CBC W/AUTOMATED DIFF [facility] COMPLETE BLOOD COUNT Leukocytes [#/volume] in Blood by Automated count 10.9 10^3/uL 4.2 - 11.0 [facility] Erythrocytes [#/volume] in Blood by Automated count 4.33 10^6/uL 4. 50 - 6.30 L [facility] Hemoglobin [Mass/volume] in Blood 13.4 g/dL 14.0 - 16.0 L [facility] Hematocrit [Volume Fraction] of Blood by Automated count 39.2 % 4 1.0 - 51.0 L [facility] Erythrocyte mean corpuscular volume [Entitic volume] by Auto mated count 90.5 fL 80.0 - 94.0 [facility] Erythrocyte mean corpuscular hemoglobin [Entitic mass] by Automated count 30.9 pg 27.0 - 34.0 [facility] Erythrocyte mean corpuscular hemoglobin concentration [Mass/volume] by Automated count 34.2 g/dL 31.0 - 36.0 [facility] Erythrocyte distribution width [Ratio] by Automated count 11.9 % 11.5 - 14.8 [facility] Platelets [#/volume] in Blood by Automated count 238 10^3/uL 150 - 45 0 [facility] Platelet mean volume [Entitic volume] in Blood by Automated count 9.1 fL 7.4 - 10.4 [facility] Neutrophils/100 leukocytes in Blood by Automated count 85.9 % 37. 0 - 80.0 H [facility] Lymphocytes/100 leukocytes in Blood by Manual count 7.6 % 25.0 - 40.0 L [facility] Monocytes/100 leukocytes in Blood by Automated count 6.0 % 3.0 - 8.0 [facility] Eosinophils/100 leukocytes in Blood by Automated count 0.0 % 0.0 - 7.0 [facility] Basophils/100 leukocytes in Blood by Automated count 0.1 % 0.0 - 2.0 [facility] %IG 0.4 % 0.0 - 0.0 [facility] %NRBC 0.0 % 0.0 - 0.0 [facility] al Neutrophils [#/volume] in Blood by Automated count 9.38 10^3/uL 2.00 - 6.90 H [facility] Lymphocytes [#/volume] in Blood by Automated count 0.83 10^3/uL 0.60 - 3.40 [facility] Monocytes [#/volume] in Blood by Automated count 0.66 10^3/uL 0.00 - 0.90 [facility] Eosinophils [#/volume] in Blood by Automated count 0.00 10^3/uL 0.00 - 0.70 [facility] Basophils [#/volume] in Blood by Automated count 0.01 10^3/uL 0.00 - 0.20 [facility] #IG 0.04 10^3/uL 0.00 - 0.10 [facility] #NRBC 0.00 10^3/uL 0.00 - 0.00 [facility] MANUAL DIFF NOT INDICATED [facility] RBC MORPH NOT INDICATED [facility] ID Date Data Source [id number] 02/09/2020 03:24:00 PM EDT [facility] 1 OrderSheet [facility] Emergency Department [address] [place] [address] Phone #: ext- [phone] 02/09/2020 15:24 Patient: YASMIN BARBA Sex: M : 1995 Age: 24yWEIGHT:95.2 kg (S) HEIGHT:74 inches (S) BMI:27.0ALLERGIES: No Known Drug AllergyCHIEF COMPLAINT: pain, swellingDIAGNOSIS: Anxiety, Cellulitis of skin, Drug abuse, Infestation by SarcoptesLAB ORDERSOrder Description Priority Entered Acknowledged InitialedCB w Diff STAT 16:15 02/09/2020 16:46 Yair Aragon ED, Jesse ER M.D.; Pewj1URJ STAT 16:15 02/09/2020 16:46 Yair Aragon ED, Jesse ER M.D.; Fqoi2Umbtq Culture STAT 16:15 02/09/2020 16:46 [id number] X2 (Yair Mccray ED, Jesse ER16:15 02/09/2020) Benson; Nbep7Rtclm Culture STAT 16:15 02/09/2020 16:55 Jxdzkepe27r X2 (Yair Mccray ED, Jesse ER16:25 02/09/2020Cayetano Knowles; Ayos5Dziclk Acid STAT 16:18 02/09/2020 16:46 Winston Yair Sethi inspector outside steam distributionRoque M.D.; Unws8DJX STAT 16:18 02/09/2020 16:46 Winston Yair Sethi inspector outside steam distributionRoque M.D.; [id number] STUDY ORDERSOrder Description Priority Entered Acknowledged InitialedUS Lower Ext STAT 16:15 02/09/2020 17:40 DorisVenous Bilateral Yair Sethi RN(Oxygen?(No)) Benson; Reason for Study: Pain, Limb, Swelling, LimbChest Portable 1 STAT 17:03 02/09/2020 17:30 Sorbero,View Yiar Sethi R.N.(Oxygen?(No)) Benson; Reason for Study: FeverMEDICATION/IV/DRIP/FLUID ORDERS 2 OrderSheet [facility] Emergency Department [address] [place] [address] Phone #: ext- [phone] 02/09/2020 15:24 Patient: YASMIN BARBA Sex: M : 1995 Age: 24yOrder Description Priority Entered Acknowledged InitialedNS IV 1000 mL 16:16 02/09/2020 17:41 DorisBolus: : Bolus 1000 Yair Sethi RNmL (X1) Benson;Clindamycin IVPB 16:16 02/09/2020 17:41 Bexby105 mg Yair Sethi RN, M.D.;Dilaudid IVP 1 [...] Priority Entered Acknowledged InitialedEKG 16:38 02/09/2020 16:55 Winston Yair Sethi inspector outside steam distributionRoque M.D.; Tech1[Electronically signed by Corbin Montana R.N. (21:12 02/09/2020)][Electronically signed by Yair Sethi M.D. (21:16 02/09/2020)][Electronically locked by Corbin Montana R.N. (21:12 02/09/2020)] Name Value Range Interpretation Code Description Data Carlota rce(s) Supporting Document(s) ID Date Data Source [id number] 02/09/2020 03:24:00 PM EDT [facility] 1 Medication Reconciliation Report [facility] Emergency Department [address] [place] [address] Phone #: ext- [phone] 02/09/2020 15:24 Patient: [...] administered: 02/09/2020 5:30:00PM 2 Medication Reconciliation Report [facility] Emergency Department [address] [place] [address] Phone #: ext- [phone] 02/09/2020 15:24 Patient: [...] rce(s) Supporting Document(s) ID Date Data Source [id number] 02/09/2020 03:24:00 PM EDT [facility] 1 Medication Administration Record [facility] Emergency Department [address] [place] [address] Phone #: ext- [phone] 02/09/2020 15:24 Patient: YASMIN BARBA Sex: M : 1995 Age: 24yWeight: 95.2 kgHeight/Length: 74 inBMI: 27ALLERGIES: No Known Drug Allergy Date/Time Medication Administered Medication OrderedStart IV NS W/ BOLUS NS IV 1000 mL Bolus: : Bolus 571289:30 02/09/2020 Dose: IV Fluids mL (X1)Ani Aguero [...] NS IV 1000 mL Bolus: : Bolus [id number]:55 02/09/2020 Dose: IV Fluids mL (X1)Corbin Montana RFaisal Rate: 1500 mL/hr over 40 minute(s)---- Dispensed: 1000 mL bagStop Site: #1 left upper arm19:54 02/09/2020SoCorbin goel RHerbertNHerbert Name Value Range Interpretation Code Description Data Carlota rce(s) Supporting Document(s) ID Date Data Source [id number] 02/09/2020 03:24:00 PM EDT [facility] 1 General Instructions [facility] Emergency Department [address] [place] [address] Phone #: ext- [phone] 02/09/2020 15:24 Patient: YASMIN BARBA Sex: M : 1995 Age: 24yCellulitis of the right ankle, right foot, left ankle and left foot.Anxiety reaction.Recovering substance abuse- heroin with anxiety.Diffuse Bed Bug Bites.(Electronically signed by Yair Sethi M.D. 02/09/2020 21:16) Name Value Range Interpretation Code Description Data Carlota rce(s) Supporting Document(s) ID Date Data Source [id number] 02/09/2020 03:24:00 PM EDT [facility] 1 Clinical Report - Nurses [facility] Emergency Department [address] [place] [address] Phone #: ext- [phone] 02/09/2020 15:24 Patient: YASMIN BARBA Sex: M [...] 2 weeks ago, "on an antibiotic". 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 --15:58 02/09/20 DARRYN Eliasuboxone Sublingual, daily. --16:01 02/09/20 Ani Aguero RN.AllergiesNo Known Drug Allergy. --15:58 02/09/20 Ani Aguero RN.PROBLEMS:Depression.Anxiety Reaction.Hepatitis: (C). --16:01 02/09/20 DARRYN Eliasubstance Abuse: RuleOut. --18:39 02/09/20 Corbin Montana R.N.ADDITIONAL SURGERIES:Rhinoplasty. --16:02 02/09/20 Ani Aguero RN.Clkoupy29:25 02/09/20.PAST MEDICAL HX: Tetanus status: up-to-date. Immunizations: [...] integrity risk 3 Clinical Report - Nurses [facility] Emergency Department [address] [place] [address] Phone #: ext- [phone] 02/09/2020 15:24 Patient: [...] shown to the ED physician. --17:00 02/09/20 Winston inspector outside steam distributionRoque Carlos ER Tech1 17:30 02/09/2020 Site #1 [...] by RN. 4 Clinical Report - Nurses [facility] Emergency Department [address] [place] [address] Phone #: ext- [phone] 02/09/2020 15:24 --------- [...] 02/09/20. Bedside lower extremity sonogram performed by avionics systems technician. --17:48 02/09/20 ANGEL Santana18:29 02/09/2020 Clindamycin [...] Montana R.N. 5 Clinical Report - Nurses [facility] Emergency Department [address] [place] [address] Phone #: ext- [phone] 02/09/2020 15:24 Patient: YASMIN BARBA Sex: M [...] rce(s) Supporting Document(s) ID Date Data Source [id number] 02/09/2020 03:24:00 PM EDT [facility] 1 Clinical Report - Physicians/Mid Levels [facility] Emergency Department [address] [place] [address] Phone #: ext- [phone] 02/09/2020 15:24 Patient: YASMIN BARBA Sex: M [...] daily. 2 Clinical Report - Physicians/Mid Levels [facility] Emergency Department [address] [place] [address] Phone #: ext- [phone] 02/09/2020 15:24 Patient: [...] 02/09/2020. 3 Clinical Report - Physicians/Mid Levels [facility] Emergency Department [address] [place] [address] Phone #: ext- [phone] 02/09/2020 15:24 Patient: YASMIN BARBA Sex: M : 1995 Age: 24yLower Extremity Sonography: Negative exam on the right and left side. Study type: utilized duplexsonography. The exam was performed by a nuclear worker technician. The study was interpreted by the radiologist.Interpretation time: 18:28 02/09/2020.Laboratory Tests: Laboratory tests have been ordered, with results reviewed and considered in themedical decision making process.Chest Portable 1 View: (RACIEL: 02/09/2020 17:03) ( [facility] 02/09/2020 18:20) In ProgressCHEST PORTABLEReason(s): FeverTRANSPORTATION: P IV? O2? Oxygen?(No) [facility]: ([facility]ACIEL: 02/09/2020 16:39) ( [facility] 02/09/2020 17:16) Final results Test Result Flag Units (Reference) LACTIC ACID 1.3 MMOL/L (0.2 - 2.2)CPK: (RACIEL: 02/09/2020 16:39) ( [facility] 02/09/2020 17:17) Final results Test Result Flag Units (Reference) CPK 494 H U/L (30 - 170)CBC w Diff: (RACIEL: 02/09/2020 16:39) ( [facility] 02/09/2020 17:45) Final results Test Result Flag [...] INDICATED 4 Clinical Report - Physicians/Mid Levels [facility] Emergency Department [address] [place] [address] Phone #: ext- [phone] 02/09/2020 15:24 Patient: [...] care. 5 Clinical Report - Physicians/Mid Levels [facility] Emergency Department [address] [place] [address] Phone #: ext- [phone] 02/09/2020 15:24 Patient: [...] Name Value Range Interpretation Code Description Data Acrlota rce(s) Supporting Document(s) ID Date Data Source [id number] 02/14/2020 06:20:[address] [facility] Name Value Range Interpretation Code Description Data Carlota rce(s) Supporting Document(s) Bacteria identified in Blood by Culture [facility] NO GROWTH AFTER 5 DAYS ID Date Data Source [id number] 02/18/2020 07:29:00 AM EDT [facility] Name Value Range Interpretation Code Description Data Carlota rce(s) Supporting Document(s) CULTURE BLOOD [facility] _CULTURE BLOOD_{ PRELIM TEST PERFORMED AT [address] [address] CLIA# [id number] SEE SCANNED REPORT ID Date Data Source [id number] 02/18/2020 07:29:00 AM EDT [facility] Name Value Range Interpretation Code Description Data Carlota rce(s) Supporting Document(s) CULTURE BLOOD [facility] _CULTURE BLOOD_{ PRELIM TEST PERFORMED AT [facility] [address] [place] [address] CLIA# [id number] SEE SCANNED REPORT ID Date Data Source [id number] 02/09/2020 05:16:00 PM EDT [facility] Name Value Range Interpretation Code Description Data Carlota rce(s) Supporting Document(s) Lactate [Moles/volume] in Serum or Plasma 1.3 MMOL/L 0.2 - 2.2 [facility] ID Date Data Source [id number] 02/09/2020 05:17:00 PM EDT [facility] Name Value Range Interpretation Code Description Data Carlota rce(s) Supporting Document(s) COMPREHENSIVE METABOLIC PANEL [facility] COMPREHENSIVE METABOLIC PANEL Sodium [Moles/volume] in Serum or Plasma 136 mEq/L 134 - 153 [facility] Potassium [Moles/volume] in Serum or Plasma 4.2 mEq/L 3.6 - 5.0 [facility] Chloride [Moles/volume] in Serum or Plasma 100 mEq/L 98 - 107 [facility] Carbon dioxide, total [Moles/volume] in Serum or Plasma 24 MEQ/L 22 - 30 [facility] Glucose [Mass/volume] in Serum or Plasma 100 MG/DL 65 - 110 [facility] BUN 19 MG/DL 7 - 21 [facility] Creatinine [Mass/volume] in Serum or Plasma 0.8 MG/DL 0.7 - 1.5 [facility] BUN/CREAT 24 8 - 27 [facility] Protein [Mass/volume] in Serum or Plasma 6.3 G/DL 6.3 - 8.2 [facility] Albumin [Mass/volume] in Serum or Plasma 4.1 G/DL 3.9 - 5.0 [facility] Globulin [Mass/volume] in Serum by calculation 2.2 GM/DL 2.4 - 3.2 L [facility] A/G RATIO 1.9 0.8 - 2.0 [facility] Calcium [Mass/volume] in Serum or Plasma 9.2 MG/DL 8.4 - 10.2 [facility] Bilirubin.total [Mass/volume] in Serum or Plasma <0.7 MG/DL 0.2 - 1.3 [facility] Alkaline phosphatase [Enzymatic activity/volume] in Serum or Plasma 91 U/L 38 - 126 [facility] Aspartate aminotransferase [Enzymatic activity/volume] in Serum or Plasma 74 U/L 5 - 40 H [facility] Alanine aminotransferase [Enzymatic activity/volume] in Seru m or Plasma 93 U/L 7 - 56 H [facility] Anion gap 3 in Serum or Plasma 12.0 mmol/L 8.0 - 16.0 [facility] AGE [address] [facility] NON-AA GFR >60 mL/min [facility] AFR AMER GFR >60 mL/min [facility] Male GFR In terprentation [...] >32 mL/min Normal ID Date Data Source [id number] 02/09/2020 05:17:00 PM T [facility] Name Value Range Interpretation Code Description Data Carlota rce(s) Supporting Document(s) Creatine kinase [Enzymatic activity/volume] in Serum or Plasma 4 94 U/L 30 - 170 H [facility] ID Date Data Source [id number] 02/09/2020 05:45:00 PM T [facility] Name Value Range Interpretation Code Description Data Carlota rce(s) Supporting Document(s) CBC W/AUTOMATED DIFF [facility] COMPLETE BLOOD COUNT Leukocytes [#/volume] in Blood by Automated count 11.4 10^3/uL 4.2 - 11.0 H [facility] Erythrocytes [#/volume] in Blood by Automated count 4.16 10^6/uL 4. 50 - 6.30 L [facility] Hemoglobin [Mass/volume] in Blood 12.8 g/dL 14.0 - 16.0 L [facility] Hematocrit [Volume Fraction] of Blood by Automated count 36.7 % 4 1.0 - 51.0 L [facility] Erythrocyte mean corpuscular volume [Entitic volume] by Auto mated count 88.2 fL 80.0 - 94.0 [facility] Erythrocyte mean corpuscular hemoglobin [Entitic mass] by Automated count 30.8 pg 27.0 - 34.0 [facility] Erythrocyte mean corpuscular hemoglobin concentration [Mass/volume] by Automated count 34.9 g/dL 31.0 - 36.0 [facility] Erythrocyte distribution width [Ratio] by Automated count 11.9 % 11.5 - 14.8 [facility] Platelets [#/volume] in Blood by Automated count 274 10^3/uL 150 - 45 0 [facility] Platelet mean volume [Entitic volume] in Blood by Automated count 8.6 fL 7.4 - 10.4 [facility] Neutrophils/100 leukocytes in Blood by Automated count 69.2 % 37. 0 - 80.0 [facility] Lymphocytes/100 leukocytes in Blood by Manual count 14.9 % 25.0 - 40.0 L [facility] Monocytes/100 leukocytes in Blood by Automated count 13.4 % 3.0 - 8.0 H [facility] Eosinophils/100 leukocytes in Blood by Automated count 1.8 % 0.0 - 7.0 [facility] 0.3 %IG 0.4 % 0.0 - 0.0 H [facility] %NRBC 0.0 % 0.0 - 0.0 [facility] Neutrophils [#/volume] in Blood by Automated count 7.88 10^3/uL 2.00 - 6.90 H [facility] Lymphocytes [#/volume] in Blood by Automated count 1.70 10^3/uL 0.60 - 3.40 [facility] Monocytes [#/volume] in Blood by Automated count 1.52 10^3/uL 0.00 - 0.90 H [facility] Eosinophils [#/volume] in Blood by Automated count 0.21 10^3/uL 0.00 - 0.70 [facility] Basophils [#/volume] in Blood by Automated count 0.03 10^3/uL 0.00 - 0.20 [facility] #IG 0.04 10^3/uL 0.00 - 0.10 [facility] #NRBC 0.00 10^3/uL 0.00 - 0.00 [facility] MANUAL DIFF SEE BELOW [facility] Segmented neutrophils/100 leukocytes in Blood by Manual count 68 % 37 - 80 [facility] BAND 0 % 0 - 5 [facility] %LYMPH 28 % 25 - 40 [facility] %MONO 3 % 3 - 8 [facility] %EOS 1 % 0 - 7 [facility] 0 RBC MORPH NOT INDICATED [facility] ID Date Data Source [id number] 10/08/2019 12:40:00 PM EDT [facility] Name Value Range Interpretation Code Description Data Carlota rce(s) Supporting Document(s) SARS CORONAVIRUS 2 RNA [facility] This lab was ordered by [facility] and reported by [facility]. Procedure Vital Signs ID Date Data Source UNK Name Value Range Interpretation Code Description Data Source(s) Body weight 105.235 kg 105.235 kg [facility] ([facility]) Body mass index (BMI) [Ratio] 29.8 kg/m2 29.8 k g/m2 [facility]) Body weight 232.00 [lb_av] 232.00 [lb_av] [facility] ([facility]) Body height 74 [in_i] 74 [in_i] [facility]) 6'2" Diastolic blood pressure 80 mm[Hg] 80 mm[Hg] [facility]) Systolic blood pressure 140 mm[Hg] 140 mm[Hg] M [facility] ([facility]) Body weight 97.637 kg 97.637 kg [facility] ([facility]) Body mass index (BMI) [Ratio] 27.6 kg/m2 27.6 k g/m2 [facility]) Body weight 215.25 [lb_av] 215.25 [lb_av] [facility] Body height 74 [in_i] 74 [in_i] [facility] ([facility], ) 6'2" Body temperature 98.5 [degF] 98.5 [degF] [facility] ([facility], ) Diastolic blood pressure 90 mm[Hg] 90 mm[Hg] [facility] ([facility], ) Systolic blood pressure 130 mm[Hg] 130 mm[Hg] [facility] ) ID Date Data Source [id number] 02/18/2020 07:29:52 AM EDT [facility] Name Value Range Interpretation Code Description Data Source(s) WEIGHT RECORDED 236.00 pounds 236.00 pounds [facility]
[2020-08-31] MEDS ORDERED: LINEZOLID 600 MG in IV 1 EA IV SCH (15:00)
[2020-08-31] MEDS: FOLIC ACID 1 MG TAB PO SCH (15:13)
[2020-08-31] MEDS: MULTIVITAMINS/MINERALS THERAP 1 TAB PO SCH (15:13)
[2020-08-31] MEDS: diazePAM 2 MG TAB PO PRN (15:13)
[2020-08-31] MEDS: THIAMINE 100 MG TAB PO SCH (15:13)
[2020-08-31 16:08] LABS: RSV AMPLIFICATION NEGATIVE (NEGATIVE)
[2020-08-31 16:24] VITALS: BP 119/56
[2020-08-31 18:00] VITALS: BP 117/55
[2020-08-31] MEDS: LINEZOLID 600MG TABLET (ZYVOX) PO SCH (20:21)
[2020-08-31 22:00] VITALS: BP 143/67
[2020-09-01 02:00] VITALS: BP 126/60
[2020-09-01] MEDS: diazePAM 2 MG TAB PO PRN ×2 (05:48→13:26)
[2020-09-01 06:00] VITALS: BP 122/61
[2020-09-01 10:00] VITALS: BP 147/73
[2020-09-01 10:13] LABS: HEMATOCRIT 41.6 % (42.0-52.0); HEMOGLOBIN 13.1 g/dl (13.5-17.5); MEAN CORPUSCULAR HEMOGLOBIN 28.1 pg (27.0-33.0); MEAN CORPUSCULAR HGB CONC 31.5 g/dl (32.0-36.5); MEAN CORPUSCULAR VOLUME 89.3 fl (80.0-96.0); PLATELET COUNT, AUTOMATED 304 10^3/uL (150-450); RED BLOOD COUNT 4.66 10^6/uL (4.30-6.10); WHITE BLOOD COUNT 8.6 10^3/uL (4.0-10.0)
[2020-09-01 10:32] LABS: BLOOD UREA NITROGEN 13 MG/DL (7-18); CALCIUM LEVEL 8.7 MG/DL (8.5-10.1); CARBON DIOXIDE LEVEL 29 MEQ/L (21-32); CHLORIDE LEVEL 106 MEQ/L (98-107); CREATININE FOR GFR 0.75 MG/DL (0.70-1.30); GLOMERULAR FILTRATION RATE > 60.0 (>60); GLUCOSE, FASTING 95 MG/DL (70-100); POTASSIUM SERUM 4.2 MEQ/L (3.5-5.1); SODIUM LEVEL 139 MEQ/L (136-145)
[2020-09-01] MEDS: MULTIVITAMINS/MINERALS THERAP 1 TAB PO SCH (10:35)
[2020-09-01] MEDS: LINEZOLID 600MG TABLET (ZYVOX) PO SCH ×2 (10:36→22:25)
[2020-09-01] MEDS: THIAMINE 100 MG TAB PO SCH (10:36)
[2020-09-01] MEDS: FOLIC ACID 1 MG TAB PO SCH (10:36)
[2020-09-01] MEDS ORDERED: LIDOCAINE 1% MDV 20ML VIAL As Ordered ONE ×2 (11:35→12:49)
--- NOTE | 2020-09-01 11:56 | IPNPDOC ---
Text Note Date of Service The patient was seen on 09/01/20. NOTE Subjective: She was seen and examined this morning bedside. Patient tells me that he is feeling some dope sickness asking for Suboxone which I agree to. He denies any fevers or chills or shortness of breath. Says he has some abdominal discomfort associated with feeling opiate withdrawal. There is no acute overnight events. Objective: Constitutional: Awake and alert, in no apparent distress, poor hygiene disheveled ENT: Sclera are clear Respiratory: Lungs CTA bilaterally. No respiratory distress. Cardiovascular: RRR S1 and S2 are normal, no murmur Gastrointestinal: Abdomen is soft, non distended, non tender Musculoskeletal: Some bilateral lower extremity edema. Neurologic: No focal neurological deficit. Mental Status: A&O x3, normal affect Skin: Patient has multiple track mancilla and obvious injection sites. He has an abscess in his left arm s/P I&D in the ED with fresh dressing in place. Patient also has a left leg stage III ulcer less than 1 cm in diameter that was probed also in the ED without much discharge. Patient also appears to have some erythema and swelling over his leg reminiscent of cellulitis without purulent discharge - also an injection site. Today that the cellulitis of the right thigh looks better and looks like he has an abscess in the middle of his right thigh that may require an I&D. It is not draining currently. Assessment/plan: 24-year-old male with history of polysubstance abuse presents to the emergency department asking for assistance with obtaining referral to go to rehabilitation he wants to quit drug abuse he was also found to have lower extremity cellulitis and multiple abscesses. Patient admitted to the medical unit for treatment as well as consultation was PFS for rehabilitation options. # Lower extremity cellulitis: PO Zyvox. Fu BCx. No leukocytosis afebrile. Wound care. Duplex US LE negative for DVT. Midline today due to poor vascular access. Asked for US guided abscess drainage over right thigh. # Polysubstance abuse: High risk of seizures from benzodiazepine withdrawal. He uses 10-12 mg daily recently less. I will place him on when necessary Diazepam for this. He also uses Suboxone 8 mg daily which we can give as needed for symptomatic management of opiate withdrawal. Fall and seizure precautions. PFS for rehabilitation options and placement. # History of hepatitis C infection: Endorses history that was treated in 2011. Hepatitis C testing. If positive again should follow-up with PCP may need to be retreated once he quits drug abuse. # Smoker: Advised patient to quit smoking. Offered nicotine patch. # DVT prophylaxis: Lovenox [facility] VS,Evon, I+O VSEvon, I+O Laboratory Tests 09/01/20 09:42 Vital Signs Date Time Temp Pulse Resp B/P (MAP) Pulse Ox O2 Delivery O2 Flow Rate FiO2 09/01/20 06:00 97.8 71 17 122/61 (81) 100 Room Air I&O- Last 24 Hours up to 6 AM 09/01/20 06:00 Intake Total 2000 ml Output Total 1000 ml Balance 1000 ml ISMAEL CORNELIUS MD Sep 01, 2020 11:56
[2020-09-01 12:41] LABS: HEPATITIS B SURFACE ANTIGEN NEGATIVE (NEGATIVE)
[2020-09-01] MEDS ORDERED: PARoxetine 20MG TABLET PO ONE (12:45)
[2020-09-01] MEDS ORDERED: buPROPion **XL** TABLET 150MG (WELLBUTRIN XL) PO ONE (12:45)
[2020-09-01 13:20] LABS: FERRITIN 152 NG/ML (26-388); HEPATITIS A ANTIBODY IGM NEGATIVE (NEGATIVE); HEPATITIS B CORE ANTIBODY IGM NEGATIVE (NEGATIVE); IRON (FE) 24 UG/DL (65-175); PERCENT SATURATION 9.1 % (19.7-50.0); TOTAL IRON BINDING CAPACITY 264 UG/DL (250-450)
[2020-09-01 13:24] LABS: HEPATITIS C VIRUS ABY INDEX > 11.0 INDEX (<0.8)
[2020-09-01] MEDS: METHYLPHENIDATE 5 MG TAB PO SCH (13:26)
[2020-09-01 13:28] LABS: VITAMIN B12 LEVEL 1005 PG/ML
[2020-09-01 13:29] LABS: FOLATE 12.5 NG/ML
[2020-09-01] MEDS ORDERED: SODIUM CHLORIDE 0.9% INJ 10 ML SYR IV PRN (14:00)
--- NOTE | 2020-09-01 14:54 | REP ---
INDICATION: Right lower leg abscess. COMPARISON: None. TECHNIQUE: Targeted sonography right mid calf. FINDINGS: Scanning of the right mid calf in the area of the redness and swelling demonstrates a 2.1 x 0.9 x 2.2 cm irregular hypoechoic area in the subcutaneous fat which may represent an abscess. There is some surrounding hyperemia and edema. IMPRESSION: Probable small 2.1 cm abscess right medial calf. <Electronically signed by Tavon Bynum > 09/01/20 [id number]
[2020-09-01] MEDS: BUPRENORPHINE/NALOXONE 8-2MG SUBLINGUAL TABLET(SUBOXONE) SL SCH (14:55)
--- NOTE | 2020-09-01 17:37 | REP ---
INDICATION: Right lower leg abscess drainage. COMPARISON: None. TECHNIQUE: The procedure was performed under the direct supervision of Dr. Bynum. The patient has a history of a probable small 2.1 cm abscess in the right medial calf seen on a previous ultrasound performed earlier today. The risks and benefits of the procedure were explained to the patient informed consent was obtained. The abscess was localized using ultrasound guidance. The skin was prepped and draped in a sterile fashion. 1% lidocaine was used as a local anesthetic. Using ultrasound guidance a 5 Korean centesis catheter was inserted and advanced into the abscess. 1 cc of thick reddish colored fluid was withdrawn and sent to the lab for analysis. The patient tolerated the procedure well and there were no immediate complications. FINDINGS: None IMPRESSION: Ultrasound-guided right calf abscess drain. <Electronically signed by Houston Lane > 09/01/20 [id number] <Electronically signed by Tavon Bynum > 09/01/20 [id number]
--- NOTE | 2020-09-01 17:37 | REP ---
INDICATION: Poor acess. COMPARISON: None. TECHNIQUE: The procedure was performed under the direct supervision of Dr. Bynum. The risks and benefits of the procedure were explained to the patient and informed consent was obtained. The right basilic vein was localized using ultrasound guidance. The skin was prepped and draped in a sterile fashion. 1% lidocaine was used as a local anesthetic. Using ultrasound guidance the basilic vein was cannulated and a 0.018 guidewire was inserted. The needle was removed and a 4.5 [place] dilator and peel-away sheath was inserted over the guidewire. A 4.5 [place] single lumen catheter was left a length of 16.5 cm. The dilator was removed and the catheter was inserted over the guidewire. The peel-away sheath was removed and the catheter were flushed with heparinized saline as per hospital protocol. The catheter was affixed to the skin and a sterile dressing was applied. The patient tolerated the procedure well and there were no immediate complications. FINDINGS: None IMPRESSION: Midline catheter insertion right basilic vein. <Electronically signed by Houston Lane > 09/01/20 1618 <Electronically signed by Tavon Bynum > 09/01/20 2072
[2020-09-01] MEDS: SODIUM CHLORIDE 0.9% INJ 10 ML SYR IV SCH (17:57)
[2020-09-01 18:00] VITALS: BP 130/56
[2020-09-01] MEDS: QUEtiapine FUMARATE 100 MG TAB PO SCH (21:00)
[2020-09-01 22:00] VITALS: BP 113/54
[2020-09-02 06:00] VITALS: BP 126/61
[2020-09-02] MEDS: SODIUM CHLORIDE 0.9% INJ 10 ML SYR IV SCH ×2 (06:35→17:31)
[2020-09-02] MEDS: diazePAM 2 MG TAB PO PRN ×2 (06:35→17:35)
[2020-09-02] MEDS: METHYLPHENIDATE 5 MG TAB PO SCH (09:35)
[2020-09-02] MEDS: SENOKOT S TAB PO SCH ×2 (09:35→20:14)
[2020-09-02] MEDS: BUPRENORPHINE/NALOXONE 8-2MG SUBLINGUAL TABLET(SUBOXONE) SL SCH (09:37)
[2020-09-02] MEDS: LINEZOLID 600MG TABLET (ZYVOX) PO SCH ×2 (09:37→20:14)
[2020-09-02] MEDS: THIAMINE 100 MG TAB PO SCH (09:37)
[2020-09-02] MEDS: MULTIVITAMINS/MINERALS THERAP 1 TAB PO SCH (09:37)
[2020-09-02] MEDS: FOLIC ACID 1 MG TAB PO SCH (09:37)
[2020-09-02] MEDS: buPROPion **XL** TABLET 150MG (WELLBUTRIN XL) PO SCH (09:37)
[2020-09-02] MEDS: PARoxetine 20MG TABLET PO SCH (09:38)
--- NOTE | 2020-09-02 10:02 | IPNPDOC ---
Text Note Date of Service The patient was seen on 09/02/20. NOTE Subjective: Patient was sitting upright in bed this morning. He reports feeling fatigued & constipated, but otherwise well. No issues with withdrawal symptoms today. His multiple abscess' are all improving, although the one on the right medial calf still has some surrounding edema and erythema consistent with cellulitis despite being drained (via needle placement with US guidance). Remainder of ROS is unremarkable. Objective: Constitutional: Awake and alert, in no apparent distress ENT: Sclera are clear Respiratory: Lungs CTA bilaterally. No respiratory distress. Cardiovascular: RRR, no murmur, no gallops, no rubs Gastrointestinal: Abdomen is soft, non distended, non tender Musculoskeletal: Some bilateral lower extremity edema. Neurologic: No focal neurological deficit. Mental Status: A&O x3, normal affect Skin: Patient has multiple track mancilla and obvious injection sites. He has an abscess in his left arm s/P I&D in the ED with fresh dressing in place, no surrounding erythema. Patient also has a left leg stage III ulcer less than 1 cm in diameter that was probed also in the ED without much discharge, no surrounding erythema here either. Right medial calf is still erythematous and edematous with clean dressing in place s/p US drainage. Assessment/plan: 24-year-old male with history of polysubstance abuse presents to the emergency department asking for assistance with obtaining referral to go to rehabilitation he wants to quit drug abuse he was also found to have lower extremity cellulitis and multiple abscesses. Patient admitted to the medical unit for treatment as well as consultation was PFS for rehabilitation options. # Lower extremity cellulitis: PO Zyvox. Blood cultures negative. Abscess drainage cultures still pending. No leukocytosis, afebrile. Wound care. Duplex US LE negative for DVT. Midline present due to poor vascular access. # Constipation: Start Senokot S 2 pills PO BID. # Polysubstance abuse: High risk of seizures from benzodiazepine withdrawal. He uses 10-12 mg daily recently less. Continue PRN Diazepam for this. Continue Suboxone. Fall and seizure precautions. PFS for rehabilitation options and placement. # History of hepatitis C infection: Endorses history that was treated in 2011. Hepatitis C testing. If positive again should follow-up with PCP may need to be retreated once he quits drug abuse. # Smoker: Advised patient to quit smoking. Offered nicotine patch. # DVT prophylaxis: Lovenox Disposition: Apparently d/c is planned for Friday09/04/20 at 0930am to [facility]. VS,Fishbone, I+O VS, Fishbone, I+O Vital Signs Date Time Temp Pulse Resp B/P (MAP) Pulse Ox O2 Delivery O2 Flow Rate FiO2 09/02/20 06:00 98.1 62 17 126/61 (82) 97 Room Air I&O- Last 24 Hours up to 6 AM 09/02/20 06:00 Intake Total 1660 ml Output Total 0 ml Balance 1660 ml DAVIN AGUAYO DO Sep 02, 2020 10:02
[2020-09-02 14:00] VITALS: BP 114/54
[2020-09-02] MEDS: QUEtiapine FUMARATE 100 MG TAB PO SCH (20:15)
[2020-09-02 22:00] VITALS: BP 112/51
[2020-09-03 06:00] VITALS: BP 136/67
[2020-09-03] MEDS: SODIUM CHLORIDE 0.9% INJ 10 ML SYR IV SCH ×2 (06:25→18:13)
[2020-09-03] MEDS: diazePAM 2 MG TAB PO PRN ×2 (06:25→18:15)
[2020-09-03] MEDS: THIAMINE 100 MG TAB PO SCH (09:48)
[2020-09-03] MEDS: PARoxetine 20MG TABLET PO SCH (09:48)
[2020-09-03] MEDS: BACTRIM 160MG/800MG DS TAB PO SCH ×2 (09:48→21:49)
[2020-09-03] MEDS: FOLIC ACID 1 MG TAB PO SCH (09:49)
[2020-09-03] MEDS: SENOKOT S TAB PO SCH ×2 (09:49→21:49)
[2020-09-03] MEDS: MULTIVITAMINS/MINERALS THERAP 1 TAB PO SCH (09:49)
[2020-09-03] MEDS: BUPRENORPHINE/NALOXONE 8-2MG SUBLINGUAL TABLET(SUBOXONE) SL SCH (09:49)
[2020-09-03] MEDS: METHYLPHENIDATE 5 MG TAB PO SCH (09:49)
[2020-09-03] MEDS: buPROPion **XL** TABLET 150MG (WELLBUTRIN XL) PO SCH (10:58)
[2020-09-03 14:00] VITALS: BP 154/85
--- NOTE | 2020-09-03 14:32 | IPNPDOC ---
Text Note Date of Service The patient was seen on 09/03/20. NOTE Subjective: Patient is feeling well this morning. All of his wound sites of seem to be improving, in particular the one on his right medial calf is significantly less tender, and the erythema is much improved as well. He also reports that he had multiple large bowel movements today, so he is no longer constipated and feeling better in that regard as well. He does not report any issues with withdrawal symptoms today. The remainder of his review of systems is unremarkable. Objective: Constitutional: Awake and alert, in no apparent distress ENT: Sclera are clear Respiratory: Lungs CTA bilaterally. No respiratory distress. Cardiovascular: RRR, no murmur, no gallops, no rubs Gastrointestinal: Abdomen is soft, non distended, non tender Musculoskeletal: Some bilateral lower extremity edema. Neurologic: No focal neurological deficit. Mental Status: A&O x3, normal affect Skin: Patient has multiple track mancilla and obvious injection sites. He has an abscess in his left arm s/P I&D in the ED with fresh dressing in place, no surrounding erythema. Patient also has a left leg stage III ulcer less than 1 cm in diameter that was probed also in the ED without much discharge, no surrounding erythema here either. Right medial calf is still mildly erythematous and edematous but much improved. A very minimal amount of blood & serosanguineous fluid was expressed from the wound, but no pus was present. Assessment/plan: 24-year-old male with history of polysubstance abuse presents to the emergency department asking for assistance with obtaining referral to go to rehabilitation he wants to quit drug abuse he was also found to have lower extremity cellulitis and multiple abscesses. Patient admitted to the medical unit for treatment as well as consultation was PFS for rehabilitation options. # Lower extremity cellulitis: Blood cultures negative. Abscess drainage cultures show staph aureus which is resistant to penicillin alone. No leukocytosis, afebrile. Continue wound care. Duplex US LE negative for DVT. Midline present due to poor vascular access. We will stop the Zyvox at this time and switch him over to Bactrim. We will also start him on one packet of Alexis BID to promote wound healing. # Constipation: Had multiple bowel movements this morning. We will continue with Senokot S 2 pills PO BID until discharge. # Polysubstance abuse: High risk of seizures from benzodiazepine withdrawal. He uses 10-12 mg daily recently less. Continue PRN Diazepam for this. Continue Suboxone. Fall and seizure precautions. PFS for rehabilitation options and placement. We will leave his midline in place while inpatient since it is very difficult to get IV access on him. # History of hepatitis C infection: Endorses history that was treated in 2011. Hepatitis C testing. If positive again should follow-up with PCP may need to be retreated once he quits drug abuse. # Smoker: Advised patient to quit smoking. Offered nicotine patch. # DVT prophylaxis: Lovenox Disposition: Apparently d/c is planned for Friday09/04/20 at 0930am to [facility]. VS,Fishbone, I+O VS, Fishbone, I+O Vital Signs Date Time Temp Pulse Resp B/P (MAP) Pulse Ox O2 Delivery O2 Flow Rate FiO2 09/03/20 06:00 97.8 67 17 136/67 (90) 97 Room Air I&O- Last 24 Hours up to 6 AM 09/03/20 06:00 Intake Total 1375 ml Output Total 0 ml Balance 1375 ml DAVIN AGUAYO DO Sep 03, 2020 14:32
[2020-09-03] MEDS: QUEtiapine FUMARATE 100 MG TAB PO SCH (21:50)
[2020-09-03 22:00] VITALS: BP 111/57
[2020-09-04 06:00] VITALS: BP 160/70
[2020-09-04] MEDS: SODIUM CHLORIDE 0.9% INJ 10 ML SYR IV SCH (06:24)
[2020-09-04] MEDS ORDERED: VITMTA PO (07:20)
[2020-09-04] MEDS ORDERED: METH5TAB76 PO (07:20)
[2020-09-04] MEDS ORDERED: SULF1TAB23 PO (07:20)
[2020-09-04] MEDS: diazePAM 2 MG TAB PO PRN (08:54)
[2020-09-04] MEDS: FOLIC ACID 1 MG TAB PO SCH (08:55)
[2020-09-04] MEDS: THIAMINE 100 MG TAB PO SCH (08:55)
[2020-09-04] MEDS: SENOKOT S TAB PO SCH (08:55)
[2020-09-04] MEDS: buPROPion **XL** TABLET 150MG (WELLBUTRIN XL) PO SCH (08:55)
[2020-09-04] MEDS: BACTRIM 160MG/800MG DS TAB PO SCH (08:55)
[2020-09-04] MEDS: BUPRENORPHINE/NALOXONE 8-2MG SUBLINGUAL TABLET(SUBOXONE) SL SCH (08:55)
[2020-09-04] MEDS: PARoxetine 20MG TABLET PO SCH (08:55)
[2020-09-04] MEDS: METHYLPHENIDATE 5 MG TAB PO SCH (08:55)
[2020-09-04] MEDS: MULTIVITAMINS/MINERALS THERAP 1 TAB PO SCH (08:55)
--- NOTE | 2020-09-04 20:50 | DS.PDOC ---
Discharge Summary General Date of Admission Aug 31, 2020 at 13:55 Date of Discharge 09/04/2020 Discharge Summary PRIMARY CARE PHYSICIAN: None ATTENDING AT TIME OF DISCHARGE: Dr. Davin Aguayo, DO DISCHARGE DIAGNOS(E)S: Polysubstance abuse Multiple skin abscesses at sites of IV drug use Cellulitis Constipation, likely secondary to opioid abuse History of hepatitis C infection Tobacco use HPI & HOSPITAL COURSE: Patient presented to the emergency department requesting assistance with obtaining referral to go to rehabilitation. He expresses a strong desire to quit drug abuse, and has expressed this on every day of his hospitalization. Subox one was provided for opiate withdrawal, over the first few days he did require a few doses of benzodiazepines to prevent withdrawal symptoms as well. His home dose of Ritalin was reduced to 5 mg daily, and his usual dose of Paxil and Seroquel were continued. Bowel meds were provided for constipation, and he had many bowel movements in the few days prior to discharge. Regarding abscess and cellulitis patient was started on Zyvox (with history of MRSA), the abscess' on his left arm and leg were lanced and drained nicely. He had a large abscess in the right medial calf which was drained via ultrasound guidance by interventional radiology, abscess culture showed staph aureus resistant to penicillin alone. Zyvox was discontinued and he was switched over to Bactrim. PHYSICAL EXAMINATION ON DISCHARGE: GENERAL: Awake, alert, he is in no apparent distress at this time. CARDIOVASCULAR EXAMINATION: Regular rate and rhythm, with no rubs, gallops, or murmur. RESPIRATORY EXAMINATION: Clear to auscultation bilaterally with no wheezes, rales, or rhonchi. ABDOMINAL EXAMINATION: Soft, nontender, nondistended. Bowel sounds present. EXTREMITIES: No clubbing or edema noted. 2+ pulses in the radial bilaterally. SKIN: Still has very mild erythema in the right medial calf, but abscess is essentially gone, left arm and leg still have small wounds from where they were lanced, but otherwise look quite well with no surrounding erythema or edema. DISPOSITION: Discharge to [facility] DISCHARGE INSTRUCTIONS: Diet as tolerated. Activity as tolerated. If symptoms return, or if you experience worsening of your symptoms, please call your doctor or return to the emergency department. Vital Signs/I&Os Vital Signs Date Time Temp Pulse Resp B/P (MAP) Pulse Ox O2 Delivery O2 Flow Rate FiO2 09/04/20 06:00 97.6 71 18 160/70 (100) 99 09/03/20 14:00 Room Air I&O- Last 24 Hours up to 6 AM 09/04/20 06:00 Intake Total 1560 ml Output Total 0 ml Balance 1560 ml Microbiology Microbiology 09/01/20 Gram Stain - Final, Complete 09/01/20 Abscess Culture - Final, Complete Staphylococcus Aureus 09/01/20 Anaerobic Culture - Final, Complete 08/31/20 Blood Culture - Preliminary, Resulted No Growth after 72 hours. All specime... 08/31/20 Blood Culture - Preliminary, Resulted No Growth after 72 hours. All specime... Discharge Medications Scheduled Buprenorphine HCl/Naloxone HCl (Suboxone 8 mg-2 mg Sl Film) 1 Each Film, 1 STRIP SL DAILY, (Reported) VERIFIED WITH [facility] - HAS BEEN VERY SPORADIC WITH DOSING, BETWEEN 8MG AND 24MG Bupropion HCl (Bupropion Xl) 450 Mg Tab.er.24h, 450 MG PO DAILY, (Reported) Methylphenidate HCl (Methylphenidate HCl) 5 Mg Tablet, 5 MG PO DAILY Multivitamins (Thera M Plus Tablet) 1 Each Tablet, 1 TAB PO DAILY Paroxetine HCl (Paxil) 20 Mg Tablet, 20 MG PO DAILY, (Reported) Quetiapine Fumarate (Quetiapine Fumarate) 100 Mg Tablet, 200 MG PO QHS, (Reported) Sulfamethoxazole/Trimethoprim (Sulfamethoxazole-Tmp Ds Tablet) 800 Mg-160 Mg Tablet, 1 TAB PO BID Allergies Coded Allergies: amphetamine (Verified Allergy, Severe, 08/31/20) dextroamphetamine (Verified Allergy, Severe, 08/31/20) vancomycin (Verified Allergy, Severe, kidney failure, 04/20/20) DAVIN AGUAYO DO Sep 04, 2020 20:50
== END 2020-09-04 09:37 | DRG 383 ==
LOC: M ED 02:53 → M ED INP 13:55 → M MSPAV 16:36
PROVIDERS: ADMIT Family Medicine; ATTEND Neuromusculoskeletal Medicine & OMM
PROC: 0Y9J3ZX Drainage of Left Lower Leg, Percutaneous Approach, Diagnostic (ICD-10-PCS; principal; 2020-09-01 11:00)
DX: L03.116 Cellulitis of left lower limb (principal); L97.929 Non-pressure chronic ulcer of unspecified part of left lower leg with unspecified severity; F17.200 Nicotine dependence, unspecified, uncomplicated; F11.10 Opioid abuse, uncomplicated; F19.10 Other psychoactive substance abuse, uncomplicated; Z79.899 Other long term (current) drug therapy; Z88.6 Allergy status to analgesic agent; Z88.1 Allergy status to other antibiotic agents; Z88.8 Allergy status to other drugs, medicaments and biological substances; K59.09 Other constipation

== ENCOUNTER 2020-09-05 01:23 | Emergency (ER) | payer BC, MEDICAID ==
[~2020-09-05] VITALS: Ht 188 cm; Wt 80.8 kg
[~2020-09-05 01:23] MED LIST changes: +METH30CA13 PO; +SULF1TAB23 PO; +VITMTA PO
[2020-09-05 01:24] VITALS: BP 157/92
[2020-09-05] MEDS ORDERED: BACTRIM 160MG/800MG DS TAB PO ONE (02:00)
[2020-09-05 03:31] LABS: BASO # 0.1 10^3/uL (0.0-0.2); BASO % 0.5 % (0.0-1.0); EOS # 0.1 10^3/uL (0.0-0.5); EOS % 0.9 % (0.0-3.0); HEMATOCRIT 45.7 % (42.0-52.0); HEMOGLOBIN 14.6 g/dl (13.5-17.5); LYMPH # 1.8 10^3/uL (1.5-5.0); LYMPH % 17.2 % (24.0-44.0); MEAN CORPUSCULAR HEMOGLOBIN 27.7 pg (27.0-33.0); MEAN CORPUSCULAR HGB CONC 31.9 g/dl (32.0-36.5); MEAN CORPUSCULAR VOLUME 86.6 fl (80.0-96.0); MONO # 0.6 10^3/uL (0.0-0.8); MONO % 5.7 % (2.0-8.0); NEUTROPHILS # 7.7 10^3/uL (1.5-8.5); NEUTROPHILS % 75.4 % (36.0-66.0); PLATELET COUNT, AUTOMATED 408 10^3/uL (150-450); RED BLOOD COUNT 5.28 10^6/uL (4.30-6.10); WHITE BLOOD COUNT 10.3 10^3/uL (4.0-10.0)
--- NOTE | 2020-09-05 03:38 | REPVR ---
PROCEDURE INFORMATION: Exam: XR Chest Exam date and time: 09/05/2020 2:57 AM Age: 24 years old Clinical indication: Fever TECHNIQUE: Imaging protocol: XR of the chest Views: 1 view. COMPARISON: [facility] PORTABLE CHEST X-RAY 08/31/2020 6:30 AM FINDINGS: Lungs: Unremarkable. No consolidation. Pleural spaces: Unremarkable. No pleural effusion. No pneumothorax. Heart/Mediastinum: Unremarkable. No cardiomegaly. Bones/joints: Unremarkable. IMPRESSION: Negative chest without significant change from 08/31/2020. Electronically signed by: Nawaf Means On 09/05/2020 03:38:51 AM
[2020-09-05 03:55] LABS: ERYTHROCYTE SEDIMENTATION RATE 13 mm/hr (0-15)
[2020-09-05 04:01] LABS: ALBUMIN 4.4 GM/DL (3.2-5.2); ALT/SGPT 57 U/L (12-78); BILIRUBIN,TOTAL 0.2 MG/DL (0.2-1.0); BLOOD UREA NITROGEN 22 MG/DL (7-18); C REACTIVE PROTEIN QUANTITATIV 1.18 MG/DL (0.00-0.30); CALCIUM LEVEL 9.6 MG/DL (8.5-10.1); CARBON DIOXIDE LEVEL 25 MEQ/L (21-32); CHLORIDE LEVEL 107 MEQ/L (98-107); CREATININE FOR GFR 1.07 MG/DL (0.70-1.30); GLOMERULAR FILTRATION RATE > 60.0 (>60); GLUCOSE, FASTING 92 MG/DL (70-100); POTASSIUM SERUM 4.6 MEQ/L (3.5-5.1); SODIUM LEVEL 139 MEQ/L (136-145); TOTAL PROTEIN 8.9 GM/DL (6.4-8.2)
[2020-09-05] MEDS ORDERED: LORazepam 2 MG TAB PO STA (04:21)
[2020-09-05 04:56] LABS: ACETAMINOPHEN LEVEL < 2.0 UG/ML (10.0-30.0); ETHYL ALCOHOL (ETHANOL) < 0.003 % (0.000-0.010)
== END 2020-09-05 04:55 | disposition left against medical advice (07) ==
LOC: M ED 01:23
DX: R50.9 Fever, unspecified (principal); Z53.20 Procedure and treatment not carried out because of patient's decision for unspecified reasons; F19.10 Other psychoactive substance abuse, uncomplicated; B18.2 Chronic viral hepatitis C; Z79.899 Other long term (current) drug therapy; Z88.1 Allergy status to other antibiotic agents; Z88.8 Allergy status to other drugs, medicaments and biological substances

== ENCOUNTER 2020-09-05 05:26 | Inpatient (IN) | payer BC, OTHER, MEDICAID ==
[~2020-09-05] VITALS: Ht 188 cm; Wt 80.8 kg
[2020-09-05] MEDS ORDERED: LORazepam 2 MG TAB PO STA (05:29)
[2020-09-05] MEDS ORDERED: OLANZapine ORAL DISINTEGRATING TAB 5MG PO ONE (05:30)
[2020-09-05] MEDS ORDERED: HALOPERIDOL 5MG/ML VIAL (J1630 PER 1) IM ONE (05:35)
[2020-09-05] MEDS ORDERED: LORazepam 2 MG/ML VIAL IM ONE (05:35)
[2020-09-05] MEDS ORDERED: diphenhydrAMINE 50MG/ML VIAL (J1200) IM ONE (05:35)
[2020-09-05 13:50] LABS: AMPHETAMINES LEVEL URINE NEGATIVE (NEGATIVE); BARBITURATES URINE NEGATIVE (NEGATIVE); BENZODIAZEPINES URINE POSITIVE (NEGATIVE); CANNABINOIDS URINE NEGATIVE (NEGATIVE); COCAINE METABOLITE URINE NEGATIVE (NEGATIVE); METHADONE URINE NEGATIVE (NEGATIVE); OPIATES URINE NEGATIVE (NEGATIVE); PHENCYCLIDINE URINE NEGATIVE (NEGATIVE)
[2020-09-05] MEDS ORDERED: traZODone 50 MG TAB PO PRN (15:05)
[2020-09-05] MEDS ORDERED: MAALOX 30 ML SUSP *UDC PO PRN (15:05)
[2020-09-05] MEDS ORDERED: ACETAMINOPHEN TAB 650MG DOSE (2X325MG) PO PRN (15:05)
[2020-09-05] MEDS ORDERED: MOM 30ML SUSPENSION UDC PO PRN (15:05)
[2020-09-05] MEDS ORDERED: METHYLPHENIDATE 5 MG TAB PO ONE (15:25)
[2020-09-05] MEDS ORDERED: buPROPion **XL** TABLET 150MG (WELLBUTRIN XL) PO ONE (15:25)
[2020-09-05] MEDS ORDERED: PARoxetine 20MG TABLET PO ONE (15:25)
[2020-09-05] MEDS ORDERED: BACTRIM 160MG/800MG DS TAB PO ONE (15:25)
[2020-09-05 21:32] VITALS: BP 123/69
[2020-09-06 06:34] VITALS: BP 147/86
[2020-09-06] MEDS: diazePAM 5MG TABLET PO SCH ×2 (09:41→20:40)
[2020-09-06] MEDS: PARoxetine 20MG TABLET PO SCH (09:41)
[2020-09-06] MEDS: BUPRENORPHINE/NALOXONE 8-2MG SUBLINGUAL TABLET(SUBOXONE) SL SCH (09:41)
--- NOTE | 2020-09-06 11:52 | HPE ---
HISTORY AND PHYSICAL DATE OF ADMISSION: 09/05/2020 This is a hospitalist-generated history and physical on a patient in the Mental Health Unit. HISTORY OF PRESENT ILLNESS: A 24-year-old who was recently hospitalized 08/31/2020 through 09/04/2020 for polysubstance abuse, multiple skin abscesses at sites of IV drug injection with cellulitis, and constipation secondary to opiate use, history of hepatitis C infection. That hospitalization was notable for opiate withdrawal treated with Suboxone and some benzodiazepines. He had to have incision and drainage of abscesses in the left arm, right lower leg, rule out Methicillin-sensitive Staph aureus. This was treated with Bactrim. The patient was apparently going to be discharged to [facility] for drug and alcohol rehab but according to the patient, he had a fever so they did not accept him. SOCIAL HISTORY: He smokes a pack per day, illicit drug use with heroin and benzodiazepines. FAMILY HISTORY: Unremarkable. ALLERGIES: DEXTROAMPHETAMINE and VANCOMYCIN. REVIEW OF SYSTEMS: Currently denies any fevers or chills, shortness of breath, any new bleeding problems. PHYSICAL EXAMINATION: VITAL SIGNS: Per flow sheet. He is afebrile. T-max 99 degrees. HEENT: Unremarkable. LUNGS: Clear. HEART: Regular rate and rhythm. ABDOMEN: Soft, nontender. No masses. EXTREMITIES: No peripheral edema. He has no fluctuant areas with the abscesses that were previously drained. There is no warmth or redness surrounding them. They look like they are healed IMPRESSION AND PLAN: 1. Multiple skin abscesses. These are resolved with incision and drainage. He had Methicillin-sensitive Staph. He does not currently need antibiotic. 2. Various psychiatric illnesses per Psychiatry. The hospitalist group is available if any medical problems develop during this admission.
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
[2020-09-06] MEDS: NICOTINE 21MG/24HR 1 EA TRANSDERMAL TD SCH (15:33)
[2020-09-06 16:34] VITALS: BP 131/61
[2020-09-06] MEDS: QUEtiapine FUMARATE 200 MG TAB PO SCH (20:40)
[2020-09-07 06:20] VITALS: BP 132/60
[2020-09-07] MEDS: buPROPion **XL** TABLET 150MG (WELLBUTRIN XL) PO SCH (09:06)
[2020-09-07] MEDS: diazePAM 5MG TABLET PO SCH (09:06)
[2020-09-07] MEDS: PARoxetine 20MG TABLET PO SCH (09:06)
[2020-09-07] MEDS: NICOTINE 21MG/24HR 1 EA TRANSDERMAL TD SCH (09:07)
[2020-09-07] MEDS: BUPRENORPHINE/NALOXONE 8-2MG SUBLINGUAL TABLET(SUBOXONE) SL SCH (09:55)
--- NOTE | 2020-09-07 15:51 | MHIPNPDOC ---
[facility] Progress Note Progress Note DATE OF SERVICE: 09/07/20 HISTORY: 24-year-old male with polysubstance abuse, having a chaotic. Tyrone brought an admission to [facility] He made statements that he had elaborate plans of killing others. [facility] He was not admitted there and sent to home. He came to emergency room with suicidal, homicidal statement VITAL SIGNS: See below. NEW TEST RESULTS: None. CURRENT MEDICATIONS: See below. MENTAL STATUS EXAMINATION: Patient is a 24-year old male, who is. Not psychotic. Speech: Is. Rapid. Language skills are no gross disturbance. Thought processes including: Planning to avoid his customs and border protection officer. Thought content:. No gross disturbance. Abstract reasoning, and computation: [place]. Description of associations:, no Loose association. Description of abnormal or psychotic thoughts: No psychotic thought. Judgment: Poor. Insight:, Poor. Orientation: 3. Recent and remote memory: Intact. Attention span and concentration: Intact. Language:. No gross disturbance. Fund of knowledge: Full. Mood:, Euthymic. Affect:, Congruent. DIAGNOSES: 1. Polysubstance abuse. 2. None. 3. None ASSESSMENT:. Patient is to go to [facility] customs and border protection officer wanted to pick him up, but we don't have permission to speak to the customs and border protection officer and her discharge planning is for tomorrow MANAGEMENT PLAN:. Discharge to, [facility]. TIME SPENT: 35 minutes. Vital Signs Vital Signs Date Time Temp Pulse Resp B/P (MAP) Pulse Ox O2 Delivery O2 Flow Rate FiO2 09/07/20 08:14 Room Air 09/07/20 06:20 98.1 58 16 132/60 (84) 98 Current Medications Current Medications Medications (Trade) Dose Ordered Sig/Renate Route PRN Reason Start Time Stop Time Status Last Admin Dose Admin Acetaminophen (Tylenol Tab) 650 mg Q6HP PRN PO HEADACHE or DISCOMFORT 09/05/20 15:05 Al Hydrox/Mg Hydrox/Simethicone (Mylanta) 30 ml Q4HP PRN PO HEARTBURN/INDIGESTION 09/05/20 15:05 Buprenorphine/ Naloxone (Suboxone 8/2mg) 1 tab DAILY SL 09/06/20 09:00 09/07/20 09:55 Bupropion HCl (Wellbutrin Xl) 450 mg DAILY PO 3/4/21 09:00 09/07/20 09:06 Diazepam (Valium) 5 mg BID PO 09/06/20 09:00 09/07/20 11:17 DC 09/07/20 09:06 Home Med (Med Rec Complete!) ASDIRECTED XX 09/05/20 09:20 09/05/20 09:20 DC Lorazepam (Ativan) 2 mg STAT STAT PO 09/05/20 05:29 09/05/20 05:34 DC Magnesium Hydroxide (Milk Of Magnesia) 30 ml DAILYPRN PRN PO CONSTIPATION 09/05/20 15:05 Nicotine (Nicoderm Cq 21mg) 1 patch DAILY TD 09/06/20 09:00 09/07/20 09:07 Paroxetine HCl (PAXil) 20 mg DAILY PO 09/06/20 09:00 09/07/20 09:06 Quetiapine Fumarate (SEROquel) 200 mg QHS PO 09/06/20 21:00 09/06/20 20:40 Trazodone HCl (Desyrel) 50 mg QHSP PRN PO INSOMNIA 09/05/20 15:05 Allergies Coded Allergies: amphetamine (Verified Allergy, Severe, 08/31/20) dextroamphetamine (Verified Allergy, Severe, 08/31/20) vancomycin (Verified Allergy, Severe, kidney failure, 04/20/20) DAVIN BURNHAM MD Sep 07, 2020 15:51
[2020-09-07 17:25] VITALS: BP 115/59
[2020-09-07] MEDS: QUEtiapine FUMARATE 200 MG TAB PO SCH ×2 (21:00→21:37)
[2020-09-08 06:07] VITALS: BP 110/58
[2020-09-08] MEDS ORDERED: diazePAM 5MG TABLET PO ONE (08:00)
[2020-09-08] MEDS: NICOTINE 21MG/24HR 1 EA TRANSDERMAL TD SCH (08:27)
[2020-09-08] MEDS: PARoxetine 20MG TABLET PO SCH (08:28)
[2020-09-08] MEDS: buPROPion **XL** TABLET 150MG (WELLBUTRIN XL) PO SCH (08:28)
[2020-09-08] MEDS: BUPRENORPHINE/NALOXONE 8-2MG SUBLINGUAL TABLET(SUBOXONE) SL SCH (09:10)
[2020-09-08] MEDS ORDERED: BUPR150T12 PO ×2 (09:20→09:59)
[2020-09-08] MEDS ORDERED: PARO20TA3 PO (09:20)
[2020-09-08] MEDS ORDERED: QUET200T2 PO ×2 (09:20→09:59)
[2020-09-08] MEDS ORDERED: PARO20TA4 PO (09:59)
--- NOTE | 2020-09-08 15:06 | MHDSPDOC ---
[facility] Discharge Summary Discharge Summary DATE OF ADMISSION: Sep 05, 2020 at 15:03 DATE OF DISCHARGE: Sep 08, 2020 at 11:46 DISCHARGE DIAGNOSES: 1. Substance abuse dependence. 2., Antisocial behavior. REASON FOR ADMISSION: Refused admission at [facility] due to having a fever. Return to ER stated he was "homeless" and made suicidal and homicidal threats CONSULTANTS INVOLVED: None TREATMENT AND PROGRESS ON THE UNIT : Cooperative, with no flagrant symptomatology. Discovered there was a warrant for his arrest. [facility] readmitted him today. HOSPITAL COURSE: Nonproblematic DISCHARGE ASSESSMENT: Substance dependence, polysubstance abuse, antisocial behavior MENTAL STATUS EXAMINATION ON DISCHARGE: Patient is a 24-year old male, who is. Discharge to [facility] rehabilitation. Speech is normal. Language skills are no gross disturbance. Thought processes including:. No gross disturbance. Thought content: No gross disturbance plotting to avoid district resource officer. Abstract reasoning, and computation:, [place]. Description of associations:. No loose association. Description of abnormal or psychotic thoughts:. No psychotic thought. Judgment:, Poor. Insight:, Poor. Orientation to 3. Recent and remote memory: Intact. Attention span and concentration: Intact. Language:. No disturbance. Fund of knowledge: Reasonable. Mood: Euthymic. Affect:, Congruent. MEDICATIONS ON DISCHARGE: -Paxil 20 for depression. -Wellbutrin 450 for depression. -Seroquel 200 for. Sleep and mood. PLAN/FOLLOWUP ARRANGEMENTS: . The amount of time spent in the coordination of care for this patient was approximately minutes. ETOH/Disorder Med Rx ETOH/DRUG DISORDER RX: Given to pt at d/c Vital Signs/I&Os Vital Signs Date Time Temp Pulse Resp B/P (MAP) Pulse Ox O2 Delivery O2 Flow Rate FiO2 09/08/20 06:07 97.9 61 18 110/58 (75) 98 Room Air Medications Scheduled Bupropion Hcl (Bupropion Xl) 150 Mg Tab.er.24h, 450 MG PO DAILY for Depression, #21 Bupropion Hcl (Bupropion Xl) 150 Mg Tab.er.24h, 150 MG PO DAILY for Mood, #21 Three tabs daily Paroxetine HCl (Paroxetine HCl) 20 Mg Tablet, 20 MG PO DAILY for mood, #7 Paroxetine HCl (Paroxetine) 20 Mg Tablet, 1 TAB PO DAILY for mood for 7 Days, #7 Quetiapine Fumarate (Quetiapine Fumarate) 200 Mg Tablet, 200 MG PO QHS for Sleep , #7 Quetiapine Fumarate (Quetiapine Fumarate) 200 Mg Tablet, 1 TAB PO QPM for sleep, #7 Allergies Coded Allergies: amphetamine (Verified Allergy, Severe, 08/31/20) dextroamphetamine (Verified Allergy, Severe, 08/31/20) vancomycin (Verified Allergy, Severe, kidney failure, 04/20/20) DAVIN BURNHAM MD Sep 08, 2020 15:06
== END 2020-09-08 11:46 | disposition home or self-care (01) | DRG 752 ==
LOC: M ED 05:26 → M ED INP 15:03 → M PSY 20:51
PROVIDERS: ADMIT Psychiatry & Neurology Child & Adolescent Psychiatry; ATTEND Psychiatry & Neurology Child & Adolescent Psychiatry
DX: F60.2 Antisocial personality disorder (principal); F11.20 Opioid dependence, uncomplicated; R45.851 Suicidal ideations; F14.20 Cocaine dependence, uncomplicated; F15.20 Other stimulant dependence, uncomplicated; R45.850 Homicidal ideations; F32.9 Major depressive disorder, single episode, unspecified; F41.9 Anxiety disorder, unspecified; Z79.899 Other long term (current) drug therapy; Z88.1 Allergy status to other antibiotic agents; Z88.8 Allergy status to other drugs, medicaments and biological substances

== ENCOUNTER 2020-12-03 00:50 | Inpatient (IN) | payer OTHER, MEDICAID ==
[~2020-12-03] VITALS: Ht 188 cm; Wt 91.9 kg
[~2020-12-03 00:50] MED LIST changes: +BUPR150T12 PO; +PARO20TA3 PO; +PARO20TA4 PO; +QUET200T2 PO
[2020-12-03 02:44] LABS: HEMATOCRIT 44.5 % (42.0-52.0); MEAN CORPUSCULAR HEMOGLOBIN 30.2 pg (27.0-33.0); MEAN CORPUSCULAR HGB CONC 33.7 g/dl (32.0-36.5); MEAN CORPUSCULAR VOLUME 89.7 fl (80.0-96.0); PLATELET COUNT, AUTOMATED 320 10^3/uL (150-450); RED BLOOD COUNT 4.96 10^6/uL (4.30-6.10); WHITE BLOOD COUNT 10.6 10^3/uL (4.0-10.0)
[2020-12-03 03:06] LABS: AMPHETAMINES LEVEL URINE NEGATIVE (NEGATIVE); BARBITURATES URINE NEGATIVE (NEGATIVE); BENZODIAZEPINES URINE NEGATIVE (NEGATIVE); CANNABINOIDS URINE NEGATIVE (NEGATIVE); COCAINE METABOLITE URINE NEGATIVE (NEGATIVE); METHADONE URINE NEGATIVE (NEGATIVE); OPIATES URINE NEGATIVE (NEGATIVE); PHENCYCLIDINE URINE NEGATIVE (NEGATIVE)
[2020-12-03 03:19] LABS: ACETAMINOPHEN LEVEL < 2.0 UG/ML (10.0-30.0); ALBUMIN 3.9 GM/DL (3.2-5.2); ALT/SGPT 289 U/L (12-78); BILIRUBIN,DIRECT 0.1 MG/DL (0.0-0.2); BILIRUBIN,TOTAL 0.6 MG/DL (0.2-1.0); BLOOD UREA NITROGEN 25 MG/DL (7-18); CALCIUM LEVEL 8.8 MG/DL (8.5-10.1); CARBON DIOXIDE LEVEL 26 MEQ/L (21-32); CHLORIDE LEVEL 106 MEQ/L (98-107); CREATININE FOR GFR 0.94 MG/DL (0.70-1.30); ETHYL ALCOHOL (ETHANOL) < 0.003 % (0.000-0.010); GLOMERULAR FILTRATION RATE > 60.0 (>60); GLUCOSE, FASTING 116 MG/DL (70-100); POTASSIUM SERUM 4.5 MEQ/L (3.5-5.1); SALICYLATE LEVEL < 1.7 MG/DL (5.0-30.0); SODIUM LEVEL 139 MEQ/L (136-145); TOTAL PROTEIN 7.5 GM/DL (6.4-8.2)
[2020-12-03] MEDS ORDERED: LORazepam 2 MG TAB PO ONE (04:45)
[2020-12-03] MEDS ORDERED: PARoxetine 20MG TABLET PO ONE (05:45)
[2020-12-03] MEDS ORDERED: diphenhydrAMINE 25MG CAP PO ONE (05:45)
[2020-12-03] MEDS ORDERED: QUET400T PO (06:08)
[2020-12-03] MEDS ORDERED: BACTRIM 160MG/800MG DS TAB PO ONE ×2 (09:00→21:00)
[2020-12-03 14:32] LABS: RSV AMPLIFICATION NEGATIVE (NEGATIVE)
[2020-12-03] MEDS ORDERED: QUEtiapine FUMARATE 200 MG TAB PO ONE (21:00)
[2020-12-04] MEDS ORDERED: BUPR150T12 PO (08:48)
[2020-12-04] MEDS ORDERED: METH30CA13 PO (08:48)
[2020-12-04] MEDS ORDERED: METH5TAB76 PO (08:48)
[2020-12-04] MEDS ORDERED: QUET200T2 PO (08:48)
[2020-12-04] MEDS ORDERED: SUBO8MIS SL (08:48)
[2020-12-04] MEDS ORDERED: PARO20TA3 PO (08:48)
[2020-12-04] MEDS ORDERED: buPROPion **XL** TABLET 150MG (WELLBUTRIN XL) PO SCH (09:00)
[2020-12-04] MEDS ORDERED: PARoxetine 20MG TABLET PO SCH (09:00)
--- NOTE | 2020-12-04 09:22 | ECGEPIP ---
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
[2020-12-04] MEDS: BACTRIM 160MG/800MG DS TAB PO SCH ×2 (09:42→20:53)
[2020-12-04 16:01] LABS: RSV AMPLIFICATION NEGATIVE (NEGATIVE)
[2020-12-04] MEDS ORDERED: QUEtiapine FUMARATE 200 MG TAB PO SCH (21:00)
[2020-12-05] MEDS ORDERED: IBUPROFEN 400MG TAB PO PRN (12:35)
[2020-12-05] MEDS ORDERED: OLANZapine ORAL DISINTEGRATING TAB 5MG PO PRN (12:35)
[2020-12-05] MEDS ORDERED: traZODone 50 MG TAB PO PRN (12:35)
[2020-12-05] MEDS ORDERED: MOM 30ML SUSPENSION UDC PO PRN (12:35)
[2020-12-05] MEDS ORDERED: MAALOX 30 ML SUSP *UDC PO PRN (12:35)
[2020-12-05 13:10] VITALS: BP 133/65
[2020-12-05] MEDS: NICOTINE 21MG/24HR 1 EA TRANSDERMAL TD SCH (13:47)
[2020-12-05] MEDS ORDERED: QUEtiapine FUMARATE 200 MG TAB PO SCH (21:00)
[2020-12-06 06:00] VITALS: BP 115/56
[2020-12-06] MEDS: NICOTINE 21MG/24HR 1 EA TRANSDERMAL TD SCH (09:25)
[2020-12-06] MEDS ORDERED: QUET200T2 PO (10:58)
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
--- NOTE | 2020-12-06 11:53 | MHDSPDOC ---
[facility] Discharge Summary Discharge Summary DATE OF ADMISSION: Dec 05, 2020 at 12:35 DATE OF DISCHARGE: 12/06/2020 DISCHARGE DIAGNOSES: 1. . Psychotic disorder, NOS 2. ., Polysubstance abuse REASON FOR ADMISSION: Patient was admitted due to acute paranoid episode most likely related to his ongoing substance abuse CONSULTANTS INVOLVED: None TREATMENT AND PROGRESS ON THE UNIT : Patient was seen for supportive therapy and lethality evaluation and continued on his Seroquel 400 mg at bedtime. HOSPITAL COURSE: , The patient remained in good control. Denies any command hallucination. Denies any homicidal or suicidal thoughts and behavior is in good control DISCHARGE ASSESSMENT: Stable at his baseline and doesn't appear to be a imminent danger to himself or other people MENTAL STATUS EXAMINATION ON DISCHARGE: Patient is a 24-year old male, who is , cooperative. Speech is organized, relevant. Language skills are fair. Thought processes including: , Relevant. Thought content: Some paranoid thoughts . Abstract reasoning, and computation: Fair. Description of associations: , Relevant, organized. Description of abnormal or psychotic thoughts: Long-standing paranoid thoughts, but no hallucination, no gross delusion. Judgment: , Poor, poor. Orientation to , poor. Recent and remote memory: Fair. Attention span and concentration: Fair. Language: . Fund of knowledge: Average, mildly anxious. Affect: ., Mildly anxious MEDICATIONS ON DISCHARGE: - for ., Seroquel 400 mg at bedtime for 7 days with 3 refills - for . - for . PLAN/FOLLOWUP ARRANGEMENTS: [As arranged]. The amount of time spent in the coordination of care for this patient was ap proximately 20 minutes. ETOH/Disorder Med Rx ETOH/DRUG DISORDER RX: N/A Vital Signs/I&Os Vital Signs Date Time Temp Pulse Resp B/P (MAP) Pulse Ox O2 Delivery O2 Flow Rate FiO2 12/06/20 06:00 97.9 64 17 115/56 (75) 98 Room Air Medications Scheduled Quetiapine Fumarate (Quetiapine Fumarate) 200 Mg Tablet, 400 MG PO QHS for psychosis for 7 Days, #7 Allergies Coded Allergies: amphetamine (Verified Allergy, Severe, 08/31/20) dextroamphetamine (Verified Allergy, Severe, 08/31/20) vancomycin (Verified Allergy, Severe, kidney failure, 04/20/20) WILLI RIOS M.D. Dec 06, 2020 11:53
== END 2020-12-06 11:30 | disposition home or self-care (01) | DRG 751 ==
LOC: M ED 00:50 → M ED INP 12-05 12:35 → M PSY 12-05 13:25
PROVIDERS: ADMIT Psychiatry & Neurology Psychiatry; ATTEND Psychiatry & Neurology Psychiatry
DX: F29 Unspecified psychosis not due to a substance or known physiological condition (principal); F60.2 Antisocial personality disorder; F14.20 Cocaine dependence, uncomplicated; F17.200 Nicotine dependence, unspecified, uncomplicated; F11.20 Opioid dependence, uncomplicated; F15.20 Other stimulant dependence, uncomplicated; Z79.899 Other long term (current) drug therapy; Z88.1 Allergy status to other antibiotic agents; Z88.6 Allergy status to analgesic agent; Z88.8 Allergy status to other drugs, medicaments and biological substances

== ENCOUNTER 2020-12-09 22:16 | Inpatient (IN) | payer BC, MEDICAID ==
[~2020-12-09] VITALS: Ht 188 cm; Wt 96.2 kg
[~2020-12-09 22:16] MED LIST changes: +QUET400T PO
[2020-12-10] MEDS ORDERED: NS 1,000 ML IV ONE (01:10)
[2020-12-10 02:51] LABS: BASO % 0.2 % (0.0-1.0); EOS # 0.2 10^3/uL (0.0-0.5); EOS % 2.4 % (0.0-3.0); HEMATOCRIT 34.1 % (42.0-52.0); HEMOGLOBIN 11.5 g/dl (13.5-17.5); LYMPH # 2.3 10^3/uL (1.5-5.0); LYMPH % 25.1 % (24.0-44.0); MEAN CORPUSCULAR HEMOGLOBIN 30.3 pg (27.0-33.0); MEAN CORPUSCULAR HGB CONC 33.7 g/dl (32.0-36.5); MONO % 10.7 % (2.0-8.0); NEUTROPHILS # 5.6 10^3/uL (1.5-8.5); NEUTROPHILS % 61.3 % (36.0-66.0); PLATELET COUNT, AUTOMATED 290 10^3/uL (150-450); RED BLOOD COUNT 3.79 10^6/uL (4.30-6.10); WHITE BLOOD COUNT 9.2 10^3/uL (4.0-10.0)
[2020-12-10 03:26] LABS: BLOOD UREA NITROGEN 19 MG/DL (7-18); C REACTIVE PROTEIN QUANTITATIV 8.96 MG/DL (0.00-0.30); CALCIUM LEVEL 7.8 MG/DL (8.5-10.1); CARBON DIOXIDE LEVEL 26 MEQ/L (21-32); CHLORIDE LEVEL 110 MEQ/L (98-107); CREATININE FOR GFR 0.66 MG/DL (0.70-1.30); GLOMERULAR FILTRATION RATE > 60.0 (>60); GLUCOSE, FASTING 111 MG/DL (70-100); POTASSIUM SERUM 3.8 MEQ/L (3.5-5.1); SODIUM LEVEL 141 MEQ/L (136-145)
[2020-12-10] MEDS ORDERED: cefTRIAXone SOD 1 GM in D5W MINI-BAG PLUS 50 ML IV ONE (05:35)
[2020-12-10] MEDS ORDERED: med rec comment (05:48)
[2020-12-10] MEDS ORDERED: QUET200T2 PO (05:53)
[2020-12-10] MEDS ORDERED: NS 1,000 ML IV SCH (05:55)
--- NOTE | 2020-12-10 06:31 | ECGEPIP ---
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 Order Number: [id number] Reading MD: Ivon Armando Measurements Intervals [place] Rate: 78 P: 47 HI: 150 QRS: 85 QRSD: 86 T: 31 QT: 406 QTc: 462 Interpretive Statements Normal sinus rhythm Nonspecific ST T wave changes Prolonged QTc Baseline artifact may affect reading cw 12/03/[address] T wave changes Electronically Signed on 12-10-2020 6:30:33 EDT by Ivon Armando
--- NOTE | 2020-12-10 06:35 | HPEPDOC ---
[facility] Medical History & Physical Date of Admission Dec 10, 2020 Date of Service: Dec 10, 2020 History and Physical CHIEF COMPLAINT: Leg pain HISTORY OF PRESENT ILLNESS: 24-year-old male history of IV drug abuse and homelessness who presents due to lower extremity leg pain. Unfortunately history is rather poor as patient kept falling asleep he told me he used bath salts just prior to arriving and can't stay awake. He tells me his notices legs have been swollen or red for quite some time but over the past 3 days to get significantly worse to the point where he could not ambulate. He noticed some discharge on off affecting the right leg. He denies any fevers or chills or chest pain. This is the extent of the history is able to obtain from him. I was asked to admit the patient due to his history of homelessness, history of IV drug abuse, his inability to ambulate, his severe cellulitis he would not be a candidate for outpatient therapy. PAST MEDICAL/SURGICAL HISTORY: IV drug abuse Left hand surgery I&D for abscess SOCIAL HISTORY: Unable to obtain full social history but does endorse IV drug abuse endorses u sing opiates, heroin, bath salts on a regular basis FAMILY HISTORY: Unable to obtain patient kept falling asleep and would not answer my questions ALLERGIES: Please see below. REVIEW OF SYSTEMS: Unable to obtain patient kept falling asleep and would not answer my questions HOME MEDICATIONS: Please see below. PHYSICAL EXAMINATION: Constitutional: Drowsy keeps falling asleep, disheveled, poor hygiene, black soles of feet ENT: Sclera are erythematous. Mucosa is moist. Respiratory: Lungs CTA bilaterally. No respiratory distress. Cardiovascular: Regular rate and rhythm. Faint murmur heard Gastrointestinal: Abdomen is soft, non distended, non tender, BS present. Musculoskeletal: None pitting bilateral lower extremity edema symmetrical Neurologic: He was moving all 4 extremities and I didn't appreciate focal deficits Mental Status: Kept falling asleep Skin: There is erythema on the bilateral lower extremities below the knees down to the ankles with some minimal purulent drainage on the right side right leg is more affected than left LABORATORY DATA: See below. IMAGING: See chart MICROBIOLOGY: Please see below. ASSESSMENT/PLAN 24-year-old male history of IV drug abuse and homelessness who presents with lower extremity pain and found to have bilateral lower extremity cellulitis admitted for further workup and management. # Bilateral lower extremity cellulitis: IV drug injections into the legs. High risk MRSA infection. Documented severe allergy to vancomycin. Will treat with IV doxycycline and Unasyn. Follow-up blood cultures. Follow up wound cultures. No leukocytosis on presentation. Low-grade fever. # Faint murmur: Observed on physical exam. Follow-up echo given history of IV drug abuse # IV drug abuse: Patient should be set up with social work to try to obtain resources on quitting # [facility] [place] [facility] Vital Signs Vital Signs Date Time Temp Pulse Resp B/P (MAP) Pulse Ox O2 Delivery O2 Flow Rate FiO2 12/10/20 05:29 98.1 90 18 110/51 (70) 95 Room Air Laboratory Data Labs 24H Laboratory Tests 2 12/10/20 02:41: Immature Granulocyte % (Auto) 0.3, Neutrophils (%) (Auto) 61.3, Lymphocytes (%) (Auto) 25.1, Monocytes (%) (Auto) 10.7H, Eosinophils (%) (Auto) 2.4, Basophils (%) (Auto) 0.2, Neutrophils # (Auto) 5.6, Lymphocytes # (Auto) 2.3, Monocytes # (Auto) 1.0H, Eosinophils # (Auto) 0.2, Basophils # (Auto) 0.0, Nucleated Red Blood Cells % (auto) 0.0, Anion Gap 5L, Glomerular Filtration Rate > 60.0, Lactic Acid Level 1.1, Calcium Level 7.8L, C-Reactive Protein, Quantitative 8.96H 12/10/20 05:58: CBC/BMP Laboratory Tests 12/10/20 02:41 Microbiology Microbiology 12/10/20 Blood Culture, Received Pending 12/10/20 Blood Culture, Received Pending 12/10/20 Blood Culture, Received Pending Home Medications Scheduled Quetiapine Fumarate (Quetiapine Fumarate) 200 Mg Tablet, 400 MG PO QHS Miscellaneous Medications [med rec comment] used last discharge 12-07-20 for med rec Allergies Coded Allergies: amphetamine (Verified Allergy, Severe, 08/31/20) dextroamphetamine (Verified Allergy, Severe, 08/31/20) vancomycin (Verified Allergy, Severe, kidney failure, 04/20/20) A-FIB/CHADSVASC A-FIB History Current/History of A-Fib/PAF?: No YOUSEF,ISMAEL Mills MD Dec 10, 2020 06:35
[2020-12-10 06:44] LABS: RSV AMPLIFICATION NEGATIVE (NEGATIVE)
--- NOTE | 2020-12-10 07:47 | REP ---
INDICATION: ivda COMPARISON: 09/05/2020 TECHNIQUE: PA and lateral. FINDINGS: The mediastinum and cardiac silhouette are normal. The lung zuñiga are clear and without acute consolidation, effusion, or pneumothorax. The skeletal structures are intact and normal. IMPRESSION: No acute cardiopulmonary process. <Electronically signed by Aristides Delacruz > 12/10/20 0747
[2020-12-10] MEDS ORDERED: DOXYCYCLINE HYCLATE 100 MG in D5W MINI-BAG PLUS 100 ML IV SCH (08:00)
[2020-12-10] MEDS ORDERED: AMPICILLIN SOD/SULBACTAM SOD 3 GM in D5W MINI-BAG PLUS 100 ML IV SCH (09:00)
[2020-12-10 09:21] VITALS: BP 147/79
[2020-12-10] MEDS: CEFTAROLINE FOSAMIL 600 MG in D5W MINI-BAG PLUS 50 ML IV SCH (11:06)
[2020-12-10] MEDS: ENOXAPARIN 40MG/0.4ML SYRINGE (J1650 PER 10MG) SC SCH (11:06)
[2020-12-10 14:00] VITALS: BP 124/68
--- NOTE | 2020-12-10 17:41 | IPNPDOC ---
Subjective Date Seen The patient was seen on 12/10/20. Subjective Chief Complaint/HPI Says he is very sleepy as has not slept for several days. Complains of pain and swelling of both the legs and reports difficulty in bearing weight. No fever or chills. Objective Physical Examination General Exam: Positive: Cooperative, No Acute Distress, Other (sleepy but easily arousable) Eye Exam: Positive: PERRLA, Conjunctiva & lids normal, EOMI; Negative: Sclera icteric ENT Exam: Positive: Atraumatic, Mucous membr. moist/pink, Pharynx Normal Neck Exam: Positive: Supple; Negative: JVD, thyromegaly Chest Exam: Positive: Clear to auscultation, Normal air movement Heart Exam: Positive: Rate Normal, Regular Rhythm, Normal S1, Normal S2; Negative: Murmurs, Rubs Abdomen Exam: Positive: Normal bowel sounds, Soft; Negative: Tenderness, Hepatospenomegaly Extremity Exam: Positive: Edema, Tenderness (bilaterally), Swelling (bilateraal y); Negative: Clubbing, Cyanosis Skin Exam: Positive: Other skin issue (multiple track mancilla in both upper and lower extremities. ) Assessment /Plan Assessment 24-year-old male history of IV drug abuse and homelessness who presented due to bilateral lower extremity leg pain redness and swelling for 6 days but over the past 3 days it got significantly worse to the point where he could not ambulate. He used bath salts just prior to arriving to the ED so was sleepy on admission. He noticed some discharge on off affecting the right foot. He was admitted for bilateral cellulitis of both the legs related to IV drug use. Bilateral lower ex cellulitis with 2 open spots on the big toes likely ruptured blisters. will give Ceftaroline US doppler of both the legs. Wound and blood cultures have been sent. 2 areas of dark red colored spots on the right 4th and 5th toes ? ruptured blisters with scabbing vs necrotic areas. IV drug abuse If blood cultures are positive will have to assess for Infective endocarditis. Plan/VTE VTE Prophylaxis Ordered?: Yes VS, I&O, 24H, Fishbone Vital Signs/I&O Vital Signs Date Time Temp Pulse Resp B/P (MAP) Pulse Ox O2 Delivery O2 Flow Rate FiO2 12/10/20 14:00 98.4 88 21 124/68 (86) 97 Room Air I&O- Last 24 Hours up to 6 AM 12/10/20 06:00 Intake Total 1000 ml Balance 1000 ml Laboratory Data 24H LABS Laboratory Tests 2 12/10/20 02:41: Immature Granulocyte % (Auto) 0.3, Neutrophils (%) (Auto) 61.3, Lymphocytes (%) (Auto) 25.1, Monocytes (%) (Auto) 10.7H, Eosinophils (%) (Auto) 2.4, Basophils (%) (Auto) 0.2, Neutrophils # (Auto) 5.6, Lymphocytes # (Auto) 2.3, Monocytes # (Auto) 1.0H, Eosinophils # (Auto) 0.2, Basophils # (Auto) 0.0, Nucleated Red Blood Cells % (auto) 0.0, Anion Gap 5L, Glomerular Filtration Rate > 60.0, Lactic Acid Level 1.1, Calcium Level 7.8L, C-Reactive Protein, Quantitative 8.96H 12/10/20 05:58: Coronavirus (COVID-19)(PCR) NEGATIVE, Influenza Type A (RT-PCR) NEGATIVE, Influenza Type B (RT-PCR) NEGATIVE, Respiratory Syncytial Virus (PCR) NEGATIVE 12/10/20 07:27: Methicillin-Resist S.aureus DNA PCR NOT DETECTED CBC/BMP Laboratory Tests 12/10/20 02:41 Microbiology Microbiology 12/10/20 Gram Stain - Final, Resulted 12/10/20 Wound Culture, Resulted Pending 12/10/20 Gram Stain, Ordered Pending 12/10/20 Wound Culture, Ordered Pending 12/10/20 Blood Culture, Received Pending 12/10/20 Blood Culture, Received Pending 12/10/20 Blood Culture, Received Pending HOLLIE SIMEON MD Dec 10, 2020 17:41
[2020-12-10 22:00] VITALS: BP 137/54
[2020-12-11] MEDS: CEFTAROLINE FOSAMIL 600 MG in D5W MINI-BAG PLUS 50 ML IV SCH ×2
[2020-12-11 06:00] VITALS: BP 122/57
[2020-12-11] MEDS: ENOXAPARIN 40MG/0.4ML SYRINGE (J1650 PER 10MG) SC SCH (09:00)
[2020-12-11] MEDS: ACETAMINOPHEN TAB 650MG DOSE (2X325MG) PO PRN ×2 (09:04→18:45)
[2020-12-11] MEDS ORDERED: CEFUROXIME 500 MG TAB PO SCH ×2 (10:25→21:00)
--- NOTE | 2020-12-11 10:32 | IPNPDOC ---
Subjective Date Seen The patient was seen on 12/11/20. Subjective Chief Complaint/HPI No complaints this morning. Objective Physical Examination General Exam: Positive: Cooperative, No Acute Distress, Other (sleepy but easily arousable) Eye Exam: Positive: PERRLA, Conjunctiva & lids normal, EOMI; Negative: Sclera icteric ENT Exam: Positive: Atraumatic, Mucous membr. moist/pink, Pharynx Normal Neck Exam: Positive: Supple; Negative: JVD, thyromegaly Chest Exam: Positive: Clear to auscultation, Normal air movement Heart Exam: Positive: Rate Normal, Regular Rhythm, Normal S1, Normal S2; Negative: Murmurs, Rubs Abdomen Exam: Positive: Normal bowel sounds, Soft; Negative: Tenderness, Hepatospenomegaly Extremity Exam: Positive: Edema, Tenderness (bilaterally), Swelling (bilateraaly); Negative: Clubbing, Cyanosis Skin Exam: Positive: Other skin issue (multiple track mancilla in both upper and lower extremities. ) Assessment /Plan Assessment 24-year-old male history of IV drug abuse and homelessness who presented due to bilateral lower extremity leg pain redness and swelling for 6 days but over the past 3 days it got significantly worse to the point where he could not ambulate. He used bath salts just prior to arriving to the ED so was sleepy on admission. He noticed some discharge on off affecting the right foot. He was admitted for bilateral cellulitis of both the legs related to IV drug use. Bilateral lower ex cellulitis with 2 open spots on the big toes likely ruptured blisters. will give Ceftaroline US doppler of both the legs pending. Wound and blood cultures have been sent. Blood cultures negative till date MRSA pcr negative will stop ceftaroline and start on cefuroxime. Bipedal swelling will get echo lasix bid. Wounds in feet 2 ruptured blisters on right 4th and 5th toes also another ruptured blister on the left first toe IV drug abuse If blood cultures are positive will have to assess for Infective endocarditis. Plan/VTE VTE Prophylaxis Ordered?: Yes VS, I&O, 24H, Fishbone Vital Signs/I&O Vital Signs Date Time Temp Pulse Resp B/P (MAP) Pulse Ox O2 Delivery O2 Flow Rate FiO2 12/11/20 06:00 97.8 74 18 122/57 (78) 99 Room Air I&O- Last 24 Hours up to 6 AM 12/11/20 06:00 Intake Total 2270 ml Output Total 0 ml Balance 2270 ml Laboratory Data Microbiology Microbiology 12/10/20 Gram Stain - Final, Resulted 12/10/20 Wound Culture, Resulted Pending 12/10/20 Gram Stain, Ordered Pending 12/10/20 Wound Culture, Ordered Pending 12/10/20 Blood Culture - Preliminary, Resulted No growth after 24 hours . All specim... 12/10/20 Blood Culture - Preliminary, Resulted No growth after 24 hours . All specim... 12/10/20 Blood Culture - Preliminary, Resulted No growth after 24 hours . All specim... HOLLIE SIMEON MD Dec 11, 2020 10:32
[2020-12-11] MEDS: FUROSEMIDE 40 MG TAB PO SCH ×2 (12:36→18:45)
[2020-12-11] MEDS: CEFUROXIME 500 MG TAB PO SCH ×2 (12:36→20:27)
--- NOTE | 2020-12-11 13:25 | REP ---
INDICATION: pain, redness, swelling r/o clot COMPARISON: 08/31/2020. TECHNIQUE: Real time compression and duplex Doppler interrogation of the bilateral lower extremity deep venous system is performed. Compression ultrasound is performed of the bilateral peroneal and posterior tibial veins. FINDINGS: Bilaterally, the common femoral, superficial femoral and popliteal veins are fully compressible with transducer pressure and demonstrate normal spontaneous and phasic flow, without evidence of deep venous thrombosis. No thrombus is seen in the bilateral visualized portions of the peroneal and posterior tibial veins. IMPRESSION: No evidence of deep venous thrombosis of the bilateral lower extremity femoral popliteal venous system. A preliminary report was provided by [facility] at the time of the exam. <Electronically signed by Chaim Ludwig > 12/11/20 1870
[2020-12-11 14:00] VITALS: BP 130/76
[2020-12-11] MEDS: LORazepam 2 MG TAB PO PRN (20:27)
[2020-12-11 22:00] VITALS: BP 130/74
[2020-12-12 06:00] VITALS: BP 124/60
[2020-12-12] MEDS ORDERED: CEFU50TA PO ×2 (07:59→10:05)
[2020-12-12 08:46] LABS: BASO % 0.8 % (0.0-1.0); EOS # 0.1 10^3/uL (0.0-0.5); EOS % 2.6 % (0.0-3.0); HEMATOCRIT 41.5 % (42.0-52.0); HEMOGLOBIN 13.7 g/dl (13.5-17.5); LYMPH # 1.5 10^3/uL (1.5-5.0); LYMPH % 30.1 % (24.0-44.0); MEAN CORPUSCULAR VOLUME 90.8 fl (80.0-96.0); MONO # 0.5 10^3/uL (0.0-0.8); MONO % 10.6 % (2.0-8.0); NEUTROPHILS # 2.8 10^3/uL (1.5-8.5); NEUTROPHILS % 55.5 % (36.0-66.0); PLATELET COUNT, AUTOMATED 256 10^3/uL (150-450); RED BLOOD COUNT 4.57 10^6/uL (4.30-6.10)
[2020-12-12 09:09] LABS: BLOOD UREA NITROGEN 15 MG/DL (7-18); C REACTIVE PROTEIN QUANTITATIV 2.54 MG/DL (0.00-0.30); CALCIUM LEVEL 8.9 MG/DL (8.5-10.1); CARBON DIOXIDE LEVEL 28 MEQ/L (21-32); CHLORIDE LEVEL 108 MEQ/L (98-107); CREATININE FOR GFR 0.63 MG/DL (0.70-1.30); GLOMERULAR FILTRATION RATE > 60.0 (>60); GLUCOSE, FASTING 84 MG/DL (70-100); POTASSIUM SERUM 4.1 MEQ/L (3.5-5.1); SODIUM LEVEL 141 MEQ/L (136-145)
--- NOTE | 2020-12-12 09:19 | ECHO ---
ECHOCARDIOGRAM DATE OF PROCEDURE: 12/11/2020 Age: Gender: Height: 188 cm Weight: 96 kg REFERRING PHYSICIAN: Phani Wise MD. INDICATION: Drug use, heart murmur. MEASUREMENTS: IVS 0.8 cm LV 5.0 cm LVPW 0.8 cm LA 4.0 cm Aorta 3.2 cm IVC 2.2 cm Mitral E wave velocity 74 A wave 57 E prime septal 12.8 E prime lateral 22.7 FINDINGS: This study is of acceptable technical quality. Underlying sinus rhythm. Left ventricle is normal size and normal systolic function. I estimate EF 70 to 75%. Right ventricle is normal size and systolic function as well. Both atria appear normal. Aortic, mitral, and tricuspid valves appear normal. Pulmonic valve was not well seen. No pericardial effusion is noted. Inferior vena cava is dilated but does collapse with inspiration indicative of likely mildly elevated central venous pressure. Aortic root, aortic arch, and visualized segment of abdominal aorta appear normal. Doppler interrogation of aortic valve reveals no stenosis or insufficiency. There is mild mitral and trace tricuspid insufficiency. Calculated pulmonary artery pressure is in 30s corresponding to mild pulmonary hypertension. Mitral inflow pattern and tissue Doppler imaging of mitral annulus revealed normal diastolic function. CONCLUSIONS: 1. Study is of good technical quality, underlying sinus rhythm. 2. Normal LV size with hyperdynamic LV systolic function and normal diastolic function. 3. Mild mitral insufficiency. 4. Trace tricuspid insufficiency. 5. Likely at least mildly elevated central venous pressure and mild pulmonary hypertension. 6. No definite vegetations were visualized.
[2020-12-12 09:23] LABS: HEMOGLOBIN A1c 4.9 %
[2020-12-12] MEDS: ENOXAPARIN 40MG/0.4ML SYRINGE (J1650 PER 10MG) SC SCH (09:30)
[2020-12-12] MEDS: FUROSEMIDE 40 MG TAB PO SCH (09:30)
[2020-12-12] MEDS: CEFUROXIME 500 MG TAB PO SCH (09:30)
[2020-12-12] MEDS: ACETAMINOPHEN TAB 650MG DOSE (2X325MG) PO PRN (09:34)
[2020-12-12] MEDS: LORazepam 2 MG TAB PO PRN (09:34)
[2020-12-12] MEDS ORDERED: QUET400T PO (11:21)
[2020-12-12] MEDS ORDERED: PARO20TA4 PO (12:01)
[2020-12-12] MEDS ORDERED: BUPR-368 PO (12:01)
--- NOTE | 2020-12-12 12:03 | DS.PDOC ---
Discharge Summary General Date of Admission Dec 10, 2020 at 05:51 Date of Discharge 12/12/20 Discharge Summary ADDENDUM: PT REQUESTED PSYCH MEDS. HE HAS A PCP APPT ON 12/19/20. ONLY 7DAYS SUPPLY GIVEN FOR THE FOLLOWING MEDS QUIETIAPINE 400 MG PO QHS PAROXETINE 20 MG PO DAILY BUPROPION 300 MG PO Q24HRS. Vital Signs/I&Os Vital Signs Date Time Temp Pulse Resp B/P (MAP) Pulse Ox O2 Delivery O2 Flow Rate FiO2 12/12/20 06:00 97.2 66 17 124/60 (81) 98 Room Air I&O- Last 24 Hours up to 6 AM 12/12/20 06:00 Intake Total 2650 ml Output Total 0 ml Balance 2650 ml Laboratory Data Labs 24H Laboratory Tests 2 12/12/20 08:24: Immature Granulocyte % (Auto) 0.4, Neutrophils (%) (Auto) 55.5, Lymphocytes (%) (Auto) 30.1, Monocytes (%) (Auto) 10.6H, Eosinophils (%) (Auto) 2.6, Basophils (%) (Auto) 0.8, Neutrophils # (Auto) 2.8, Lymphocytes # (Auto) 1.5, Monocytes # (Auto) 0.5, Eosinophils # (Auto) 0.1, Basophils # (Auto) 0.0, Nucleated Red Blood Cells % (auto) 0.0, Anion Gap 5L, Glomerular Filtration Rate > 60.0, Estim ated Mean Plasma Glucose 94, Hemoglobin A1c 4.9, Calcium Level 8.9, C-Reactive Protein, Quantitative 2.54H CBC/BMP Laboratory Tests 12/12/20 08:24 Microbiology Microbiology 12/10/20 Gram Stain - Final, Resulted 12/10/20 Wound Culture - Preliminary, Resulted Streptococcus Pyogenes Grp A Staphylococcus Sp Coag Neg Corynebacterium Species 12/10/20 Gram Stain, Ordered Pending 12/10/20 Wound Culture, Ordered Pending 12/10/20 Blood Culture - Preliminary, Resulted No Growth after 48 hours. All Specime... 12/10/20 Blood Culture - Preliminary, Resulted No Growth after 48 hours. All Specime... 12/10/20 Blood Culture - Preliminary, Resulted No Growth after 48 hours. All Specime... Discharge Medications Scheduled Bupropion HCl (Bupropion Xl) 300 Mg Tab.er.24h, 300 MG PO DAILY Cefuroxime Axetil (Cefuroxime) 500 Mg Tablet, 500 MG PO BID Paroxetine HCl (Paroxetine) 20 Mg Tablet, 20 MG PO DAILY Quetiapine Fumarate (Quetiapine Fumarate) 200 Mg Tablet, 400 MG PO QHS, (Reported) Quetiapine Fumarate (Quetiapine Fumarate) 400 Mg Tablet, 400 MG PO QHS Allergies Coded Allergies: amphetamine (Verified Allergy, Severe, 08/31/20) dextroamphetamine (Verified Allergy, Severe, 08/31/20) vancomycin (Verified Allergy, Severe, kidney failure, 04/20/20) RAYMUNDO NAPOLES MD Dec 12, 2020 12:03
[2020-12-12] MEDS ORDERED: ACET-683 PO (12:34)
--- NOTE | 2020-12-12 15:06 | DSES ---
DISCHARGE SUMMARY DATE OF ADMISSION: 12/10/2020 DATE OF DISCHARGE: 12/12/2020 PRIMARY DISCHARGE DIAGNOSES: 1. Bilateral lower extremity/foot cellulitis with ulcers on the 2 big toes most likely due to ruptured blisters. 2. I.V. drug abuse. DISCHARGE MEDICATIONS: 1. Cefuroxime 500 mg by mouth twice a day for 7 days. 2. Quetiapine 400 mg at bedtime. DISCHARGE INSTRUCTIONS: 1. Primary care followup within 7 days of hospital discharge. 2. I.V. drug use rehab program. HISTORY AND HOSPITAL COURSE: This is a 24 -year-old with a history of I.V. drug use admitted on 12/10/2020 with complaints of leg pain with increasing redness, edema worse over the past 3 days, unable to ambulate with some discharge on and off affecting the right leg. Patient was found to have cellulitis of bilateral lower extremities after injection of I.V. drug use with high risk of a MRSA infection with documented allergy to VANCOMYCIN. Patient was treated with I.V. doxycycline and Unasyn. Blood cultures were negative. No leukocytosis on presentation with low grade fever, CRP of 8.95. Patient had a vascular ultrasound of bilateral lower extremities which was negative for DVT. Patient was put on Lasix 40 mg twice a day with good diuresis. Patient wanted to sign out Against Medical Advice, but was convinced to stay. He was changed to I.V. ceftaroline on 12/11/2020 and on discharge to complete cefuroxime as outpatient for a total of 7 more days. Patient had bilateral lower extremity edema which responded to oral Lasix 40 twice a day. He was kept on DVT prophylaxis with Lovenox 40 subcu daily. PHYSICAL EXAMINATION ON DISCHARGE: Temperature 97.2, pulse 66, respiratory rate 17, blood pressure 124/60, 98% on room air. General: Awake, alert, oriented person, place and time, answering questions appropriately. Lungs: Clear to auscultation, no wheezes, rhonchi or rales. Heart: S1 and S2, sinus rhythm, no murmurs, rubs or gallops. Abdomen: Soft, nontender, nondistended, positive bowel sounds. Extremities: No cyanosis. Patient has positive edema 1+, multiple track mancilla bilateral upper and lower extremities. He has 2 ulcers 0.5 cm bilateral toes on the dorsal aspect. Heels have excoriations, open ulcer about 1 cm on the left heel, 0.5 cm on the right. LABORATORY DATA: Please see the chart. Microbiology 12/10/2020 culture: No organisms seen. Blood cultures: No growth after 48 hours. IMAGING STUDIES: Venous Doppler of lower extremities 12/10/2020: Negative for DVT. Chest x-ray 12/10/2020: No acute cardiopulmonary process. Time spent on discharge: Thirty minutes MTDD
== END 2020-12-12 14:36 | disposition home or self-care (01) | DRG 383 ==
LOC: M ED 22:16 → M ED INP 12-10 05:51 → ENRESERV 12-10 08:00 → M MSPAV 12-10 09:20
PROVIDERS: ADMIT Family Medicine; ATTEND General Practice
DX: L03.115 Cellulitis of right lower limb (principal); F11.10 Opioid abuse, uncomplicated; Z59.0 Homelessness; Z88.1 Allergy status to other antibiotic agents; Z88.8 Allergy status to other drugs, medicaments and biological substances; Z79.899 Other long term (current) drug therapy; Z20.822 Contact with and (suspected) exposure to COVID-19; L03.116 Cellulitis of left lower limb; S90.422A Blister (nonthermal), left great toe, initial encounter; S90.424A Blister (nonthermal), right lesser toe(s), initial encounter; X58.XXXA Exposure to other specified factors, initial encounter; Y92.9 Unspecified place or not applicable

== ENCOUNTER 2020-12-24 20:56 | Emergency (ER) | payer BC, OTHER ==
[~2020-12-24] VITALS: Ht 188 cm; Wt 87.8 kg
[~2020-12-24 20:56] MED LIST changes: +ACET-683 PO; +BUPR-368 PO; +CEFU50TA PO; +med rec comment
[2020-12-25 00:17] LABS: HEMATOCRIT 41.5 % (42.0-52.0); HEMOGLOBIN 13.7 g/dl (13.5-17.5); MEAN CORPUSCULAR HEMOGLOBIN 29.5 pg (27.0-33.0); MEAN CORPUSCULAR VOLUME 89.2 fl (80.0-96.0); PLATELET COUNT, AUTOMATED 296 10^3/uL (150-450); RED BLOOD COUNT 4.65 10^6/uL (4.30-6.10); WHITE BLOOD COUNT 6.2 10^3/uL (4.0-10.0)
[2020-12-25 00:48] LABS: ACETAMINOPHEN LEVEL < 2.0 UG/ML (10.0-30.0); ALBUMIN 3.5 GM/DL (3.2-5.2); ALT/SGPT 145 U/L (12-78); BILIRUBIN,DIRECT 0.2 MG/DL (0.0-0.2); BILIRUBIN,TOTAL 0.5 MG/DL (0.2-1.0); BLOOD UREA NITROGEN 14 MG/DL (7-18); CALCIUM LEVEL 8.5 MG/DL (8.5-10.1); CARBON DIOXIDE LEVEL 29 MEQ/L (21-32); CHLORIDE LEVEL 108 MEQ/L (98-107); CREATININE FOR GFR 0.85 MG/DL (0.70-1.30); ETHYL ALCOHOL (ETHANOL) < 0.003 % (0.000-0.010); GLOMERULAR FILTRATION RATE > 60.0 (>60); GLUCOSE, FASTING 142 MG/DL (70-100); POTASSIUM SERUM 3.5 MEQ/L (3.5-5.1); SALICYLATE LEVEL < 1.7 MG/DL (5.0-30.0); SODIUM LEVEL 141 MEQ/L (136-145); THYROID STIMULATING HORMONE 0.669 uIU/ML (0.358-3.740)
[2020-12-25 01:57] LABS: AMPHETAMINES LEVEL URINE NEGATIVE (NEGATIVE); BARBITURATES URINE NEGATIVE (NEGATIVE); BENZODIAZEPINES URINE NEGATIVE (NEGATIVE); CANNABINOIDS URINE POSITIVE (NEGATIVE); COCAINE METABOLITE URINE NEGATIVE (NEGATIVE); METHADONE URINE NEGATIVE (NEGATIVE); OPIATES URINE NEGATIVE (NEGATIVE); PHENCYCLIDINE URINE NEGATIVE (NEGATIVE)
[2020-12-25 08:43] VITALS: BP 139/70
== END 2020-12-25 08:45 | disposition home or self-care (01) ==
LOC: M ED 20:56
DX: F43.0 Acute stress reaction (principal); J66.2 Cannabinosis; R94.5 Abnormal results of liver function studies; B18.2 Chronic viral hepatitis C; F11.10 Opioid abuse, uncomplicated; F90.9 Attention-deficit hyperactivity disorder, unspecified type; F17.200 Nicotine dependence, unspecified, uncomplicated; Z88.1 Allergy status to other antibiotic agents; Z88.8 Allergy status to other drugs, medicaments and biological substances; Z79.899 Other long term (current) drug therapy

== ENCOUNTER 2021-01-06 19:04 | Emergency (ER) | payer BC, OTHER, MEDICAID ==
[~2021-01-06] VITALS: Ht 188 cm; Wt 90.9 kg
[2021-01-06] MEDS ORDERED: SERO200T PO (19:21)
[2021-01-06] MEDS ORDERED: METH10TA2 PO (19:21)
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
[2021-01-06 23:27] VITALS: BP 141/81
== END 2021-01-06 23:38 | disposition home or self-care (01) ==
LOC: M ED 20:40
DX: H72.2X1 Other marginal perforations of tympanic membrane, right ear (principal); H93.11 Tinnitus, right ear; Z86.19 Personal history of other infectious and parasitic diseases; N17.9 Acute kidney failure, unspecified; F17.200 Nicotine dependence, unspecified, uncomplicated; F19.10 Other psychoactive substance abuse, uncomplicated; Z79.899 Other long term (current) drug therapy; Z88.1 Allergy status to other antibiotic agents; Z88.8 Allergy status to other drugs, medicaments and biological substances

== ENCOUNTER 2021-01-07 19:15 | Emergency (ER) | payer BC, OTHER, MEDICAID ==
[~2021-01-07] VITALS: Ht 188 cm; Wt 91.1 kg
[~2021-01-07 19:15] MED LIST changes: +METH10TA2 PO; +SENN8.6T28 PO
[2021-01-07 23:05] LABS: HEMATOCRIT 41.4 % (42.0-52.0); HEMOGLOBIN 13.8 g/dl (13.5-17.5); MEAN CORPUSCULAR HEMOGLOBIN 30.4 pg (27.0-33.0); MEAN CORPUSCULAR HGB CONC 33.3 g/dl (32.0-36.5); MEAN CORPUSCULAR VOLUME 91.2 fl (80.0-96.0); PLATELET COUNT, AUTOMATED 285 10^3/uL (150-450); RED BLOOD COUNT 4.54 10^6/uL (4.30-6.10); WHITE BLOOD COUNT 6.9 10^3/uL (4.0-10.0)
[2021-01-07 23:50] LABS: ACETAMINOPHEN LEVEL < 2.0 UG/ML (10.0-30.0); ALBUMIN 3.5 GM/DL (3.2-5.2); ALT/SGPT 136 U/L (12-78); BILIRUBIN,DIRECT < 0.1 MG/DL (0.0-0.2); BILIRUBIN,TOTAL 0.3 MG/DL (0.2-1.0); BLOOD UREA NITROGEN 19 MG/DL (7-18); CALCIUM LEVEL 8.7 MG/DL (8.5-10.1); CARBON DIOXIDE LEVEL 26 MEQ/L (21-32); CHLORIDE LEVEL 107 MEQ/L (98-107); CREATININE FOR GFR 0.88 MG/DL (0.70-1.30); ETHYL ALCOHOL (ETHANOL) < 0.003 % (0.000-0.010); GLOMERULAR FILTRATION RATE > 60.0 (>60); GLUCOSE, FASTING 87 MG/DL (70-100); POTASSIUM SERUM 4.3 MEQ/L (3.5-5.1); SALICYLATE LEVEL 1.9 MG/DL (5.0-30.0); SODIUM LEVEL 141 MEQ/L (136-145); TOTAL PROTEIN 7.1 GM/DL (6.4-8.2)
[2021-01-08 00:23] LABS: AMPHETAMINES LEVEL URINE NEGATIVE (NEGATIVE); BARBITURATES URINE NEGATIVE (NEGATIVE); BENZODIAZEPINES URINE NEGATIVE (NEGATIVE); CANNABINOIDS URINE NEGATIVE (NEGATIVE); COCAINE METABOLITE URINE NEGATIVE (NEGATIVE); METHADONE URINE POSITIVE (NEGATIVE); OPIATES URINE NEGATIVE (NEGATIVE); PHENCYCLIDINE URINE NEGATIVE (NEGATIVE)
[2021-01-08] MEDS ORDERED: buPROPion **XL** TABLET 150MG (WELLBUTRIN XL) PO SCH (09:00)
[2021-01-08 11:35] VITALS: BP 133/70
[2021-01-08] MEDS ORDERED: QUEtiapine FUMARATE 200 MG TAB PO SCH (21:00)
== END 2021-01-08 12:11 | disposition home or self-care (01) ==
LOC: M ED 19:15
DX: F43.21 Adjustment disorder with depressed mood (principal); R45.851 Suicidal ideations; Z79.899 Other long term (current) drug therapy; Z88.8 Allergy status to other drugs, medicaments and biological substances; Z88.1 Allergy status to other antibiotic agents

== ENCOUNTER 2021-04-09 22:40 | Inpatient (IN) | payer BC, MEDICAID, OTHER ==
[~2021-04-09] VITALS: Ht 188 cm; Wt 88.9 kg
[~2021-04-09 22:40] MED LIST changes: +METH-1102 PO; +METH-1177 PO; -METH10TA2 PO; -METH1CHW2 PO; -METH30CA13 PO; +METH30CA3 PO; -QUET400T PO; +QUET400T2 PO
[2021-04-10 00:32] LABS: HEMATOCRIT 41.4 % (42.0-52.0); HEMOGLOBIN 14.3 g/dl (13.5-17.5); MEAN CORPUSCULAR HEMOGLOBIN 29.4 pg (27.0-33.0); MEAN CORPUSCULAR HGB CONC 34.5 g/dl (32.0-36.5); MEAN CORPUSCULAR VOLUME 85.2 fl (80.0-96.0); PLATELET COUNT, AUTOMATED 235 10^3/uL (150-450); RED BLOOD COUNT 4.86 10^6/uL (4.30-6.10); WHITE BLOOD COUNT 8.1 10^3/uL (4.0-10.0)
[2021-04-10 00:33] LABS: AMPHETAMINES LEVEL URINE POSITIVE (NEGATIVE); BARBITURATES URINE NEGATIVE (NEGATIVE); BENZODIAZEPINES URINE NEGATIVE (NEGATIVE); CANNABINOIDS URINE NEGATIVE (NEGATIVE); COCAINE METABOLITE URINE NEGATIVE (NEGATIVE); METHADONE URINE POSITIVE (NEGATIVE); OPIATES URINE NEGATIVE (NEGATIVE); PHENCYCLIDINE URINE NEGATIVE (NEGATIVE)
[2021-04-10 01:03] LABS: ACETAMINOPHEN LEVEL < 2.0 UG/ML (10.0-30.0); ALBUMIN 3.7 GM/DL (3.2-5.2); ALT/SGPT 153 U/L (12-78); BILIRUBIN,DIRECT < 0.1 MG/DL (0.0-0.2); BILIRUBIN,TOTAL 0.3 MG/DL (0.2-1.0); BLOOD UREA NITROGEN 18 MG/DL (7-18); CARBON DIOXIDE LEVEL 25 MEQ/L (21-32); CHLORIDE LEVEL 109 MEQ/L (98-107); CREATININE FOR GFR 0.86 MG/DL (0.70-1.30); ETHYL ALCOHOL (ETHANOL) < 0.003 % (0.000-0.010); GLOMERULAR FILTRATION RATE > 60.0 (>60); GLUCOSE, FASTING 89 MG/DL (70-100); SALICYLATE LEVEL 2.2 MG/DL (5.0-30.0); SODIUM LEVEL 142 MEQ/L (136-145)
[2021-04-10] MEDS ORDERED: HOME MED LIST COMPLETE! XX SCH (06:40)
[2021-04-10] MEDS ORDERED: MAALOX 30 ML SUSP *UDC PO PRN (07:35)
[2021-04-10] MEDS ORDERED: OLANZapine 5 MG TAB PO PRN (07:35)
[2021-04-10] MEDS ORDERED: ACETAMINOPHEN TAB 650MG DOSE (2X325MG) PO PRN (07:35)
[2021-04-10] MEDS ORDERED: MOM 30ML SUSPENSION UDC PO PRN (07:35)
[2021-04-10] MEDS ORDERED: traZODone 50 MG TAB PO PRN (07:35)
--- NOTE | 2021-04-10 07:36 | MHIPNPDOC ---
[facility] Progress Note Progress Note DATE OF SERVICE: 04/10/21 Patient presented by PSA, criteria for involuntary admission, has extensive history of polysubstance abuse, psychosis, presents saying he wanted to jump off a bridge and was sitting by the bridge for hours. Patient is homeless with lack of supports, recently was residing in [place]. In methadone program at [facility]. No firearms in possession but said if having gotten could go get one and harm himself. Vital Signs Vital Signs Date Time Temp Pulse Resp B/P (MAP) Pulse Ox O2 Delivery O2 Flow Rate FiO2 04/10/21 06:50 97.1 61 13 137/66 (89) 100 Room Air Laboratory Data 24H Labs Laboratory Tests 2 04/09/21 23:58: Nucleated Red Blood Cells % (auto) 0.2H, Anion Gap 8, Glomerular Filtration Rate > 60.0, Calcium Level 9.0, Total Bilirubin 0.3, Direct Bilirubin < 0.1, Aspartate Amino Transf (AST/SGOT) 58H, Alanine Aminotransferase (ALT/SGPT) 153H, Alkaline Phosphatase 72, Total Protein 7.0, Albumin 3.7, Albumin/Globulin Ratio 1.1, Thyroid Stimulating Hormone (TSH) 3.680, Salicylates Level 2.2L, Urine Opiates Screen NEGATIVE, Urine Methadone Screen POSITIVEH, Acetaminophen Level < 2.0L, Urine Barbiturates Screen NEGATIVE, Urine Phencyclidine Screen NEGATIVE, Urine Amphetamines Screen POSITIVEH, Urine Benzodiazepines Screen NEGATIVE, Urine Cocaine Metabolite Screen NEGATIVE, Urine Cannabinoids Screen NEGATIVE, Ethyl Alcohol Level < 0.003 04/10/21 07:09: CBC/BMP Laboratory Tests 04/09/21 23:58 Current Medications Current Medications Medications (Trade) Dose Ordered Sig/Renate Route PRN Reason Start Time Stop Time Status Last Admin Dose Admin Home Med (Home Med List Complete!) ASDIRECTED XX 04/10/21 06:40 04/10/21 06:41 DC Allergies Coded Allergies: amphetamine (Verified Allergy, Severe, 08/31/20) dextroamphetamine (Verified Allergy, Severe, 08/31/20) vancomycin (Verified Allergy, Severe, kidney failure, 04/20/20) JORGE WANG MD Apr 10, 2021 07:36
[2021-04-10 10:55] VITALS: BP 149/72
[2021-04-10] MEDS: NICOTINE 21MG/24HR 1 EA TRANSDERMAL TD SCH (14:01)
[2021-04-10] MEDS: METHADONE 10 MG TAB (S0109) PO SCH (14:02)
--- NOTE | 2021-04-10 14:40 | MHHPEPDOC ---
General Date Of Admission: Apr 10, 2021 Legal Status: 9.37 Chief Complaint "I had a rough day yesterday." History of Present Illness HISTORY OF THE PRESENT ILLNESS: Patient is a 25 -year-old Single, Unemployed, Undomiciled, , male, who self-presented to the ED reports that he was contemplating jumping from a bridge or walk into traffic. He states in the interview with provider, "I had a rough day. I was gonna kill myself, tried to walk into traffic. I lost all my stuff, all my possessions and now [facility] is trying to send me to [place] to room with a person I don't even know." Patient has had 3 other brief hospitalizations for suicidal ideations, homicidal ideations, and substance induced psychosis: 12/05/20 -12/06/20, 11/27/20-12/01/20 and 09/05/20-09/08/20. Patient is positive for both Methadone and Methamphetamines. Patient presents quite hostile in the interview, stating that he does not want to answer questions. When challenged regarding his treatment plan as he "prefers not to talk" how he will be able to participate in therapies he becomes irritable and hostile. PER ED REPORT: Pt self-presented to the ED due to SI. 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 He states that he walked into traffic with the intent to kill himself by getting hit by a car. Pt currently denies SI & states that he is feeling better because he slept. Main stressors are relationship px's with a girl, which he declines to discuss, & financial px's. Pt states he is homeless & has no food, clothes, or money. He states that he was staying at the [facility] but they closed down last week. He has still been staying there but the police keep getting called because he is zan spassing. Pt states that [facility] offered to house himk in [place] but "I don't want to go there & I don't want a roommate." Pt denies HI. Pt reports a hx of multiple suicide attempts with the last attempt in 2018 via OD of rat poison. Pt has a hx of self-harm via cutting & states he last cut four or five days ago. Multiple superficial scratches noted to both forearms. Pt denies both AH & VH. He does not appear to be psychotic. Pt c/o depressed mood, anxiety, poor concentration, erratic energy levels, excessive sleep, & poor appetite. Pt has a hx of psychosis & substance abuse with multiple admissions. He has OP tx at [facility] & is on the Methadone program. Pt states that he does not have an OP mental health provider. Pt states that he has only used meth twice in the past two months, with last use being four or five days ago. His tox screen was positive for amphetamines & methadone. Pt denies alcohol use. Psychiatric Review of Systems Depression (2 or more weeks): depressed mood, suicidal thoughts Jody (4 or more days of): irritable/elevated mood Psychosis: delusions (history of ), paranoia (history of) Past Psychiatric History Previous Psychiatric Diagnosis: Unspecified Psychosis, Adjustment, Substance Abuse and Dependence Previous Psychiatric Admissions: 12/05/20 -12/06/20, 11/27/20-12/01/20 and 09/05/20- 09/08/20 in this facility Suicide Attempts: reports a hx of multiple suicide attempts with the last attempt in 2018 via OD of rat poison. Pt also has a hx of self-harm via cutting - superficial cuts to forearms Psychiatric Follow-up: History of non-compliance Psychiatric medications: Seroquel. Past Medical History Medical Problems Cellulitis from injection sites Head Injury: No Seizures: No Hospitalizations: Yes Surgeries: No Addiction History cocaine, amphetamines, opioids, methamphetamines, heroin Social History Patient is refusing to participate fully in the interview much of his social history is obtained from past psychiatric records Childhood: Both parents were addicts and Abuse/Trauma: As above. Current Living Situation: Currently homeless, is upset that he is being offered an apartment in [place] with someone he does not know, and he does not want this apartment because of that Education: He reported high school graduate Employment: Unemployed Social Support: Little to no social supports. Legal: Multiple legal history repeated incarcerations Marital: Single. Mental Status Examination General Appearance: disheveled, appears stated age Build: tall Demeanor: hostile, mistrustful Eye Contact: poor Activity: hostile Behavior: resistant, agitated Speech: clear, reg/rate,rhythm,volume, impoverished Mood: irritable Affect: labile, congruent Thought Process: logical/linear Thought Content (Delusions): none reported Thought Content (Other): none reported Thought Content (Aggressive): none reported Perception (Hallucinations): none reported Perception (Other): none reported Cognition (Impairment of): none reported Cognition(Intelligence Est.): average Oriented: Awake, Alert, Oriented times three Insight: fair Judgment: Fair Diagnoses Adjustment disorder with mixed anxiety and depressed mood Methamphetamine use disorder Rule out methamphetamine induced mood disorder Antisocial Personality Disorder A-FIB/CHADSVASC A-FIB History Current/History of A-Fib/PAF?: No Current PO Anticoag Therapy: No Assessment Pt is a 25-year-old man with multiple recent stressors which have contributed to worsening of mood and he reports that he has suicidal ideations. Patient reports that [facility] and that [facility] is housing him in an apartment with a stranger that he refuses to take. He states he recently lost all of his possessions and this loss, as well as, being told he will be rooming with a roommate made him contemplate suicide. Patient has been seen in this facility in the past for psychotic symptoms and suicidal ideations, he reports a past attempt of overdosing on rat poison but it does not appear that he was hospitalized for that here. He is positive for Methadone which he receives at [facility] and he is also positive for Methamphetamines. On his first admission here, staff reported that he had very detailed account of a woman whose was ruled a homicide. He has a long history of legal charges stemming from burglar, manufacturing methamphetamines, growing cannabis and petit larceny. During the interview, patient had poor eye contact, made minimal responses, was exhibiting extreme hostility and significant irritability. He often declined to answer many of the psychiatric assessment questions. He appeared to exaggerate his suicidal ideations as he reported little to no depressive symptoms in the interview. He has a history of non-compliance with treatment and is apparently not in compliance with outpatient rehab treatment either as he tested for both Methadone and Methamphetamines . Patient will be afforded supportive therapies and safe environment although he had reported that he wanted minimal therapy sessions with this provider. Treatment Team will determine length of stay for this patient as it does appear that his hospitalization is to remedy his housing issue and avoid [facility]' offer of housing with a room mate. Patient exhibits strong Antisocial Personality Disorder traits and with his long history of non- compliance and poor engagement in treatment inpatient, as well as, outpatient. His risk of suicide is low relative to his chronic, moderately elevated, suicide risk profile. His suicidal ideations appears to be an expression of unmet needs (housing) that is freight representative of his limited and often-maladaptive coping and skills, rather than an indicator of imminent risk of . Initial Treatment Plan 1. Patient was admitted on a [9.39] status. 2. Complete history was obtained. 3. With patients permission, family will be contacted and database will be expanded. 4. Patients medication regimen will be reviewed and changed accordingly. 5. Patient will be provided with protected environment. 6. Patient will be treated with individual, group, and milieu therapies. 7. Patient will receive supportive psych-education. 8. Discharge planning will commence immediately. 9. Outpatient follow-up treatment will be strongly recommended. 10. The initial treatment plan will focus initially on: * Depression. * Risk for suicide * substance use disorder ESTIMATED LENGTH OF STAY: 3-5 DAYS. TIME SPENT COUNSELING AND COORDINATING INITIAL CARE: 60 minutes. Tobacco Cessation Screen Tobacco Cessation Tx Ordered?: Yes Pt Refused Vital Signs Vital Signs Date Time Temp Pulse Resp B/P (MAP) Pulse Ox O2 Delivery O2 Flow Rate FiO2 04/10/21 10:55 98.1 65 18 149/72 (97) 100 Room Air Laboratory Data 24H Labs Laboratory Tests 2 04/09/21 23:58: Nucleated Red Blood Cells % (auto) 0.2H, Anion Gap 8, Glomerular Filtration Rate > 60.0, Calcium Level 9.0, Total Bilirubin 0.3, Direct Bilirubin < 0.1, Aspartate Amino Transf (AST/SGOT) 58H, Alanine Aminotransferase (ALT/SGPT) 153H, Alkaline Phosphatase 72, Total Protein 7.0, Albumin 3.7, Albumin/Globulin Ratio 1.1, Thyroid Stimulating Hormone (TSH) 3.680, Salicylates Level 2.2L, Urine Opiates Screen NEGATIVE, Urine Methadone Screen POSITIVEH, Acetaminophen Level < 2.0L, Urine Barbiturates Screen NEGATIVE, Urine Phencyclidine Screen NEGATIVE, Urine Amphetamines Screen POSITIVEH, Urine Benzodiazepines Screen NEGATIVE, Urine Cocaine Metabolite Screen NEGATIVE, Urine Cannabinoids Screen NEGATIVE, Ethyl Alcohol Level < 0.003 04/10/21 07:09: Coronavirus (COVID-19)(PCR) NEGATIVE CBC/BMP Laboratory Tests 04/09/21 23:58 Medications Scheduled Methadone HCl (Methadone HCl) 10 Mg Tablet, 95 MG PO DAILY, (Reported[facility] All[facility] Coded Allergies: amphetamine (Verified Allergy, Severe, 08/31/20) dextroamphetamine (Verified Allergy, Severe, 08/31/20) vancomycin (Verified Allergy, Severe, kidney failure, 04/20/20) SADIA LOPEZ NP Apr 10, 2021 13:47
[2021-04-10 19:19] VITALS: BP 140/68
[2021-04-11 06:00] VITALS: BP 129/59
[2021-04-11] MEDS: NICOTINE 21MG/24HR 1 EA TRANSDERMAL TD SCH (08:38)
[2021-04-11] MEDS: PILL CUTTER 1 EACH XX PRN (08:39)
[2021-04-11] MEDS: METHADONE 10 MG TAB (S0109) PO SCH (08:39)
--- NOTE | 2021-04-11 12:56 | HPEPDOC ---
[facility] Medical History & Physical Date of Admission Apr 10, 2021 Date of Service: Apr 11, 2021 History and Physical History and Physical Template v4.0 Chief complaint: Who presented to the emergency room with self-harm behavior History of present illness: Patient is a 25-year-old male with no significant past medical history presented to the emergency room with self-harm behavior reported. He has been cutting himself. Patient was admitted to the inpatient mental health unit under the care of psychiatry. Hospitalist services consulted for medical screening evaluation. Patient denies any headache, nausea, vomiting, chest pain, shortness breath, palpitations, cough, abdominal pain, diarrhea. He does report constipation. His last bowel movement was 2 weeks ago. Patient denies any urinary discomfort. Denies any recent fevers, chills. Reports that his appetite is fairly poor but denies any changes in his weight. Past Medical History: Denies any significant past medical history Past Surgical History: Patient reported a broken nose in 2018 Also reports a left wrist abscess was draining 2010 with a questionable kidney biopsy 2010 as well as Allergies: See below Medications: See below Family History: - Family history was reviewed and noncontributory Social History: - Patient reports that he is an active smoker, rarely uses alcohol and uses marijuana occasionally. Patient also reported the use of methamphetamine IV approximately over last 2 months - Denies recent travel or sick contacts - Patient reports that he is homeless - Occupation; currently unemployed Review of Systems: 10 point review of systems complete, all negative otherwise stated in HPI Physical exam: - Vitals: BP [129/59], HR [61], RR [14], Sat [100%RA], Temp [97.7F] - General: Lying in bed, No acute distress, AAOx3 - HEENT: NC, AT, PERRLA - CVS: RRR, +S1S2, - Murmurs / rubs / gallops - Lungs: Fair air entry bilaterally, No appreciable wheezing / rales / rhonchi - Abdomen: Soft, Non-distended, Non-tender - Extremities: No lower extremity edema, No calf tenderness - Neuro: No focal motor or sensory deficit - Skin: No visible rashes Labs: See below Imaging: See below EKG: See below Assessment and Plan: Suicidal ideation / Self-harm behavior - Patient has been admitted to the inpatient mental health unit under the care of psychiatry - Currently being managed by psychiatry No significant past medical history DVT prophylaxis - Will c/w early ambulation Male order analyst was present for the duration of this history and physical examination Thank you for this consultation. Hospitalist service will now sign off; please reconsult as needed Vital Signs Vital Signs Date Time Temp Pulse Resp B/P (MAP) Pulse Ox O2 Delivery O2 Flow Rate FiO2 04/11/21 10:05 Room Air 04/11/21 06:00 97.7 61 14 129/59 (82) 96 Home Medications Scheduled Methadone HCl (Methadone HCl) 10 Mg Tablet, 95 MG PO DAILY gets from [facility] Allergies Coded Allergies: amphetamine (Verified Allergy, Severe, 08/31/20) dextroamphetamine (Verified Allergy, Severe, 08/31/20) vancomycin (Verified Allergy, Severe, kidney failure, 04/20/20) MIGUEL A SOLITARIO MD Apr 11, 2021 12:56
--- NOTE | 2021-04-11 15:55 | MHIPNPDOC ---
[facility], [place] Progress Note Progress Note DATE OF SERVICE: 04/11/21 HISTORY: Patient is a 25 -year-old Single, Unemployed, Undomiciled, , male, who self-presented to the ED reports that he was contemplating jumping from a bridge or walk into traffic. He states in the interview with provider, "I had a rough day. I was gonna kill myself, tried to walk into traffic. I lost all my stuff, all my possessions and now [facility] is trying to send me to [place] to room with a person I don't even know." Patient has had 3 other brief hospitalizations for suicidal ideations, homicidal ideations, and substance induced psychosis: 12/05/20 -12/06/20, 11/27/20-12/01/20 and 09/05/20-09/08/20. Patient is positive for both Methadone and Methamphetamines. Patient presents quite hostile in the interview, stating that he does not want to answer questions. When challenged regarding his treatment plan as he "prefers not to talk" how he will be able to participate in therapies he becomes irritable and hostile. PER ED REPORT: Pt self-presented to the ED due to SI. 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 He states that he walked into traff with the intent to kill himself by getting hit by a car. Pt currently denies SI & states that he is feeling better because he slept. Main stressors are relationship px's with a girl, which he declines to discuss, & financial px's. Pt states he is homeless & has no food, clothes, or money. He states that he was staying at the [employer] but they closed down last week. He has still been staying there but the police keep getting called because he is trespassing. Pt states that [facility] offered to house himk in [place] but "I don't want to go there & I don't want a roommate." Pt denies HI. Pt reports a hx of multiple suicide attempts with the last attempt in 2018 via OD of rat poison. Pt has a hx of self-harm via cutting & states he last cut four or five days ago. Multiple superficial scratches noted to both forearms. Pt denies both AH & VH. He does not appear to be psychotic. Pt c/o depressed mood, anxiety, poor concentration, erratic energy levels, excessive sleep, & poor appetite. Pt has a hx of ps ychosis & substance abuse with multiple admissions. He has OP tx at [facility] & is on the Methadone program. Pt states that he does not have an OP mental health provider. Pt states that he has only used meth twice in the past two months, with last use being four or five days ago. His tox screen was positive for amphetamines & methadone. Pt denies alcohol use. VITAL SIGNS: See below. NEW TEST RESULTS: None CURRENT MEDICATIONS: See below. MENTAL STATUS EXAMINATION: Patient is a 25 -year-old Single, Unemployed, Undomiciled, , male, who self-presented to the ED reports that he was contemplating jumping from a bridge or walk into traffic. Speech: Is fluid, conversant, normal rate, tone and volume Language skills are intact Thought processes including: linear and goal oriented Thought content: reports depression and anxiety. Reports fleeting suicidal i deations but no intent and no homicidal ideation, planning or intent. Abstract reasoning, and computation: fair Description of associations: denies, none observed Description of abnormal or psychotic thoughts: denies, none observed. Judgment: fair Insight: fair Orientation: alert and oriented to person, place, time and situation Recent and remote memory: intact Attention span and concentration: good Language: expansive Fund of knowledge: average Mood: Depressed Mood Affect: Initially irritable then full DIAGNOSES: Adjustment disorder with mixed anxiety and depressed mood Methamphetamine use disorder Rule out methamphetamine induced mood disorder Antisocial Personality Disorder ASSESSMENT: Patient initially was irritable and hostile - stated to staff that he was very aggravated with this provider. Provided patient with motivational interviewing. Patient was motivated and accepting help. Reviewed with patient the circumstances that brought him to the hospital. Reinforced with patient that he had initially minimized his symptoms and refused to discuss the events that transpired. Patient states that he is still depressed, has fleeting suicidal thinking. States that he has less annoyance about having a roommate and can be motivated to be discharged on Friday. Patient is attending groups, social in the milieu and pleasant in his interview today. MANAGEMENT PLAN: Continued medications and supportive therapy TIME SPENT: 25 minutes. Vital Signs Vital Signs Date Time Temp Pulse Resp B/P (MAP) Pulse Ox O2 Delivery O2 Flow Rate FiO2 04/11/21 10:05 Room Air 04/11/21 06:00 97.7 61 14 129/59 (82) 96 Current Medications Current Medications Medications (Trade) Dose Ordered Sig/Renate Route PRN Reason Start Time Stop Time Status Last Admin Dose Admin Acetaminophen (Tylenol Tab) 650 mg Q6HP PRN PO HEADACHE or MILD DISCOMFORT 04/10/21 07:35 Al Hydrox/Mg Hydrox/Simethicone (Mylanta) 30 ml Q4HP PRN PO HEARTBURN/INDIGESTION 04/10/21 07:35 Home Med (Home Med List Complete!) ASDIRECTED XX 04/10/21 06:40 04/10/21 06:41 DC Magnesium Hydroxide (Milk Of Magnesia) 30 ml DAILYPRN PRN PO CONSTIPATION 04/10/21 07:35 Methadone HCl (Dolophine) 95 mg DAILY PO 04/10/21 09:00 04/11/21 08:39 Nicotine (Nicoderm Cq 21mg) 1 patch DAILY TD 04/10/21 09:00 04/11/21 08:38 Olanzapine (ZyPREXA) 5 mg Q6HP PRN PO AGITATION 04/10/21 07:35 Trazodone HCl (Desyrel) 50 mg QHSP PRN PO INSOMNIA 04/10/21 07:35 Allergies Coded Allergies: amphetamine (Verified Allergy, Severe, 08/31/20) dextroamphetamine (Verified Allergy, Severe, 08/31/20) vancomycin (Verified Allergy, Severe, kidney failure, 04/20/20) SADIA LOPEZ NP Apr 11, 2021 15:55
[2021-04-11 19:22] VITALS: BP 130/90
[2021-04-12 06:33] VITALS: BP 131/79
[2021-04-12] MEDS: PILL CUTTER 1 EACH XX PRN (08:37)
[2021-04-12] MEDS: METHADONE 10 MG TAB (S0109) PO SCH (08:37)
[2021-04-12] MEDS: NICOTINE 21MG/24HR 1 EA TRANSDERMAL TD SCH (08:38)
--- NOTE | 2021-04-12 10:57 | MHIPNPDOC ---
[facility] Progress Note Progress Note DATE OF SERVICE: 04/12/21 HISTORY: Patient is a 25 -year-old Single, Unemployed, Undomiciled, , male, who self-presented to the ED reports that he was contemplating jumping from a bridge or walk into traffic. He states in the interview with provider, "I had a rough day. I was gonna kill myself, tried to walk into traffic. I lost all my stuff, all my possessions and now [facility] is trying to send me to [place] to room with a person I don't even know." Patient has had 3 other brief hospitalizations for suicidal ideations, homicidal ideations, and substance induced psychosis: 12/05/20 -12/06/20, 11/27/20-12/01/20 and 09/05/20-09/08/20. Patient is positive for both Methadone and Methamphetamines. Patient presents quite hostile in the interview, stating that he does not want to answer questions. When challenged regarding his treatment plan as he "prefers not to talk" how he will be able to participate in therapies he becomes irritable and hostile. PER ED REPORT: Pt self-presented to the ED due to SI. 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 He states that he walked into traff with the intent to kill himself by getting hit by a car. Pt currently denies SI & states that he is feeling better because he slept. Main stressors are relationship px's with a girl, which he declines to discuss, & financial px's. Pt states he is homeless & has no food, clothes, or money. He states that he was staying at the [employer] but they closed down last week. He has still been staying there but the police keep getting called because he is trespassing. Pt states that [facility] offered to house himk in [place] but "I don't want to go there & I don't want a roommate." Pt denies HI. Pt reports a hx of multiple suicide attempts with the last attempt in 2018 via OD of rat poison. Pt has a hx of self-harm via cutting & states he last cut four or five days ago. Multiple superficial scratches noted to both forearms. Pt denies both AH & VH. He does not appear to be psychotic. Pt c/o depressed mood, anxiety, poor concentration, erratic energy levels, excessive sleep, & poor appetite. Pt has a hx of ps ychosis & substance abuse with multiple admissions. He has OP tx at [facility] & is on the Methadone program. Pt states that he does not have an OP mental health provider. Pt states that he has only used meth twice in the past two months, with last use being four or five days ago. His tox screen was positive for amphetamines & methadone. Pt denies alcohol use. VITAL SIGNS: See below. NEW TEST RESULTS: None CURRENT MEDICATIONS: See below. MENTAL STATUS EXAMINATION: Patient is a 25 -year-old Single, Unemployed, Undomiciled, , male, who self-presented to the ED reports that he was contemplating jumping from a bridge or walk into traffic. Speech: Is fluid, conversant, normal rate, tone and volume Language skills are intact Thought processes including: linear and goal oriented Thought content: Denies depression and anxiety. Denies suicidal/homicidal id eation, planning or intent. Abstract reasoning, and computation: fair Description of associations: denies, none observed Description of abnormal or psychotic thoughts: denies, none observed. Judgment: good Insight: good Orientation: alert and oriented to person, place, time and situation Recent and remote memory: intact Attention span and concentration: good Language: expansive Fund of knowledge: average Mood: Bright mood Mood Affect: Full, smiles on approach DIAGNOSES: Adjustment disorder with mixed anxiety and depressed mood Methamphetamine use disorder Rule out methamphetamine induced mood disorder Antisocial Personality Disorder ASSESSMENT: Patient found in his room agreeable to interview in interview room with student nurse listening. Patient seems in bright mood and affect. Denies depression and suicidal thoughts. Patient states that he is hopeful. When asked what he wants to do he stated that he wanted to be a fare enforcement officer or a computer console operator, but doesn't think he can do it now. Patient was given a copy of [employer] that will hire and provide vocational training for people with police records. He accepted this readily, looked through it, smiled. He said he is ready to be discharged and will go to [facility]. Is accepting of the possibility of having a roommate. Patient is attending groups, social in the milieu and pleasant in his interview today. MANAGEMENT PLAN: Continued medications and supportive therapy. Discharge tomorrow TIME SPENT: 25 minutes. Vital Signs Vital Signs Date Time Temp Pulse Resp B/P (MAP) Pulse Ox O2 Delivery O2 Flow Rate FiO2 04/12/21 06:33 97.4 70 16 131/79 (96) 100 Room Air Current Medications Current Medications Medications (Trade) Dose Ordered Sig/Renate Route PRN Reason Start Time Stop Time Status Last Admin Dose Admin Acetaminophen (Tylenol Tab) 650 mg Q6HP PRN PO HEADACHE or MILD DISCOMFORT 04/10/21 07:35 Al Hydrox/Mg Hydrox/Simethicone (Mylanta) 30 ml Q4HP PRN PO HEARTBURN/INDIGESTION 04/10/21 07:35 Home Med (Home Med List Complete!) ASDIRECTED XX 04/10/21 06:40 04/10/21 06:41 DC Magnesium Hydroxide (Milk Of Magnesia) 30 ml DAILYPRN PRN PO CONSTIPATION 04/10/21 07:35 Methadone HCl (Dolophine) 95 mg DAILY PO 04/10/21 09:00 04/12/21 08:37 Nicotine (Nicoderm Cq 21mg) 1 patch DAILY TD 04/10/21 09:00 04/12/21 08:38 Olanzapine (ZyPREXA) 5 mg Q6HP PRN PO AGITATION 04/10/21 07:35 Trazodone HCl (Desyrel) 50 mg QHSP PRN PO INSOMNIA 04/10/21 07:35 Allergies Coded Allergies: amphetamine (Verified Allergy, Severe, 08/31/20) dextroamphetamine (Verified Allergy, Severe, 08/31/20) vancomycin (Verified Allergy, Severe, kidney failure, 04/20/20) SADIA LOPEZ NP Apr 12, 2021 10:57
[2021-04-12] MEDS ORDERED: NICO21PAT TD (11:03)
[2021-04-12 16:14] VITALS: BP 136/70
[2021-04-13 06:17] VITALS: BP 140/88
[2021-04-13] MEDS: NICOTINE 21MG/24HR 1 EA TRANSDERMAL TD SCH (08:10)
[2021-04-13] MEDS: METHADONE 10 MG TAB (S0109) PO SCH (08:10)
--- NOTE | 2021-05-02 16:20 | MHDSPDOC ---
[facility] Discharge Summary Discharge Summary DATE OF ADMISSION: Apr 10, 2021 at 07:33 DATE OF DISCHARGE: Apr 13, 2021 at 08:59 DISCHARGE DIAGNOSES: Adjustment disorder with mixed anxiety and depressed mood Methamphetamine use disorder Rule out methamphetamine induced mood disorder Antisocial Personality Disorder REASON FOR ADMISSION: Patient is a 25 -year-old Single, Unemployed, Undomiciled, , male, who self-presented to the ED reports that he was contemplating jumping from a bridge or walk into traffic. He states in the interview with provider, "I had a rough day. I was gonna kill myself, tried to walk into traffic. I lost all my stuff, all my possessions and now [facility] is trying to send me to [place] to room with a person I don't even know." Patient has had 3 other brief hospitalizations for suicidal ideations, homicidal ideations, and substance induced psychosis: 12/05/20 -12/06/20, 11/27/20-12/01/20 and 09/05/20-09/08/20. Patient is positive for both Methadone and Methamphetamines. Patient presents quite hostile in the interview, stating that he does not want to answer questions. When challenged regarding his treatment plan as he "prefers not to talk" how he will be able to participate in therapies he becomes irritable and hostile. PER ED REPORT: Pt self-presented to the ED due to SI. 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 He states that he walked into traffic with the intent to kill himself by getting hit by a car. Pt currently denies SI & states that he is feeling better because he slept. Main stressors are relationship px's with a girl, which he declines to discuss, & financial px's. Pt states he is homeless & has no food, clothes, or money. He states that he was staying at the [employer] [facility] but they closed down last week. He has still been staying there but the police keep getting called because he is trespassing. Pt states that [facility] offered to house himk in [place] but "I don't want to go there & I don't want a roommate." Pt denies HI. Pt reports a hx of multiple suicide attempts with the last attempt in 2018 via OD of rat poison. Pt has a hx of self-harm via cutting & states he last cut four or five days ago. Multiple superficial scratches noted to both forearms. Pt denies both AH & VH. He does not appear to be psychotic. Pt c/o depressed mood, anxiety, poor concentration, erratic energy levels, excessive sleep, & poor appetite. Pt has a hx of psychosis & substance abuse with multiple admissions. He has OP tx at [facility] & is on the Methadone program. Pt states that he does not have an OP mental health provider. Pt states that he has only used meth twice in the past two months, with last use being four or five days ago. His tox screen was positive for amphetamines & methadone. Pt denies alcohol use. VITAL SIGNS: See below. CONSULTANTS INVOLVED: See Medical H + P by Hospitalist TREATMENT AND PROGRESS ON THE UNIT: Patient was admitted to the [facility] on a 9.39 legal status was afforded the following treatment modalities: 1) Individual Therapy 2) Group Therapy 3) Medication Management 4) Milieu Therapy 5) Safe Environment HOSPITAL COURSE: Patient was admitted to [facility] on a 9.39 legal status. Pt found medications beneficial and tolerated them well. Mood, anxiety, and intrusive thoughts improved with treatment. Pt attended groups daily during stay. Pts symptoms improved with treatment. On day of discharge pt. denied depression, anxiety, insomnia, SI/HI, hallucinations, delusions. Pt was discharged home with follow-up at [facility] and [facility] . Pt felt safe for discharge. DISCHARGE ASSESSMENT: In today's interview, patient is alert and oriented, pt.s dress is appropriate. Hygiene and grooming is well-kempt. Smiles on approach and is pleasant and engaged in the interview. Denies depression and anxiety. Denies suicidal and homicidal ideation, planning or intent. Denies and is not observed with ashly, psychotic symptoms of delusions, bizarre thinking, obsessions, paranoia, ruminations illogical thoughts, flight of ideas or having poor insight and judgement. Reinforced with patient need to abstain from alcohol and drugs. Patient denies SI and CFS at this time. Patient reports he is homeless, has no food or clothing even though [facility] is willing to get him housing in [place]. Patient does not want to go there because he would have a roommate. Patient is in the [facility] methadone program but admits to "shooting up" a few days ago. When asked what he will do differently once discharged he replied "I will use better coping skills". Patient was asked what his coping skills will be and he reported he likes to draw, work out, and fish. Patient is unemployed states he has filled out over 50 Job applications but because he has a felony, no one will hire him, "not even [employer]". Timothy stated he has been in and out of rehab since he was a kid, he never wanted to go or to participate in rehab when there. However, he states he would like to go to rehab now and feels like he is ready to fully participate in drug rehab. P atient found in his room agreeable to interview in interview room with student nurse listening. Patient seems in bright mood and affect. Denies depression and suicidal thoughts. Patient states that he is hopeful. When asked what he wants to do he stated that he wanted to be a police or patrol park officer or a fluoroscope operator, but doesn't think he can do it now. Patient was given a copy of [employer] that will hire and provide vocational training for people with police records. He accepted this readily, looked through it, smiled. He said he is ready to be discharged and will go to [facility]. Is accepting of the possibility of having a roommate. Patient is attending groups, social in the milieu and pleasant in his interview today. At discharge patient has normal mentation, declines further hospitalization on a voluntary status and meets criteria for discharge today. Discussed indications of medications, potential benefits and risks, alternatives (including no treatment) and questions were encouraged and answered. Patient enc ouraged to return to hospital if symptoms worsen or change and encouraged to call unit if he/she/they needs to speak to provider for questions regarding medications or care. MENTAL STATUS EXAMINATION ON DISCHARGE: Patient is a 25 -year-old Single, Unemployed, Undomiciled, , male, who self-presented to the ED reports that he was contemplating jumping from a bridge or walk into traffic. He states in the interview with provider, "I had a rough day. I was gonna kill myself, tried to walk into traffic. I lost all my stuff, all my possessions and now [facility] is trying to send me to [place] to room with a person I don't even know." Speech: Is fluid, conversant, normal rate, tone and volume Language skills are intact Thought processes including: linear and goal oriented Thought content: denies depression and anxiety. Denies suicidal/homicidal ideation, planning or intent. Abstract reasoning, and computation: fair Description of associations: denies, none observed Description of abnormal or psychotic thoughts: denies, none observed. Judgment: fair Insight: fair Orientation: alert and oriented to person, place, time and situation Recent and remote memory: intact Attention span and concentration: good Language: expansive Fund of knowledge: average Mood: Euthymic Mood Affect: reactive Suicide Risk Assessment: 1) Does the patient wish to be ? No 2) Since your admission, have you had any actual thought of killing yourself? No 3) Since your admission, have you been thinking about how you might do this? No 4) Since your admission, have you had these thoughts and had some intention of acting on them? No 5) Since your admission, have you started to work out or worked out the details of how to kill yourself? No 5A) Do you intent to carry out this plan? No and NA 6) Have you ever done anything, started anything, or prepared to do anything with any intent to ? No 6A) How long since your admission did you do any of these? NA MEDICATIONS ON DISCHARGE: See Medication Reconciliation PLAN/FOLLOWUP ARRANGEMENTS: Medical * Medical Follow Up [facility] * Established With This Provider Yes * Therapist * Date May 01, 2021 * Time 10:00 * Address of Clinic or Practice [address] [place] [address] * Follow Up Care Education Label * Mental Health Appt 1 * Mental Health [facility] * Established With This Provider Yes * Therapist BARB EVANS * Date Apr 18, 2021 * Time 08:30 * Address of Clinic or Practice [address] [place] [address] * * Additional information ALL APPOINTMENT FOR THE NEXT 10 DAYS FROM [facility] ARE THROUGH TELEHALTH ONLY,NO FACE TO FACE APPOINTMENTS. Follow Up Care Education Label * Mental Health Appt 2 * Mental Health [facility] * Established With This Provider Yes * Therapist DONA GILES * Date Apr 16, 2021 * Time 13:00 * Address of Clinic or Practice [address] [place] [address] * * Additional information ALL APPOINTMENT FOR THE NEXT 10 DAYS FROM [facility] ARE THROUGH TELEHALTH ONLY,NO FACE TO FACE APPOINTMENTS The amount of time spent in the coordination of care for this patient was approximately 25 minutes. ETOH/Disorder Med Rx ETOH/DRUG DISORDER RX: Offrd @ d/c & pt refused Medications Scheduled Methadone HCl (Methadone HCl) 10 Mg Tablet, 95 MG PO DAILY, (Reported) gets from [facility] Nicotine (Nicotine Patch) 21 Mg Patch.td24, 1 PATCH TD DAILY for nicotine withdrawal, #7 Allergies Coded Allergies: amphetamine (Verified Allergy, Severe, 08/31/20) dextroamphetamine (Verified Allergy, Severe, 08/31/20) vancomycin (Verified Allergy, Severe, kidney failure, 04/20/20) SADIA LOPEZ NP May 02, 2021 16:20
== END 2021-04-13 08:59 | disposition home or self-care (01) | DRG 755 ==
LOC: M ED 22:40 → M ED INP 04-10 07:33 → M PSY 04-10 10:54 → M ED INP 04-10 14:52 → M PSY 04-10 14:53
PROVIDERS: ADMIT Student in an Organized Health Care Education/Training Program; ATTEND Psychiatry & Neurology Psychiatry
DX: F43.23 Adjustment disorder with mixed anxiety and depressed mood (principal); Z91.19 Patient's noncompliance with other medical treatment and regimen; R45.851 Suicidal ideations; F15.14 Other stimulant abuse with stimulant-induced mood disorder; F60.2 Antisocial personality disorder; Z81.3 Family history of other psychoactive substance abuse and dependence; Z59.00 Homelessness unspecified; Z20.822 Contact with and (suspected) exposure to COVID-19; Z79.899 Other long term (current) drug therapy; Z88.1 Allergy status to other antibiotic agents; Z88.6 Allergy status to analgesic agent; Z91.51 Personal history of suicidal behavior; Z91.52 Personal history of nonsuicidal self-harm

== ENCOUNTER 2021-06-14 19:01 | Emergency (ER) | payer MEDICAID ==
[~2021-06-14] VITALS: Ht 188 cm; Wt 94.0 kg
[~2021-06-14 19:01] MED LIST changes: +NICO21PAT TD
[2021-06-14] MEDS ORDERED: NS 1,000 ML IV ONE (19:50)
[2021-06-14 20:46] LABS: BASO % 0.4 % (0.0-1.0); EOS # 0.2 10^3/uL (0.0-0.5); EOS % 2.2 % (0.0-3.0); HEMATOCRIT 44.9 % (42.0-52.0); LYMPH % 21.7 % (24.0-44.0); MEAN CORPUSCULAR HEMOGLOBIN 29.9 pg (27.0-33.0); MEAN CORPUSCULAR HGB CONC 33.4 g/dl (32.0-36.5); MEAN CORPUSCULAR VOLUME 89.4 fl (80.0-96.0); MONO # 0.7 10^3/uL (0.0-0.8); MONO % 7.2 % (2.0-8.0); NEUTROPHILS # 6.2 10^3/uL (1.5-8.5); NEUTROPHILS % 67.8 % (36.0-66.0); PLATELET COUNT, AUTOMATED 343 10^3/uL (150-450); RED BLOOD COUNT 5.02 10^6/uL (4.30-6.10); WHITE BLOOD COUNT 9.2 10^3/uL (4.0-10.0)
[2021-06-14 21:26] LABS: ACETAMINOPHEN LEVEL < 2.0 UG/ML (10.0-30.0); ALBUMIN 3.8 GM/DL (3.2-5.2); ALT/SGPT 61 U/L (12-78); BILIRUBIN,DIRECT < 0.1 MG/DL (0.0-0.2); BILIRUBIN,TOTAL 0.3 MG/DL (0.2-1.0); BLOOD UREA NITROGEN 14 MG/DL (7-18); CALCIUM LEVEL 9.6 MG/DL (8.5-10.1); CARBON DIOXIDE LEVEL 26 MEQ/L (21-32); CHLORIDE LEVEL 108 MEQ/L (98-107); ETHYL ALCOHOL (ETHANOL) < 0.003 % (0.000-0.010); GLOMERULAR FILTRATION RATE > 60.0 (>60); GLUCOSE, FASTING 96 MG/DL (70-100); POTASSIUM SERUM 4.3 MEQ/L (3.5-5.1); SALICYLATE LEVEL < 1.7 MG/DL (5.0-30.0); SODIUM LEVEL 140 MEQ/L (136-145); TOTAL PROTEIN 7.8 GM/DL (6.4-8.2)
[2021-06-14 21:41] LABS: RSV AMPLIFICATION NEGATIVE (NEGATIVE)
[2021-06-14 22:53] LABS: AMPHETAMINES LEVEL URINE POSITIVE (NEGATIVE); BARBITURATES URINE NEGATIVE (NEGATIVE); BENZODIAZEPINES URINE NEGATIVE (NEGATIVE); CANNABINOIDS URINE POSITIVE (NEGATIVE); COCAINE METABOLITE URINE NEGATIVE (NEGATIVE); METHADONE URINE POSITIVE (NEGATIVE); OPIATES URINE NEGATIVE (NEGATIVE); PHENCYCLIDINE URINE NEGATIVE (NEGATIVE)
[2021-06-15] MEDS ORDERED: METH10CO PO (00:19)
[2021-06-15] MEDS ORDERED: PAXI20TA29 PO (00:19)
[2021-06-15] MEDS ORDERED: METH30CA5 PO (00:19)
[2021-06-15] MEDS ORDERED: SERO200T PO (00:19)
[2021-06-15] MEDS ORDERED: METH5TAB76 PO (08:54)
[2021-06-15] MEDS ORDERED: BUPR150T12 PO (08:54)
[2021-06-15] MEDS ORDERED: QUET100T2 PO (08:54)
[2021-06-15] MEDS ORDERED: MED NOTE ×2 (08:55→10:01)
[2021-06-15] MEDS ORDERED: METHADONE 10 MG TAB (S0109) PO ONE (09:00)
[2021-06-15] MEDS ORDERED: PARoxetine 20MG TABLET PO ONE (09:00)
[2021-06-15] MEDS ORDERED: PILL CUTTER 1 EACH XX ONE (09:48)
[2021-06-15] MEDS ORDERED: HOME MED LIST COMPLETE! XX SCH (10:05)
[2021-06-15 21:02] VITALS: BP 154/66
== END 2021-06-15 21:06 ==
LOC: M ED 19:01
DX: R45.851 Suicidal ideations (principal); T43.692A Poisoning by other psychostimulants, intentional self-harm, initial encounter; F17.200 Nicotine dependence, unspecified, uncomplicated; F15.10 Other stimulant abuse, uncomplicated; Z88.8 Allergy status to other drugs, medicaments and biological substances; Z88.1 Allergy status to other antibiotic agents

== ENCOUNTER 2021-12-03 14:52 | Emergency (ER) | payer MEDICAID ==
[~2021-12-03] VITALS: Ht 188 cm; Wt 91.9 kg
[~2021-12-03 14:52] MED LIST changes: +MED NOTE; +METH10CO PO; +METH30CA5 PO
[2021-12-03 14:53] VITALS: BP 133/86
[2021-12-03] MEDS ORDERED: GOOD8.6T2 PO (15:02)
== END 2021-12-03 16:51 | disposition left against medical advice (07) ==
LOC: M ED 14:52
DX: R22.0 Localized swelling, mass and lump, head (principal); R22.41 Localized swelling, mass and lump, right lower limb; F15.20 Other stimulant dependence, uncomplicated; F17.210 Nicotine dependence, cigarettes, uncomplicated; Z53.20 Procedure and treatment not carried out because of patient's decision for unspecified reasons; Z88.8 Allergy status to other drugs, medicaments and biological substances

== ENCOUNTER 2021-12-25 16:28 | Inpatient (IN) | payer MEDICAID, OTHER ==
[~2021-12-25] VITALS: Ht 188 cm; Wt 96.2 kg
[~2021-12-25 16:28] MED LIST changes: +GOOD8.6T2 PO
[2021-12-25 18:27] LABS: HEMOGLOBIN 13.1 g/dl (13.5-17.5); MEAN CORPUSCULAR HEMOGLOBIN 28.4 pg (27.0-33.0); MEAN CORPUSCULAR HGB CONC 32.8 g/dl (32.0-36.5); MEAN CORPUSCULAR VOLUME 86.8 fl (80.0-96.0); PLATELET COUNT, AUTOMATED 293 10^3/uL (150-450); RED BLOOD COUNT 4.61 10^6/uL (4.30-6.10); WHITE BLOOD COUNT 9.7 10^3/uL (4.0-10.0)
[2021-12-25] MEDS ORDERED: DOXYCYCLINE HYCLATE 100MG TABLET PO ONE (18:40)
[2021-12-25 19:03] LABS: ALBUMIN 3.3 GM/DL (3.2-5.2); ALT/SGPT 48 U/L (12-78); BILIRUBIN,DIRECT < 0.1 MG/DL (0.0-0.2); BILIRUBIN,TOTAL 0.3 MG/DL (0.2-1.0); BLOOD UREA NITROGEN 14 MG/DL (7-18); CALCIUM LEVEL 9.5 MG/DL (8.5-10.1); CARBON DIOXIDE LEVEL 24 MEQ/L (21-32); CHLORIDE LEVEL 109 MEQ/L (98-107); CREATININE FOR GFR 0.97 MG/DL (0.70-1.30); ETHYL ALCOHOL (ETHANOL) < 0.003 % (0.000-0.010); GLOMERULAR FILTRATION RATE > 60.0 (>60); GLUCOSE, FASTING 89 MG/DL (70-100); POTASSIUM SERUM 3.9 MEQ/L (3.5-5.1); SALICYLATE LEVEL 2.1 MG/DL (5.0-30.0); SODIUM LEVEL 143 MEQ/L (136-145); TOTAL PROTEIN 7.5 GM/DL (6.4-8.2)
[2021-12-25 19:54] LABS: AMPHETAMINES LEVEL URINE POSITIVE (NEGATIVE); BARBITURATES URINE NEGATIVE (NEGATIVE); BENZODIAZEPINES URINE NEGATIVE (NEGATIVE); CANNABINOIDS URINE NEGATIVE (NEGATIVE); COCAINE METABOLITE URINE NEGATIVE (NEGATIVE); METHADONE URINE POSITIVE (NEGATIVE); OPIATES URINE NEGATIVE (NEGATIVE); PHENCYCLIDINE URINE NEGATIVE (NEGATIVE)
[2021-12-25 20:27] LABS: ACETAMINOPHEN LEVEL < 2.0 UG/ML (0.0-30.0)
[2021-12-25 21:37] LABS: RSV AMPLIFICATION NEGATIVE (NEGATIVE)
[2021-12-25] MEDS ORDERED: MOM 30ML SUSPENSION UDC PO PRN (22:25)
[2021-12-25] MEDS ORDERED: OLANZapine 5 MG TAB PO PRN (22:25)
[2021-12-25] MEDS ORDERED: traZODone 50 MG TAB PO PRN (22:25)
[2021-12-25] MEDS ORDERED: ACETAMINOPHEN TAB 650MG DOSE (2X325MG) PO PRN (22:25)
[2021-12-25] MEDS ORDERED: MAALOX 30 ML SUSP *UDC PO PRN (22:25)
[2021-12-25] MEDS ORDERED: METH20TA29 PO (23:10)
[2021-12-25] MEDS ORDERED: DOCU100C16 PO (23:10)
[2021-12-25] MEDS ORDERED: HOME MED LIST COMPLETE! XX SCH (23:15)
[2021-12-26 00:41] VITALS: BP 129/71
[2021-12-26] MEDS: DOXYCYCLINE HYCLATE 100MG TABLET PO SCH ×2 (09:56→21:34)
[2021-12-26] MEDS: METHADONE 10MG TAB PO SCH (11:30)
[2021-12-26] MEDS: buPROPion **XL** TABLET 150MG (WELLBUTRIN XL) PO SCH (13:29)
[2021-12-26] MEDS: DOCUSATE SODIUM 100MG CAPSULE PO SCH (13:29)
[2021-12-26 16:17] VITALS: BP 140/64
[2021-12-26] MEDS: QUEtiapine FUMARATE 200 MG TAB PO SCH (21:34)
[2021-12-27 06:50] VITALS: BP 136/63
[2021-12-27] MEDS: buPROPion **XL** TABLET 150MG (WELLBUTRIN XL) PO SCH (08:49)
[2021-12-27] MEDS: METHADONE 10MG TAB PO SCH (08:49)
[2021-12-27] MEDS: DOXYCYCLINE HYCLATE 100MG TABLET PO SCH ×2 (08:49→21:05)
[2021-12-27] MEDS: DOCUSATE SODIUM 100MG CAPSULE PO SCH (08:49)
[2021-12-27 17:10] VITALS: BP 138/78
[2021-12-27] MEDS: QUEtiapine FUMARATE 200 MG TAB PO SCH (21:05)
[2021-12-28 06:16] VITALS: BP 132/67
[2021-12-28] MEDS: METHADONE 10MG TAB PO SCH (08:43)
[2021-12-28] MEDS: DOXYCYCLINE HYCLATE 100MG TABLET PO SCH ×2 (08:43→21:11)
[2021-12-28] MEDS: buPROPion **XL** TABLET 150MG (WELLBUTRIN XL) PO SCH (08:43)
[2021-12-28] MEDS: DOCUSATE SODIUM 100MG CAPSULE PO SCH (08:43)
[2021-12-28] MEDS: QUEtiapine FUMARATE 200 MG TAB PO SCH (21:11)
[2021-12-29 06:17] VITALS: BP 122/65
[2021-12-29] MEDS: DOCUSATE SODIUM 100MG CAPSULE PO SCH (08:44)
[2021-12-29] MEDS: METHADONE 10MG TAB PO SCH (08:44)
[2021-12-29] MEDS: buPROPion **XL** TABLET 150MG (WELLBUTRIN XL) PO SCH (08:44)
[2021-12-29] MEDS: DOXYCYCLINE HYCLATE 100MG TABLET PO SCH ×2 (08:44→20:44)
[2021-12-29 16:59] VITALS: BP 133/80
[2021-12-29] MEDS: QUEtiapine FUMARATE 200 MG TAB PO SCH (20:44)
[2021-12-30 06:31] VITALS: BP 139/73
[2021-12-30] MEDS: buPROPion **XL** TABLET 150MG (WELLBUTRIN XL) PO SCH (08:43)
[2021-12-30] MEDS: DOXYCYCLINE HYCLATE 100MG TABLET PO SCH ×2 (08:43→20:46)
[2021-12-30] MEDS: DOCUSATE SODIUM 100MG CAPSULE PO SCH (08:43)
[2021-12-30] MEDS: METHADONE 10MG TAB PO SCH (08:43)
[2021-12-30 16:19] VITALS: BP 124/77
[2021-12-30] MEDS: QUEtiapine FUMARATE 200 MG TAB PO SCH (20:46)
[2021-12-31 07:19] VITALS: BP 147/83
[2021-12-31] MEDS: DOCUSATE SODIUM 100MG CAPSULE PO SCH (08:36)
[2021-12-31] MEDS: buPROPion **XL** TABLET 150MG (WELLBUTRIN XL) PO SCH (08:36)
[2021-12-31] MEDS: METHADONE 10MG TAB PO SCH (08:36)
[2021-12-31] MEDS: DOXYCYCLINE HYCLATE 100MG TABLET PO SCH ×2 (08:36→21:46)
[2021-12-31 18:00] VITALS: BP 152/79
[2021-12-31] MEDS: QUEtiapine FUMARATE 200 MG TAB PO SCH (21:46)
[2022-01-01 06:55] VITALS: BP 148/81
[2022-01-01] MEDS: DOCUSATE SODIUM 100MG CAPSULE PO SCH (09:06)
[2022-01-01] MEDS: DOXYCYCLINE HYCLATE 100MG TABLET PO SCH (09:06)
[2022-01-01] MEDS: METHADONE 10MG TAB PO SCH (09:06)
[2022-01-01] MEDS: buPROPion **XL** TABLET 150MG (WELLBUTRIN XL) PO SCH (09:06)
[2022-01-01] MEDS ORDERED: BUPR150T12 PO (13:00)
[2022-01-01] MEDS ORDERED: QUET200T2 PO (13:00)
[2022-01-01] MEDS ORDERED: COLA100C5 PO (13:00)
== END 2022-01-01 14:20 | disposition home or self-care (01) | DRG 755 ==
LOC: M ED 16:28 → M ED INP 22:23 → M PSY 12-26 00:28
PROVIDERS: ADMIT Psychiatry & Neurology Psychiatry; ATTEND Psychiatry & Neurology Psychiatry
DX: F43.23 Adjustment disorder with mixed anxiety and depressed mood (principal); L02.415 Cutaneous abscess of right lower limb; Z91.14 Patient's other noncompliance with medication regimen; L02.416 Cutaneous abscess of left lower limb; Z91.19 Patient's noncompliance with other medical treatment and regimen; F15.14 Other stimulant abuse with stimulant-induced mood disorder; F60.2 Antisocial personality disorder; Z59.02 Unsheltered homelessness; F17.210 Nicotine dependence, cigarettes, uncomplicated; Z79.899 Other long term (current) drug therapy; Z88.1 Allergy status to other antibiotic agents; Z88.6 Allergy status to analgesic agent; Z88.8 Allergy status to other drugs, medicaments and biological substances; L02.413 Cutaneous abscess of right upper limb; L02.414 Cutaneous abscess of left upper limb; F11.10 Opioid abuse, uncomplicated; Z62.810 Personal history of physical and sexual abuse in childhood; Z62.811 Personal history of psychological abuse in childhood

== ENCOUNTER 2022-01-05 05:05 | Emergency (ER) | payer OTHER ==
[~2022-01-05] VITALS: Ht 188 cm; Wt 94.0 kg
[~2022-01-05 05:05] MED LIST changes: +COLA100C5 PO; +DOCU100C16 PO; +METH20TA29 PO
[2022-01-05 05:06] VITALS: BP 119/60
[2022-01-06] MEDS ORDERED: QUET200T2 PO (04:06)
[2022-01-06] MEDS ORDERED: DOCU100C16 PO (04:06)
[2022-01-06] MEDS ORDERED: BUPR150T12 PO (04:06)
== END 2022-01-05 05:35 | disposition left against medical advice (07) ==
LOC: M ED 05:05
DX: Z53.21 Procedure and treatment not carried out due to patient leaving prior to being seen by health care provider (principal)

== ENCOUNTER 2022-01-06 00:46 | Inpatient (IN) | payer OTHER ==
[~2022-01-06] VITALS: Ht 188 cm; Wt 86.4 kg
[2022-01-06 02:22] LABS: HEMATOCRIT 34.7 % (42.0-52.0); HEMOGLOBIN 11.4 g/dl (13.5-17.5); MEAN CORPUSCULAR HEMOGLOBIN 28.7 pg (27.0-33.0); MEAN CORPUSCULAR HGB CONC 32.9 g/dl (32.0-36.5); MEAN CORPUSCULAR VOLUME 87.4 fl (80.0-96.0); PLATELET COUNT, AUTOMATED 245 10^3/uL (150-450); RED BLOOD COUNT 3.97 10^6/uL (4.30-6.10); WHITE BLOOD COUNT 9.8 10^3/uL (4.0-10.0)
[2022-01-06 02:52] LABS: ACETAMINOPHEN LEVEL < 2.0 UG/ML (10.0-30.0); ALBUMIN 3.4 GM/DL (3.2-5.2); ALT/SGPT 50 U/L (12-78); BILIRUBIN,DIRECT 0.2 MG/DL (0.0-0.2); BILIRUBIN,TOTAL 0.7 MG/DL (0.2-1.0); BLOOD UREA NITROGEN 23 MG/DL (7-18); CALCIUM LEVEL 8.6 MG/DL (8.5-10.1); CARBON DIOXIDE LEVEL 26 MEQ/L (21-32); CHLORIDE LEVEL 109 MEQ/L (98-107); CREATININE FOR GFR 0.93 MG/DL (0.70-1.30); ETHYL ALCOHOL (ETHANOL) < 0.003 % (0.000-0.010); GLOMERULAR FILTRATION RATE > 60.0 (>60); GLUCOSE, FASTING 91 MG/DL (70-100); POTASSIUM SERUM 3.5 MEQ/L (3.5-5.1); SALICYLATE LEVEL < 1.7 MG/DL (5.0-30.0); SODIUM LEVEL 143 MEQ/L (136-145); TOTAL PROTEIN 6.7 GM/DL (6.4-8.2)
[2022-01-06 02:59] LABS: RSV AMPLIFICATION NEGATIVE (NEGATIVE)
[2022-01-06] MEDS ORDERED: QUET200T2 PO (04:06)
[2022-01-06] MEDS ORDERED: DOCU100C16 PO (04:06)
[2022-01-06] MEDS ORDERED: BUPR150T12 PO (04:06)
[2022-01-06 05:12] LABS: AMPHETAMINES LEVEL URINE POSITIVE (NEGATIVE); BARBITURATES URINE NEGATIVE (NEGATIVE); BENZODIAZEPINES URINE NEGATIVE (NEGATIVE); CANNABINOIDS URINE NEGATIVE (NEGATIVE); COCAINE METABOLITE URINE NEGATIVE (NEGATIVE); METHADONE URINE POSITIVE (NEGATIVE); OPIATES URINE NEGATIVE (NEGATIVE); PHENCYCLIDINE URINE NEGATIVE (NEGATIVE)
[2022-01-06] MEDS ORDERED: HOME MED LIST COMPLETE! XX SCH (08:25)
[2022-01-06] MEDS ORDERED: QUEtiapine FUMARATE 200 MG TAB PO SCH (21:00)
[2022-01-07] MEDS ORDERED: MOM 30ML SUSPENSION UDC PO PRN (00:30)
[2022-01-07] MEDS ORDERED: MAALOX 30 ML SUSP *UDC PO PRN (00:30)
[2022-01-07] MEDS ORDERED: ACETAMINOPHEN TAB 650MG DOSE (2X325MG) PO PRN (00:30)
[2022-01-07] MEDS ORDERED: traZODone 50 MG TAB PO PRN (00:30)
[2022-01-07 00:59] VITALS: BP 136/88
[2022-01-07] MEDS ORDERED: buPROPion **XL** TABLET 150MG (WELLBUTRIN XL) PO SCH (09:00)
[2022-01-07] MEDS ORDERED: DOCUSATE SODIUM 100MG CAPSULE PO ONE (09:00)
[2022-01-07] MEDS: DOCUSATE SODIUM 100MG CAPSULE PO SCH (10:06)
[2022-01-07] MEDS: buPROPion **XL** TABLET 150MG (WELLBUTRIN XL) PO SCH (10:06)
[2022-01-07 18:36] VITALS: BP 119/63
[2022-01-07] MEDS ORDERED: QUEtiapine FUMARATE 200 MG TAB PO SCH (21:00)
[2022-01-08 06:51] VITALS: BP 106/58
[2022-01-08] MEDS: METHADONE 10MG TAB PO SCH (08:57)
[2022-01-08] MEDS: DOCUSATE SODIUM 100MG CAPSULE PO SCH (08:57)
[2022-01-08] MEDS: buPROPion **XL** TABLET 150MG (WELLBUTRIN XL) PO SCH (08:59)
[2022-01-08] MEDS ORDERED: OLANZapine 5 MG TAB PO SCH (09:00)
[2022-01-08] MEDS ORDERED: HOME MED LIST COMPLETE! XX SCH (09:35)
[2022-01-08] MEDS ORDERED: OLANZapine ORAL DISINTEGRATING TAB 5MG PO PRN (13:55)
[2022-01-08 18:58] VITALS: BP 116/58
[2022-01-08] MEDS: QUEtiapine FUMARATE 200 MG TAB PO SCH (21:29)
[2022-01-09 07:03] VITALS: BP 130/59
[2022-01-09] MEDS: METHADONE 10MG TAB PO SCH (08:31)
[2022-01-09] MEDS: DOCUSATE SODIUM 100MG CAPSULE PO SCH (08:32)
[2022-01-09] MEDS: buPROPion **XL** TABLET 150MG (WELLBUTRIN XL) PO SCH (08:32)
[2022-01-09 17:47] VITALS: BP 132/74
[2022-01-09] MEDS: QUEtiapine FUMARATE 200 MG TAB PO SCH (21:50)
[2022-01-10 06:57] VITALS: BP 140/65
[2022-01-10] MEDS: METHADONE 10MG TAB PO SCH (08:29)
[2022-01-10] MEDS: DOCUSATE SODIUM 100MG CAPSULE PO SCH (08:30)
[2022-01-10] MEDS: buPROPion **XL** TABLET 150MG (WELLBUTRIN XL) PO SCH (08:30)
[2022-01-10 18:43] VITALS: BP 143/72
[2022-01-10] MEDS: QUEtiapine FUMARATE 200 MG TAB PO SCH (21:36)
[2022-01-11 07:02] VITALS: BP 132/72
[2022-01-11] MEDS: METHADONE 10MG TAB PO SCH (08:18)
[2022-01-11] MEDS: DOCUSATE SODIUM 100MG CAPSULE PO SCH (08:18)
[2022-01-11] MEDS: buPROPion **XL** TABLET 150MG (WELLBUTRIN XL) PO SCH (08:18)
== END 2022-01-11 14:55 | disposition home or self-care (01) | DRG 755 ==
LOC: M ED 00:46 → M PSY 01-07 00:47 → M ED 01-07 00:47
PROVIDERS: ADMIT Psychiatry & Neurology Psychiatry; ATTEND Psychiatry & Neurology Psychiatry
DX: F43.23 Adjustment disorder with mixed anxiety and depressed mood (principal); F15.94 Other stimulant use, unspecified with stimulant-induced mood disorder; F60.2 Antisocial personality disorder; F17.200 Nicotine dependence, unspecified, uncomplicated; R45.851 Suicidal ideations; R30.0 Dysuria; Z20.822 Contact with and (suspected) exposure to COVID-19; Z79.899 Other long term (current) drug therapy; Z88.1 Allergy status to other antibiotic agents; Z88.8 Allergy status to other drugs, medicaments and biological substances; Z59.00 Homelessness unspecified

== ENCOUNTER 2022-01-23 18:25 | Inpatient (IN) | payer OTHER ==
[~2022-01-23] VITALS: Ht 188 cm; Wt 105.9 kg
[2022-01-23] MEDS ORDERED: COLA100C5 PO (19:00)
[2022-01-23] MEDS ORDERED: LORazepam 2 MG TAB PO ONE (20:20)
[2022-01-23 20:34] LABS: AMPHETAMINES LEVEL URINE NEGATIVE (NEGATIVE); BARBITURATES URINE NEGATIVE (NEGATIVE); BENZODIAZEPINES URINE NEGATIVE (NEGATIVE); CANNABINOIDS URINE NEGATIVE (NEGATIVE); COCAINE METABOLITE URINE NEGATIVE (NEGATIVE); METHADONE URINE POSITIVE (NEGATIVE); OPIATES URINE NEGATIVE (NEGATIVE); PHENCYCLIDINE URINE NEGATIVE (NEGATIVE)
[2022-01-23 21:03] LABS: RSV AMPLIFICATION NEGATIVE (NEGATIVE)
[2022-01-24] MEDS ORDERED: METH-1022 PO (00:32)
[2022-01-24] MEDS ORDERED: METH40CA2 PO (00:32)
[2022-01-24 00:38] LABS: HEMATOCRIT 36.3 % (42.0-52.0); HEMOGLOBIN 11.8 g/dl (13.5-17.5); MEAN CORPUSCULAR HEMOGLOBIN 28.2 pg (27.0-33.0); MEAN CORPUSCULAR HGB CONC 32.5 g/dl (32.0-36.5); MEAN CORPUSCULAR VOLUME 86.8 fl (80.0-96.0); PLATELET COUNT, AUTOMATED 314 10^3/uL (150-450); RED BLOOD COUNT 4.18 10^6/uL (4.30-6.10); WHITE BLOOD COUNT 4.7 10^3/uL (4.0-10.0)
[2022-01-24 01:14] LABS: ACETAMINOPHEN LEVEL < 2.0 UG/ML (10.0-30.0); ALT/SGPT 34 U/L (12-78); BILIRUBIN,DIRECT 0.2 MG/DL (0.0-0.2); BLOOD UREA NITROGEN 10 MG/DL (7-18); CALCIUM LEVEL 8.4 MG/DL (8.5-10.1); CARBON DIOXIDE LEVEL 28 MEQ/L (21-32); CHLORIDE LEVEL 110 MEQ/L (98-107); CREATININE FOR GFR 0.67 MG/DL (0.70-1.30); ETHYL ALCOHOL (ETHANOL) 0.006 % (0.000-0.010); GLOMERULAR FILTRATION RATE > 60.0 (>60); GLUCOSE, FASTING 86 MG/DL (70-100); POTASSIUM SERUM 4.4 MEQ/L (3.5-5.1); SALICYLATE LEVEL 2.2 MG/DL (5.0-30.0); SODIUM LEVEL 142 MEQ/L (136-145); TOTAL PROTEIN 6.5 GM/DL (6.4-8.2)
[2022-01-24 01:43] LABS: BILIRUBIN,TOTAL 0.1 MG/DL (0.2-1.0)
[2022-01-24] MEDS ORDERED: buPROPion **XL** TABLET 150MG (WELLBUTRIN XL) PO ONE (07:35)
[2022-01-24] MEDS ORDERED: HOME MED LIST COMPLETE! XX SCH (08:45)
[2022-01-24] MEDS: METHYLPHENIDATE 20 MG SR TAB (RITALIN SR) PO SCH (12:09)
[2022-01-24] MEDS: METHYLPHENIDATE 5 MG TAB PO SCH (15:08)
[2022-01-24] MEDS ORDERED: PILL CUTTER 1 EACH XX ONE (16:39)
[2022-01-24] MEDS: METHADONE 10MG TAB PO SCH (16:44)
[2022-01-24] MEDS ORDERED: QUEtiapine FUMARATE 200 MG TAB PO SCH (21:00)
[2022-01-25] MEDS ORDERED: buPROPion **XL** TABLET 150MG (WELLBUTRIN XL) PO SCH (09:00)
[2022-01-25] MEDS ORDERED: PILL CUTTER 1 EACH XX ONE (09:14)
[2022-01-25] MEDS: METHYLPHENIDATE 20 MG SR TAB (RITALIN SR) PO SCH (09:18)
[2022-01-25] MEDS: METHADONE 10MG TAB PO SCH (09:19)
[2022-01-25] MEDS ORDERED: METHYLPHENIDATE 5 MG TAB PO SCH (12:00)
[2022-01-25] MEDS: METHYLPHENIDATE 5 MG TAB PO SCH (12:48)
[2022-01-25] MEDS ORDERED: OLANZapine ORAL DISINTEGRATING TAB 5MG PO PRN (13:05)
[2022-01-25] MEDS ORDERED: MAALOX 30 ML SUSP *UDC PO PRN (13:05)
[2022-01-25] MEDS ORDERED: MOM 30ML SUSPENSION UDC PO PRN (13:05)
[2022-01-25] MEDS ORDERED: diphenhydrAMINE 25MG CAP PO PRN (13:05)
[2022-01-25] MEDS ORDERED: IBUPROFEN 400MG TAB PO PRN (13:05)
[2022-01-25] MEDS ORDERED: traZODone 50 MG TAB PO PRN (13:05)
[2022-01-25] MEDS: NICOTINE 21MG/24HR 1 EA TRANSDERMAL TD SCH (16:57)
[2022-01-25] MEDS: DOCUSATE SODIUM 100MG CAPSULE PO SCH (16:57)
[2022-01-25 16:59] VITALS: BP 125/75
[2022-01-25] MEDS: QUEtiapine FUMARATE 200 MG TAB PO SCH (22:01)
[2022-01-26 06:52] VITALS: BP 118/70
[2022-01-26] MEDS: buPROPion **XL** TABLET 150MG (WELLBUTRIN XL) PO SCH (08:57)
[2022-01-26] MEDS: METHADONE 5MG TAB PO SCH (08:59)
[2022-01-26] MEDS: NICOTINE 21MG/24HR 1 EA TRANSDERMAL TD SCH (09:00)
[2022-01-26] MEDS: DOCUSATE SODIUM 100MG CAPSULE PO SCH (09:00)
[2022-01-26] MEDS: METHADONE 10MG TAB PO SCH (09:03)
[2022-01-26 17:39] VITALS: BP 134/80
[2022-01-26] MEDS ORDERED: PALIPERIDONE 6 MG ER TAB (INVEGA) PO SCH (21:00)
[2022-01-26] MEDS: QUEtiapine FUMARATE 200 MG TAB PO SCH (22:16)
[2022-01-27 06:32] VITALS: BP 134/73
[2022-01-27] MEDS: NICOTINE 21MG/24HR 1 EA TRANSDERMAL TD SCH (09:00)
[2022-01-27] MEDS: DOCUSATE SODIUM 100MG CAPSULE PO SCH (09:00)
[2022-01-27] MEDS: buPROPion **XL** TABLET 150MG (WELLBUTRIN XL) PO SCH (09:22)
[2022-01-27] MEDS: METHADONE 5MG TAB PO SCH (09:22)
[2022-01-27] MEDS: METHADONE 10MG TAB PO SCH (09:22)
[2022-01-27 18:00] VITALS: BP 132/65
[2022-01-27] MEDS: QUEtiapine FUMARATE 200 MG TAB PO SCH (21:43)
[2022-01-28 06:33] VITALS: BP 146/75
[2022-01-28] MEDS: METHADONE 5MG TAB PO SCH (08:40)
[2022-01-28] MEDS: buPROPion **XL** TABLET 150MG (WELLBUTRIN XL) PO SCH (08:40)
[2022-01-28] MEDS: METHADONE 10MG TAB PO SCH (08:41)
[2022-01-28] MEDS: DOCUSATE SODIUM 100MG CAPSULE PO SCH (08:41)
[2022-01-28] MEDS: NICOTINE 21MG/24HR 1 EA TRANSDERMAL TD SCH (08:41)
[2022-01-28] MEDS: VANICREAM MOISTURIZING SKIN CREAM 113GM TUBE TOP SCH ×3 (09:00→21:29)
[2022-01-28] MEDS: CLOTRIMAZOLE 1% TOPICAL CREAM 30GM TOP SCH ×2 (12:46→21:29)
[2022-01-28 18:00] VITALS: BP 146/83
[2022-01-28] MEDS: QUEtiapine FUMARATE 200 MG TAB PO SCH (21:28)
[2022-01-29 06:23] VITALS: BP 120/67
[2022-01-29] MEDS: buPROPion **XL** TABLET 150MG (WELLBUTRIN XL) PO SCH (08:38)
[2022-01-29] MEDS: METHADONE 5MG TAB PO SCH (08:38)
[2022-01-29] MEDS: DOCUSATE SODIUM 100MG CAPSULE PO SCH (08:39)
[2022-01-29] MEDS: METHADONE 10MG TAB PO SCH (08:39)
[2022-01-29] MEDS: NICOTINE 21MG/24HR 1 EA TRANSDERMAL TD SCH (08:40)
[2022-01-29] MEDS: VANICREAM MOISTURIZING SKIN CREAM 113GM TUBE TOP SCH ×3 (08:41→21:00)
[2022-01-29] MEDS: CLOTRIMAZOLE 1% TOPICAL CREAM 30GM TOP SCH ×2 (08:41→21:00)
[2022-01-29] MEDS: QUEtiapine FUMARATE 200 MG TAB PO SCH (21:18)
[2022-01-30 06:24] VITALS: BP 116/56
[2022-01-30] MEDS: DOCUSATE SODIUM 100MG CAPSULE PO SCH (08:44)
[2022-01-30] MEDS: NICOTINE 21MG/24HR 1 EA TRANSDERMAL TD SCH (08:44)
[2022-01-30] MEDS: CLOTRIMAZOLE 1% TOPICAL CREAM 30GM TOP SCH ×2 (08:45→21:00)
[2022-01-30] MEDS: VANICREAM MOISTURIZING SKIN CREAM 113GM TUBE TOP SCH ×3 (08:45→21:00)
[2022-01-30] MEDS: buPROPion **XL** TABLET 150MG (WELLBUTRIN XL) PO SCH (08:47)
[2022-01-30] MEDS: METHADONE 5MG TAB PO SCH (08:47)
[2022-01-30] MEDS: METHADONE 10MG TAB PO SCH (08:48)
[2022-01-30 18:20] VITALS: BP 134/76
[2022-01-30] MEDS: QUEtiapine FUMARATE 200 MG TAB PO SCH (21:28)
[2022-01-31 06:44] VITALS: BP 119/70
[2022-01-31] MEDS: DOCUSATE SODIUM 100MG CAPSULE PO SCH (08:25)
[2022-01-31] MEDS: CLOTRIMAZOLE 1% TOPICAL CREAM 30GM TOP SCH ×2 (08:25→20:58)
[2022-01-31] MEDS: NICOTINE 21MG/24HR 1 EA TRANSDERMAL TD SCH (08:25)
[2022-01-31] MEDS: VANICREAM MOISTURIZING SKIN CREAM 113GM TUBE TOP SCH ×3 (08:25→20:58)
[2022-01-31] MEDS: METHADONE 10MG TAB PO SCH (08:27)
[2022-01-31] MEDS: METHADONE 5MG TAB PO SCH (08:27)
[2022-01-31] MEDS: buPROPion **XL** TABLET 150MG (WELLBUTRIN XL) PO SCH (08:29)
[2022-01-31 18:25] VITALS: BP 129/62
[2022-01-31] MEDS: QUEtiapine FUMARATE 200 MG TAB PO SCH (20:57)
[2022-02-01 06:52] VITALS: BP 119/66
[2022-02-01] MEDS: DOCUSATE SODIUM 100MG CAPSULE PO SCH (08:26)
[2022-02-01] MEDS: VANICREAM MOISTURIZING SKIN CREAM 113GM TUBE TOP SCH ×3 (08:26→21:00)
[2022-02-01] MEDS: NICOTINE 21MG/24HR 1 EA TRANSDERMAL TD SCH (08:26)
[2022-02-01] MEDS: CLOTRIMAZOLE 1% TOPICAL CREAM 30GM TOP SCH ×2 (08:26→21:00)
[2022-02-01] MEDS: METHADONE 5MG TAB PO SCH (08:42)
[2022-02-01] MEDS: buPROPion **XL** TABLET 150MG (WELLBUTRIN XL) PO SCH (08:42)
[2022-02-01] MEDS: METHADONE 10MG TAB PO SCH (08:43)
[2022-02-01 18:31] VITALS: BP 130/69
[2022-02-01] MEDS: QUEtiapine FUMARATE 200 MG TAB PO SCH (21:48)
[2022-02-02 06:47] VITALS: BP 124/67
[2022-02-02] MEDS: CLOTRIMAZOLE 1% TOPICAL CREAM 30GM TOP SCH ×2 (08:32→21:00)
[2022-02-02] MEDS: NICOTINE 21MG/24HR 1 EA TRANSDERMAL TD SCH (08:32)
[2022-02-02] MEDS: VANICREAM MOISTURIZING SKIN CREAM 113GM TUBE TOP SCH ×3 (08:32→21:00)
[2022-02-02] MEDS: DOCUSATE SODIUM 100MG CAPSULE PO SCH (08:32)
[2022-02-02] MEDS: METHADONE 10MG TAB PO SCH (08:34)
[2022-02-02] MEDS: METHADONE 5MG TAB PO SCH (08:34)
[2022-02-02] MEDS: buPROPion **XL** TABLET 150MG (WELLBUTRIN XL) PO SCH (08:34)
[2022-02-02 18:00] VITALS: BP 148/83
[2022-02-02] MEDS: QUEtiapine FUMARATE 200 MG TAB PO SCH (21:22)
[2022-02-03 07:18] VITALS: BP 121/60
[2022-02-03] MEDS: CLOTRIMAZOLE 1% TOPICAL CREAM 30GM TOP SCH ×2 (08:26→21:00)
[2022-02-03] MEDS: DOCUSATE SODIUM 100MG CAPSULE PO SCH (08:26)
[2022-02-03] MEDS: VANICREAM MOISTURIZING SKIN CREAM 113GM TUBE TOP SCH ×3 (08:27→21:00)
[2022-02-03] MEDS: NICOTINE 21MG/24HR 1 EA TRANSDERMAL TD SCH (08:29)
[2022-02-03] MEDS: buPROPion **XL** TABLET 150MG (WELLBUTRIN XL) PO SCH (08:30)
[2022-02-03] MEDS: METHADONE 10MG TAB PO SCH (08:30)
[2022-02-03] MEDS: METHADONE 5MG TAB PO SCH (08:30)
[2022-02-03 18:00] VITALS: BP 115/69
[2022-02-03] MEDS: QUEtiapine FUMARATE 200 MG TAB PO SCH (21:59)
[2022-02-04 06:50] VITALS: BP 117/63
[2022-02-04] MEDS: VANICREAM MOISTURIZING SKIN CREAM 113GM TUBE TOP SCH ×3 (08:05→21:00)
[2022-02-04] MEDS: DOCUSATE SODIUM 100MG CAPSULE PO SCH (08:05)
[2022-02-04] MEDS: CLOTRIMAZOLE 1% TOPICAL CREAM 30GM TOP SCH ×2 (08:05→21:00)
[2022-02-04] MEDS: METHADONE 10MG TAB PO SCH (08:08)
[2022-02-04] MEDS: NICOTINE 21MG/24HR 1 EA TRANSDERMAL TD SCH (08:08)
[2022-02-04] MEDS: buPROPion **XL** TABLET 150MG (WELLBUTRIN XL) PO SCH (08:08)
[2022-02-04] MEDS: METHADONE 5MG TAB PO SCH (08:08)
[2022-02-04 18:00] VITALS: BP 130/58
[2022-02-04] MEDS: QUEtiapine FUMARATE 200 MG TAB PO SCH (21:59)
[2022-02-05 06:18] VITALS: BP 114/57
[2022-02-05] MEDS: DOCUSATE SODIUM 100MG CAPSULE PO SCH (09:00)
[2022-02-05] MEDS: VANICREAM MOISTURIZING SKIN CREAM 113GM TUBE TOP SCH ×3 (09:00→21:00)
[2022-02-05] MEDS: CLOTRIMAZOLE 1% TOPICAL CREAM 30GM TOP SCH ×2 (09:00→21:00)
[2022-02-05] MEDS: METHADONE 10MG TAB PO SCH (09:05)
[2022-02-05] MEDS: METHADONE 5MG TAB PO SCH (09:05)
[2022-02-05] MEDS: buPROPion **XL** TABLET 150MG (WELLBUTRIN XL) PO SCH (09:06)
[2022-02-05] MEDS: NICOTINE 21MG/24HR 1 EA TRANSDERMAL TD SCH (09:07)
[2022-02-05 17:46] VITALS: BP 124/85
[2022-02-05] MEDS: QUEtiapine FUMARATE 200 MG TAB PO SCH (22:16)
[2022-02-06 06:28] VITALS: BP 114/57
[2022-02-06] MEDS: buPROPion **XL** TABLET 150MG (WELLBUTRIN XL) PO SCH (08:28)
[2022-02-06] MEDS: NICOTINE 21MG/24HR 1 EA TRANSDERMAL TD SCH (08:28)
[2022-02-06] MEDS: METHADONE 10MG TAB PO SCH (08:28)
[2022-02-06] MEDS: METHADONE 5MG TAB PO SCH (08:28)
[2022-02-06] MEDS: CLOTRIMAZOLE 1% TOPICAL CREAM 30GM TOP SCH ×2 (09:00→21:00)
[2022-02-06] MEDS: VANICREAM MOISTURIZING SKIN CREAM 113GM TUBE TOP SCH ×3 (09:00→21:00)
[2022-02-06] MEDS: DOCUSATE SODIUM 100MG CAPSULE PO SCH (09:00)
[2022-02-06 17:32] VITALS: BP 137/69
[2022-02-06] MEDS: QUEtiapine FUMARATE 200 MG TAB PO SCH (22:08)
[2022-02-07 06:42] VITALS: BP 154/65
[2022-02-07] MEDS: buPROPion **XL** TABLET 150MG (WELLBUTRIN XL) PO SCH (08:15)
[2022-02-07] MEDS: METHADONE 10MG TAB PO SCH (08:15)
[2022-02-07] MEDS: METHADONE 5MG TAB PO SCH (08:15)
[2022-02-07] MEDS: NICOTINE 21MG/24HR 1 EA TRANSDERMAL TD SCH (08:16)
[2022-02-07] MEDS: VANICREAM MOISTURIZING SKIN CREAM 113GM TUBE TOP SCH ×3 (08:20→21:00)
[2022-02-07] MEDS: CLOTRIMAZOLE 1% TOPICAL CREAM 30GM TOP SCH ×2 (08:20→21:00)
[2022-02-07] MEDS: DOCUSATE SODIUM 100MG CAPSULE PO SCH (08:20)
[2022-02-07 16:19] VITALS: BP 142/65
[2022-02-07] MEDS: QUEtiapine FUMARATE 200 MG TAB PO SCH (21:00)
[2022-02-07] MEDS: PRAZOSIN 1 MG CAP PO SCH (21:00)
[2022-02-08 06:35] VITALS: BP 106/55
[2022-02-08] MEDS: DOCUSATE SODIUM 100MG CAPSULE PO SCH (08:46)
[2022-02-08] MEDS: METHADONE 10MG TAB PO SCH (08:49)
[2022-02-08] MEDS: CLOTRIMAZOLE 1% TOPICAL CREAM 30GM TOP SCH ×2 (08:49→21:00)
[2022-02-08] MEDS: METHADONE 5MG TAB PO SCH (08:49)
[2022-02-08] MEDS: NICOTINE 21MG/24HR 1 EA TRANSDERMAL TD SCH (08:49)
[2022-02-08] MEDS: buPROPion **XL** TABLET 150MG (WELLBUTRIN XL) PO SCH (08:49)
[2022-02-08] MEDS: VANICREAM MOISTURIZING SKIN CREAM 113GM TUBE TOP SCH ×3 (08:50→21:00)
[2022-02-08 16:31] VITALS: BP 133/73
[2022-02-08] MEDS: PRAZOSIN 1 MG CAP PO SCH (21:51)
[2022-02-08] MEDS: QUEtiapine FUMARATE 200 MG TAB PO SCH (21:51)
[2022-02-09 06:38] VITALS: BP 110/63
[2022-02-09] MEDS: DOCUSATE SODIUM 100MG CAPSULE PO SCH (09:00)
[2022-02-09] MEDS: NICOTINE 21MG/24HR 1 EA TRANSDERMAL TD SCH (09:00)
[2022-02-09] MEDS: VANICREAM MOISTURIZING SKIN CREAM 113GM TUBE TOP SCH ×3 (09:00→21:00)
[2022-02-09] MEDS: CLOTRIMAZOLE 1% TOPICAL CREAM 30GM TOP SCH ×2 (09:00→21:00)
[2022-02-09] MEDS: buPROPion **XL** TABLET 150MG (WELLBUTRIN XL) PO SCH (09:01)
[2022-02-09] MEDS: METHADONE 5MG TAB PO SCH (09:01)
[2022-02-09] MEDS: METHADONE 10MG TAB PO SCH (09:01)
[2022-02-09 16:37] VITALS: BP 138/70
[2022-02-09] MEDS: QUEtiapine FUMARATE 200 MG TAB PO SCH (21:51)
[2022-02-09] MEDS: PRAZOSIN 1 MG CAP PO SCH (21:51)
[2022-02-10 06:29] VITALS: BP 128/62
[2022-02-10] MEDS: DOCUSATE SODIUM 100MG CAPSULE PO SCH (08:22)
[2022-02-10] MEDS: CLOTRIMAZOLE 1% TOPICAL CREAM 30GM TOP SCH ×2 (08:23→21:00)
[2022-02-10] MEDS: VANICREAM MOISTURIZING SKIN CREAM 113GM TUBE TOP SCH ×3 (08:23→21:00)
[2022-02-10] MEDS: NICOTINE 21MG/24HR 1 EA TRANSDERMAL TD SCH (08:27)
[2022-02-10] MEDS: buPROPion **XL** TABLET 150MG (WELLBUTRIN XL) PO SCH (08:27)
[2022-02-10] MEDS: METHADONE 5MG TAB PO SCH (08:28)
[2022-02-10] MEDS: METHADONE 10MG TAB PO SCH (08:28)
[2022-02-10 16:45] VITALS: BP 126/60
[2022-02-10] MEDS: QUEtiapine FUMARATE 200 MG TAB PO SCH (21:27)
[2022-02-10] MEDS: PRAZOSIN 1 MG CAP PO SCH (21:27)
[2022-02-11 06:41] VITALS: BP 114/56
[2022-02-11] MEDS: buPROPion **XL** TABLET 150MG (WELLBUTRIN XL) PO SCH (08:37)
[2022-02-11] MEDS: METHADONE 5MG TAB PO SCH (08:37)
[2022-02-11] MEDS: METHADONE 10MG TAB PO SCH (08:38)
[2022-02-11] MEDS: NICOTINE 21MG/24HR 1 EA TRANSDERMAL TD SCH (08:38)
[2022-02-11] MEDS: CLOTRIMAZOLE 1% TOPICAL CREAM 30GM TOP SCH ×2 (09:00→21:00)
[2022-02-11] MEDS: DOCUSATE SODIUM 100MG CAPSULE PO SCH (09:00)
[2022-02-11] MEDS: VANICREAM MOISTURIZING SKIN CREAM 113GM TUBE TOP SCH ×3 (09:00→21:00)
[2022-02-11 18:04] VITALS: BP 138/72
[2022-02-11] MEDS: QUEtiapine FUMARATE 200 MG TAB PO SCH (21:47)
[2022-02-11] MEDS: PRAZOSIN 1 MG CAP PO SCH (21:47)
[2022-02-12 06:24] VITALS: BP 119/64
[2022-02-12] MEDS: METHADONE 5MG TAB PO SCH (08:19)
[2022-02-12] MEDS: NICOTINE 21MG/24HR 1 EA TRANSDERMAL TD SCH (08:19)
[2022-02-12] MEDS: METHADONE 10MG TAB PO SCH (08:19)
[2022-02-12] MEDS: DOCUSATE SODIUM 100MG CAPSULE PO SCH (08:20)
[2022-02-12] MEDS: buPROPion **XL** TABLET 150MG (WELLBUTRIN XL) PO SCH (08:20)
[2022-02-12] MEDS: VANICREAM MOISTURIZING SKIN CREAM 113GM TUBE TOP SCH ×3 (08:22→20:54)
[2022-02-12] MEDS: CLOTRIMAZOLE 1% TOPICAL CREAM 30GM TOP SCH ×2 (08:22→20:53)
[2022-02-12 18:02] VITALS: BP 114/63
[2022-02-12] MEDS: PRAZOSIN 1 MG CAP PO SCH (20:53)
[2022-02-12] MEDS: QUEtiapine FUMARATE 200 MG TAB PO SCH (20:53)
[2022-02-13 06:18] VITALS: BP 112/59
[2022-02-13] MEDS: METHADONE 10MG TAB PO SCH (08:16)
[2022-02-13] MEDS: METHADONE 5MG TAB PO SCH (08:16)
[2022-02-13] MEDS: buPROPion **XL** TABLET 150MG (WELLBUTRIN XL) PO SCH (08:16)
[2022-02-13] MEDS: DOCUSATE SODIUM 100MG CAPSULE PO SCH (08:17)
[2022-02-13] MEDS: CLOTRIMAZOLE 1% TOPICAL CREAM 30GM TOP SCH ×2 (08:17→21:00)
[2022-02-13] MEDS: VANICREAM MOISTURIZING SKIN CREAM 113GM TUBE TOP SCH ×3 (08:17→21:00)
[2022-02-13] MEDS: NICOTINE 21MG/24HR 1 EA TRANSDERMAL TD SCH (08:17)
[2022-02-13 18:23] VITALS: BP 136/69
[2022-02-13] MEDS: PRAZOSIN 1 MG CAP PO SCH (21:44)
[2022-02-13] MEDS: QUEtiapine FUMARATE 200 MG TAB PO SCH (21:44)
[2022-02-14 06:55] VITALS: BP 135/68
[2022-02-14] MEDS: METHADONE 5MG TAB PO SCH (08:32)
[2022-02-14] MEDS: buPROPion **XL** TABLET 150MG (WELLBUTRIN XL) PO SCH (08:32)
[2022-02-14] MEDS: NICOTINE 21MG/24HR 1 EA TRANSDERMAL TD SCH (08:33)
[2022-02-14] MEDS: METHADONE 10MG TAB PO SCH (08:33)
[2022-02-14] MEDS: DOCUSATE SODIUM 100MG CAPSULE PO SCH (08:36)
[2022-02-14] MEDS: CLOTRIMAZOLE 1% TOPICAL CREAM 30GM TOP SCH ×2 (08:36→21:00)
[2022-02-14] MEDS: VANICREAM MOISTURIZING SKIN CREAM 113GM TUBE TOP SCH ×4 (08:36→21:00)
[2022-02-14 19:17] VITALS: BP 132/85
[2022-02-14] MEDS: PRAZOSIN 1 MG CAP PO SCH (21:32)
[2022-02-14] MEDS: QUEtiapine FUMARATE 200 MG TAB PO SCH (21:32)
[2022-02-15 06:46] VITALS: BP 116/65
[2022-02-15] MEDS: CLOTRIMAZOLE 1% TOPICAL CREAM 30GM TOP SCH ×2 (08:10→20:48)
[2022-02-15] MEDS: DOCUSATE SODIUM 100MG CAPSULE PO SCH (08:10)
[2022-02-15] MEDS: VANICREAM MOISTURIZING SKIN CREAM 113GM TUBE TOP SCH ×3 (08:10→20:48)
[2022-02-15] MEDS: NICOTINE 21MG/24HR 1 EA TRANSDERMAL TD SCH (08:12)
[2022-02-15] MEDS: buPROPion **XL** TABLET 150MG (WELLBUTRIN XL) PO SCH (08:13)
[2022-02-15] MEDS: METHADONE 10MG TAB PO SCH (08:13)
[2022-02-15] MEDS: METHADONE 5MG TAB PO SCH (08:13)
[2022-02-15 18:14] VITALS: BP 148/69
[2022-02-15] MEDS: QUEtiapine FUMARATE 200 MG TAB PO SCH (20:47)
[2022-02-15] MEDS: PRAZOSIN 1 MG CAP PO SCH (20:48)
[2022-02-16 07:01] VITALS: BP 124/67
[2022-02-16] MEDS: buPROPion **XL** TABLET 150MG (WELLBUTRIN XL) PO SCH (08:06)
[2022-02-16] MEDS: METHADONE 5MG TAB PO SCH (08:06)
[2022-02-16] MEDS: METHADONE 10MG TAB PO SCH (08:07)
[2022-02-16] MEDS: DOCUSATE SODIUM 100MG CAPSULE PO SCH (08:09)
[2022-02-16] MEDS: NICOTINE 21MG/24HR 1 EA TRANSDERMAL TD SCH (08:10)
[2022-02-16] MEDS: CLOTRIMAZOLE 1% TOPICAL CREAM 30GM TOP SCH ×2 (08:10→21:00)
[2022-02-16] MEDS: VANICREAM MOISTURIZING SKIN CREAM 113GM TUBE TOP SCH ×3 (08:10→21:00)
[2022-02-16 18:16] VITALS: BP 144/65
[2022-02-16] MEDS: QUEtiapine FUMARATE 200 MG TAB PO SCH (21:03)
[2022-02-16] MEDS: PRAZOSIN 1 MG CAP PO SCH (21:04)
[2022-02-17 06:45] VITALS: BP 129/67
[2022-02-17] MEDS: METHADONE 10MG TAB PO SCH (08:10)
[2022-02-17] MEDS: METHADONE 5MG TAB PO SCH (08:10)
[2022-02-17] MEDS: buPROPion **XL** TABLET 150MG (WELLBUTRIN XL) PO SCH (08:11)
[2022-02-17] MEDS: NICOTINE 21MG/24HR 1 EA TRANSDERMAL TD SCH (08:12)
[2022-02-17] MEDS: CLOTRIMAZOLE 1% TOPICAL CREAM 30GM TOP SCH ×2 (08:12→21:00)
[2022-02-17] MEDS: VANICREAM MOISTURIZING SKIN CREAM 113GM TUBE TOP SCH ×3 (08:13→21:00)
[2022-02-17] MEDS: DOCUSATE SODIUM 100MG CAPSULE PO SCH (08:13)
[2022-02-17 18:11] VITALS: BP 139/91
[2022-02-17] MEDS: PRAZOSIN 1 MG CAP PO SCH (20:52)
[2022-02-17] MEDS: QUEtiapine FUMARATE 200 MG TAB PO SCH (20:52)
[2022-02-18 06:46] VITALS: BP 130/70
[2022-02-18] MEDS: CLOTRIMAZOLE 1% TOPICAL CREAM 30GM TOP SCH ×2 (08:22→21:00)
[2022-02-18] MEDS: VANICREAM MOISTURIZING SKIN CREAM 113GM TUBE TOP SCH ×3 (08:22→21:00)
[2022-02-18] MEDS: NICOTINE 21MG/24HR 1 EA TRANSDERMAL TD SCH (08:22)
[2022-02-18] MEDS: DOCUSATE SODIUM 100MG CAPSULE PO SCH (08:22)
[2022-02-18] MEDS: METHADONE 5MG TAB PO SCH (08:24)
[2022-02-18] MEDS: METHADONE 10MG TAB PO SCH (08:24)
[2022-02-18] MEDS: buPROPion **XL** TABLET 150MG (WELLBUTRIN XL) PO SCH (08:28)
[2022-02-18 16:19] VITALS: BP 115/58
[2022-02-18] MEDS: QUEtiapine FUMARATE 200 MG TAB PO SCH (21:13)
[2022-02-18] MEDS: PRAZOSIN 1 MG CAP PO SCH (21:13)
[2022-02-19 06:45] VITALS: BP 119/70
[2022-02-19] MEDS: METHADONE 10MG TAB PO SCH (08:00)
[2022-02-19] MEDS: METHADONE 5MG TAB PO SCH (08:00)
[2022-02-19] MEDS: buPROPion **XL** TABLET 150MG (WELLBUTRIN XL) PO SCH (08:01)
[2022-02-19] MEDS: NICOTINE 21MG/24HR 1 EA TRANSDERMAL TD SCH (08:05)
[2022-02-19] MEDS: DOCUSATE SODIUM 100MG CAPSULE PO SCH (08:05)
[2022-02-19] MEDS: VANICREAM MOISTURIZING SKIN CREAM 113GM TUBE TOP SCH ×3 (08:06→20:42)
[2022-02-19] MEDS: CLOTRIMAZOLE 1% TOPICAL CREAM 30GM TOP SCH ×2 (08:06→20:42)
[2022-02-19 16:49] VITALS: BP 138/68
[2022-02-19] MEDS: QUEtiapine FUMARATE 200 MG TAB PO SCH (20:41)
[2022-02-19] MEDS: PRAZOSIN 1 MG CAP PO SCH (20:42)
[2022-02-20 06:48] VITALS: BP 147/68
[2022-02-20] MEDS: METHADONE 5MG TAB PO SCH (08:34)
[2022-02-20] MEDS: buPROPion **XL** TABLET 150MG (WELLBUTRIN XL) PO SCH (08:34)
[2022-02-20] MEDS: METHADONE 10MG TAB PO SCH (08:34)
[2022-02-20] MEDS: NICOTINE 21MG/24HR 1 EA TRANSDERMAL TD SCH (08:36)
[2022-02-20] MEDS: DOCUSATE SODIUM 100MG CAPSULE PO SCH (08:36)
[2022-02-20] MEDS: CLOTRIMAZOLE 1% TOPICAL CREAM 30GM TOP SCH ×2 (08:37→21:00)
[2022-02-20] MEDS: VANICREAM MOISTURIZING SKIN CREAM 113GM TUBE TOP SCH ×3 (08:37→21:00)
[2022-02-20 16:44] VITALS: BP 134/66
[2022-02-20] MEDS: QUEtiapine FUMARATE 200 MG TAB PO SCH (21:07)
[2022-02-20] MEDS: PRAZOSIN 1 MG CAP PO SCH (21:07)
[2022-02-21 06:50] VITALS: BP 158/76
[2022-02-21] MEDS: CLOTRIMAZOLE 1% TOPICAL CREAM 30GM TOP SCH ×2 (08:13→21:00)
[2022-02-21] MEDS: NICOTINE 21MG/24HR 1 EA TRANSDERMAL TD SCH (08:13)
[2022-02-21] MEDS: DOCUSATE SODIUM 100MG CAPSULE PO SCH (08:13)
[2022-02-21] MEDS: VANICREAM MOISTURIZING SKIN CREAM 113GM TUBE TOP SCH ×3 (08:14→21:00)
[2022-02-21] MEDS: buPROPion **XL** TABLET 150MG (WELLBUTRIN XL) PO SCH (08:15)
[2022-02-21] MEDS: METHADONE 10MG TAB PO SCH (08:15)
[2022-02-21] MEDS: METHADONE 5MG TAB PO SCH (08:15)
[2022-02-21 18:27] VITALS: BP 115/59
[2022-02-21] MEDS: QUEtiapine FUMARATE 200 MG TAB PO SCH (21:35)
[2022-02-21] MEDS: PRAZOSIN 1 MG CAP PO SCH (21:36)
[2022-02-22 06:52] VITALS: BP 129/96
[2022-02-22] MEDS: NICOTINE 21MG/24HR 1 EA TRANSDERMAL TD SCH (08:21)
[2022-02-22] MEDS: DOCUSATE SODIUM 100MG CAPSULE PO SCH (08:21)
[2022-02-22] MEDS: VANICREAM MOISTURIZING SKIN CREAM 113GM TUBE TOP SCH ×3 (08:21→21:00)
[2022-02-22] MEDS: CLOTRIMAZOLE 1% TOPICAL CREAM 30GM TOP SCH ×2 (08:21→21:00)
[2022-02-22] MEDS: METHADONE 5MG TAB PO SCH (08:25)
[2022-02-22] MEDS: buPROPion **XL** TABLET 150MG (WELLBUTRIN XL) PO SCH (08:25)
[2022-02-22] MEDS: METHADONE 10MG TAB PO SCH (08:26)
[2022-02-22 16:13] VITALS: BP 120/58
[2022-02-22] MEDS: QUEtiapine FUMARATE 200 MG TAB PO SCH (21:39)
[2022-02-22] MEDS: PRAZOSIN 1 MG CAP PO SCH (21:40)
[2022-02-23 06:36] VITALS: BP 133/57
[2022-02-23] MEDS: buPROPion **XL** TABLET 150MG (WELLBUTRIN XL) PO SCH (08:15)
[2022-02-23] MEDS: METHADONE 10MG TAB PO SCH (08:15)
[2022-02-23] MEDS: METHADONE 5MG TAB PO SCH (08:15)
[2022-02-23] MEDS: DOCUSATE SODIUM 100MG CAPSULE PO SCH (08:15)
[2022-02-23] MEDS: VANICREAM MOISTURIZING SKIN CREAM 113GM TUBE TOP SCH ×3 (08:16→21:00)
[2022-02-23] MEDS: CLOTRIMAZOLE 1% TOPICAL CREAM 30GM TOP SCH ×2 (08:16→21:00)
[2022-02-23] MEDS: NICOTINE 21MG/24HR 1 EA TRANSDERMAL TD SCH (08:16)
[2022-02-23 16:43] VITALS: BP 123/59
[2022-02-23] MEDS: PRAZOSIN 1 MG CAP PO SCH (21:20)
[2022-02-23] MEDS: QUEtiapine FUMARATE 200 MG TAB PO SCH (21:20)
[2022-02-24 06:36] VITALS: BP 127/85
[2022-02-24] MEDS: DOCUSATE SODIUM 100MG CAPSULE PO SCH (08:09)
[2022-02-24] MEDS: NICOTINE 21MG/24HR 1 EA TRANSDERMAL TD SCH (08:09)
[2022-02-24] MEDS: VANICREAM MOISTURIZING SKIN CREAM 113GM TUBE TOP SCH ×3 (08:10→21:00)
[2022-02-24] MEDS: CLOTRIMAZOLE 1% TOPICAL CREAM 30GM TOP SCH ×2 (08:10→21:00)
[2022-02-24] MEDS: buPROPion **XL** TABLET 150MG (WELLBUTRIN XL) PO SCH (08:13)
[2022-02-24] MEDS: METHADONE 5MG TAB PO SCH (08:13)
[2022-02-24] MEDS: METHADONE 10MG TAB PO SCH (08:14)
[2022-02-24 17:05] VITALS: BP 110/78
[2022-02-24] MEDS: PRAZOSIN 1 MG CAP PO SCH (21:22)
[2022-02-24] MEDS: QUEtiapine FUMARATE 200 MG TAB PO SCH (21:22)
[2022-02-25 06:25] VITALS: BP 121/60
[2022-02-25] MEDS: METHADONE 5MG TAB PO SCH (08:13)
[2022-02-25] MEDS: METHADONE 10MG TAB PO SCH (08:13)
[2022-02-25] MEDS: buPROPion **XL** TABLET 150MG (WELLBUTRIN XL) PO SCH (08:13)
[2022-02-25] MEDS: CLOTRIMAZOLE 1% TOPICAL CREAM 30GM TOP SCH ×2 (08:18→21:00)
[2022-02-25] MEDS: DOCUSATE SODIUM 100MG CAPSULE PO SCH (08:18)
[2022-02-25] MEDS: VANICREAM MOISTURIZING SKIN CREAM 113GM TUBE TOP SCH ×3 (08:18→21:00)
[2022-02-25] MEDS: NICOTINE 21MG/24HR 1 EA TRANSDERMAL TD SCH (08:18)
[2022-02-25 18:36] VITALS: BP 141/78
[2022-02-25] MEDS: QUEtiapine FUMARATE 200 MG TAB PO SCH (21:00)
[2022-02-25] MEDS: PRAZOSIN 1 MG CAP PO SCH (21:02)
[2022-02-26 06:32] VITALS: BP 118/68
[2022-02-26] MEDS: METHADONE 5MG TAB PO SCH (08:02)
[2022-02-26] MEDS: buPROPion **XL** TABLET 150MG (WELLBUTRIN XL) PO SCH (08:02)
[2022-02-26] MEDS: METHADONE 10MG TAB PO SCH (08:03)
[2022-02-26] MEDS: DOCUSATE SODIUM 100MG CAPSULE PO SCH (08:15)
[2022-02-26] MEDS: NICOTINE 21MG/24HR 1 EA TRANSDERMAL TD SCH (08:16)
[2022-02-26] MEDS: CLOTRIMAZOLE 1% TOPICAL CREAM 30GM TOP SCH ×2 (08:16→20:51)
[2022-02-26] MEDS: VANICREAM MOISTURIZING SKIN CREAM 113GM TUBE TOP SCH ×3 (08:17→20:51)
[2022-02-26 18:17] VITALS: BP 120/68
[2022-02-26] MEDS: PRAZOSIN 1 MG CAP PO SCH (20:51)
[2022-02-26] MEDS: QUEtiapine FUMARATE 200 MG TAB PO SCH (20:51)
[2022-02-27 06:39] VITALS: BP 146/70
[2022-02-27] MEDS: DOCUSATE SODIUM 100MG CAPSULE PO SCH (08:11)
[2022-02-27] MEDS: NICOTINE 21MG/24HR 1 EA TRANSDERMAL TD SCH (08:12)
[2022-02-27] MEDS: CLOTRIMAZOLE 1% TOPICAL CREAM 30GM TOP SCH ×2 (08:12→21:00)
[2022-02-27] MEDS: VANICREAM MOISTURIZING SKIN CREAM 113GM TUBE TOP SCH ×3 (08:12→21:00)
[2022-02-27] MEDS: METHADONE 5MG TAB PO SCH (08:16)
[2022-02-27] MEDS: buPROPion **XL** TABLET 150MG (WELLBUTRIN XL) PO SCH (08:16)
[2022-02-27] MEDS: METHADONE 10MG TAB PO SCH (08:16)
[2022-02-27 21:35] VITALS: BP 130/82
[2022-02-27] MEDS: PRAZOSIN 1 MG CAP PO SCH (21:35)
[2022-02-27] MEDS: QUEtiapine FUMARATE 200 MG TAB PO SCH (21:35)
[2022-02-28 06:45] VITALS: BP 142/86
[2022-02-28] MEDS: METHADONE 5MG TAB PO SCH (08:04)
[2022-02-28] MEDS: METHADONE 10MG TAB PO SCH (08:05)
[2022-02-28] MEDS: buPROPion **XL** TABLET 150MG (WELLBUTRIN XL) PO SCH (08:06)
[2022-02-28] MEDS: NICOTINE 21MG/24HR 1 EA TRANSDERMAL TD SCH (08:07)
[2022-02-28] MEDS: CLOTRIMAZOLE 1% TOPICAL CREAM 30GM TOP SCH (08:07)
[2022-02-28] MEDS: VANICREAM MOISTURIZING SKIN CREAM 113GM TUBE TOP SCH ×2 (08:07→15:17)
[2022-02-28] MEDS: DOCUSATE SODIUM 100MG CAPSULE PO SCH (08:07)
[2022-02-28] MEDS ORDERED: BUPR150T12 PO (13:23)
[2022-02-28] MEDS ORDERED: MINI1CAP PO (13:23)
[2022-02-28] MEDS ORDERED: QUET200T2 PO (13:23)
== END 2022-02-28 14:56 | disposition home or self-care (01) | DRG 755 ==
LOC: M ED 18:25 → M ED INP 01-25 13:04 → M PSY 01-25 16:04
PROVIDERS: ADMIT Student in an Organized Health Care Education/Training Program; ATTEND Psychiatry & Neurology Psychiatry
DX: F43.23 Adjustment disorder with mixed anxiety and depressed mood (principal); Z59.00 Homelessness unspecified; F11.10 Opioid abuse, uncomplicated; F15.10 Other stimulant abuse, uncomplicated; L30.9 Dermatitis, unspecified; Z81.3 Family history of other psychoactive substance abuse and dependence; B35.3 Tinea pedis; F60.2 Antisocial personality disorder; Z91.51 Personal history of suicidal behavior; Z91.19 Patient's noncompliance with other medical treatment and regimen; R45.851 Suicidal ideations; Z79.899 Other long term (current) drug therapy; Z88.1 Allergy status to other antibiotic agents; Z88.8 Allergy status to other drugs, medicaments and biological substances; Z88.6 Allergy status to analgesic agent; R20.0 Anesthesia of skin

== ENCOUNTER 2022-05-22 01:39 | Emergency (ER) | payer OTHER ==
[~2022-05-22] VITALS: Ht 188 cm; Wt 94.5 kg
[~2022-05-22 01:39] MED LIST changes: +METH40CA2 PO; +MINI1CAP PO
[2022-05-22 01:40] VITALS: BP 160/74
== END 2022-05-22 02:22 | disposition left against medical advice (07) ==
LOC: M ED 01:39
DX: Z53.21 Procedure and treatment not carried out due to patient leaving prior to being seen by health care provider (principal)

== ENCOUNTER 2022-07-08 00:02 | Emergency (ER) | payer OTHER ==
[~2022-07-08] VITALS: Ht 188 cm; Wt 81.8 kg
[~2022-07-08 00:02] MED LIST changes: -PAXI20TA29 PO; +PAXI20TA30 PO
[2022-07-08 01:30] VITALS: BP 153/74
== END 2022-07-08 01:52 | disposition home or self-care (01) ==
LOC: M ED 00:02 → EDBD 00:02 → M ED 01:52
DX: R58 Hemorrhage, not elsewhere classified (principal); L02.414 Cutaneous abscess of left upper limb; Z86.14 Personal history of Methicillin resistant Staphylococcus aureus infection; F19.10 Other psychoactive substance abuse, uncomplicated; Z86.19 Personal history of other infectious and parasitic diseases; F17.200 Nicotine dependence, unspecified, uncomplicated; Z79.899 Other long term (current) drug therapy; Z88.1 Allergy status to other antibiotic agents; Z88.8 Allergy status to other drugs, medicaments and biological substances

== ENCOUNTER 2022-07-22 09:27 | Inpatient (IN) | payer OTHER ==
[~2022-07-22] VITALS: Ht 188 cm; Wt 84.6 kg
[2022-07-22] MEDS ORDERED: NS 1,000 ML IV ONE (13:05)
[2022-07-22 13:20] LABS: BASO % 0.4 % (0.0-1.0); EOS # 0.2 10^3/uL (0.0-0.5); HEMATOCRIT 32.5 % (42.0-52.0); HEMOGLOBIN 10.3 g/dl (13.5-17.5); LYMPH # 2.2 10^3/uL (1.5-5.0); LYMPH % 39.1 % (24.0-44.0); MEAN CORPUSCULAR HEMOGLOBIN 27.2 pg (27.0-33.0); MEAN CORPUSCULAR HGB CONC 31.7 g/dl (32.0-36.5); MONO # 0.4 10^3/uL (0.0-0.8); MONO % 6.9 % (2.0-8.0); NEUTROPHILS # 2.8 10^3/uL (1.5-8.5); NEUTROPHILS % 50.4 % (36.0-66.0); PLATELET COUNT, AUTOMATED 279 10^3/uL (150-450); RED BLOOD COUNT 3.78 10^6/uL (4.30-6.10); WHITE BLOOD COUNT 5.6 10^3/uL (4.0-10.0)
[2022-07-22 13:57] LABS: ALBUMIN 3.3 G/DL (3.2-5.2); ALKALINE PHOSPHATASE 130 U/L (46-116); ALT/SGPT 20 U/L (7.0-40); AST/SGOT 29 U/L (<34); BILIRUBIN,TOTAL 0.4 MG/DL (0.3-1.2); BLOOD UREA NITROGEN 21 MG/DL (9-23); CALCIUM LEVEL 8.8 MG/DL (8.5-10.1); CARBON DIOXIDE LEVEL 26 MMOL/L (20-31); CHLORIDE LEVEL 103 MMOL/L (98-107); CREATININE FOR GFR 0.77 MG/DL (0.70-1.30); GLOMERULAR FILTRATION RATE > 60.0 (>60); GLUCOSE, FASTING 64 MG/DL (60-100); POTASSIUM SERUM 4.4 MMOL/L (3.5-5.1); SODIUM LEVEL 139 MMOL/L (136-145); TOTAL PROTEIN 6.8 G/DL (5.7-8.2)
[2022-07-22] MEDS ORDERED: DEXTROSE 50% 50ML SYRINGE IV STA (14:18)
[2022-07-22] MEDS: D5W/0.45% SODIUM CHLORIDE 1,000 ML IV SCH ×2 (14:25→22:45)
[2022-07-22] MEDS ORDERED: PIPERACILLIN/TAZOBACTAM SOD 3.375 GM in D5W MINI-BAG PLUS 50 ML IV ONE (14:55)
[2022-07-22] MEDS ORDERED: METH40CA2 PO (16:04)
[2022-07-22] MEDS ORDERED: METH-1022 PO (16:04)
[2022-07-22] MEDS ORDERED: ISOVUE-300 61% 50ML VIAL As Ordered ONE (16:06)
[2022-07-22] MEDS ORDERED: LIDOCAINE 1% SDV 30ML VIAL As Ordered ONE (16:10)
[2022-07-22] MEDS ORDERED: BUPIVACAINE/EPIN 0.5% 30ML VIAL As Ordered ONE (16:10)
[2022-07-22] MEDS ORDERED: PAPAVERINE HCL 60MG 2ML VIAL (30MG/ML) As Ordered ONE (16:11)
[2022-07-22] MEDS ORDERED: ROCURONIUM BROMIDE 50MG/5ML VIAL As Ordered ONE ×3 (16:43→20:02)
[2022-07-22] MEDS ORDERED: propofoL 200 MG/20 ML VIAL As Ordered ONE (16:43)
[2022-07-22] MEDS ORDERED: ONDANSETRON 4MG 2ML VIAL As Ordered ONE (16:43)
[2022-07-22] MEDS ORDERED: KETOROLAC 60MG 2ML VIAL As Ordered ONE (16:43)
[2022-07-22] MEDS ORDERED: LIDOCAINE 2% 100MG/5ML SDV (FOR ANES.) As Ordered ONE (16:43)
[2022-07-22] MEDS ORDERED: MIDAZOLAM INJ 2MG/2ML VIAL As Ordered ONE (16:44)
[2022-07-22] MEDS ORDERED: fentaNYL 100 MCG/2 ML INJECTION As Ordered ONE (16:44)
[2022-07-22] MEDS ORDERED: med rec comment (17:36)
[2022-07-22] MEDS ORDERED: HOME MED LIST COMPLETE! XX SCH (17:40)
[2022-07-22] MEDS ORDERED: ACETAMINOPHEN 1000MG 100ML IV BAG As Ordered ONE (18:39)
[2022-07-22] MEDS ORDERED: THROMBIN 5,000 UNITS VIAL As Ordered ONE (19:34)
[2022-07-22] MEDS ORDERED: THROMBIN 20,000 UNITS KIT As Ordered ONE (19:34)
[2022-07-22] MEDS ORDERED: SUGAMMADEX SODIUM 500 MG/5 ML VIAL (BRIDION) As Ordered ONE (20:42)
[2022-07-22] MEDS ORDERED: ONDANSETRON 4MG 2ML VIAL IV PRN (21:05)
[2022-07-22] MEDS ORDERED: fentaNYL 100 MCG/2 ML INJECTION IV PRN (21:05)
[2022-07-22] MEDS ORDERED: oxyCODONE 5MG TAB PO PRN (21:05)
[2022-07-22] MEDS ORDERED: LR 1,000 ML IV SCH (21:05)
[2022-07-22] MEDS ORDERED: HYDROMORPHONE HCL 0.5 MG/ 0.5 ML SYRINGE IV PRN (21:05)
[2022-07-22] MEDS ORDERED: METOCLOPRAMIDE INJ 10MG/2ML VIAL IV PRN (21:05)
[2022-07-22] MEDS ORDERED: ALBUTEROL SULFATE 2.5MG/0.5ML INH NEB SOLN INH ONE (21:05)
[2022-07-22 22:22] LABS: HEMATOCRIT 29.5 % (42.0-52.0); HEMOGLOBIN 9.3 g/dl (13.5-17.5); MEAN CORPUSCULAR HEMOGLOBIN 27.4 pg (27.0-33.0); MEAN CORPUSCULAR HGB CONC 31.5 g/dl (32.0-36.5); MEAN CORPUSCULAR VOLUME 86.8 fl (80.0-96.0); PLATELET COUNT, AUTOMATED 295 10^3/uL (150-450); WHITE BLOOD COUNT 6.4 10^3/uL (4.0-10.0)
[2022-07-22 22:35] LABS: INR 1.09; PROTHROMBIN TIME 14.3 SECONDS (12.5-14.5)
[2022-07-22 22:36] LABS: PARTIAL THROMBOPLASTIN TIME 29.7 SECONDS (24.8-34.2)
[2022-07-22 22:52] LABS: MAGNESIUM LEVEL 1.9 MG/DL (1.8-2.4)
[2022-07-22 22:54] LABS: BLOOD UREA NITROGEN 18 MG/DL (9-23); CALCIUM LEVEL 8.7 MG/DL (8.5-10.1); CARBON DIOXIDE LEVEL 28 MMOL/L (20-31); CHLORIDE LEVEL 102 MMOL/L (98-107); CREATININE FOR GFR 0.78 MG/DL (0.70-1.30); GLOMERULAR FILTRATION RATE > 60.0 (>60); GLUCOSE, FASTING 134 MG/DL (60-100); PHOSPHORUS LEVEL 3.4 MG/DL (2.5-4.9); POTASSIUM SERUM 4.5 MMOL/L (3.5-5.1); SODIUM LEVEL 135 MMOL/L (136-145)
[2022-07-22 23:10] VITALS: BP 126/58
[2022-07-22] MEDS: PIPERACILLIN/TAZOBACTAM SOD 3.375 GM in D5W MINI-BAG PLUS 50 ML IV SCH (23:10)
[2022-07-23] VITALS (13 sets, daily range): BP systolic 113–125; BP diastolic 53–58
[2022-07-23] MEDS: PIPERACILLIN/TAZOBACTAM SOD 3.375 GM in D5W MINI-BAG PLUS 50 ML IV SCH ×4 (03:30→21:16)
[2022-07-23 05:57] LABS: HEMATOCRIT 26.4 % (42.0-52.0); HEMOGLOBIN 8.3 g/dl (13.5-17.5); MEAN CORPUSCULAR HEMOGLOBIN 27.4 pg (27.0-33.0); MEAN CORPUSCULAR HGB CONC 31.4 g/dl (32.0-36.5); MEAN CORPUSCULAR VOLUME 87.1 fl (80.0-96.0); PLATELET COUNT, AUTOMATED 281 10^3/uL (150-450); RED BLOOD COUNT 3.03 10^6/uL (4.30-6.10); WHITE BLOOD COUNT 5.3 10^3/uL (4.0-10.0)
[2022-07-23 06:34] LABS: ALBUMIN 2.6 G/DL (3.2-5.2); ALKALINE PHOSPHATASE 108 U/L (46-116); ALT/SGPT 15 U/L (7.0-40); AST/SGOT 20 U/L (<34); BILIRUBIN,TOTAL 0.4 MG/DL (0.3-1.2); BLOOD UREA NITROGEN 15 MG/DL (9-23); CALCIUM LEVEL 8.4 MG/DL (8.5-10.1); CARBON DIOXIDE LEVEL 27 MMOL/L (20-31); CHLORIDE LEVEL 102 MMOL/L (98-107); CREATININE FOR GFR 0.68 MG/DL (0.70-1.30); GLOMERULAR FILTRATION RATE > 60.0 (>60); GLUCOSE, FASTING 148 MG/DL (60-100); POTASSIUM SERUM 4.2 MMOL/L (3.5-5.1); SODIUM LEVEL 137 MMOL/L (136-145); TOTAL PROTEIN 5.9 G/DL (5.7-8.2)
[2022-07-23] MEDS: D5W/0.45% SODIUM CHLORIDE 1,000 ML IV SCH (07:54)
[2022-07-23] MEDS: METHADONE 10MG TAB PO SCH (12:40)
[2022-07-23] MEDS ORDERED: MULTIVITAMINS/MINERALS THERAP 1 TAB PO ONE (15:25)
[2022-07-23] MEDS: METHYLPHENIDATE 5 MG TAB PO SCH (16:36)
[2022-07-23] MEDS ORDERED: VANCOMYCIN HCL 1,000 MG, VIAL MATE ADAPTER 1 EACH in D5W 250 ML IV ONE (20:00)
[2022-07-23] MEDS: VANCOMYCIN HCL 1,000 MG, VIAL MATE ADAPTER 1 EACH in NS 250 ML IV SCH (23:50)
[2022-07-24] VITALS (8 sets, daily range): BP systolic 104–117; BP diastolic 54–63
[2022-07-24] MEDS: PIPERACILLIN/TAZOBACTAM SOD 3.375 GM in D5W MINI-BAG PLUS 50 ML IV SCH ×4 (03:17→21:59)
[2022-07-24 07:17] LABS: BASO % 0.5 % (0.0-1.0); EOS # 0.1 10^3/uL (0.0-0.5); EOS % 1.8 % (0.0-3.0); HEMATOCRIT 25.2 % (42.0-52.0); HEMOGLOBIN 7.8 g/dl (13.5-17.5); LYMPH # 3.1 10^3/uL (1.5-5.0); LYMPH % 47.5 % (24.0-44.0); MEAN CORPUSCULAR HEMOGLOBIN 27.3 pg (27.0-33.0); MEAN CORPUSCULAR VOLUME 88.1 fl (80.0-96.0); MONO # 0.7 10^3/uL (0.0-0.8); MONO % 10.6 % (2.0-8.0); NEUTROPHILS # 2.6 10^3/uL (1.5-8.5); NEUTROPHILS % 39.4 % (36.0-66.0); PLATELET COUNT, AUTOMATED 240 10^3/uL (150-450); RED BLOOD COUNT 2.86 10^6/uL (4.30-6.10); WHITE BLOOD COUNT 6.5 10^3/uL (4.0-10.0)
[2022-07-24 07:47] LABS: VANCOMYCIN LEVEL TROUGH 15.4 UG/ML (10.0-20.0)
[2022-07-24 07:53] LABS: ALBUMIN 2.5 G/DL (3.2-5.2); ALKALINE PHOSPHATASE 95 U/L (46-116); ALT/SGPT 13 U/L (7.0-40); AST/SGOT 15 U/L (<34); BILIRUBIN,TOTAL < 0.2 MG/DL (0.3-1.2); BLOOD UREA NITROGEN 13 MG/DL (9-23); CALCIUM LEVEL 7.9 MG/DL (8.5-10.1); CARBON DIOXIDE LEVEL 26 MMOL/L (20-31); CHLORIDE LEVEL 107 MMOL/L (98-107); CREATININE FOR GFR 0.83 MG/DL (0.70-1.30); GLOMERULAR FILTRATION RATE > 60.0 (>60); GLUCOSE, FASTING 96 MG/DL (60-100); POTASSIUM SERUM 3.7 MMOL/L (3.5-5.1); SODIUM LEVEL 141 MMOL/L (136-145); TOTAL PROTEIN 5.5 G/DL (5.7-8.2)
[2022-07-24] MEDS: VANCOMYCIN HCL 1,000 MG, VIAL MATE ADAPTER 1 EACH in NS 250 ML IV SCH (08:05)
[2022-07-24] MEDS: ASPIRIN 81MG ENTERIC TABLET PO SCH (09:22)
[2022-07-24] MEDS: METHYLPHENIDATE 20 MG SR TAB (RITALIN SR) PO SCH (09:22)
[2022-07-24] MEDS: METHADONE 10MG TAB PO SCH (09:22)
[2022-07-24] MEDS: NICOTINE 21MG/24HR 1 EA TRANSDERMAL TD SCH (11:33)
[2022-07-24] MEDS: METHYLPHENIDATE 5 MG TAB PO SCH (15:34)
[2022-07-24] MEDS: VANCOMYCIN HCL 750 MG, VIAL MATE ADAPTER 1 EACH in D5W 250 ML IV SCH (19:37)
[2022-07-24] MEDS: VANCOMYCIN HCL 500 MG in D5W MINI-BAG PLUS 100 ML IV SCH (21:04)
[2022-07-25] MEDS: PIPERACILLIN/TAZOBACTAM SOD 3.375 GM in D5W MINI-BAG PLUS 50 ML IV SCH (02:12)
[2022-07-25 04:00] VITALS: BP 119/65
[2022-07-25 07:14] LABS: BASO % 0.5 % (0.0-1.0); EOS # 0.2 10^3/uL (0.0-0.5); EOS % 3.2 % (0.0-3.0); HEMATOCRIT 25.7 % (42.0-52.0); LYMPH # 2.9 10^3/uL (1.5-5.0); LYMPH % 44.1 % (24.0-44.0); MEAN CORPUSCULAR HEMOGLOBIN 27.3 pg (27.0-33.0); MEAN CORPUSCULAR HGB CONC 31.1 g/dl (32.0-36.5); MEAN CORPUSCULAR VOLUME 87.7 fl (80.0-96.0); MONO # 0.8 10^3/uL (0.0-0.8); MONO % 11.7 % (2.0-8.0); NEUTROPHILS # 2.7 10^3/uL (1.5-8.5); NEUTROPHILS % 40.3 % (36.0-66.0); PLATELET COUNT, AUTOMATED 236 10^3/uL (150-450); RED BLOOD COUNT 2.93 10^6/uL (4.30-6.10); WHITE BLOOD COUNT 6.6 10^3/uL (4.0-10.0)
[2022-07-25 07:40] LABS: VANCOMYCIN LEVEL TROUGH 11.9 UG/ML (10.0-20.0)
[2022-07-25 07:42] LABS: ALBUMIN 2.5 G/DL (3.2-5.2); ALKALINE PHOSPHATASE 96 U/L (46-116); ALT/SGPT 12 U/L (7.0-40); AST/SGOT 17 U/L (<34); BILIRUBIN,TOTAL < 0.2 MG/DL (0.3-1.2); BLOOD UREA NITROGEN 10 MG/DL (9-23); CALCIUM LEVEL 8.2 MG/DL (8.5-10.1); CARBON DIOXIDE LEVEL 29 MMOL/L (20-31); CHLORIDE LEVEL 107 MMOL/L (98-107); CREATININE FOR GFR 0.83 MG/DL (0.70-1.30); GLOMERULAR FILTRATION RATE > 60.0 (>60); GLUCOSE, FASTING 79 MG/DL (60-100); SODIUM LEVEL 141 MMOL/L (136-145); TOTAL PROTEIN 5.6 G/DL (5.7-8.2)
[2022-07-25 08:00] VITALS: BP 118/56
[2022-07-25] MEDS: METHADONE 10MG TAB PO SCH (08:25)
[2022-07-25] MEDS: VANCOMYCIN HCL 750 MG, VIAL MATE ADAPTER 1 EACH in D5W 250 ML IV SCH (08:25)
[2022-07-25] MEDS: METHYLPHENIDATE 20 MG SR TAB (RITALIN SR) PO SCH (08:25)
[2022-07-25] MEDS: ASPIRIN 81MG ENTERIC TABLET PO SCH (08:25)
[2022-07-25] MEDS: VANCOMYCIN HCL 500 MG in D5W MINI-BAG PLUS 100 ML IV SCH (08:26)
[2022-07-25] MEDS: NICOTINE 21MG/24HR 1 EA TRANSDERMAL TD SCH (09:25)
[2022-07-25] MEDS: LINEZOLID 600MG TABLET (ZYVOX) PO SCH ×2 (12:22→20:14)
[2022-07-25] MEDS: METHYLPHENIDATE 5 MG TAB PO SCH (16:19)
[2022-07-25] MEDS: ACETAMINOPHEN TAB 650MG DOSE (2X325MG) PO PRN (16:20)
[2022-07-25 22:00] VITALS: BP 121/63
[2022-07-26 04:00] VITALS: BP 116/58
[2022-07-26 07:17] LABS: HEMATOCRIT 27.5 % (42.0-52.0); HEMOGLOBIN 8.4 g/dl (13.5-17.5); MEAN CORPUSCULAR HEMOGLOBIN 27.2 pg (27.0-33.0); MEAN CORPUSCULAR HGB CONC 30.5 g/dl (32.0-36.5); PLATELET COUNT, AUTOMATED 259 10^3/uL (150-450); RED BLOOD COUNT 3.09 10^6/uL (4.30-6.10); WHITE BLOOD COUNT 5.4 10^3/uL (4.0-10.0)
[2022-07-26 07:49] LABS: BLOOD UREA NITROGEN 13 MG/DL (9-23); CALCIUM LEVEL 8.3 MG/DL (8.5-10.1); CARBON DIOXIDE LEVEL 28 MMOL/L (20-31); CHLORIDE LEVEL 108 MMOL/L (98-107); GLOMERULAR FILTRATION RATE > 60.0 (>60); GLUCOSE, FASTING 80 MG/DL (60-100); POTASSIUM SERUM 4.2 MMOL/L (3.5-5.1); SODIUM LEVEL 141 MMOL/L (136-145)
[2022-07-26 08:19] LABS: ATYPICAL LYMPH 3 % (0-5); BASOPHILS 1 % (0-1); EOSINOPHILS 3 % (0-3); LYMPHOCYTES 44 % (16-44); MONOCYTES 13 % (0-5); NEUTROPHILS 35 % (28-66); PLATELET ESTIMATE NORMAL (NORMAL)
[2022-07-26 08:20] LABS: ANISOCYTOSIS 1+; POIKILOCYTOSIS 1+
[2022-07-26 09:30] VITALS: BP 118/58
[2022-07-26] MEDS: ASPIRIN 81MG ENTERIC TABLET PO SCH (09:35)
[2022-07-26] MEDS: ACETAMINOPHEN TAB 650MG DOSE (2X325MG) PO PRN (09:35)
[2022-07-26] MEDS: METHYLPHENIDATE 20 MG SR TAB (RITALIN SR) PO SCH (09:36)
[2022-07-26] MEDS: LINEZOLID 600MG TABLET (ZYVOX) PO SCH ×2 (09:36→20:03)
[2022-07-26] MEDS: METHADONE 10MG TAB PO SCH (09:37)
[2022-07-26] MEDS: NICOTINE 21MG/24HR 1 EA TRANSDERMAL TD SCH (09:43)
[2022-07-26] MEDS: METHYLPHENIDATE 5 MG TAB PO SCH (14:16)
[2022-07-26 16:00] VITALS: BP 123/57
[2022-07-26 20:00] VITALS: BP 117/58
[2022-07-26 21:30] VITALS: BP 126/68
[2022-07-27 06:00] VITALS: BP 105/50
[2022-07-27 07:55] LABS: BASO % 0.5 % (0.0-1.0); EOS # 0.2 10^3/uL (0.0-0.5); EOS % 4.1 % (0.0-3.0); HEMATOCRIT 32.7 % (42.0-52.0); HEMOGLOBIN 10.1 g/dl (13.5-17.5); LYMPH # 2.6 10^3/uL (1.5-5.0); LYMPH % 46.5 % (24.0-44.0); MEAN CORPUSCULAR HEMOGLOBIN 27.2 pg (27.0-33.0); MEAN CORPUSCULAR HGB CONC 30.9 g/dl (32.0-36.5); MEAN CORPUSCULAR VOLUME 88.1 fl (80.0-96.0); MONO # 0.5 10^3/uL (0.0-0.8); MONO % 8.9 % (2.0-8.0); NEUTROPHILS # 2.2 10^3/uL (1.5-8.5); NEUTROPHILS % 39.8 % (36.0-66.0); PLATELET COUNT, AUTOMATED 279 10^3/uL (150-450); RED BLOOD COUNT 3.71 10^6/uL (4.30-6.10); WHITE BLOOD COUNT 5.6 10^3/uL (4.0-10.0)
[2022-07-27 08:23] LABS: MAGNESIUM LEVEL 1.8 MG/DL (1.8-2.4)
[2022-07-27 08:24] LABS: BLOOD UREA NITROGEN 14 MG/DL (9-23); CALCIUM LEVEL 8.5 MG/DL (8.5-10.1); CARBON DIOXIDE LEVEL 27 MMOL/L (20-31); CHLORIDE LEVEL 108 MMOL/L (98-107); CREATININE FOR GFR 0.74 MG/DL (0.70-1.30); GLOMERULAR FILTRATION RATE > 60.0 (>60); GLUCOSE, FASTING 81 MG/DL (60-100); POTASSIUM SERUM 4.2 MMOL/L (3.5-5.1); SODIUM LEVEL 142 MMOL/L (136-145)
[2022-07-27] MEDS: METHYLPHENIDATE 20 MG SR TAB (RITALIN SR) PO SCH (08:35)
[2022-07-27] MEDS: LINEZOLID 600MG TABLET (ZYVOX) PO SCH ×2 (08:35→21:27)
[2022-07-27] MEDS: ASPIRIN 81MG ENTERIC TABLET PO SCH (08:35)
[2022-07-27] MEDS: NICOTINE 21MG/24HR 1 EA TRANSDERMAL TD SCH (08:35)
[2022-07-27] MEDS: METHADONE 10MG TAB PO SCH (13:07)
[2022-07-27 14:00] VITALS: BP 128/70
[2022-07-27] MEDS: METHYLPHENIDATE 5 MG TAB PO SCH (16:03)
[2022-07-27 22:00] VITALS: BP 128/65
[2022-07-28 06:00] VITALS: BP 118/66
[2022-07-28] MEDS: METHYLPHENIDATE 20 MG SR TAB (RITALIN SR) PO SCH (08:05)
[2022-07-28] MEDS: ASPIRIN 81MG ENTERIC TABLET PO SCH (08:06)
[2022-07-28] MEDS: METHADONE 10MG TAB PO SCH (08:06)
[2022-07-28] MEDS: LINEZOLID 600MG TABLET (ZYVOX) PO SCH ×2 (08:14→20:38)
[2022-07-28] MEDS: NICOTINE 21MG/24HR 1 EA TRANSDERMAL TD SCH (08:40)
[2022-07-28 08:47] LABS: BASO % 0.6 % (0.0-1.0); EOS # 0.3 10^3/uL (0.0-0.5); HEMATOCRIT 33.8 % (42.0-52.0); HEMOGLOBIN 10.3 g/dl (13.5-17.5); LYMPH # 2.3 10^3/uL (1.5-5.0); LYMPH % 44.1 % (24.0-44.0); MEAN CORPUSCULAR HEMOGLOBIN 26.9 pg (27.0-33.0); MEAN CORPUSCULAR HGB CONC 30.5 g/dl (32.0-36.5); MEAN CORPUSCULAR VOLUME 88.3 fl (80.0-96.0); MONO # 0.5 10^3/uL (0.0-0.8); MONO % 9.5 % (2.0-8.0); NEUTROPHILS # 2.1 10^3/uL (1.5-8.5); NEUTROPHILS % 40.6 % (36.0-66.0); RED BLOOD COUNT 3.83 10^6/uL (4.30-6.10); WHITE BLOOD COUNT 5.2 10^3/uL (4.0-10.0)
[2022-07-28 09:04] LABS: PLATELET COUNT, AUTOMATED 274 10^3/uL (150-450)
[2022-07-28] MEDS: METHYLPHENIDATE 5 MG TAB PO SCH (13:56)
[2022-07-28 14:00] VITALS: BP 147/66
[2022-07-28 20:00] VITALS: BP 115/60
[2022-07-28] MEDS: ACETAMINOPHEN TAB 650MG DOSE (2X325MG) PO PRN (20:39)
[2022-07-29 06:00] VITALS: BP 107/61
[2022-07-29 06:31] LABS: BASO % 0.4 % (0.0-1.0); EOS # 0.2 10^3/uL (0.0-0.5); EOS % 3.9 % (0.0-3.0); HEMATOCRIT 30.4 % (42.0-52.0); HEMOGLOBIN 9.3 g/dl (13.5-17.5); LYMPH # 2.6 10^3/uL (1.5-5.0); LYMPH % 50.6 % (24.0-44.0); MEAN CORPUSCULAR HEMOGLOBIN 26.6 pg (27.0-33.0); MEAN CORPUSCULAR HGB CONC 30.6 g/dl (32.0-36.5); MEAN CORPUSCULAR VOLUME 86.9 fl (80.0-96.0); MONO # 0.5 10^3/uL (0.0-0.8); MONO % 9.4 % (2.0-8.0); NEUTROPHILS # 1.8 10^3/uL (1.5-8.5); NEUTROPHILS % 35.1 % (36.0-66.0); WHITE BLOOD COUNT 5.1 10^3/uL (4.0-10.0)
[2022-07-29 06:59] LABS: PLATELET COUNT, AUTOMATED 221 10^3/uL (150-450)
[2022-07-29] MEDS: ASPIRIN 81MG ENTERIC TABLET PO SCH (10:26)
[2022-07-29] MEDS: LINEZOLID 600MG TABLET (ZYVOX) PO SCH ×2 (10:26→21:32)
[2022-07-29] MEDS: METHYLPHENIDATE 20 MG SR TAB (RITALIN SR) PO SCH (10:26)
[2022-07-29] MEDS: METHADONE 10MG TAB PO SCH (10:27)
[2022-07-29] MEDS: NICOTINE 21MG/24HR 1 EA TRANSDERMAL TD SCH (10:28)
[2022-07-29 13:52] VITALS: BP 140/54
[2022-07-29] MEDS: MULTIVITAMINS/MINERALS THERAP 1 TAB PO SCH (15:19)
[2022-07-29] MEDS: METHYLPHENIDATE 5 MG TAB PO SCH (15:20)
[2022-07-29] MEDS: ACETAMINOPHEN TAB 650MG DOSE (2X325MG) PO PRN (15:22)
[2022-07-29 20:00] VITALS: BP 124/59
[2022-07-30 06:00] VITALS: BP 120/59
[2022-07-30] MEDS: MULTIVITAMINS/MINERALS THERAP 1 TAB PO SCH (09:40)
[2022-07-30] MEDS: LINEZOLID 600MG TABLET (ZYVOX) PO SCH ×2 (09:40→20:54)
[2022-07-30] MEDS: ASPIRIN 81MG ENTERIC TABLET PO SCH (09:40)
[2022-07-30] MEDS: NICOTINE 21MG/24HR 1 EA TRANSDERMAL TD SCH (09:40)
[2022-07-30] MEDS: METHYLPHENIDATE 20 MG SR TAB (RITALIN SR) PO SCH (09:41)
[2022-07-30] MEDS: METHADONE 10MG TAB PO SCH (09:41)
[2022-07-30] MEDS: METHYLPHENIDATE 5 MG TAB PO SCH (14:51)
[2022-07-31 05:56] LABS: BASO % 0.6 % (0.0-1.0); EOS # 0.2 10^3/uL (0.0-0.5); EOS % 4.3 % (0.0-3.0); HEMATOCRIT 34.4 % (42.0-52.0); HEMOGLOBIN 10.1 g/dl (13.5-17.5); LYMPH # 2.7 10^3/uL (1.5-5.0); LYMPH % 51.4 % (24.0-44.0); MEAN CORPUSCULAR HEMOGLOBIN 26.1 pg (27.0-33.0); MEAN CORPUSCULAR HGB CONC 29.4 g/dl (32.0-36.5); MEAN CORPUSCULAR VOLUME 88.9 fl (80.0-96.0); MONO # 0.5 10^3/uL (0.0-0.8); MONO % 8.9 % (2.0-8.0); NEUTROPHILS # 1.8 10^3/uL (1.5-8.5); NEUTROPHILS % 34.4 % (36.0-66.0); PLATELET COUNT, AUTOMATED 253 10^3/uL (150-450); RED BLOOD COUNT 3.87 10^6/uL (4.30-6.10); WHITE BLOOD COUNT 5.2 10^3/uL (4.0-10.0)
[2022-07-31 06:00] VITALS: BP 114/58
[2022-07-31 06:07] LABS: MAGNESIUM LEVEL 1.9 MG/DL (1.8-2.4)
[2022-07-31 06:08] LABS: BLOOD UREA NITROGEN 20 MG/DL (9-23); CALCIUM LEVEL 8.7 MG/DL (8.5-10.1); CARBON DIOXIDE LEVEL 24 MMOL/L (20-31); CHLORIDE LEVEL 105 MMOL/L (98-107); CREATININE FOR GFR 0.71 MG/DL (0.70-1.30); GLOMERULAR FILTRATION RATE > 60.0 (>60); GLUCOSE, FASTING 80 MG/DL (60-100); POTASSIUM SERUM 4.5 MMOL/L (3.5-5.1); SODIUM LEVEL 139 MMOL/L (136-145)
[2022-07-31 08:24] VITALS: BP 128/77
[2022-07-31] MEDS: LINEZOLID 600MG TABLET (ZYVOX) PO SCH ×2 (08:55→20:26)
[2022-07-31] MEDS: MULTIVITAMINS/MINERALS THERAP 1 TAB PO SCH (08:55)
[2022-07-31] MEDS: ASPIRIN 81MG ENTERIC TABLET PO SCH (08:55)
[2022-07-31] MEDS: METHYLPHENIDATE 20 MG SR TAB (RITALIN SR) PO SCH (08:55)
[2022-07-31] MEDS: METHADONE 10MG TAB PO SCH (08:55)
[2022-07-31] MEDS: NICOTINE 21MG/24HR 1 EA TRANSDERMAL TD SCH (08:57)
[2022-07-31] MEDS: METHYLPHENIDATE 5 MG TAB PO SCH (15:53)
[2022-08-01 06:00] VITALS: BP 113/58
[2022-08-01] MEDS: ASPIRIN 81MG ENTERIC TABLET PO SCH (08:30)
[2022-08-01] MEDS: LINEZOLID 600MG TABLET (ZYVOX) PO SCH ×2 (08:30→20:29)
[2022-08-01] MEDS: METHYLPHENIDATE 20 MG SR TAB (RITALIN SR) PO SCH (08:30)
[2022-08-01] MEDS: MULTIVITAMINS/MINERALS THERAP 1 TAB PO SCH (08:30)
[2022-08-01] MEDS: METHADONE 10MG TAB PO SCH (08:31)
[2022-08-01] MEDS: NICOTINE 21MG/24HR 1 EA TRANSDERMAL TD SCH (08:33)
[2022-08-01] MEDS: METHYLPHENIDATE 5 MG TAB PO SCH (14:50)
[2022-08-02 06:00] VITALS: BP 117/61
[2022-08-02] MEDS: ASPIRIN 81MG ENTERIC TABLET PO SCH (08:13)
[2022-08-02] MEDS: MULTIVITAMINS/MINERALS THERAP 1 TAB PO SCH (08:13)
[2022-08-02] MEDS: NICOTINE 21MG/24HR 1 EA TRANSDERMAL TD SCH (08:14)
[2022-08-02] MEDS: METHYLPHENIDATE 20 MG SR TAB (RITALIN SR) PO SCH (08:14)
[2022-08-02] MEDS: LINEZOLID 600MG TABLET (ZYVOX) PO SCH ×2 (08:15→20:13)
[2022-08-02] MEDS: METHADONE 10MG TAB PO SCH (08:15)
[2022-08-02] MEDS ORDERED: ABILIFY MAINTENA 300 MG IM ONE (09:00)
[2022-08-02] MEDS ORDERED: HEPATITIS B VACCINE 20MCG/ML 1ML SYRINGE (ADULT DOSE) IM ONE (11:00)
[2022-08-02] MEDS: METHYLPHENIDATE 5 MG TAB PO SCH (14:35)
[2022-08-02] MEDS ORDERED: BOOSTRIX/ADACEL VACCINE (DIPHTH/PERTUSS/ACELL/TETANUS) 0.5ML SYR IM ONE (17:00)
[2022-08-03 06:00] VITALS: BP 120/65
[2022-08-03] MEDS: MULTIVITAMINS/MINERALS THERAP 1 TAB PO SCH (08:43)
[2022-08-03] MEDS: METHYLPHENIDATE 20 MG SR TAB (RITALIN SR) PO SCH (08:43)
[2022-08-03] MEDS: ASPIRIN 81MG ENTERIC TABLET PO SCH (08:43)
[2022-08-03] MEDS: METHADONE 10MG TAB PO SCH (08:43)
[2022-08-03] MEDS: NICOTINE 21MG/24HR 1 EA TRANSDERMAL TD SCH (08:44)
[2022-08-03] MEDS: LINEZOLID 600MG TABLET (ZYVOX) PO SCH ×2 (08:48→20:21)
[2022-08-03] MEDS ORDERED: BOOSTRIX/ADACEL VACCINE (DIPHTH/PERTUSS/ACELL/TETANUS) 0.5ML SYR IM ONE (09:00)
[2022-08-03] MEDS: METHYLPHENIDATE 5 MG TAB PO SCH (15:26)
[2022-08-04 06:00] VITALS: BP 117/60
[2022-08-04] MEDS: METHYLPHENIDATE 20 MG SR TAB (RITALIN SR) PO SCH (08:08)
[2022-08-04] MEDS: METHADONE 10MG TAB PO SCH (08:08)
[2022-08-04] MEDS: LINEZOLID 600MG TABLET (ZYVOX) PO SCH ×2 (08:08→20:20)
[2022-08-04] MEDS: MULTIVITAMINS/MINERALS THERAP 1 TAB PO SCH (08:08)
[2022-08-04] MEDS: ASPIRIN 81MG ENTERIC TABLET PO SCH (08:08)
[2022-08-04] MEDS: NICOTINE 21MG/24HR 1 EA TRANSDERMAL TD SCH (08:09)
[2022-08-04] MEDS: METHYLPHENIDATE 5 MG TAB PO SCH (15:06)
[2022-08-05 06:00] VITALS: BP 116/63
[2022-08-05 06:32] LABS: BASO % 0.6 % (0.0-1.0); EOS # 0.2 10^3/uL (0.0-0.5); EOS % 4.9 % (0.0-3.0); HEMATOCRIT 31.8 % (42.0-52.0); HEMOGLOBIN 9.8 g/dl (13.5-17.5); LYMPH # 2.4 10^3/uL (1.5-5.0); MEAN CORPUSCULAR HEMOGLOBIN 26.8 pg (27.0-33.0); MEAN CORPUSCULAR HGB CONC 30.8 g/dl (32.0-36.5); MEAN CORPUSCULAR VOLUME 87.1 fl (80.0-96.0); MONO # 0.3 10^3/uL (0.0-0.8); MONO % 7.2 % (2.0-8.0); NEUTROPHILS # 1.7 10^3/uL (1.5-8.5); NEUTROPHILS % 36.1 % (36.0-66.0); PLATELET COUNT, AUTOMATED 211 10^3/uL (150-450); RED BLOOD COUNT 3.65 10^6/uL (4.30-6.10); WHITE BLOOD COUNT 4.7 10^3/uL (4.0-10.0)
[2022-08-05 06:55] LABS: C REACTIVE PROTEIN QUANTITATIV < 0.40 MG/DL (<1.0)
[2022-08-05 06:56] LABS: ALBUMIN 3.3 G/DL (3.2-5.2); ALKALINE PHOSPHATASE 92 U/L (46-116); ALT/SGPT 34 U/L (7.0-40); AST/SGOT 30 U/L (<34); BILIRUBIN,TOTAL 0.2 MG/DL (0.3-1.2); BLOOD UREA NITROGEN 19 MG/DL (9-23); CARBON DIOXIDE LEVEL 25 MMOL/L (20-31); CHLORIDE LEVEL 103 MMOL/L (98-107); CREATININE FOR GFR 0.73 MG/DL (0.70-1.30); GLOMERULAR FILTRATION RATE > 60.0 (>60); GLUCOSE, FASTING 81 MG/DL (60-100); POTASSIUM SERUM 4.7 MMOL/L (3.5-5.1); SODIUM LEVEL 138 MMOL/L (136-145); TOTAL PROTEIN 6.6 G/DL (5.7-8.2)
[2022-08-05] MEDS: METHYLPHENIDATE 20 MG SR TAB (RITALIN SR) PO SCH (08:13)
[2022-08-05] MEDS: MULTIVITAMINS/MINERALS THERAP 1 TAB PO SCH (08:13)
[2022-08-05] MEDS: LINEZOLID 600MG TABLET (ZYVOX) PO SCH (08:13)
[2022-08-05] MEDS: ASPIRIN 81MG ENTERIC TABLET PO SCH (08:14)
[2022-08-05] MEDS: METHADONE 10MG TAB PO SCH (08:14)
[2022-08-05] MEDS: NICOTINE 21MG/24HR 1 EA TRANSDERMAL TD SCH (08:20)
[2022-08-05 14:30] VITALS: BP 136/74
[2022-08-05] MEDS ORDERED: VITMTA PO (14:45)
[2022-08-05] MEDS ORDERED: ASPI81TAEC PO (14:45)
[2022-08-05] MEDS ORDERED: LINE1TAB6 PO (14:46)
== END 2022-08-05 15:13 | disposition left against medical advice (07) | DRG 182 ==
LOC: EDBD 09:27 → M ED 09:27 → EEVIPCON 14:51 → M ED INP 14:51 → M ICU 22:34 → M MSPAV 07-26 21:26
PROVIDERS: ADMIT Internal Medicine Nephrology; ATTEND Internal Medicine
PROC: 03C80ZZ Extirpation of Matter from Left Brachial Artery, Open Approach (ICD-10-PCS; 2022-07-22)
PROC: 0318094 Bypass Left Brachial Artery to Left Lower Arm Artery with Autologous Venous Tissue, Open Approach (ICD-10-PCS; 2022-07-22)
PROC: 03B80ZZ Excision of Left Brachial Artery, Open Approach (ICD-10-PCS; principal; 2022-07-22 17:00)
DX: I72.1 Aneurysm of artery of upper extremity (principal); G93.41 Metabolic encephalopathy; L02.415 Cutaneous abscess of right lower limb; L02.213 Cutaneous abscess of chest wall; D64.9 Anemia, unspecified; E16.2 Hypoglycemia, unspecified; B18.2 Chronic viral hepatitis C; F15.10 Other stimulant abuse, uncomplicated; F11.10 Opioid abuse, uncomplicated; F16.10 Hallucinogen abuse, uncomplicated; F60.2 Antisocial personality disorder; F32.A Depression, unspecified; F90.9 Attention-deficit hyperactivity disorder, unspecified type; F41.9 Anxiety disorder, unspecified; Z88.1 Allergy status to other antibiotic agents; Z88.8 Allergy status to other drugs, medicaments and biological substances; F17.210 Nicotine dependence, cigarettes, uncomplicated; Z59.00 Homelessness unspecified; Z56.0 Unemployment, unspecified; Z91.14 Patient's other noncompliance with medication regimen

== ENCOUNTER 2022-08-09 19:43 | Emergency (ER) | payer OTHER ==
[~2022-08-09] VITALS: Ht 188 cm; Wt 87.6 kg
[~2022-08-09 19:43] MED LIST changes: +ASPI81TAEC PO; +LINE1TAB6 PO
[2022-08-09 22:18] LABS: BASO % 0.4 % (0.0-1.0); EOS # 0.1 10^3/uL (0.0-0.5); EOS % 1.1 % (0.0-3.0); HEMATOCRIT 36.3 % (42.0-52.0); HEMOGLOBIN 11.4 g/dl (13.5-17.5); LYMPH # 2.1 10^3/uL (1.5-5.0); LYMPH % 26.2 % (24.0-44.0); MEAN CORPUSCULAR HEMOGLOBIN 27.4 pg (27.0-33.0); MEAN CORPUSCULAR HGB CONC 31.4 g/dl (32.0-36.5); MEAN CORPUSCULAR VOLUME 87.3 fl (80.0-96.0); MONO # 0.5 10^3/uL (0.0-0.8); MONO % 5.8 % (2.0-8.0); NEUTROPHILS # 5.3 10^3/uL (1.5-8.5); NEUTROPHILS % 66.3 % (36.0-66.0); PLATELET COUNT, AUTOMATED 294 10^3/uL (150-450); RED BLOOD COUNT 4.16 10^6/uL (4.30-6.10); WHITE BLOOD COUNT 8.1 10^3/uL (4.0-10.0)
[2022-08-09 22:38] LABS: INR 0.97; PROTHROMBIN TIME 13.1 SECONDS (12.5-14.5)
[2022-08-09 23:16] LABS: ALBUMIN 4.6 G/DL (3.2-5.2); ALKALINE PHOSPHATASE 130 U/L (46-116); ALT/SGPT 46 U/L (7.0-40); AST/SGOT 31 U/L (<34); BILIRUBIN,DIRECT 0.2 MG/DL (<0.4); BILIRUBIN,TOTAL 0.5 MG/DL (0.3-1.2); BLOOD UREA NITROGEN 15 MG/DL (9-23); CARBON DIOXIDE LEVEL 28 MMOL/L (20-31); CHLORIDE LEVEL 100 MMOL/L (98-107); CREATININE FOR GFR 0.77 MG/DL (0.70-1.30); GLOMERULAR FILTRATION RATE > 60.0 (>60); GLUCOSE, FASTING 81 MG/DL (60-100); POTASSIUM SERUM 4.2 MMOL/L (3.5-5.1); SODIUM LEVEL 140 MMOL/L (136-145); TOTAL PROTEIN 8.4 G/DL (5.7-8.2)
[2022-08-10 03:13] VITALS: BP 150/70
== END 2022-08-10 06:58 | disposition left against medical advice (07) ==
LOC: M ED 19:43
DX: Z53.21 Procedure and treatment not carried out due to patient leaving prior to being seen by health care provider (principal)

== ENCOUNTER 2022-08-24 18:30 | Inpatient (IN) | payer OTHER ==
[~2022-08-24] VITALS: Ht 185.4 cm; Wt 88.1 kg
[2022-08-24] MEDS ORDERED: NS 1,000 ML IV ONE (19:40)
[2022-08-24 20:14] LABS: BASO % 0.6 % (0.0-1.0); EOS # 0.3 10^3/uL (0.0-0.5); HEMATOCRIT 39.5 % (42.0-52.0); HEMOGLOBIN 12.1 g/dl (13.5-17.5); LYMPH # 2.6 10^3/uL (1.5-5.0); LYMPH % 35.5 % (24.0-44.0); MEAN CORPUSCULAR HEMOGLOBIN 25.7 pg (27.0-33.0); MEAN CORPUSCULAR HGB CONC 30.6 g/dl (32.0-36.5); MEAN CORPUSCULAR VOLUME 83.9 fl (80.0-96.0); MONO # 0.6 10^3/uL (0.0-0.8); MONO % 7.7 % (2.0-8.0); NEUTROPHILS # 3.8 10^3/uL (1.5-8.5); NEUTROPHILS % 51.9 % (36.0-66.0); PLATELET COUNT, AUTOMATED 422 10^3/uL (150-450); RED BLOOD COUNT 4.71 10^6/uL (4.30-6.10); WHITE BLOOD COUNT 7.2 10^3/uL (4.0-10.0)
[2022-08-24 20:37] LABS: ALBUMIN 4.2 G/DL (3.2-5.2); ALKALINE PHOSPHATASE 127 U/L (46-116); ALT/SGPT 27 U/L (7.0-40); AST/SGOT 29 U/L (<34); BILIRUBIN,DIRECT < 0.1 MG/DL (<0.4); BILIRUBIN,TOTAL 0.3 MG/DL (0.3-1.2); BLOOD UREA NITROGEN 18 MG/DL (9-23); CALCIUM LEVEL 9.5 MG/DL (8.5-10.1); CARBON DIOXIDE LEVEL 28 MMOL/L (20-31); CHLORIDE LEVEL 104 MMOL/L (98-107); CREATININE FOR GFR 0.87 MG/DL (0.70-1.30); GLOMERULAR FILTRATION RATE > 60.0 (>60); GLUCOSE, FASTING 95 MG/DL (60-100); POTASSIUM SERUM 4.5 MMOL/L (3.5-5.1); SODIUM LEVEL 139 MMOL/L (136-145)
[2022-08-24] MEDS ORDERED: ISOVUE-370 76% 100ML VIAL As Ordered ONE (20:41)
[2022-08-24 20:44] LABS: ERYTHROCYTE SEDIMENTATION RATE 26 mm/hr (0-15)
[2022-08-24 21:11] LABS: RSV AMPLIFICATION NEGATIVE (NEGATIVE)
[2022-08-25] MEDS ORDERED: VANCOMYCIN HCL 2,000 MG in D5W 500 ML IV ONE (00:30)
[2022-08-25] MEDS ORDERED: ASPI81TA26 PO (00:37)
[2022-08-25] MEDS ORDERED: BUPR300T92 PO (00:37)
[2022-08-25] MEDS ORDERED: VANCOMYCIN HCL 1,000 MG, VIAL MATE ADAPTER 1 EACH in NS 250 ML IV SCH (00:55)
[2022-08-25] MEDS ORDERED: ACETAMINOPHEN TAB 650MG DOSE (2X325MG) PO PRN (00:55)
[2022-08-25] MEDS ORDERED: METH20TA29 PO (00:56)
[2022-08-25] MEDS ORDERED: VANCOMYCIN HCL 1,000 MG, VIAL MATE ADAPTER 1 EACH in NS 250 ML IV ONE ×2 (01:00→02:00)
[2022-08-25] MEDS ORDERED: HOME MED LIST COMPLETE! XX SCH (01:00)
[2022-08-25] MEDS: NS 1,000 ML IV SCH ×2 (01:15→07:55)
[2022-08-25] MEDS ORDERED: SODIUM CHLORIDE 0.9% INJ 10 ML SYR IV PRN (01:45)
[2022-08-25 02:35] VITALS: BP 112/53
[2022-08-25] MEDS ORDERED: VANCOMYCIN HCL 750 MG, VIAL MATE ADAPTER 1 EACH in D5W 250 ML IV SCH (03:00)
[2022-08-25] MEDS ORDERED: VANCOMYCIN HCL 750 MG, VIAL MATE ADAPTER 1 EACH in D5W 250 ML IV ONE (03:00)
[2022-08-25] MEDS: SODIUM CHLORIDE 0.9% INJ 10 ML SYR IV SCH ×3 (05:33→22:00)
[2022-08-25 08:00] VITALS: BP 111/56
[2022-08-25 08:36] LABS: BLOOD UREA NITROGEN 16 MG/DL (9-23); CALCIUM LEVEL 8.7 MG/DL (8.5-10.1); CARBON DIOXIDE LEVEL 27 MMOL/L (20-31); CHLORIDE LEVEL 107 MMOL/L (98-107); CREATININE FOR GFR 0.77 MG/DL (0.70-1.30); GLOMERULAR FILTRATION RATE > 60.0 (>60); GLUCOSE, FASTING 82 MG/DL (60-100); MAGNESIUM LEVEL 1.9 MG/DL (1.8-2.4); POTASSIUM SERUM 4.1 MMOL/L (3.5-5.1); SODIUM LEVEL 140 MMOL/L (136-145)
[2022-08-25] MEDS: HYDROCORTISONE 1% CREAM 30GM TOP SCH (09:00)
[2022-08-25 09:15] LABS: HEMATOCRIT 30.3 % (42.0-52.0); MEAN CORPUSCULAR HEMOGLOBIN 26.1 pg (27.0-33.0); MEAN CORPUSCULAR VOLUME 84.2 fl (80.0-96.0)
[2022-08-25 09:21] LABS: HEMOGLOBIN 9.4 g/dl (13.5-17.5); PLATELET COUNT, AUTOMATED 298 10^3/uL (150-450)
[2022-08-25] MEDS ORDERED: SILVER NITRATE APPLICATOR (1 = QTY 10) As Ordered ONE (10:54)
[2022-08-25] MEDS ORDERED: SILVER NITRATE APPLICATOR (1 = QTY 10) TOP ONE (11:10)
[2022-08-25] MEDS: VANCOMYCIN HCL 750 MG, VIAL MATE ADAPTER 1 EACH in D5W 250 ML IV SCH ×2 (11:27→22:23)
[2022-08-25 12:00] VITALS: BP 117/59
[2022-08-25] MEDS: VANCOMYCIN HCL 500 MG in D5W MINI-BAG PLUS 100 ML IV SCH ×2 (12:52→23:35)
[2022-08-25 22:00] VITALS: BP 114/54
[2022-08-26 06:00] VITALS: BP 121/63
[2022-08-26] MEDS: SODIUM CHLORIDE 0.9% INJ 10 ML SYR IV SCH (06:17)
[2022-08-26 06:45] LABS: BASO % 0.3 % (0.0-1.0); EOS # 0.3 10^3/uL (0.0-0.5); HEMATOCRIT 31.3 % (42.0-52.0); HEMOGLOBIN 9.7 g/dl (13.5-17.5); LYMPH # 2.8 10^3/uL (1.5-5.0); LYMPH % 43.7 % (24.0-44.0); MEAN CORPUSCULAR HEMOGLOBIN 25.8 pg (27.0-33.0); MEAN CORPUSCULAR VOLUME 83.2 fl (80.0-96.0); MONO # 0.6 10^3/uL (0.0-0.8); MONO % 9.9 % (2.0-8.0); NEUTROPHILS # 2.7 10^3/uL (1.5-8.5); NEUTROPHILS % 41.8 % (36.0-66.0); PLATELET COUNT, AUTOMATED 294 10^3/uL (150-450); RED BLOOD COUNT 3.76 10^6/uL (4.30-6.10); WHITE BLOOD COUNT 6.5 10^3/uL (4.0-10.0)
[2022-08-26 07:10] LABS: BLOOD UREA NITROGEN 10 MG/DL (9-23); CALCIUM LEVEL 8.9 MG/DL (8.5-10.1); CARBON DIOXIDE LEVEL 28 MMOL/L (20-31); CHLORIDE LEVEL 105 MMOL/L (98-107); CREATININE FOR GFR 0.74 MG/DL (0.70-1.30); GLOMERULAR FILTRATION RATE > 60.0 (>60); GLUCOSE, FASTING 84 MG/DL (60-100); POTASSIUM SERUM 3.8 MMOL/L (3.5-5.1); SODIUM LEVEL 140 MMOL/L (136-145)
[2022-08-26 07:48] VITALS: BP 108/51
[2022-08-26] MEDS: HYDROCORTISONE 1% CREAM 30GM TOP SCH (09:00)
[2022-08-26] MEDS ORDERED: METHADONE 10MG TAB PO ONE (09:05)
[2022-08-26] MEDS ORDERED: HYDR1CR TOP ×2 (09:16→09:17)
[2022-08-26] MEDS ORDERED: DOXY-444 PO (09:16)
[2022-08-26] MEDS: DOXYCYCLINE HYCLATE 100MG TABLET PO SCH ×2 (11:26→21:56)
[2022-08-26 12:00] VITALS: BP 118/64
[2022-08-26] MEDS: METHYLPHENIDATE 5 MG TAB PO SCH (15:16)
[2022-08-27 03:48] VITALS: BP 128/61
[2022-08-27] MEDS ORDERED: METHYLPHENIDATE 20 MG SR TAB (RITALIN SR) PO SCH (08:00)
[2022-08-27] MEDS: DOXYCYCLINE HYCLATE 100MG TABLET PO SCH (08:48)
[2022-08-27] MEDS: HYDROCORTISONE 1% CREAM 30GM TOP SCH (08:48)
[2022-08-27] MEDS ORDERED: METHADONE 10MG TAB PO SCH (09:00)
[2022-08-27] MEDS: METHYLPHENIDATE 5 MG TAB PO SCH (12:02)
== END 2022-08-27 12:39 | disposition home or self-care (01) | DRG 721 ==
LOC: M ED 18:30 → M ED INP 08-25 00:52 → M PCU 08-25 02:34 → M MSPAV 08-27 03:44
PROVIDERS: ADMIT Family Medicine; ATTEND Internal Medicine
PROC: 0HBEXZZ Excision of Left Lower Arm Skin, External Approach (ICD-10-PCS; principal; 2022-08-25)
DX: T81.41XA Infection following a procedure, superficial incisional surgical site, initial encounter (principal); F32.A Depression, unspecified; Y83.8 Other surgical procedures as the cause of abnormal reaction of the patient, or of later complication, without mention of misadventure at the time of the procedure; F90.9 Attention-deficit hyperactivity disorder, unspecified type; F41.9 Anxiety disorder, unspecified; M79.89 Other specified soft tissue disorders; L98.8 Other specified disorders of the skin and subcutaneous tissue; D64.9 Anemia, unspecified; L24.A0 Irritant contact dermatitis due to friction or contact with body fluids, unspecified; F17.210 Nicotine dependence, cigarettes, uncomplicated; F11.10 Opioid abuse, uncomplicated; F15.10 Other stimulant abuse, uncomplicated; Z79.899 Other long term (current) drug therapy; Z88.6 Allergy status to analgesic agent; Z88.1 Allergy status to other antibiotic agents; Z88.8 Allergy status to other drugs, medicaments and biological substances; Z59.00 Homelessness unspecified

== ENCOUNTER 2022-08-30 10:42 | Inpatient (IN) | payer OTHER ==
[~2022-08-30] VITALS: Ht 188 cm; Wt 90.1 kg
[~2022-08-30 10:42] MED LIST changes: +ASPI81TA26 PO; +BUPR300T92 PO; +DOXY-444 PO; +HYDR1CR TOP
[2022-08-30 15:48] LABS: BASO % 0.2 % (0.0-1.0); EOS % 0.1 % (0.0-3.0); HEMATOCRIT 36.3 % (42.0-52.0); HEMOGLOBIN 11.2 g/dl (13.5-17.5); LYMPH # 1.6 10^3/uL (1.5-5.0); LYMPH % 15.1 % (24.0-44.0); MEAN CORPUSCULAR HEMOGLOBIN 25.2 pg (27.0-33.0); MEAN CORPUSCULAR HGB CONC 30.9 g/dl (32.0-36.5); MEAN CORPUSCULAR VOLUME 81.8 fl (80.0-96.0); MONO # 0.6 10^3/uL (0.0-0.8); MONO % 5.9 % (2.0-8.0); NEUTROPHILS % 78.3 % (36.0-66.0); PLATELET COUNT, AUTOMATED 343 10^3/uL (150-450); RED BLOOD COUNT 4.44 10^6/uL (4.30-6.10); WHITE BLOOD COUNT 10.2 10^3/uL (4.0-10.0)
[2022-08-30 16:06] LABS: ERYTHROCYTE SEDIMENTATION RATE 52 mm/hr (0-15)
[2022-08-30] MEDS ORDERED: DALBAVANCIN 1,500 MG in D5W 250 ML IV ONE (16:30)
[2022-08-30 16:42] LABS: ALBUMIN 3.9 G/DL (3.2-5.2); ALKALINE PHOSPHATASE 106 U/L (46-116); ALT/SGPT 21 U/L (7.0-40); AST/SGOT 24 U/L (<34); BILIRUBIN,DIRECT 0.1 MG/DL (<0.4); BILIRUBIN,TOTAL 0.4 MG/DL (0.3-1.2); BLOOD UREA NITROGEN 18 MG/DL (9-23); CALCIUM LEVEL 9.4 MG/DL (8.5-10.1); CARBON DIOXIDE LEVEL 31 MMOL/L (20-31); CHLORIDE LEVEL 103 MMOL/L (98-107); CREATININE FOR GFR 0.72 MG/DL (0.70-1.30); GLOMERULAR FILTRATION RATE > 60.0 (>60); GLUCOSE, FASTING 76 MG/DL (60-100); POTASSIUM SERUM 4.6 MMOL/L (3.5-5.1); SODIUM LEVEL 138 MMOL/L (136-145); TOTAL PROTEIN 7.8 G/DL (5.7-8.2)
[2022-08-30 16:57] LABS: ETHYL ALCOHOL (ETHANOL) 0.003 % (0.000-0.010)
[2022-08-30 16:59] LABS: ACETAMINOPHEN LEVEL < 2.0 UG/ML (10.0-20.0); SALICYLATE LEVEL < 3.0 MG/DL (<30)
[2022-08-30 17:02] LABS: THYROID STIMULATING HORMONE 2.403 uIU/ML (0.55-4.78)
[2022-08-30 20:23] LABS: RSV AMPLIFICATION NEGATIVE (NEGATIVE)
[2022-08-30 22:11] LABS: AMPHETAMINES LEVEL URINE NEGATIVE (NEGATIVE); OPIATES URINE NEGATIVE (NEGATIVE); PHENCYCLIDINE URINE NEGATIVE (NEGATIVE)
[2022-08-30 22:12] LABS: BENZODIAZEPINES URINE NEGATIVE (NEGATIVE); CANNABINOIDS URINE NEGATIVE (NEGATIVE)
[2022-08-30 22:13] LABS: BARBITURATES URINE NEGATIVE (NEGATIVE); COCAINE METABOLITE URINE NEGATIVE (NEGATIVE)
[2022-08-30 22:14] LABS: METHADONE URINE POSITIVE (NEGATIVE)
[2022-08-30] MEDS ORDERED: HOME MED LIST COMPLETE! XX SCH (23:15)
[2022-08-31] MEDS ORDERED: OLANZapine ORAL DISINTEGRATING TAB 5MG PO PRN (00:20)
[2022-08-31] MEDS ORDERED: ACETAMINOPHEN TAB 650MG DOSE (2X325MG) PO PRN (00:20)
[2022-08-31] MEDS ORDERED: MOM 30ML SUSPENSION UDC PO PRN (00:20)
[2022-08-31] MEDS ORDERED: MAALOX 30 ML SUSP *UDC PO PRN (00:20)
[2022-08-31] MEDS ORDERED: traZODone 50 MG TAB PO PRN (00:20)
[2022-08-31 04:56] VITALS: BP 119/57
[2022-08-31] MEDS: NICOTINE 21MG/24HR 1 EA TRANSDERMAL TD SCH (09:55)
[2022-08-31] MEDS: METHADONE 10MG TAB PO SCH (16:44)
[2022-08-31 18:38] VITALS: BP 159/89
[2022-09-01 06:26] VITALS: BP 119/67
[2022-09-01] MEDS ORDERED: METHYLPHENIDATE 5 MG TAB PO SCH (09:00)
[2022-09-01] MEDS: METHYLPHENIDATE 20 MG SR TAB (RITALIN SR) PO SCH (09:55)
[2022-09-01] MEDS: METHADONE 10MG TAB PO SCH (09:57)
[2022-09-01] MEDS: NICOTINE 21MG/24HR 1 EA TRANSDERMAL TD SCH (11:20)
[2022-09-01] MEDS ORDERED: PILL CUTTER 1 EACH XX PRN (15:55)
[2022-09-01 18:43] VITALS: BP 130/78
[2022-09-01] MEDS: traZODone 50 MG TAB PO SCH (20:30)
[2022-09-02 06:29] VITALS: BP 107/58
[2022-09-02] MEDS: METHYLPHENIDATE 20 MG SR TAB (RITALIN SR) PO SCH (09:19)
[2022-09-02] MEDS: NICOTINE 21MG/24HR 1 EA TRANSDERMAL TD SCH (09:19)
[2022-09-02] MEDS: METHADONE 10MG TAB PO SCH (09:19)
[2022-09-02] MEDS ORDERED: ABILIFY MAINTENA 300 MG IM ONE (12:00)
[2022-09-02 16:47] VITALS: BP 140/70
[2022-09-02] MEDS: traZODone 50 MG TAB PO SCH (20:00)
[2022-09-03 06:40] VITALS: BP 124/66
[2022-09-03] MEDS: METHYLPHENIDATE 20 MG SR TAB (RITALIN SR) PO SCH (09:38)
[2022-09-03] MEDS: METHADONE 10MG TAB PO SCH (09:38)
[2022-09-03] MEDS: NICOTINE 21MG/24HR 1 EA TRANSDERMAL TD SCH (09:38)
[2022-09-03 16:27] VITALS: BP 138/79
[2022-09-03] MEDS: traZODone 50 MG TAB PO SCH (22:14)
[2022-09-04 06:43] VITALS: BP 99/54
[2022-09-04] MEDS: METHADONE 10MG TAB PO SCH (08:31)
[2022-09-04] MEDS: NICOTINE 21MG/24HR 1 EA TRANSDERMAL TD SCH (08:31)
[2022-09-04] MEDS: METHYLPHENIDATE 20 MG SR TAB (RITALIN SR) PO SCH (08:31)
[2022-09-04 16:25] VITALS: BP 136/66
[2022-09-04] MEDS: traZODone 50 MG TAB PO SCH (21:04)
[2022-09-05 06:23] VITALS: BP 121/58
[2022-09-05] MEDS: NICOTINE 21MG/24HR 1 EA TRANSDERMAL TD SCH (09:00)
[2022-09-05] MEDS ORDERED: TRAZ-252 PO (09:31)
[2022-09-05] MEDS: METHYLPHENIDATE 20 MG SR TAB (RITALIN SR) PO SCH (10:00)
[2022-09-05] MEDS: METHADONE 10MG TAB PO SCH (10:02)
== END 2022-09-05 10:37 | disposition home or self-care (01) | DRG 755 ==
LOC: M ED 10:42 → M ED INP 08-31 00:16 → M PSY 08-31 04:51
PROVIDERS: ADMIT Psychiatry & Neurology Psychiatry; ATTEND Psychiatry & Neurology Psychiatry
DX: F43.23 Adjustment disorder with mixed anxiety and depressed mood (principal); F11.14 Opioid abuse with opioid-induced mood disorder; F41.8 Other specified anxiety disorders; F60.2 Antisocial personality disorder; F17.200 Nicotine dependence, unspecified, uncomplicated; F15.14 Other stimulant abuse with stimulant-induced mood disorder; F32.89 Other specified depressive episodes; Z86.718 Personal history of other venous thrombosis and embolism; Z88.6 Allergy status to analgesic agent; Z59.02 Unsheltered homelessness; Z88.1 Allergy status to other antibiotic agents; Z98.890 Other specified postprocedural states

== ENCOUNTER 2022-09-21 01:44 | Inpatient (IN) | payer OTHER ==
[~2022-09-21] VITALS: Ht 188 cm; Wt 92.0 kg
[~2022-09-21 01:44] MED LIST changes: +TRAZ-252 PO
[2022-09-21 02:45] LABS: HEMATOCRIT 34.3 % (42.0-52.0); HEMOGLOBIN 10.6 g/dl (13.5-17.5); MEAN CORPUSCULAR HEMOGLOBIN 24.9 pg (27.0-33.0); MEAN CORPUSCULAR HGB CONC 30.9 g/dl (32.0-36.5); MEAN CORPUSCULAR VOLUME 80.5 fl (80.0-96.0); PLATELET COUNT, AUTOMATED 343 10^3/uL (150-450); RED BLOOD COUNT 4.26 10^6/uL (4.30-6.10); WHITE BLOOD COUNT 7.3 10^3/uL (4.0-10.0)
[2022-09-21 03:01] LABS: PHENCYCLIDINE URINE NEGATIVE (NEGATIVE)
[2022-09-21 03:02] LABS: AMPHETAMINES LEVEL URINE NEGATIVE (NEGATIVE); BARBITURATES URINE NEGATIVE (NEGATIVE); BENZODIAZEPINES URINE NEGATIVE (NEGATIVE); CANNABINOIDS URINE NEGATIVE (NEGATIVE); COCAINE METABOLITE URINE NEGATIVE (NEGATIVE); OPIATES URINE NEGATIVE (NEGATIVE)
[2022-09-21 03:04] LABS: ETHYL ALCOHOL (ETHANOL) < 0.003 % (0.000-0.010); METHADONE URINE POSITIVE (NEGATIVE)
[2022-09-21 03:06] LABS: ACETAMINOPHEN LEVEL < 2.0 UG/ML (10.0-20.0); SALICYLATE LEVEL < 3.0 MG/DL (<30)
[2022-09-21 03:11] LABS: ALBUMIN 3.3 G/DL (3.2-5.2); ALKALINE PHOSPHATASE 93 U/L (46-116); ALT/SGPT 50 U/L (7.0-40); AST/SGOT 41 U/L (<34); BILIRUBIN,DIRECT < 0.1 MG/DL (<0.4); BILIRUBIN,TOTAL 0.2 MG/DL (0.3-1.2); BLOOD UREA NITROGEN 17 MG/DL (9-23); CALCIUM LEVEL 8.6 MG/DL (8.5-10.1); CARBON DIOXIDE LEVEL 26 MMOL/L (20-31); CHLORIDE LEVEL 106 MMOL/L (98-107); CREATININE FOR GFR 0.68 MG/DL (0.70-1.30); GLOMERULAR FILTRATION RATE > 60.0 (>60); GLUCOSE, FASTING 87 MG/DL (60-100); POTASSIUM SERUM 4.3 MMOL/L (3.5-5.1); SODIUM LEVEL 138 MMOL/L (136-145); THYROID STIMULATING HORMONE 3.367 uIU/ML (0.55-4.78); TOTAL PROTEIN 6.6 G/DL (5.7-8.2)
[2022-09-21] MEDS ORDERED: HOME MED LIST COMPLETE! XX SCH ×2 (05:20→08:55)
[2022-09-21] MEDS ORDERED: ACETAMINOPHEN TAB 650MG DOSE (2X325MG) PO PRN (06:25)
[2022-09-21] MEDS ORDERED: OLANZapine ORAL DISINTEGRATING TAB 5MG PO PRN (06:25)
[2022-09-21] MEDS ORDERED: traZODone 25MG PER 1/2 TABLET PO PRN (06:25)
[2022-09-21] MEDS ORDERED: MOM 30ML SUSPENSION UDC PO PRN (06:25)
[2022-09-21] MEDS ORDERED: MAALOX 30 ML SUSP *UDC PO PRN (06:25)
[2022-09-21 08:40] VITALS: BP 124/60
[2022-09-21] MEDS: METHADONE 10MG TAB PO SCH (09:13)
[2022-09-21] MEDS: METHYLPHENIDATE 20 MG SR TAB (RITALIN SR) PO SCH (11:37)
[2022-09-21 16:34] VITALS: BP 140/68
[2022-09-22 06:29] VITALS: BP 97/58
[2022-09-22] MEDS: METHYLPHENIDATE 20 MG SR TAB (RITALIN SR) PO SCH (08:07)
[2022-09-22] MEDS: METHADONE 10MG TAB PO SCH (08:07)
[2022-09-22 16:38] VITALS: BP 140/70
[2022-09-22] MEDS: NICOTINE 21MG/24HR 1 EA TRANSDERMAL TD PRN (18:12)
[2022-09-23 06:15] VITALS: BP 120/59
[2022-09-23] MEDS: NICOTINE 21MG/24HR 1 EA TRANSDERMAL TD PRN (08:40)
[2022-09-23] MEDS: METHYLPHENIDATE 20 MG SR TAB (RITALIN SR) PO SCH (08:41)
[2022-09-23] MEDS: METHADONE 10MG TAB PO SCH (08:41)
[2022-09-23 15:30] VITALS: BP 132/93
[2022-09-24 06:25] VITALS: BP 112/59
[2022-09-24] MEDS: METHADONE 10MG TAB PO SCH (09:33)
[2022-09-24] MEDS: METHYLPHENIDATE 20 MG SR TAB (RITALIN SR) PO SCH (09:33)
[2022-09-24] MEDS: NICOTINE 21MG/24HR 1 EA TRANSDERMAL TD PRN (09:37)
[2022-09-24 15:15] VITALS: BP 145/67
[2022-09-25 06:13] VITALS: BP 115/53
[2022-09-25] MEDS: METHADONE 10MG TAB PO SCH (08:37)
[2022-09-25] MEDS: METHYLPHENIDATE 20 MG SR TAB (RITALIN SR) PO SCH (08:37)
[2022-09-25 13:21] LABS: BASO % 0.4 % (0.0-1.0); EOS # 0.1 10^3/uL (0.0-0.5); EOS % 1.8 % (0.0-3.0); HEMATOCRIT 39.3 % (42.0-52.0); HEMOGLOBIN 12.3 g/dl (13.5-17.5); LYMPH # 2.1 10^3/uL (1.5-5.0); LYMPH % 31.2 % (24.0-44.0); MEAN CORPUSCULAR HEMOGLOBIN 24.7 pg (27.0-33.0); MEAN CORPUSCULAR HGB CONC 31.3 g/dl (32.0-36.5); MEAN CORPUSCULAR VOLUME 78.9 fl (80.0-96.0); MONO # 0.4 10^3/uL (0.0-0.8); MONO % 6.4 % (2.0-8.0); NEUTROPHILS # 4.1 10^3/uL (1.5-8.5); NEUTROPHILS % 59.8 % (36.0-66.0); PLATELET COUNT, AUTOMATED 333 10^3/uL (150-450); RED BLOOD COUNT 4.98 10^6/uL (4.30-6.10); WHITE BLOOD COUNT 6.9 10^3/uL (4.0-10.0)
[2022-09-25 13:49] LABS: BLOOD UREA NITROGEN 17 MG/DL (9-23); CALCIUM LEVEL 8.9 MG/DL (8.5-10.1); CARBON DIOXIDE LEVEL 28 MMOL/L (20-31); CHLORIDE LEVEL 105 MMOL/L (98-107); CREATININE FOR GFR 0.78 MG/DL (0.70-1.30); GLOMERULAR FILTRATION RATE > 60.0 (>60); GLUCOSE, FASTING 94 MG/DL (60-100); POTASSIUM SERUM 4.4 MMOL/L (3.5-5.1); SODIUM LEVEL 140 MMOL/L (136-145)
[2022-09-25] MEDS: NICOTINE 21MG/24HR 1 EA TRANSDERMAL TD PRN (13:49)
[2022-09-25] MEDS ORDERED: BACT800T5 PO (14:27)
[2022-09-25] MEDS ORDERED: BACTRIM 160MG/800MG DS TAB PO ONE (14:30)
[2022-09-25 17:53] VITALS: BP 137/63
[2022-09-26 06:57] VITALS: BP 120/75
[2022-09-26] MEDS: METHADONE 10MG TAB PO SCH (08:27)
[2022-09-26] MEDS: NICOTINE 21MG/24HR 1 EA TRANSDERMAL TD PRN (08:27)
[2022-09-26] MEDS: METHYLPHENIDATE 20 MG SR TAB (RITALIN SR) PO SCH (08:28)
[2022-09-26] MEDS ORDERED: BACTRIM 160MG/800MG DS TAB PO SCH (09:00)
== END 2022-09-26 10:20 | disposition other institution (70) | DRG 753 ==
LOC: M ED 01:44 → M ED INP 06:25 → M PSY 08:41
PROVIDERS: ADMIT Psychiatry & Neurology Psychiatry; ATTEND Psychiatry & Neurology Psychiatry
DX: F32.89 Other specified depressive episodes (principal); L02.415 Cutaneous abscess of right lower limb; R45.850 Homicidal ideations; F41.8 Other specified anxiety disorders; Z59.00 Homelessness unspecified; F15.10 Other stimulant abuse, uncomplicated; B19.20 Unspecified viral hepatitis C without hepatic coma; F60.89 Other specific personality disorders; F11.10 Opioid abuse, uncomplicated; Z63.0 Problems in relationship with spouse or partner; Z79.899 Other long term (current) drug therapy; Z88.1 Allergy status to other antibiotic agents; Z88.8 Allergy status to other drugs, medicaments and biological substances

== ENCOUNTER 2022-11-25 18:26 | Emergency (ER) | payer OTHER ==
[~2022-11-25] VITALS: Ht 188 cm; Wt 88.2 kg
[2022-11-25] MEDS ORDERED: ABIL1INJ2 (18:33)
[2022-11-25] MEDS ORDERED: ABIL1INJ2 IM (20:00)
[2022-11-25] MEDS ORDERED: HOME MED LIST COMPLETE! XX SCH (20:05)
[2022-11-25] MEDS ORDERED: ACETAMINOPHEN TAB 650MG DOSE (2X325MG) PO ONE (20:15)
[2022-11-25 20:21] LABS: HEMATOCRIT 37.5 % (42.0-52.0); HEMOGLOBIN 11.8 g/dl (13.5-17.5); MEAN CORPUSCULAR HEMOGLOBIN 23.3 pg (27.0-33.0); MEAN CORPUSCULAR HGB CONC 31.5 g/dl (32.0-36.5); MEAN CORPUSCULAR VOLUME 74.1 fl (80.0-96.0); PLATELET COUNT, AUTOMATED 253 10^3/uL (150-450); RED BLOOD COUNT 5.06 10^6/uL (4.30-6.10); WHITE BLOOD COUNT 5.1 10^3/uL (4.0-10.0)
[2022-11-25 20:23] LABS: AMPHETAMINES LEVEL URINE NEGATIVE (NEGATIVE); BARBITURATES URINE NEGATIVE (NEGATIVE); COCAINE METABOLITE URINE NEGATIVE (NEGATIVE); PHENCYCLIDINE URINE NEGATIVE (NEGATIVE)
[2022-11-25 20:24] LABS: BENZODIAZEPINES URINE NEGATIVE (NEGATIVE); OPIATES URINE NEGATIVE (NEGATIVE)
[2022-11-25 20:26] LABS: ETHYL ALCOHOL (ETHANOL) < 0.003 % (0.000-0.010)
[2022-11-25 20:27] LABS: ACETAMINOPHEN LEVEL < 2.0 UG/ML (10.0-20.0); SALICYLATE LEVEL < 3.0 MG/DL (<30)
[2022-11-25 20:28] LABS: ALBUMIN 3.4 G/DL (3.2-5.2); ALKALINE PHOSPHATASE 114 U/L (46-116); ALT/SGPT 53 U/L (7.0-40); AST/SGOT 46 U/L (<34); BILIRUBIN,DIRECT 0.2 MG/DL (<0.4); BILIRUBIN,TOTAL 0.5 MG/DL (0.3-1.2); BLOOD UREA NITROGEN 21 MG/DL (9-23); CALCIUM LEVEL 8.8 MG/DL (8.5-10.1); CARBON DIOXIDE LEVEL 27 MMOL/L (20-31); CHLORIDE LEVEL 104 MMOL/L (98-107); CREATININE FOR GFR 0.89 MG/DL (0.70-1.30); GLOMERULAR FILTRATION RATE > 60.0 (>60); GLUCOSE, FASTING 114 MG/DL (60-100); POTASSIUM SERUM 3.7 MMOL/L (3.5-5.1); SODIUM LEVEL 140 MMOL/L (136-145); TOTAL PROTEIN 6.7 G/DL (5.7-8.2)
[2022-11-25 20:29] LABS: CANNABINOIDS URINE POSITIVE (NEGATIVE); METHADONE URINE POSITIVE (NEGATIVE)
[2022-11-25 20:30] LABS: THYROID STIMULATING HORMONE 0.798 uIU/ML (0.55-4.78)
[2022-11-25 20:59] LABS: MONO SCRN NEGATIVE (NEGATIVE)
[2022-11-26 04:02] VITALS: BP 127/79
[2022-11-26] MEDS ORDERED: METHADONE 10MG TAB PO SCH (09:00)
[2022-11-26] MEDS ORDERED: METHYLPHENIDATE 20 MG SR TAB (RITALIN SR) PO SCH (09:00)
[2022-11-26] MEDS ORDERED: HOME MED LIST COMPLETE! XX SCH (10:35)
[2022-11-26] MEDS ORDERED: METHYLPHENIDATE 5 MG TAB PO SCH (14:00)
== END 2022-11-26 14:38 | disposition home or self-care (01) ==
LOC: M ED 18:26
DX: F32.A Depression, unspecified (principal); F19.10 Other psychoactive substance abuse, uncomplicated; F17.200 Nicotine dependence, unspecified, uncomplicated; F12.90 Cannabis use, unspecified, uncomplicated; Z88.8 Allergy status to other drugs, medicaments and biological substances; Z88.1 Allergy status to other antibiotic agents; Z79.899 Other long term (current) drug therapy
CPT/HCPCS: 36415; 80048; 80076; 80143; 80307; 82077; 84443; 85027; 86308; 87486; 87581; 87633; 87635; 87798; 99284; S0109

== ENCOUNTER 2023-01-31 18:20 | Emergency (ER) | payer OTHER ==
[~2023-01-31] VITALS: Ht 188 cm; Wt 88.5 kg
[~2023-01-31 18:20] MED LIST changes: +ABIL1INJ2; +ABIL1INJ2 IM
[2023-01-31 19:19] LABS: HEMATOCRIT 35.7 % (42.0-52.0); HEMOGLOBIN 10.9 g/dl (13.5-17.5); MEAN CORPUSCULAR HEMOGLOBIN 23.6 pg (27.0-33.0); MEAN CORPUSCULAR HGB CONC 30.5 g/dl (32.0-36.5); MEAN CORPUSCULAR VOLUME 77.3 fl (80.0-96.0); PLATELET COUNT, AUTOMATED 441 10^3/uL (150-450); RED BLOOD COUNT 4.62 10^6/uL (4.30-6.10); WHITE BLOOD COUNT 7.8 10^3/uL (4.0-10.0)
[2023-01-31 19:45] LABS: PHENCYCLIDINE URINE NEGATIVE (NEGATIVE)
[2023-01-31 19:46] LABS: ETHYL ALCOHOL (ETHANOL) < 0.003 % (0.000-0.010)
[2023-01-31 19:47] LABS: ACETAMINOPHEN LEVEL < 2.0 UG/ML (10.0-20.0); BARBITURATES URINE NEGATIVE (NEGATIVE); COCAINE METABOLITE URINE NEGATIVE (NEGATIVE); OPIATES URINE NEGATIVE (NEGATIVE)
[2023-01-31 19:48] LABS: ALBUMIN 3.4 G/DL (3.2-5.2); ALKALINE PHOSPHATASE 107 U/L (46-116); ALT/SGPT 28 U/L (7.0-40); AST/SGOT 18 U/L (<34); BENZODIAZEPINES URINE NEGATIVE (NEGATIVE); BILIRUBIN,DIRECT < 0.1 MG/DL (<0.4); BILIRUBIN,TOTAL 0.2 MG/DL (0.3-1.2); BLOOD UREA NITROGEN 20 MG/DL (9-23); CALCIUM LEVEL 8.9 MG/DL (8.5-10.1); CARBON DIOXIDE LEVEL 28 MMOL/L (20-31); CHLORIDE LEVEL 104 MMOL/L (98-107); CREATININE FOR GFR 0.78 MG/DL (0.70-1.30); GLOMERULAR FILTRATION RATE > 60.0 (>60); GLUCOSE, FASTING 83 MG/DL (60-100); POTASSIUM SERUM 4.6 MMOL/L (3.5-5.1); SALICYLATE LEVEL < 3.0 MG/DL (<30); SODIUM LEVEL 139 MMOL/L (136-145); TOTAL PROTEIN 7.3 G/DL (5.7-8.2)
[2023-01-31 19:49] LABS: AMPHETAMINES LEVEL URINE POSITIVE (NEGATIVE); CANNABINOIDS URINE POSITIVE (NEGATIVE); METHADONE URINE POSITIVE (NEGATIVE)
[2023-01-31 19:55] LABS: THYROID STIMULATING HORMONE 1.963 uIU/ML (0.55-4.78)
[2023-02-01] MEDS ORDERED: HOME MED LIST COMPLETE! XX SCH (00:40)
[2023-02-02 04:30] VITALS: BP 127/66; TEMP 98.1; O2SAT 100
== END 2023-02-02 05:01 ==
LOC: M ED 18:20
DX: R45.851 Suicidal ideations (principal); F32.A Depression, unspecified; F29 Unspecified psychosis not due to a substance or known physiological condition; B19.20 Unspecified viral hepatitis C without hepatic coma; F19.10 Other psychoactive substance abuse, uncomplicated; Z88.8 Allergy status to other drugs, medicaments and biological substances; Z88.1 Allergy status to other antibiotic agents; Z79.899 Other long term (current) drug therapy